=== PATIENT | female | born 1945 | race Caucasian/White ===

== ENCOUNTER → 2017-03-12 | Outpatient (CLI) | payer MEDICARE, BC ==
--- NOTE | 2017-03-13 08:32 | BD ---
EXAMINATION TYPE: MG DEXA axial skeleton. DATE OF EXAM: 03/12/2017 2:17 PM COMPARISON: 2014 CLINICAL HISTORY: screening for osteoporosis Height: 5'2 Weight: 269 FRAX RISK QUESTIONS: Alcohol (3 or more units per day): no Family History (Parent hip fracture): no Glucocorticoids (More than 3mos): no (Ex: prednisone, prednisolone, methylprednisolone, dexamethasone, and hydrocortisone). History of Fracture in Adulthood: no Secondary Osteoporosis: 1. Type 1 Diabetes: no 2. Hyperthyroidism: no 3. Menopause before 45: yes 4. Malnutrition: no 5. Chronic liver disease: no Rheumatoid Arthritis: no Current Tobacco Use: no RISK FACTORS HISTORY OF: Active: Diet low in dairy products/other sources of calcium: Postmenopausal woman: MEDICATIONS: Thyroid Medications: Which medication: Levothyroxine How Lon years Additional Medications: blood pressure, tremors Additional History: EXAM MEASUREMENTS: Bone mineral densitometry was performed using the [employer] System. Bone mineral density as measured about the Lumbar spine is: ----- L1-L4(G/cm2): 2.014 T Score Values are as follows: ----- L2: 5.5 ----- L3: 7.6 ----- L4: 8.1 ----- L1-L4: 7.0 Bone mineral density has: Decreased -1.3% since study of: 08/12/2015 Bone mineral density about the R hip (g/cm2): 1.321 Bone mineral density about the L hip (g/cm2): 1.395 T Score values are as follows: -----R Neck: 2.0 -----L Neck: 2.6 -----R Intertrochanter: 2.6 -----L Intertrochanter: 3.2 Bone mineral density has: Increased 4.8% since study of: 08/12/2015 IMPRESSION: No evidence for osteoporosis or osteopenia at this time. NOTE: T-SCORE=SD OF THE YOUNG ADULT MEAN.
--- NOTE | 2017-03-13 10:26 | MM ---
Reason for exam: screening (asymptomatic). Last mammogram was performed 1 year and 2 months ago. History: Patient is postmenopausal. Family history of premenopausal breast cancer in sister at age 30 and breast cancer in maternal grandmother. Benign left US cyst aspiration of the left breast, February 14, 2006. Benign stereotactic core biopsy of the right breast, June 22, 2002. Benign excisional biopsy, August 31, 1997. Physical Findings: A clinical breast exam by your physician is recommended on an annual basis and results should be correlated with mammographic findings. MG 3D Screening Mammo W/Cad Bilateral CC and MLO view(s) were taken. Prior study comparison: January 10, 2016, bilateral MG 3d screening mammo w/cad. December 07, 2014, bilateral MG screening mammo w CAD. November 19, 2013, bilateral digital screening mammo w/CAD. There are scattered fibroglandular densities. Finding: There are typically benign round calcifications in both breasts. Previous mammotome biopsy in the right and left breast. There is a chronic nodularity bilaterally. There is no discrete abnormality. ASSESSMENT: Benign, BI-RAD 2 RECOMMENDATION: Routine screening mammogram of both breasts in 1 year.
== END | disposition home or self-care (01) ==
LOC: RADMAMWWP 13:31
PROVIDERS: ATTEND Family Medicine
DX: Z12.31 Encounter for screening mammogram for malignant neoplasm of breast (principal); Z13.820 Encounter for screening for osteoporosis
CPT/HCPCS: 77080; 77063; G0202

== ENCOUNTER → 2018-03-28 | Outpatient (CLI) | payer MEDICARE ==
--- NOTE | 2018-03-31 08:47 | MM ---
Reason for exam: screening (asymptomatic). Last mammogram was performed 1 year and 1 month ago. History: Patient is postmenopausal. Family history of premenopausal breast cancer in sister at age 30 and breast cancer in maternal grandmother. Benign left US cyst aspiration of the left breast, February 14, 2006. Benign stereotactic core biopsy of the right breast, June 22, 2002. Benign excisional biopsy, August 31, 1997. Physical Findings: A clinical breast exam by your physician is recommended on an annual basis and results should be correlated with mammographic findings. MG 3D Screening Mammo W/Cad Bilateral CC and MLO view(s) were taken. Prior study comparison: March 12, 2017, bilateral MG 3d screening mammo w/cad. January 10, 2016, bilateral MG 3d screening mammo w/cad. The breast tissue is heterogeneously dense. This may lower the sensitivity of mammography. Finding: Architectural distortion in the left breast consistent with known lumpectomy. There are typically benign round dystrophic calcifications in both breasts. Previous mammotome biopsy in the left breast. There is a chronic nodularity in the right breast. There is no discrete abnormality. ASSESSMENT: Benign, BI-RAD 2 RECOMMENDATION: Routine screening mammogram of both breasts in 1 year.
== END | disposition home or self-care (01) ==
LOC: RADMAMWWP 13:13
PROVIDERS: ATTEND Family Medicine
DX: Z12.31 Encounter for screening mammogram for malignant neoplasm of breast (principal)
CPT/HCPCS: 77063; 77067

== ENCOUNTER → 2019-04-16 | Outpatient (CLI) | payer MEDICARE ==
--- NOTE | 2019-04-17 08:51 | MM ---
Reason for exam: screening (asymptomatic). Last mammogram was performed 1 year and 1 month ago. History: Patient is postmenopausal. Family history of premenopausal breast cancer in sister at age 30 and breast cancer in maternal grandmother. Benign left US cyst aspiration of the left breast, February 14, 2006. Benign stereotactic core biopsy of the right breast, June 22, 2002. Benign excisional biopsy, August 31, 1997. Physical Findings: A clinical breast exam by your physician is recommended on an annual basis and results should be correlated with mammographic findings. MG 3D Screening Mammo W/Cad Bilateral CC and MLO view(s) were taken. XCCL view(s) were taken of the right breast. Prior study comparison: March 28, 2018, bilateral MG 3d screening mammo w/cad. March 12, 2017, bilateral MG 3d screening mammo w/cad. The breast tissue is heterogeneously dense. This may lower the sensitivity of mammography. Stable benign calcifications. There is no discrete abnormality. No significant changes when compared with prior studies. ASSESSMENT: Benign, BI-RAD 2 RECOMMENDATION: Routine screening mammogram of both breasts in 1 year.
== END | disposition home or self-care (01) ==
LOC: RADMAMWWP 14:26
PROVIDERS: ATTEND Family Medicine
DX: Z12.31 Encounter for screening mammogram for malignant neoplasm of breast (principal)
CPT/HCPCS: 77063; 77067

== ENCOUNTER → 2019-08-28 | Outpatient (CLI) | payer MEDICARE ==
--- NOTE | 2019-08-28 13:54 | BD ---
EXAMINATION TYPE: Axial Bone Density DATE OF EXAM: 08/28/2019 COMPARISON: 03/12/2017 CLINICAL HISTORY: Z 78.0 Height: 61.50 Weight: 242 FRAX RISK QUESTIONS: Alcohol (3 or more units per day): no Family History (Parent hip fracture): no Glucocorticoids (More than 3mos): no (Ex: prednisone, prednisolone, methylprednisolone, dexamethasone, and hydrocortisone). History of Fracture in Adulthood: no Secondary Osteoporosis: 1. Type 1 Diabetes: no 2. Hyperthyroidism: no 3. Menopause before 45: no, 47 4. Malnutrition: no 5. Chronic liver disease: no Rheumatoid Arthritis: no Current Tobacco Use: no RISK FACTORS HISTORY OF: Family History of Osteoporosis: unsure Active: yes Diet low in dairy products/other sources of calcium: yes Postmenopausal woman: yes Take estrogen and/or progesterone medications: no Lost more than 2 inches in height since high school: no Frequent falls: no Poor Health: no Hyperparathyroidism: no Adrenal Insufficiency: no MEDICATIONS: Prednisone or other steroids: no Thyroid Medications: yes Which medication: unsure, changed med, was on Levothyroxine How Long: about 25 years Osteoporosis Medications: no Additional Medications: blood pressure , Symbicort Additional History: bilateral knee replacements EXAM MEASUREMENTS: Bone mineral densitometry was performed using the [employer] System. Bone mineral density as measured about the Lumbar spine is: ----- L1-L4(G/cm2): 2.046 T Score Values are as follows: ----- L2: 5.8 ----- L3: 8.6 ----- L4: 7.6 ----- L1-L4: 7.2 Bone mineral density has: Increased 1.8% since study of: 03/12/2017 Bone mineral density about the R hip (g/cm2): 1.444 Bone mineral density about the L hip (g/cm2): 1.326 T Score values are as follows: -----R Neck: 2.9 -----L Neck: 2.1 -----R Total: 3.5 -----L Total: 3.4 Bone mineral density has: Decreased -0.5% since study of: 03/12/2017 IMPRESSION: Normal (Values between +1 and -1 indicate normal bone mass). Consider repeating this study in 5 year s or sooner if there is some new clinical indication. NOTE: T-SCORE=SD OF THE YOUNG ADULT MEAN.
== END | disposition home or self-care (01) ==
LOC: RADBDWWP 10:06
PROVIDERS: ATTEND Family Medicine
DX: Z78.0 Asymptomatic menopausal state (principal); E55.9 Vitamin D deficiency, unspecified
CPT/HCPCS: 77080

== ENCOUNTER → 2020-08-15 | Outpatient (CLI) | payer MEDICARE ==
--- NOTE | 2020-08-17 09:45 | MM ---
Reason for exam: screening (asymptomatic). Last mammogram was performed 1 year and 4 months ago. History: Patient is postmenopausal. Family history of premenopausal breast cancer in sister at age 30 and breast cancer in maternal grandmother. Benign left US cyst aspiration of the left breast, February 14, 2006. Benign stereotactic core biopsy of the right breast, June 22, 2002. Benign excisional biopsy, August 31, 1997. Physical Findings: A clinical breast exam by your physician is recommended on an annual basis and results should be correlated with mammographic findings. MG 3D Screening Mammo W/Cad Bilateral CC and MLO view(s) were taken. Prior study comparison: April 16, 2019, bilateral MG 3d screening mammo w/cad. March 28, 2018, bilateral MG 3d screening mammo w/cad. There are scattered fibroglandular densities. Previous mammotome biopsy in the left breast. No significant changes when compared with prior studies. ASSESSMENT: Benign, BI-RAD 2 RECOMMENDATION: Routine screening mammogram of both breasts in 1 year.
== END | disposition home or self-care (01) ==
LOC: RADMAMWWP 13:44
PROVIDERS: ATTEND Family Medicine
DX: Z12.31 Encounter for screening mammogram for malignant neoplasm of breast (principal)
CPT/HCPCS: 77063; 77067

== ENCOUNTER → 2021-10-16 | Outpatient (CLI) | payer MEDICARE ==
--- NOTE | 2021-10-17 12:45 | MM ---
Reason for exam: screening (asymptomatic). Last mammogram was performed 1 year and 2 months ago. History: Patient is postmenopausal. Family history of premenopausal breast cancer in sister at age 30 and breast cancer in maternal grandmother. Benign left US cyst aspiration of the left breast, February 14, 2006. Benign stereotactic core biopsy of the right breast, June 22, 2002. Benign excisional biopsy, August 31, 1997. Took hormonal contraceptives for 5 years. Physical Findings: A clinical breast exam by your physician is recommended on an annual basis and results should be correlated with mammographic findings. MG 3D Screening Mammo W/Cad Bilateral CC and MLO view(s) were taken. Prior study comparison: August 15, 2020, bilateral MG 3d screening mammo w/cad. April 16, 2019, bilateral MG 3d screening mammo w/cad. The breast tissue is heterogeneously dense. This may lower the sensitivity of mammography. Stable benign calcifications. There is no discrete abnormality. No significant changes when compared with prior studies. ASSESSMENT: Benign, BI-RAD 2 RECOMMENDATION: Routine screening mammogram of both breasts in 1 year.
== END | disposition home or self-care (01) ==
LOC: RADMAMWWP 15:10
PROVIDERS: ATTEND Family Medicine
DX: Z12.31 Encounter for screening mammogram for malignant neoplasm of breast (principal); Z80.3 Family history of malignant neoplasm of breast; Z78.0 Asymptomatic menopausal state; R92.1 Mammographic calcification found on diagnostic imaging of breast
CPT/HCPCS: 77063; 77067

== ENCOUNTER → 2022-11-30 | Outpatient (CLI) | payer MEDICARE ==
--- NOTE | 2022-12-03 08:11 | MM ---
Reason for Exam: Screening (asymptomatic). Last mammogram was performed 1 year(s) and 2 month(s) ago. Patient History: Menarche at age 12. First Full-Term at age 20. Hysterectomy at age 36. Postmenopausal. Patient used Hormonal Contraceptives for 5 years. 02/14/2006, Benign Cyst Aspiration on the left side. 06/22/2002, Benign Stereotactic Core Biopsy on the right side. Benign Excisional Biopsy. Maternal grandmother had breast cancer. Sister had breast cancer, age 30. Risk Values: Corinna 5 year model risk: 5.4%. NCI Lifetime model risk: 10.6%. Prior Study Comparison: 04/16/2019 Bilateral Screening Mammogram, [facility]. 08/15/2020 Bilateral Screening Mammogram, [facility]. 10/16/2021 Bilateral Screening Mammogram, [facility]. Tissue Density: The breast tissue is heterogeneously dense. This may lower the sensitivity of mammography. Findings: Analyzed By CAD. There is no suspicious group of microcalcifications or new suspicious mass in either breast. Overall Assessment: Negative, BI-RAD 1 Management: Screening Mammogram of both breasts in 1 year. A clinical breast exam by your physician is recommended on an annual basis and results should be correlated with mammographic findings. [facility] will attempt to contact patient to return for supplemental views and ultrasound if indicated. Electronically signed and approved by: Dashawn Warner DO
== END | disposition home or self-care (01) ==
LOC: RADMAMWWP 14:09
PROVIDERS: ATTEND Family Medicine
DX: Z12.31 Encounter for screening mammogram for malignant neoplasm of breast (principal); Z78.0 Asymptomatic menopausal state; Z80.3 Family history of malignant neoplasm of breast; Z98.890 Other specified postprocedural states
CPT/HCPCS: 77063; 77067

== ENCOUNTER 2024-02-26 17:02 | Emergency (ER) | payer MEDICARE ==
[2024-02-26] MEDS: DIPH,PERTUS(ACELL)TETVAC-LF 0.5 ML VIAL IM ONE (17:31)
[2024-02-26] MEDS: BACITRACIN OINT 1 EACH PACKET TOPICAL ONE (17:32)
[2024-02-26 17:40] VITALS: TEMP 97.6
--- NOTE | 2024-02-26 17:47 | CT ---
EXAMINATION TYPE: CT brain cspine wo con CT DLP: 1360.7 mGycm, Automated exposure control for dose reduction was used. DATE OF EXAM: 02/26/2024 5:35 PM COMPARISON: None. CLINICAL INDICATION:Female, 78 years old with history of fall on eliquis; Fall on eliquis. TECHNIQUE: Brain: Multiple axial CT images of the brain were obtained without IV contrast. Cspine: Axial CT images from the skull base to the inferior aspect of T2 we obtained without intraven ous contrast. Coronal and sagittal reformatted images were also reviewed. FINDINGS: Brain: Extra-axial spaces: No abnormal extra-axial fluid collections. Ventricular system: Within normal limits Cerebral parenchyma: No acute intraparenchymal hemorrhage or mass effect. The disla-white junction is well differentiated. Cerebellum: Unremarkable. Mass effect: No evidence of midline shift. Intracranial vasculature: unremarkable Soft tissues: Normal. Calvarium/osseous structures: No depressed skull fracture. Paranasal sinuses and mastoid air cells: Complete opacification of the paranasal sinuses most pronoun felice in the frontal, maxillary, sphenoid and anterior ethmoid air cells. Visualized orbits: Orbital contents are intact. Cervical spine: Fracture: None. Osseous structures: Multilevel degenerative disc disease changes with endplate spurring and disc oste ophyte complex's. Vertebral alignment: Within normal limits. Spinal canal/Neural Foramina: No evidence of significant spinal canal narrowing. No evidence for sign ificant neural foraminal stenosis. Neck soft tissues: Prevertebral soft tissues are within normal limits. Other: The airway is patent. The lung apices are clear. IMPRESSION: 1. No acute intracranial process. 2. Severe paranasal sinus disease with near complete opacification of the maxillary sinuses, sphenoi d, ethmoid air cells and frontal sinuses. 3. No evidence of cervical spine fracture. 4. Mild multilevel degenerative disc disease.
--- NOTE | 2024-02-26 17:51 | ED ---
Fall HPI - General Chief Complaint: Fall Stated Complaint: Fall Time Seen by Provider: 02/26/24 17:03 Source: patient, RN notes reviewed Mode of arrival: ambulatory Limitations: no limitations - History of Present Illness Initial Comments: 78 female presents emergency department chief complaint of a fall. Patient states she lost her balance and fell forward. She states she tried to catch herself of the table but caught her neck. She has an abrasion on her neck she states she is on Eliquis for A-fib. Patient states that she has mild discomfort she is unsure when her last tetanus was. Patient denies any fevers or chills no chest pain or shortness of breath. Patient states she was able to ambulate with assistance. - Related Data Home Medications Medication Instructions Recorded Confirmed Aclidinium [place] [Tudorza 1 puff INHALATION BID 06/20/15 06/22/15 Pressair] Albuterol Sulfate [Proair Hfa] 1 - 2 puff INHALATION QID PRN 06/20/15 06/22/15 Aspirin 81 mg PO DAILY 06/20/15 06/22/15 Golden Cit/Mag/D3/Zn/Machinist Supervisor/Thanh/Bor 1 each PO BID 06/20/15 06/22/15 [Citracal-Vit D + Magnesium Tab] Candesartan/Hydrochlorothiazid 2 each PO QAM 06/20/15 06/22/15 [Candesartan-Hctz 16-12.5 mg Tb] Clotrimazole/Betameth Cream 1 applic TOPICAL DAILY 06/20/15 06/22/15 [Lotrisone] Desonide(Dose Unknown) 1 applicate TOPICAL BID PRN 06/20/15 06/22/15 Estrogens, Conjugated Cream 1 applicator VAGINAL MOWEFR 06/20/15 06/22/15 [Premarin Cream] Ferrous Sulfate [Feosol] 325 mg PO DAILY 06/20/15 06/22/15 L.acidoph,Paracasei, B.lactis 1 each PO DAILY 06/20/15 06/22/15 [Probiotic] Levothyroxine Sodium [Levoxyl] 175 mcg PO DAILY 06/20/15 06/22/15 Naproxen Sodium [Aleve] 220 mg PO Q12HR 06/20/15 06/22/15 Propranolol HCl 80 mg PO QAM 06/20/15 06/22/15 Allergies Allergy/AdvReac Type Severity Reaction Status Date / Time IGNACIO Inhibitors AdvReac Dyspnea Verified 02/26/24 17:11 aclidinium AdvReac Dyspnea Verified 02/26/24 17:11 [From Tudorza Pressair] amlodipine [From Norvasc] AdvReac Dyspnea Verified 02/26/24 17:11 rosuvastatin [From Crestor] AdvReac Dyspnea Verified 02/26/24 17:11 Review of Systems ROS Statement: Those systems with pertinent positive or pertinent negative responses have been documented in the HPI. ROS Other: All systems not noted in ROS Statement are negative. Past Medical History Past Medical History: Atrial Fibrillation History of Any Multi-Drug Resistant Organisms: None Reported Past Psychological History: No Psychological Hx Reported Smoking Status: Never smoker Past Alcohol Use History: None Reported Past Drug Use History: None Reported General Exam Limitations: no limitations General appearance: alert, in no apparent distress Head exam: Present: atraumatic, normocephalic, normal inspection Eye exam: Present: normal appearance, PERRL, EOMI. Absent: scleral icterus, conjunctival injection, periorbital swelling ENT exam: Present: normal exam, mucous membranes moist Neck exam: Present: full ROM. Absent: normal inspection (Anterior right side neck abrasion), tenderness, meningismus, lymphadenopathy Respiratory exam: Present: normal lung sounds bilaterally. Absent: respiratory distress, wheezes, rales, rhonchi, stridor Cardiovascular Exam: Present: regular rate, normal rhythm, normal heart sounds. Absent: systolic murmur, diastolic murmur, rubs, gallop, clicks Extremities exam: Present: normal inspection, full ROM, normal capillary refill. Absent: tenderness, pedal edema, joint swelling, calf tenderness Neurological exam: Present: alert, oriented X3, CN II-XII intact, reflexes norm al. Absent: motor sensory deficit Course Vital Signs 02/26/24 17:04 Temperature 97.6 F Pulse Rate 98 Respiratory 20 Rate Blood Pressure 131/58 O2 Sat by Pulse 98 Oximetry Medical Decision Making - Medical Decision Making Was pt. sent in by a medical professional or institution (, PA, LUNCHROOM WORKER, urgent care, hospital, or residential...) When possible be specific @ -No Did you speak to anyone other than the patient for history (EMS, parent, family, police, friend...)? What history was obtained from this source @ -No Did you review nursing and triage notes (agree or disagree)? Why? @ -I reviewed and agree with nursing and triage notes Were old charts reviewed (outside hosp., previous admission, EMS record, old EKG, old radiological studies, urgent care reports/EKG's, residential records)? Report findings @ -No old charts were reviewed Differential Diagnosis (chest pain, altered mental status, abdominal pain women, abdominal pain men, vaginal bleeding, weakness, fever, dyspnea, syncope, headache, dizziness, GI bleed, back pain, seizure, CVA, palpatations, mental health, musculoskeletal)? @ -Closed head injury, cervical fracture, intracranial hemorrhage, cervical strain EKG interpreted by me (3pts min.). @ -None X-rays interpreted by me (1pt min.). @ -None done CT interpreted by me (1pt min.). @ -CT brain, C-spine showing no acute intracranial hemorrhage, mass effect no cervical fracture. U/S interpreted by me (1pt. min.). @ -None done What testing was considered but not performed or refused? (CT, X-rays, U/S, labs)? Why? @ -None What meds were considered but not given or refused? Why? @ -None Did you discuss the management of the patient with other professionals (professionals i.e. , PA, LUNCHROOM WORKER, lab, RT, psych nurse, forensic social worker, lapping machine operator, teacher, loan officer assistant, case advocate)? Give summary @ -No Was smoking cessation discussed for >3mins.? @ -No Was critical care preformed (if so, how long)? @ -No Were there social determinants of health that impacted care today? How? (Homelessness, low income, unemployed, alcoholism, drug addiction, transportat ion, low edu. Level, literacy, decrease access to med. care, skilled nursing, rehab)? @ -No Was there de-escalation of care discussed even if they declined (Discuss DNR or withdrawal of care, Hospice)? DNR status @ -No What co-morbidities impacted this encounter? (DM, HTN, Smoking, COPD, CAD, Cancer, CVA, ARF, Chemo, Hep., AIDS, mental health diagnosis, sleep apnea, morbid obesity)? @ -None Was patient admitted / discharged? Hospital course, mention meds given and route, prescriptions, significant lab abnormalities, going to OR and other pertinent info. @ -[Discharge patient CT was performed secondary to blood thinners, trauma. Patient CT is unremarkable patient does have an abrasion on her neck in which tetanus updated, bacitracin was applied. Patient discharged in stable condition Undiagnosed new problem with uncertain prognosis? @ -No Drug Therapy requiring intensive monitoring for toxicity (Heparin, Nitro, Insulin, Cardizem)? @ -No Were any procedures done? @ -No Diagnosis/symptom? @ -Neck abrasion, head injury Acute, or Chronic, or Acute on Chronic? @ -Acute Uncomplicated (without systemic symptoms) or Complicated (systemic symptoms)? @ -uncomplicated Side effects of treatment? @ -No Exacerbation, Progression, or Severe Exacerbation? @ -No Poses a threat to life or bodily function? How? (Chest pain, [place], [place], pneumonia, PE, COPD, DKA, ARF, appy, cholecystitis, CVA, Diverticulitis, Homicidal, Suicidal, threat to staff... and all critical care pts) @ -No Disposition Clinical Impression: Fall, Neck abrasion, Closed head injury Disposition: HOME SELF-CARE Condition: Stable Instructions (If sedation given, give patient instructions): Abrasion (ED) Additional Instructions: Please return to the Emergency Department if symptoms worsen or any other concerns. Is patient prescribed a controlled substance at d/c from ED?: No Referrals: Carole Dueñas DO [Primary Care Provider] - 1-2 days Time of Disposition: 17:58
[2024-02-26 18:18] VITALS: BP 136/78; PULSE 76; RESP 18
== END 2024-02-26 18:17 | disposition home or self-care (01) ==
LOC: EC 17:02
DX: S10.91XA Abrasion of unspecified part of neck, initial encounter (principal); S09.90XA Unspecified injury of head, initial encounter; I48.91 Unspecified atrial fibrillation; Z79.01 Long term (current) use of anticoagulants; Z23 Encounter for immunization; Z88.8 Allergy status to other drugs, medicaments and biological substances; W01.190A Fall on same level from slipping, tripping and stumbling with subsequent striking against furniture, initial encounter; Y92.009 Unspecified place in unspecified non-institutional (private) residence as the place of occurrence of the external cause
CPT/HCPCS: 70450; 72125; 90471; 90715; 99284

== ENCOUNTER 2024-07-18 15:50 | Emergency (ER) | payer MEDICARE ==
--- NOTE | 2024-08-13 08:42 | US ---
Report Patient: Marlys Roger Ordering Physician: Unknown, Unknown ID: [id number] Phone, Pager: Phone: N/A Pager: N/A : [phone] Age/Gender: 78Y, F Primary Location: N/A Procedure: US venous doppler duplex LE RT Study Date: 07/18/2024 5:23:00 PM EXAMINATION TYPE: US venous doppler duplex LE RT DATE OF EXAM: 07/18/2024 6:14 PM COMPARISON: NONE CLINICAL INDICATION: 78-year-old female pain and swelling for 5 days, patient on Eliquis. SIDE PERFORMED: Right TECHNIQUE: The lower extremity deep venous system is examined utilizing real time linear array sonog mariela with graded compression, doppler sonography and color-flow sonography. VESSELS IMAGED: Common Femoral Vein Deep Femoral Vein Greater Saphenous Vein * Femoral Vein Popliteal Vein Small Saphenous Vein * Proximal Calf Veins Posterior tibial veins Peroneal veins (* superficial vessels) Grayscale, color doppler, spectral doppler imaging performed of the deep veins of the lower extremiti es. There is normal flow, compressibility, vascular waveforms. Right Leg: Negative for DVT Additional vice president process notes: Possible superficial vein thrombosis versus fluid collection seen poste rior right knee. Area measures 1.8 x 0.9 x 0.7 cm. This area measures approximately 2.2 cm from deep venous system. Area most likely appears to be superficial thrombus. Right calf edema noted. Additional prominent subcutaneous edema along the medial aspect of the ankle at the site of redness. IMPRESSION: 1. No evidence for DVT within the right lower extremity. 2. Possible small area of focal SVT posterior to the knee versus a small fluid collection such as a B bonita's cyst. Consider short interval follow-up to reassess. 3. Prominent subcutaneous edema at the calf and ankle. Particularly at the medial ankle at the site o f redness.
== END 2024-07-18 18:03 | disposition home or self-care (01) ==
LOC: EC 15:50
DX: M79.89 Other specified soft tissue disorders (principal)
CPT/HCPCS: 99283

== ENCOUNTER → 2024-09-03 | Outpatient (CLI) | payer MEDICARE ==
--- NOTE | 2024-09-03 14:39 | BD ---
EXAMINATION TYPE: Axial Bone Density DATE OF EXAM: 09/03/2024 CLINICAL HISTORY: 79 years old Female. ICD-10 CODE: z78.0 post menopausal Height: 57.5 Weight: 192 FRAX RISK QUESTIONS: Glucocorticoids (More than 3mos): yes, for copd, symbicort and inhalers (Ex: prednisone, prednisolone, methylprednisolone, dexamethasone, and hydrocortisone). RISK FACTORS HISTORY OF: height loss, bilat TKRs, osteoarthritis MEDICATIONS: bp meds, vit d, heart meds, Thyroid Medications: yes, synthroid for 30 yrs EXAM MEASUREMENTS: Bone mineral densitometry was performed using the [employer] 24 System. Bone mineral density as measured about the Lumbar spine is: ----- L1-L4(G/cm2): 2.177 T Score Values are as follows: ----- L1: 6.6 ----- L2: 7.4 ----- L3: 9.3 ----- L4: 9.3 ----- L1-L4: 8.3 Z Score Values are as follows: ----- L1: 7.7 ----- L2: 8.5 ----- L3: 10.3 ----- L4: 10.4 ----- L1-L4: 9.4 Bone mineral density has: Increased 6.4% since study of: 08.28.2019 Bone mineral density about the R hip (g/cm2): 1.302 Bone mineral density about the L hip (g/cm2): 1.325 T Score values are as follows: -----R Neck: 1.8 -----L Neck: 1.5 -----R Total: 2.3 -----L Total: 2.5 Z Score values are as follows: -----R Neck: 3.3 -----L Neck: 3.0 -----R Total: 3.7 -----L Total: 3.9 Bone mineral density has: Decreased -9.1% since study of: 08.28.2019 FRAX%s: The graph provided illustrates a 7.9% chance for a major osteoporotic fx and a 0.4% chance fo r the hips probability for fx in 10 years time. IMPRESSION: Normal (Values between +1 and -1 indicate normal bone mass). Consider repeating this study in 5 year s or sooner if there is some new clinical indication. NOTE: T-SCORE=SD OF THE YOUNG ADULT MEAN. [facility], , 09/03/2024 2:36 PM
--- NOTE | 2024-09-07 09:13 | MM ---
Reason for Exam: Screening (asymptomatic). Last mammogram was performed 1 year(s) and 9 month(s) ago. Patient History: Menarche at age 12. First Full-Term at age 20. Hysterectomy at age 36. Postmenopausal. Patient used Hormonal Contraceptives for 5 years. 02/14/2006, Benign Cyst Aspiration on the left side. 06/22/2002, Benign Stereotactic Core Biopsy on the right side. Benign Excisional Biopsy. Maternal grandmother had breast cancer. Sister had breast cancer, age 30. Risk Values: Corinna 5 year model risk: 5.2%. NCI Lifetime model risk: 9.2%. Prior Study Comparison: 08/15/2020 Bilateral Screening Mammogram, [facility]. 10/16/2021 Bilateral Screening Mammogram, [facility]. 11/30/2022 Bilateral MG 3D screening mammo w/cad, [facility]. Tissue Density: The breasts are almost entirely fatty. Findings: Analyzed By CAD. Bilateral breast biopsy clips. Right breast: There is no suspicious group of microcalcifications or new suspicious mass. Benign-appearing calcifications right breast. Left breast: There is no suspicious group of microcalcifications or new suspicious mass. Benign-appearing calcifications left breast. Overall Assessment: Benign, BI-RAD 2 Management: Screening Mammogram of both breasts in [address] [facility] will attempt to contact patient to return for supplemental views and ultrasound if indicated. Patient should continue monthly self-breast exams. A clinical breast exam by your physician is recommended on an annual basis. This exam should not preclude additional follow-up of suspicious palpable abnormalities. Note on Corinna scores and lifetime risk: 1. A Corinna score greater than 3% is considered moderate risk. If this is the case, consider specialist referral to assess eligibility for a risk reducing agent. 2. If overall lifetime risk for the development of breast cancer is 20% or higher, the patient may qualify for future screening with alternating mammogram and breast MRI. [facility], , 09/07/2024 9:10 AM. Electronically signed and approved by: Dashawn Warner DO
== END | disposition home or self-care (01) ==
LOC: RADMAMWWP 12:24
PROVIDERS: ATTEND Family Medicine
CPT/HCPCS: 77063; 77067; 77080

== ENCOUNTER 2025-02-24 16:41 | Emergency (ER) | payer MEDICARE ==
--- NOTE | 2025-02-24 18:11 | ED ---
General Adult HPI - General Chief complaint: Extremity Problem,Nontraumatic Stated complaint: left leg swelling Time Seen by Provider: 02/24/25 17:48 Source: patient, RN notes reviewed Mode of arrival: wheelchair Limitations: no limitations - History of Present Illness Initial comments: 79-year-old female presents to the emergency department for evaluation of left lower extremity pain. Patient states that she was on her wheelchair lift 2 days ago and the power went out. She states that she had to slide down off of the chair and the back of her legs rubbed on the chair. She states that since then she has had pain in bilateral calves. The pain is worse on the left. She does note some discoloration to the left leg. She is able to ambulate with her cane. Denies any chest pain, shortness of breath, fever, chills. She is on Eliquis and she has not missed any doses of this medication. - Related Data Home Medications Medication Instructions Recorded Confirmed Aclidinium [place] [Tudorza 1 puff INHALATION BID 06/20/15 06/22/15 Pressair] Albuterol Sulfate [Proair Hfa] 1 - 2 puff INHALATION QID PRN 06/20/15 06/22/15 Aspirin 81 mg PO DAILY 06/20/15 06/22/15 Golden Cit/Mag/D3/Zn/Rag Grader/Thanh/Bor 1 each PO BID 06/20/15 06/22/15 [Citracal-Vit D + Magnesium Tab] Candesartan/Hydrochlorothiazid 2 each PO QAM 06/20/15 06/22/15 [Candesartan-Hctz 16-12.5 mg Tb] Clotrimazole/Betameth Cream 1 applic TOPICAL DAILY 06/20/15 06/22/15 [Lotrisone] Desonide(Dose Unknown) 1 applicate TOPICAL BID PRN 06/20/15 06/22/15 Estrogens, Conjugated Cream 1 applicator VAGINAL MOWEFR 06/20/15 06/22/15 [Premarin Cream] Ferrous Sulfate [Feosol] 325 mg PO DAILY 06/20/15 06/22/15 L.acidoph,Paracasei, B.lactis 1 each PO DAILY 06/20/15 06/22/15 [Probiotic] Levothyroxine Sodium [Levoxyl] 175 mcg PO DAILY 06/20/15 06/22/15 Naproxen Sodium [Aleve] 220 mg PO Q12HR 06/20/15 06/22/15 Propranolol HCl 80 mg PO QAM 06/20/15 06/22/15 Allergies Allergy/AdvReac Type Severity Reaction Status Date / Time SADI Inhibitors AdvReac Dyspnea Verified 02/24/25 16:48 aclidinium AdvReac Dyspnea Verified 02/24/25 16:48 [From Tudorza Pressair] amlodipine [From Norvasc] AdvReac Dyspnea Verified 02/24/25 16:48 rosuvastatin [From Crestor] AdvReac Dyspnea Verified 02/24/25 16:48 Review of Systems ROS Statement: Those systems with pertinent positive or pertinent negative responses have been documented in the HPI. ROS Other: All systems not noted in ROS Statement are negative. Past Medical History Past Medical History: Atrial Fibrillation History of Any Multi-Drug Resistant Organisms: None Reported Past Surgical History: Bowel Resection, Cholecystectomy, Hernia Repair, Hysterectomy, Orthopedic Surgery Past Psychological History: No Psychological Hx Reported Smoking Status: Never smoker Past Alcohol Use History: None Reported Past Drug Use History: None Reported General Exam Limitations: no limitations General appearance: alert, in no apparent distress Head exam: Present: atraumatic, normocephalic, normal inspection Eye exam: Present: normal appearance, PERRL, EOMI. Absent: scleral icterus, conjunctival injection, periorbital swelling ENT exam: Present: normal exam, mucous membranes moist Neck exam: Present: normal inspection. Absent: tenderness, meningismus, lymphadenopathy Respiratory exam: Present: normal lung sounds bilaterally. Absent: respiratory distress, wheezes, rales, rhonchi, stridor Cardiovascular Exam: Present: regular rate, normal rhythm, normal heart sounds. Absent: systolic murmur, diastolic murmur, rubs, gallop, clicks Extremities exam: Present: full ROM, normal capillary refill, other (DP and PT pulses 2+, hematoma to the posterior left calf, bilateral lower extremity edema). Absent: tenderness, pedal edema, joint swelling, calf tenderness Neurological exam: Present: alert, oriented X3 Psychiatric exam: Present: normal affect, normal mood Skin exam: Present: warm, dry, intact, erythema. Absent: rash Course Vital Signs 02/24/25 02/24/25 16:43 19:43 Temperature 97.3 F L 97.6 F Pulse Rate 91 89 Respiratory 18 16 Rate Blood Pressure 107/63 116/68 O2 Sat by Pulse 97 98 Oximetry Medical Decision Making - Medical Decision Making Was pt. sent in by a medical professional or institution (TELMA Scott, PANEL ASSEMBLER, urgent care, hospital, or care home...) When possible be specific @ -No Did you speak to anyone other than the patient for history (EMS, parent, family, police, friend...)? What history was obtained from this source @ -No Did you review nursing and triage notes (agree or disagree)? Why? @ -I reviewed and agree with nursing and triage notes Were old charts reviewed (outside hosp., previous admission, EMS record, old EKG, old radiological studies, urgent care reports/EKG's, care home records)? Report findings @ -No old charts were reviewed Differential Diagnosis (chest pain, altered mental status, abdominal pain women, abdominal pain men, vaginal bleeding, weakness, fever, dyspnea, syncope, headache, dizziness, GI bleed, back pain, seizure, CVA, palpatations, mental health, musculoskeletal)? @ -Differential Musculoskeletal Muscular strain, contusion, ligament sprain, fracture, arthritis, septic arthritis, bursitis, cellulitis, muscle spasm, nerve compression, DVT, arterial occlusion, herpes zoster, electrolyte abnormality, tumor.... This is not meant to be in all inclusive list EKG interpreted by me (3pts min.). @ -None X-rays interpreted by me (1pt min.). @ -None done CT interpreted by me (1pt min.). @ -None done U/S interpreted by me (1pt. min.). @ -Ultrasound of bilateral lower extremities obtained reveals no evidence of DVT within limitations of the study What testing was considered but not performed or refused? (CT, X-rays, U/S, labs)? Why? @ -None What meds were considered but not given or refused? Why? @ -None Did you discuss the management of the patient with other professionals (professionals i.e. TELMA Scott, PANEL ASSEMBLER, lab, RT, psych nurse, social media editor, bryologist, teacher, loan servicing officer, mattress spring encaser)? Give summary @ -No Was smoking cessation discussed for >3mins.? @ -No Was critical care preformed (if so, how long)? @ -No Were there social determinants of health that impacted care today? How? (Homelessness, low income, unemployed, alcoholism, drug addiction, transportation, low edu. Level, literacy, decrease access to med. care, nursing home, rehab)? @ -No Was there de-escalation of care discussed even if they declined (Discuss DNR or withdrawal of care, Hospice)? DNR status @ -No What co-morbidities impacted this encounter? (DM, HTN, Smoking, COPD, CAD, Cancer, CVA, ARF, Chemo, Hep., AIDS, mental health diagnosis, sleep apnea, morbid obesity)? @ -None Was patient admitted / discharged? Hospital course, mention meds given and route, prescriptions, significant lab abnormalities, going to OR and other pertinent info. @ -Discharged. Patient presented to the emergency department for evaluation of bilateral lower extremity pain after sliding on her chairlift. She is able to ambulate. She is distally neurovascularly intact. She has a hematoma to the posterior left thigh. Ultrasounds of bilateral lower extremities obtained revealing no evidence of DVT within the limitations of the study. An Sadi wrap was applied to the left lower extremity. Advised follow-up to her PCP. She is understanding agreeable with this plan. Patient stable at time of discharge. Case discussed with Dr. Huang. Undiagnosed new problem with uncertain prognosis? @ -No Drug Therapy requiring intensive monitoring for toxicity (Heparin, Nitro, Insulin, Cardizem)? @ -No Were any procedures done? @ -No Diagnosis/symptom? @ -Leg hematoma Acute, or Chronic, or Acute on Chronic? @ -Acute Uncomplicated (without systemic symptoms) or Complicated (systemic symptoms)? @ -Uncomplicated Side effects of treatment? @ -No Exacerbation, Progression, or Severe Exacerbation? @ -No Poses a threat to life or bodily function? How? (Chest pain, [place], [place], pneumonia, PE, COPD, DKA, ARF, appy, cholecystitis, CVA, Diverticulitis, Homicidal, Suicidal, threat to staff... and all critical care pts) @ -No Disposition Clinical Impression: Hematoma of leg Disposition: HOME SELF-CARE Condition: Stable Instructions (If sedation given, give patient instructions): Hematoma (ED) Additional Instructions: Please follow up with your primary care provider. Return to the emergency department for new or worsening symptoms. Is patient prescribed a controlled substance at d/c from ED?: No Referrals: Carole Dueñas DO [Primary Care Provider] - 1-2 days
--- NOTE | 2025-02-24 19:30 | US ---
EXAMINATION TYPE: US venous doppler duplex LE BI DATE OF EXAM: 02/24/2025 7:17 PM COMPARISON: NONE CLINICAL INDICATION: Female, 79 years old with history of swelling, pain; edema. calf swelling. Patie nt on thinners. No hx dvt, Pain TECHNIQUE: The lower extremity deep venous system is examined utilizing real time linear array sonog mariela with graded compression, color doppler sonography, and spectral doppler. SIDE PERFORMED: Bilateral FINDINGS: VESSELS IMAGED: Common Femoral Vein Deep Femoral Vein Greater Saphenous Vein * Femoral Vein Popliteal Vein Small Saphenous Vein * Proximal Calf Veins (* superficial vessels) suboptimal exam due to patient body habitus and edema Right Leg: appears negative for dvt, Color Doppler imaging shows patency of the vessels. Spectral wa veforms are within normal limits. Left Leg: appears negative for dvt, Color Doppler imaging shows patency of the vessels. Spectral wav eforms are within normal limits. IMPRESSION: Suboptimal study but no evidence for acute DVT in either lower extremity . [facility], , 02/24/2025 7:27 PM
[2025-02-24 19:47] VITALS: BP 116/68; PULSE 89; RESP 16; TEMP 97.6
== END 2025-02-24 20:12 | disposition home or self-care (01) ==
LOC: EC 16:41
DX: S70.12XA Contusion of left thigh, initial encounter (principal); Z88.8 Allergy status to other drugs, medicaments and biological substances; X50.0XXA Overexertion from strenuous movement or load, initial encounter
CPT/HCPCS: 93970; 99283

== ENCOUNTER 2025-03-07 12:32 | Emergency (ER) | payer MEDICARE ==
[2025-03-07 12:51] VITALS: RESP 20
--- NOTE | 2025-03-07 13:11 | ED ---
Female Urogenital HPI - General Chief complaint: Urogenital Stated complaint: unable to urinate Time Seen by Provider: 03/07/25 13:10 Source: patient, family, RN notes reviewed Mode of arrival: ambulatory Limitations: no limitations - History of Present Illness Initial comments: 79-year-old female presented to the ER for evaluation of urinary retention. Patient sent by urgent care. Patient reports she has not been able to urinate for over 24 hours. She states she sat on the toilet for approximately hour attempting to urinate only producing 3 drops. Patient was first evaluated urgent care today and had urinalysis completed off of 3 drops of urine, per patient. She states they were concerned of a UTI and started her on Keflex. They instructed her to come to the ER for further evaluation. She denies a history of urinary retention. She does report abdominal discomfort. She denies any constipation, diarrhea, nausea, vomiting, fevers or chills. She denies any chest pain, shortness of breath, exertional dyspnea. No other complaints. - Related Data Home Medications Medication Instructions Recorded Confirmed Aclidinium [place] [Tudorza 1 puff INHALATION BID 06/20/15 06/22/15 Pressair] Albuterol Sulfate [Proair Hfa] 1 - 2 puff INHALATION QID PRN 06/20/15 06/22/15 Aspirin 81 mg PO DAILY 06/20/15 06/22/15 Golden Cit/Mag/D3/Zn/Government Affairs Specialist/Thanh/Bor 1 each PO BID 06/20/15 06/22/15 [Citracal-Vit D + Magnesium Tab] Candesartan/Hydrochlorothiazid 2 each PO QAM 06/20/15 06/22/15 [Candesartan-Hctz 16-12.5 mg Tb] Clotrimazole/Betameth Cream 1 applic TOPICAL DAILY 06/20/15 06/22/15 [Lotrisone] Desonide(Dose Unknown) 1 applicate TOPICAL BID PRN 06/20/15 06/22/15 Estrogens, Conjugated Cream 1 applicator VAGINAL MOWEFR 06/20/15 06/22/15 [Premarin Cream] Ferrous Sulfate [Feosol] 325 mg PO DAILY 06/20/15 06/22/15 L.acidoph,Paracasei, B.lactis 1 each PO DAILY 07/27/15 07/29/15 [Probiotic] Levothyroxine Sodium [Levoxyl] 175 mcg PO DAILY 06/20/15 06/22/15 Naproxen Sodium [Aleve] 220 mg PO Q12HR 06/20/15 06/22/15 Propranolol HCl 80 mg PO QAM 06/20/15 06/22/15 Previous Rx's Medication Instructions Recorded Nystatin 100,000 Unit/gm Powd 1 applic TOPICAL BID #15 gram 03/07/25 [Mycostatin Powder] Allergies Allergy/AdvReac Type Severity Reaction Status Date / Time IGNACIO Inhibitors AdvReac Dyspnea Verified 03/07/25 12:51 aclidinium AdvReac Dyspnea Verified 03/07/25 12:51 [From Tudorza Pressair] amlodipine [From Norvasc] AdvReac Dyspnea Verified 03/07/25 12:51 rosuvastatin [From Crestor] AdvReac Dyspnea Verified 03/07/25 12:51 Review of Systems ROS Statement: Those systems with pertinent positive or pertinent negative responses have been documented in the HPI. ROS Other: All systems not noted in ROS Statement are negative. Past Medical History Past Medical History: Atrial Fibrillation, Hypertension Additional Past Medical History / Comment(s): Tremors. History of Any Multi-Drug Resistant Organisms: None Reported Past Surgical History: Bowel Resection, Cholecystectomy, Hernia Repair, Hy sterectomy, Orthopedic Surgery Past Psychological History: No Psychological Hx Reported Smoking Status: Never smoker Past Alcohol Use History: None Reported Past Drug Use History: None Reported General Exam Limitations: no limitations General appearance: alert, in no apparent distress Respiratory exam: Present: normal lung sounds bilaterally. Absent: respiratory distress, wheezes, rales, rhonchi, stridor Cardiovascular Exam: Present: regular rate, normal rhythm, normal heart sounds. Absent: systolic murmur, diastolic murmur, rubs, gallop, clicks GI/Abdominal exam: Present: soft, tenderness (lower abdomen mild rigid), normal bowel sounds Extremities exam: Present: normal inspection, full ROM, normal capillary refill, pedal edema (1+ bilateral pretibial). Absent: tenderness, joint swelling, calf tenderness Neurological exam: Present: alert, oriented X3, CN II-XII intact Skin exam: Present: warm, dry, intact, normal color, rash (Erythematous macular area with overlying white thin plaque satellite lesions present. To right groin) Course Vital Signs 03/07/25 12:48 Temperature 98.5 F Pulse Rate 87 Respiratory 20 Rate Blood Pressure 105/76 O2 Sat by Pulse 99 Oximetry - Reevaluation(s) Reevaluation #1: 03/07/25 14:13 Patient reports pretibial edema is chronic. Patient is on a diuretic and is following up with PCP and cardiology for further evaluation. Medical Decision Making - Medical Decision Making Was pt. sent in by a medical professional or institution (, PA, GENERAL MANAGER, urgent care, hospital, or prison...) When possible be specific @ -Patient sent by urgent care for further evaluation of urinary retention Did you speak to anyone other than the patient for history (EMS, parent, family, police, friend...)? What history was obtained from this source @ -Family, bedside, aiding in HPI past medical history. Did you review nursing and triage notes (agree or disagree)? Why? @ -I reviewed and agree with nursing and triage notes Were old charts reviewed (outside hosp., previous admission, EMS record, old EKG, old radiological studies, urgent care reports/EKG's, prison records)? Report findings @ -No old charts were reviewed Differential Diagnosis (chest pain, altered mental status, abdominal pain women, abdominal pain men, vaginal bleeding, weakness, fever, dyspnea, syncope, h eadache, dizziness, GI bleed, back pain, seizure, CVA, palpatations, mental health, musculoskeletal)? @ -Differential Abdominal Pain Women: Appendicitis, Cholecystitis, diverticulosis, ischemic bowel, pancreatitis, hepatitis, UTI, gastroenteritis, AAA, incarcerated hernia, bowel obstruction, constipation, inflammatory bowel, hepatitis, peptic ulcer disease, splenic infarction, perforated viscus, vulvitis, ovarian torsion, PID, kidney stone, placenta abruption, this is not meant to be an all-inclusive list] EKG interpreted by me (3pts min.). @ -None done X-rays interpreted by me (1pt min.). @ -None done CT interpreted by me (1pt min.). @ -None done U/S interpreted by me (1pt. min.). @ -None done What testing was considered but not performed or refused? (CT, X-rays, U/S, labs)? Why? @ -None What meds were considered but not given or refused? Why? @ -None Did you discuss the management of the patient with other professionals (professionals i.e. STEPHIE Scott, GENERAL MANAGER, lab, RT, psych nurse, case management social worker, hand packer/packager, teacher, liaison officer, behavioral health case manager)? Give summary @ -No Was smoking cessation discussed for >3mins.? @ -No Was critical care preformed (if so, how long)? @ -No Were there social determinants of health that impacted care today? How? (Homelessness, low income, unemployed, alcoholism, drug addiction, transportation, low edu. Level, literacy, decrease access to med. care, half-way, rehab)? @ -No Was there de-escalation of care discussed even if they declined (Discuss DNR or withdrawal of care, Hospice)? DNR status @ -No What co-morbidities impacted this encounter? (DM, HTN, Smoking, COPD, CAD, Cancer, CVA, ARF, Chemo, Hep., AIDS, mental health diagnosis, sleep apnea, morbid obesity)? @ -None Was patient admitted / discharged? Hospital course, mention meds given and r oute, prescriptions, significant lab abnormalities, going to OR and other pertinent info. @ -Discharge. 79-year-old female presented to the ER for evaluation of urinary retention. Upon rooming, history and physical exam completed. Vitals within acceptable limits. Patient no signs of acute distress nontoxic-appearing. There is lower abdominal tenderness and abdomen is mildly rigid. Bladder scan showing 470 mL postvoid. Puente catheter was then inserted with approximately 800ml pale yellow urine output. Urinalysis obtained unremarkable. Patient was discharged with Puente catheter in place and instructed to follow-up with urology, referral given. [place] care discussed. Patient reports improvement of abdominal discomfort after catheter insertion. There is a rash noted to stephie wu's right groin consistent with cutaneous tessie for which patient will be started on nystatin powder, first application in ER.I advised good hygiene and to keep area clean and dry. Strict return parameters discussed. Patient discharged stable condition with follow-up to urology and PCP. Patient verbally expressed understanding and agreement care plan. Case discussed with ED attending, Dr. Diaz. Undiagnosed new problem with uncertain prognosis? @ -No Drug Therapy requiring intensive monitoring for toxicity (Heparin, Nitro, Insulin, Cardizem)? @ -No Were any procedures done? @ -No Diagnosis/symptom? @ -Urinary retention/cutaneous tessie Acute, or Chronic, or Acute on Chronic? @ -Acute Uncomplicated (without systemic symptoms) or Complicated (systemic symptoms)? @ -Uncomplicated Side effects of treatment? @ -No Exacerbation, Progression, or Severe Exacerbation? @ -No Poses a threat to life or bodily function? How? (Chest pain, [place], [place], pneumonia, PE, COPD, DKA, ARF, appy, cholecystitis, CVA, Diverticulitis, Homicidal, Suicidal, threat to staff... and all critical care pts) @ -No - Lab Data Lab Results 03/07/25 Range/Units 13:13 Urine Color Colorless Urine Appearance Clear (Clear) Urine pH 6.5 (5.0-8.0) Ur Specific [place] 1.008 (1.001-1.035) Urine Protein Negative (Negative) Urine Glucose (UA) Negative (Negative) Urine Ketones Negative (Negative) Urine Blood Negative (Negative) Urine Nitrite Negative (Negative) Urine Bilirubin Negative (Negative) Urine Urobilinogen <2.0 (<2.0) mg/dL Ur Leukocyte Esterase Negative (Negative) Disposition Clinical Impression: Candidal skin infection, Urinary retention Disposition: HOME SELF-CARE Condition: Stable Instructions (If sedation given, give patient instructions): Puente Catheter Placement and Care (ED), Acute Urinary Retention in Women (ED), How to Change a Catheter Drainage Bag (DC) Additional Instructions: Follow-up with urology. Return to the ER for any new or worsening symptoms. Prescriptions: Nystatin 100,000 Unit/gm Powd [Mycostatin Powder] 1 applic TOPICAL BID #15 gram Is patient prescribed a controlled substance at d/c from ED?: No Referrals: Carole Dueñas DO [Primary Care Provider] - 1-2 days Moreno Mahmood MD [STAFF PHYSICIAN] - 1-2 days Time of Disposition: 13:50
[2025-03-07 13:37] LABS: Appearance,Urine Clear (Clear); Bilirubin,Urine Negative (Negative); Blood,Urine Negative (Negative); Color,Urine Colorless; Glucose,Urine (UA) Negative (Negative); Ketones,Urine Negative (Negative); Leukocyte Esterase,Urine Negative (Negative); Nitrite,Urine Negative (Negative); PH, Urine 6.5 (5.0-8.0); Protein,Urine Negative (Negative); Specific Gravity,Urine 1.008 (1.001-1.035); Urobilinogen,Urine <2.0 mg/dL (<2.0)
[2025-03-07 14:15] VITALS: BP 111/72; PULSE 84; TEMP 98.6
[2025-03-07] MEDS: NYSTATIN 100,000 UNIT/GM POWD 15 GM TOPICAL STA (14:20)
== END 2025-03-07 14:41 | disposition home or self-care (01) ==
LOC: EC 12:32
DX: R33.9 Retention of urine, unspecified (principal); B37.2 Candidiasis of skin and nail; Z88.8 Allergy status to other drugs, medicaments and biological substances
CPT/HCPCS: 51702; 51798; 81003; 99284

== ENCOUNTER 2025-03-13 08:25 | Emergency (ER) | payer MEDICARE ==
--- NOTE | 2025-03-13 09:49 | ED ---
General Adult HPI - General Chief complaint: Urogenital Stated complaint: cath issue Time Seen by Provider: 03/13/25 08:25 Source: patient, EMS, RN notes reviewed Mode of arrival: EMS Limitations: no limitations - History of Present Illness Initial comments: 79-year-old female presents to the emergency department for evaluation of bleeding around Puente catheter. Patient states that she was here about a week ago for urinary retention. A Puente catheter was placed at that time. She states that today she had a bowel movement and noticed that she had some blood that she thought was around the Puente catheter. States some discomfort in her low back which she attributes to the stretchers in the ED and ambulance. Denies fever, chills, nausea, vomiting. She is on Eliquis. - Related Data Home Medications Medication Instructions Recorded Confirmed Aclidinium [place] [Tudorza 1 puff INHALATION BID 06/20/15 06/22/15 Pressair] Albuterol Sulfate [Proair Hfa] 1 - 2 puff INHALATION QID PRN 06/20/15 06/22/15 Aspirin 81 mg PO DAILY 06/20/15 06/22/15 Golden Cit/Mag/D3/Zn/Advertising Vice President/Thanh/Bor 1 each PO BID 06/20/15 06/22/15 [Citracal-Vit D + Magnesium Tab] Candesartan/Hydrochlorothiazid 2 each PO QAM 06/20/15 06/22/15 [Candesartan-Hctz 16-12.5 mg Tb] Clotrimazole/Betameth Cream 1 applic TOPICAL DAILY 06/20/15 06/22/15 [Lotrisone] Desonide(Dose Unknown) 1 applicate TOPICAL BID PRN 06/20/15 06/22/15 Estrogens, Conjugated Cream 1 applicator VAGINAL MOWEFR 06/20/15 06/22/15 [Premarin Cream] Ferrous Sulfate [Feosol] 325 mg PO DAILY 06/20/15 06/22/15 L.acidoph,Paracasei, B.lactis 1 each PO DAILY 06/20/15 06/22/15 [Probiotic] Levothyroxine Sodium [Levoxyl] 175 mcg PO DAILY 06/20/15 06/22/15 Naproxen Sodium [Aleve] 220 mg PO Q12HR 06/20/15 06/22/15 Propranolol HCl 80 mg PO QAM 06/20/15 06/22/15 Previous Rx's Medication Instructions Recorded Nystatin 100,000 Unit/gm Powd 1 applic TOPICAL BID #15 gram 03/07/25 [Mycostatin Powder] Allergies Allergy/AdvReac Type Severity Reaction Status Date / Time IGNACIO Inhibitors AdvReac Dyspnea Verified 03/13/25 08:35 aclidinium AdvReac Dyspnea Verified 03/13/25 08:35 [From Tudorza Pressair] amlodipine [From Norvasc] AdvReac Dyspnea Verified 03/13/25 08:35 rosuvastatin [From Crestor] AdvReac Dyspnea Verified 03/13/25 08:35 Review of Systems ROS Statement: Those systems with pertinent positive or pertinent negative responses have been documented in the HPI. ROS Other: All systems not noted in ROS Statement are negative. Past Medical History Past Medical History: Atrial Fibrillation, Hypertension Additional Past Medical History / Comment(s): Tremors. History of Any Multi-Drug Resistant Organisms: None Reported Past Surgical History: Bowel Resection, Cholecystectomy, Hernia Repair, Hysterectomy, Orthopedic Surgery Past Psychological History: No Psychological Hx Reported Smoking Status: Never smoker Past Alcohol Use History: None Reported Past Drug Use History: None Reported General Exam Limitations: no limitations General appearance: alert, in no apparent distress Head exam: Present: atraumatic, normocephalic, normal inspection Eye exam: Present: normal appearance, PERRL, EOMI. Absent: scleral icterus, conjunctival injection, periorbital swelling ENT exam: Present: normal exam, mucous membranes moist Neck exam: Present: normal inspection. Absent: tenderness, meningismus, lymph adenopathy Respiratory exam: Present: normal lung sounds bilaterally. Absent: respiratory distress, wheezes, rales, rhonchi, stridor Cardiovascular Exam: Present: regular rate, normal rhythm, normal heart sounds. Absent: systolic murmur, diastolic murmur, rubs, gallop, clicks GI/Abdominal exam: Present: soft, tenderness (Right lower), normal bowel sounds. Absent: distended, guarding, rebound, rigid External exam: Present: erythema, other (Dried red blood around to the Puente catheter) Speculum exam: Present: vaginal discharge Extremities exam: Present: normal inspection, full ROM, normal capillary refill. Absent: tenderness, pedal edema, joint swelling, calf tenderness Back exam: Present: normal inspection Neurological exam: Present: alert, oriented X3 Psychiatric exam: Present: normal affect, normal mood Skin exam: Present: warm, dry, intact, normal color. Absent: rash Course Vital Signs 03/13/25 03/13/25 03/13/25 08:26 10:36 13:51 Temperature 97.8 F 97.6 F Pulse Rate 94 85 Respiratory 17 18 Rate Blood Pressure 109/72 110/67 95/70 O2 Sat by Pulse 98 100 97 Oximetry Medical Decision Making - Medical Decision Making Was pt. sent in by a medical professional or institution (, PA, CAUSTIC STRENGTH INSPECTOR, urgent care, hospital, or halfway...) When possible be specific @ -[No] Did you speak to anyone other than the patient for history (EMS, parent, family, police, friend...)? What history was obtained from this source @ -[No] Did you review nursing and triage notes (agree or disagree)? Why? @ -[I reviewed and agree with nursing and triage notes] Were old charts reviewed (outside hosp., previous admission, EMS record, old EKG, old radiological studies, urgent care reports/EKG's, halfway records)? Report findings @ -[No old charts were reviewed] Differential Diagnosis (chest pain, altered mental status, abdominal pain women, abdominal pain men, vaginal bleeding, weakness, fever, dyspnea, syncope, headache, dizziness, GI bleed, back pain, seizure, CVA, palpatations, mental health, musculoskeletal)? @ -[Differential Abdominal Pain Women: Appendicitis, Cholecystitis, diverticulosis, ischemic bowel, pancreatitis, hepatitis, UTI, gastroenteritis, AAA, incarcerated hernia, bowel obstruction, constipation, inflammatory bowel, hepatitis, peptic ulcer disease, splenic infarction, perforated viscus, vulvitis, ovarian torsion, PID, kidney stone, placenta abruption, this is not meant to be an all-inclusive list ] EKG interpreted by me (3pts min.). @ -[As above] X-rays interpreted by me (1pt min.). @ -[None done] CT interpreted by me (1pt min.). @ -[None done] U/S interpreted by me (1pt. min.). @ -[None done] What testing was considered but not performed or refused? (CT, X-rays, U/S, labs)? Why? @ -[None] What meds were considered but not given or refused? Why? @ -[None] Did you discuss the management of the patient with other professionals (professionals i.e. , PA, CAUSTIC STRENGTH INSPECTOR, lab, RT, psych nurse, social research assistant, kinesiology internship, teacher, senior vice president and chief information officer, case technician)? Give summary @ -[No] Was smoking cessation discussed for >3mins.? @ -[No] Was critical care preformed (if so, how long)? @ -[No] Were there social determinants of health that impacted care today? How? (Homelessness, low income, unemployed, alcoholism, drug addiction, transportation, low edu. Level, literacy, decrease access to med. care, [facility], rehab)? @ -[No] Was there de-escalation of care discussed even if they declined (Discuss DNR or withdrawal of care, Hospice)? DNR status @ -[No] What co-morbidities impacted this encounter? (DM, HTN, Smoking, COPD, CAD, Cancer, CVA, ARF, Chemo, Hep., AIDS, mental health diagnosis, sleep apnea, morbid obesity)? @ -[None] Was patient admitted / discharged? Hospital course, mention meds given and route, prescriptions, significant lab abnormalities, going to OR and other pertinent info. @ -[hospital course] Undiagnosed new problem with uncertain prognosis? @ -[No] Drug Therapy requiring intensive monitoring for toxicity (Heparin, Nitro, Insulin, Cardizem)? @ -[No] Were any procedures done? @ -[No] Diagnosis/symptom? @ -[default] Acute, or Chronic, or Acute on Chronic? @ -[default] Uncomplicated (without systemic symptoms) or Complicated (systemic symptoms)? @ -[default] Side effects of treatment? @ -[No] Exacerbation, Progression, or Severe Exacerbation? @ -[No] Poses a threat to life or bodily function? How? (Chest pain, [place], [place], pneumonia, PE, COPD, DKA, ARF, appy, cholecystitis, CVA, Diverticulitis, Homicidal, Suicidal, threat to staff... and all critical care pts) @ -[No] - Lab Data Result diagrams: 03/13/25 10:04 03/13/25 10:04 Lab Results 03/13/25 03/13/25 03/13/25 Range/Units 10:04 10:04 10:04 WBC 10.29 H (4.50-10.00) 10*3/uL RBC 3.75 L (4.10-5.20) 10*6/uL Hgb 10.7 L (12.0-15.0) g/dL Hct 33.3 L (37.2-46.3) % MCV 88.8 (80.0-97.0) fL MCH 28.5 (27.0-32.0) pg MCHC 32.1 (32.0-37.0) g/dL Plt Count 414 (140-440) 10*3/uL MPV 9.1 L (9.5-12.2) fL Immature Gran % (Auto) 1.3 % Neutrophils % 75.0 % Lymphocytes % 14.9 % Monocytes % 7.6 % Eosinophils % 0.9 % Basophils % 0.3 % Immature Gran # 0.13 H (0.00-0.04) 10*3/uL Neutrophils # 7.73 H (1.80-7.70) 10*3/uL Lymphocytes # 1.53 (0.90-5.00) 10*3/uL Monocytes # 0.78 (0.20-1.00) 10*3/uL Eosinophils # 0.09 (0.04-0.35) 10*3/uL Basophils # 0.03 (0.00-0.10) 10*3/uL PT 10.8 (10.0-12.5) sec INR 1.0 (<1.2) APTT 26.8 (22.0-30.0) sec Sodium (137-145) mmol/L Potassium (3.5-5.1) mmol/L Chloride (98-107) mmol/L Carbon Dioxide (22-30) mmol/L Anion Gap mmol/L BUN (7-17) mg/dL Creatinine (0.52-1.04) mg/dL Est GFR (CKD-EPI)AfAm (>60 ml/min/1.73 sqM) Est GFR (CKD-EPI)NonAf (>60 ml/min/1.73 sqM) Glucose (74-99) mg/dL Calcium (8.4-10.2) mg/dL Total Bilirubin (0.2-1.3) mg/dL AST (14-36) U/L ALT (4-34) U/L Alkaline Phosphatase (38-126) U/L Total Protein (6.3-8.2) g/dL Albumin (3.5-5.0) g/dL Urine Color Colorless Urine Appearance Clear (Clear) Urine pH 8.0 (5.0-8.0) Ur Specific [place] 1.008 (1.001-1.035) Urine Protein Negative (Negative) Urine Glucose (UA) Negative (Negative) Urine Ketones Negative (Negative) Urine Blood Negative (Negative) Urine Nitrite Negative (Negative) Urine Bilirubin Negative (Negative) Urine Urobilinogen <2.0 (<2.0) mg/dL Ur Leukocyte Esterase Negative (Negative) Stool Occult Blood (Negative) 03/13/25 03/13/25 Range/Units 10:04 13:18 WBC (4.50-10.00) 10*3/uL RBC (4.10-5.20) 10*6/uL Hgb (12.0-15.0) g/dL Hct (37.2-46.3) % MCV (80.0-97.0) fL MCH (27.0-32.0) pg MCHC (32.0-37.0) g/dL Plt Count (140-440) 10*3/uL MPV (9.5-12.2) fL Immature Gran % (Auto) % Neutrophils % % Lymphocytes % % Monocytes % % Eosinophils % % Basophils % % Immature Gran # (0.00-0.04) 10*3/uL Neutrophils # (1.80-7.70) 10*3/uL Lymphocytes # (0.90-5.00) 10*3/uL Monocytes # (0.20-1.00) 10*3/uL Eosinophils # (0.04-0.35) 10*3/uL Basophils # (0.00-0.10) 10*3/uL PT (10.0-12.5) sec INR (<1.2) APTT (22.0-30.0) sec Sodium 136 L (137-145) mmol/L Potassium 4.5 (3.5-5.1) mmol/L Chloride 98 (98-107) mmol/L Carbon Dioxide 34 H (22-30) mmol/L Anion Gap 4 mmol/L BUN 36 H (7-17) mg/dL Creatinine 1.14 H (0.52-1.04) mg/dL Est GFR (CKD-EPI)AfAm 54 (>60 ml/min/1.73 sqM) Est GFR (CKD-EPI)NonAf 46 (>60 ml/min/1.73 sqM) Glucose 113 H (74-99) mg/dL Calcium 9.9 (8.4-10.2) mg/dL Total Bilirubin 0.5 (0.2-1.3) mg/dL AST 18 (14-36) U/L ALT 9 (4-34) U/L Alkaline Phosphatase 99 (38-126) U/L Total Protein 6.5 (6.3-8.2) g/dL Albumin 3.3 L (3.5-5.0) g/dL Urine Color Urine Appearance (Clear) Urine pH (5.0-8.0) Ur Specific [place] (1.001-1.035) Urine Protein (Negative) Urine Glucose (UA) (Negative) Urine Ketones (Negative) Urine Blood (Negative) Urine Nitrite (Negative) Urine Bilirubin (Negative) Urine Urobilinogen (<2.0) mg/dL Ur Leukocyte Esterase (Negative) Stool Occult Blood Negative (Negative) Disposition Clinical Impression: Abdominal pain, Pelvic mass Disposition: HOME SELF-CARE Condition: Stable Instructions (If sedation given, give patient instructions): Abdominal Pain ( ED) Additional Instructions: Please follow up with your primary care provider and gynecology. Return to the emergency department for new or worsening symptoms. Is patient prescribed a controlled substance at d/c from ED?: No Referrals: Carole Dueñas DO [Primary Care Provider] - 1-2 days Lizbeth Millan MD [STAFF PHYSICIAN] - 1-2 days
[2025-03-13 10:16] LABS: Basophils # (A) 0.03 10*3/uL (0.00-0.10); Basophils % (A) 0.3 %; Eosinophils # (A) 0.09 10*3/uL (0.04-0.35); Eosinophils % (A) 0.9 %; HCT 33.3 % (37.2-46.3); HGB 10.7 g/dL (12.0-15.0); Lymphocytes # (A) 1.53 10*3/uL (0.90-5.00); Lymphocytes % (A) 14.9 %; MCH 28.5 pg (27.0-32.0); MCHC 32.1 g/dL (32.0-37.0); MCV 88.8 fL (80.0-97.0); Mean Platelet Volume 9.1 fL (9.5-12.2); Monocytes # (A) 0.78 10*3/uL (0.20-1.00); Monocytes % (A) 7.6 %; Neutrophils # (A) 7.73 10*3/uL (1.80-7.70); Platelet Count 414 10*3/uL (140-440); RBC 3.75 10*6/uL (4.10-5.20); RDW 14.1 % (11.5-14.5); WBC 10.29 10*3/uL (4.50-10.00)
[2025-03-13 10:33] LABS: Partial Thromboplastin Time 26.8 sec (22.0-30.0); Prothrombin Time 10.8 sec (10.0-12.5)
[2025-03-13 10:40] LABS: ALT 9 U/L (4-34); AST 18 U/L (14-36); African American GFR (CKD) 54 (>60 ml/min/1.73 sqM); Albumin 3.3 g/dL (3.5-5.0); Alkaline Phosphatase 99 U/L (38-126); Anion Gap 4 mmol/L; Blood Urea Nitrogen 36 mg/dL (7-17); Calcium 9.9 mg/dL (8.4-10.2); Carbon Dioxide 34 mmol/L (22-30); Chloride 98 mmol/L (98-107); Glucose 113 mg/dL (74-99); Non-African American GFR(CKD) 46 (>60 ml/min/1.73 sqM); Potassium 4.5 mmol/L (3.5-5.1); Sodium 136 mmol/L (137-145); Total Bilirubin 0.5 mg/dL (0.2-1.3); Total Protein 6.5 g/dL (6.3-8.2)
[2025-03-13 10:59] LABS: Appearance,Urine Clear (Clear); Bilirubin,Urine Negative (Negative); Blood,Urine Negative (Negative); Color,Urine Colorless; Glucose,Urine (UA) Negative (Negative); Ketones,Urine Negative (Negative); Leukocyte Esterase,Urine Negative (Negative); Nitrite,Urine Negative (Negative); Protein,Urine Negative (Negative); Specific Gravity,Urine 1.008 (1.001-1.035); Urobilinogen,Urine <2.0 mg/dL (<2.0)
--- NOTE | 2025-03-13 14:38 | CT ---
EXAMINATION TYPE: CT angio abdomen pelvis DATE OF EXAM: 03/13/2025 2:15 PM COMPARISON: Previous CT abdomen/pelvis study 08/02/2023. CLINICAL INDICATION: Female, 79 years old with history of abd pain; PHH, Recently placed catheter ble eding, did an additional 4 min delay for bladder. TECHNIQUE: Multiple thin slice sub-millimeter images were obtained after administration of contrast. 3-D reconstructed images and maximum intensity projection images were obtained. CT angio abdomen pel vis CT Contrast: Contrast used:80 mL of Isovue 370 with IV Contrast, Oral contrast used: without Oral Contrast None CT DLP: 3011.7 mGycm, Automated exposure control for dose reduction was used. FINDINGS: CTA Abdomen and pelvis: The abdominal aorta does not demonstrate aneurysmal dilatation. Atherosclero tic plaquing is identified within the abdominal aorta. The origins of the superior mesenteric artery , renal arteries, inferior mesenteric artery, and celiac axis are patent. The iliac vessels are norm al in morphology CTA Lower extremities: Right: The common femoral and superficial femoral arteries are patent. The popliteal artery is patent . Anterior and posterior tibial arteries as well as the peroneal artery are patent. Anterior and post erior tibial arteries cross the ankle. Left: The common femoral and superficial femoral arteries are patent. The popliteal artery is patent. Anterior and posterior tibial arteries as well as the peroneal artery are patent. Anterior and poste rior tibial arteries cross the ankle. LOWER CHEST: No evidence of focal consolidation, pneumothorax or pleural effusion. LIVER: Unremarkable GALLBLADDER AND BILE DUCTS: The gallbladder is surgically absent. PANCREAS: calcifications suggesting sequela of chronic pancreatitis. SPLEEN: Unremarkable. ADRENAL GLANDS: Unremarkable. KIDNEYS AND URETERS: Simple cyst in the left kidney. Moderate right-sided hydronephrosis, likely due to mass effect. PELVIS BLADDER: Puente catheter within the urinary bladder lumen with associated nondependent gas. REPRODUCTIVE: Uterus surgically absent. Multi septated cystic mass in the pelvis measuring 11.3 x 15. 4 x 11.0 cm. Likely either hemorrhage or enhancing solid components along the dependent portion of th e mass. ABDOMEN & PELVIS STOMACH AND BOWEL: Stomach and duodenum are unremarkable. No evidence of bowel obstruction. PERITONEUM: No evidence of pneumoperitoneum or free fluid. VASCULATURE: Calcified metastatic disease of the abdominal aorta without aneurysmal dilatation. Moder ate to severe stenosis of the proximal thoracic artery and SMA due to dense calcified plaque. MUSCULOSKELETAL: No acute osseous abnormalities. Multilevel lumbosacral spinal degenerative changes w ith grade 1 anterolisthesis of L4 on L5. LYMPH NODES: No gross evidence for lymphadenopathy. SOFT TISSUE/ABDOMINAL WALL: Unremarkable IMPRESSION: 1. Large multi-septated cystic mass in the pelvis measuring 11.3 x 13.4 x 11.0 cm with likely either dependent hemorrhagic or enhancing solid components. Findings are highly suspicious for malignancy, likely reproductive related, possibly ovarian in origin. Recommend gynecology/oncology consultation f or further evaluation. No evidence of active bleeding in the abdomen/pelvis. No definitive distant me tastatic disease. 2. Moderate right-sided hydronephrosis, likely secondary to mass effect. [facility], , 03/13/2025 2:36 PM
[2025-03-13 16:05] VITALS: BP 126/87; PULSE 75; RESP 17; TEMP 97.9
== END 2025-03-13 16:06 | disposition home or self-care (01) ==
LOC: EC 08:25
DX: R19.03 Right lower quadrant abdominal swelling, mass and lump (principal); Z88.8 Allergy status to other drugs, medicaments and biological substances
CPT/HCPCS: 36415 ×2; 80053; 85025; 85610; 85730; 82272; 81003; 74174; 99285; Q9967

== ENCOUNTER 2025-04-08 09:00 | Emergency (ER) | payer MEDICARE ==
[2025-04-08 09:26] VITALS: RESP 17; TEMP 98
--- NOTE | 2025-04-08 09:40 | CT ---
EXAMINATION TYPE: CT brain cspine wo con DATE OF EXAM: 04/08/2025 9:22 AM COMPARISON: 02/26/2024 CLINICAL INDICATION: Female, 79 years old with history of trauma; CODE COAG, pain TECHNIQUE: Brain: Multiple axial CT images of the brain were obtained without IV contrast. Cspine: Axial CT images from the skull base to the inferior aspect of T2 we obtained without intraven ous contrast. Coronal and sagittal reformatted images were also reviewed. . CT DLP: 1361.6 mGycm, Automated exposure control for dose reduction was used. FINDINGS: Brain: Extra-axial spaces: No abnormal extra-axial fluid collections. Ventricular system: Dilatation in proportion to cerebral atrophy. Cerebral parenchyma: Cerebral atrophy. No acute intraparenchymal hemorrhage or mass effect. The disla -white junction is well differentiated. Scattered hypoattenuating areas are seen within the white mat ter. Cerebellum: Unremarkable. Mass effect: No evidence of midline shift. Intracranial vasculature: unremarkable Soft tissues: Normal. Calvarium/osseous structures: No depressed skull fracture. Paranasal sinuses and mastoid air cells: Moderate paranasal sinus mucosal thickening with near comple te opacification of the maxillary sinuses and anterior ethmoid air cells. Visualized orbits: Orbital contents are intact. Cervical spine: Fracture: None. Osseous structures: Multilevel degenerative disc disease changes with endplate spurring and disc oste ophyte complex's. Vertebral alignment: Grade 1 anterolisthesis of C3 on C4 Spinal canal/Neural Foramina: Disc osteophyte complexes at C5-C6 and C6-C7. With at least mild spinal canal stenosis. No evidence for significant neural foraminal stenosis. Neck soft tissues: Prevertebral soft tissues are within normal limits. Other: The airway is patent. Severe degeneration changes of the shoulder with complete joint space lo ss and subchondral cystic change present. The third calcified nodule measuring 6 mm. IMPRESSION: 1. No acute intracranial process. 2. Nonspecific white matter changes, likely secondary to chronic small vessel ischemic disease. 3. No evidence of cervical spine fracture. 4. Moderate multilevel degenerative disc disease. 5. Grade 1 anterolisthesis of C3 on C4 [facility], , 04/08/2025 9:38 AM
[2025-04-08 09:45] LABS: Basophils # (A) 0.01 10*3/uL (0.00-0.10); Basophils % (A) 0.1 %; Eosinophils # (A) 0.01 10*3/uL (0.04-0.35); Eosinophils % (A) 0.1 %; HCT 35.3 % (37.2-46.3); HGB 11.6 g/dL (12.0-15.0); Lymphocytes # (A) 0.89 10*3/uL (0.90-5.00); Lymphocytes % (A) 8.2 %; MCH 28.6 pg (27.0-32.0); MCHC 32.9 g/dL (32.0-37.0); MCV 86.9 fL (80.0-97.0); Mean Platelet Volume 9.1 fL (9.5-12.2); Monocytes # (A) 0.67 10*3/uL (0.20-1.00); Monocytes % (A) 6.2 %; Neutrophils # (A) 9.24 10*3/uL (1.80-7.70); Neutrophils % (A) 84.8 %; Platelet Count 362 10*3/uL (140-440); RBC 4.06 10*6/uL (4.10-5.20); RDW 14.7 % (11.5-14.5); WBC 10.89 10*3/uL (4.50-10.00)
[2025-04-08] MEDS: ACETAMINOPHEN TAB 325 MG TAB PO STA (09:55)
[2025-04-08 10:01] LABS: INR 0.9 (<1.2); Partial Thromboplastin Time 24.8 sec (22.0-30.0); Prothrombin Time 10.4 sec (10.0-12.5)
[2025-04-08 10:19] LABS: ALT 14 U/L (4-34); AST 19 U/L (14-36); African American GFR (CKD) 56 (>60 ml/min/1.73 sqM); Albumin 3.3 g/dL (3.5-5.0); Alcohol <10 mg/dL; Glucose 140 mg/dL (74-99); Non-African American GFR(CKD) 48 (>60 ml/min/1.73 sqM); Potassium 3.9 mmol/L (3.5-5.1); Total Bilirubin 0.6 mg/dL (0.2-1.3); Total Protein 6.3 g/dL (6.3-8.2)
[2025-04-08 10:25] LABS: NT-Pro-B-Type Natriuretic Pept 2750 pg/mL
--- NOTE | 2025-04-08 10:39 | XR ---
EXAMINATION TYPE: XR chest 1V portable, XR knee limited 2 views RT, XR pelvis AP view DATE OF EXAM: 04/08/2025 10:20 AM COMPARISON: None CLINICAL INDICATION: Female, 79 years old with history of trauma, fall, pain FINDINGS: CHEST: Heart upper limits of normal in size. Minimal atherosclerotic arch calcifications. Pulmonary vasculat ure within normal limits. Hazy lung densities relating to portable technique and body habitus. No con solidation or pleural effusion seen. There appear to be prominent degenerative changes at both deangelo l joints. Pelvis: SI joints appear symmetric and intact. Mild degenerative change pubic symphysis. Mild marginal spurri ng at the hips but with relative preservation of hip joint space on either side. There is osteopenia. No acute fracture, subluxation or dislocation seen. Degenerative change lower lumbar spine. Right knee: Mild subcutaneous soft tissue swelling noted. There is underlying total knee arthroplasty. Both dista l femoral and proximal tibial components of the prosthesis appear well seated without periprosthetic fracture. Alignment grossly anatomic. Mild anterior infrapatellar soft tissue swelling. Extensor mech anism otherwise appears intact. No sizable joint effusion. IMPRESSION: 1. Chest: No acute cardiopulmonary process. 2. Pelvis: Osteopenia. No displaced fracture seen. 3. Right knee: Generalized mild subcutaneous soft tissue swelling. Only 2 views provided. Otherwise, uncomplicated right total knee arthroplasty. [facility], Workstation: [email or web address], 04/08/2025 10:37 AM
[2025-04-08 10:53] LABS: Anion Gap 6 mmol/L; Chloride 97 mmol/L (98-107)
[2025-04-08 10:56] LABS: Alkaline Phosphatase 89 U/L (38-126); Blood Urea Nitrogen 50 mg/dL (7-17); Calcium 9.4 mg/dL (8.4-10.2); Carbon Dioxide 30 mmol/L (22-30); Sodium 133 mmol/L (137-145)
[2025-04-08 11:51] LABS: Amphetamine Screen,Urine Not Detected (NotDetected); Barbiturate Screen,Urine Not Detected (NotDetected); Benzodiazepines Screen,Urine Not Detected (NotDetected); Cocaine Screen,Urine Not Detected (NotDetected); Methadone Screen, Urine Not Detected (NotDetected); Opiate Screen,Urine Not Detected (NotDetected); Oxycodone Screen, Urine Not Detected (NotDetected); Phencyclidine Screen,Urine Not Detected (NotDetected); Tricyclic Antidepressant,Urine Not Detected (NotDetected); Urn Cannabinoid Scrn Not Detected (NotDetected)
[2025-04-08 11:53] VITALS: BP 100/81; PULSE 84
[2025-04-08 11:55] LABS: Appearance,Urine Cloudy (Clear); Bacteria,Urine Rare /hpf; Bilirubin,Urine Negative (Negative); Blood,Urine Negative (Negative); Color,Urine Colorless; Glucose,Urine (UA) Negative (Negative); Ketones,Urine Negative (Negative); Leukocyte Esterase,Urine Negative (Negative); Nitrite,Urine Negative (Negative); PH, Urine 7.5 (5.0-8.0); Protein,Urine Negative (Negative); RBC,Urine <1 /hpf (0-5); Specific Gravity,Urine 1.007 (1.001-1.035); Squamous Epithelial Cell,Urine 2 /hpf (0-4); Urobilinogen,Urine <2.0 mg/dL (<2.0); WBC,Urine 1 /hpf (0-5)
--- NOTE | 2025-04-08 12:41 | ED ---
General Adult HPI - General Chief complaint: Fall Stated complaint: Fall Time Seen by Provider: 04/08/25 09:00 Source: patient, RN notes reviewed, old records reviewed Mode of arrival: EMS Limitations: no limitations - History of Present Illness Initial comments: Patient is a 79-year-old female presents emergency department for fall. Patient is on blood thinners. Patient was attempting to get off the toilet when she tripped over a blanket that was wrapped around her left lower extremity and she fell. Struck the back of her head on the ground. Did not lose consciousness. Is on Eliquis. Denies any chest pain or shortness of breath. Endorses right knee pain. Denies any back pain. Endorses chronic neck pain. Presents for further evaluation at this time. Currently has an open wound on the left lower extremity which appears to be secondary to venous stasis. It has been draining. No purulence. No fevers. - Related Data Home Medications Medication Instructions Recorded Confirmed Aclidinium [place] [Tudorza 1 puff INHALATION BID 06/20/15 06/22/15 Pressair] Albuterol Sulfate [Proair Hfa] 1 - 2 puff INHALATION QID PRN 06/20/15 06/22/15 Aspirin 81 mg PO DAILY 06/20/15 06/22/15 Golden Cit/Mag/D3/Zn/Barometers Calibrator/Thanh/Bor 1 each PO BID 06/20/15 06/22/15 [Citracal-Vit D + Magnesium Tab] Candesartan/Hydrochlorothiazid 2 each PO QAM 06/20/15 06/22/15 [Candesartan-Hctz 16-12.5 mg Tb] Clotrimazole/Betameth Cream 1 applic TOPICAL DAILY 06/20/15 06/22/15 [Lotrisone] Desonide(Dose Unknown) 1 applicate TOPICAL BID PRN 06/20/15 06/22/15 Estrogens, Conjugated Cream 1 applicator VAGINAL MOWEFR 06/20/15 06/22/15 [Premarin Cream] Ferrous Sulfate [Feosol] 325 mg PO DAILY 06/20/15 06/22/15 L.acidoph,Paracasei, B.lactis 1 each PO DAILY 06/20/15 06/22/15 [Probiotic] Levothyroxine Sodium [Levoxyl] 175 mcg PO DAILY 06/20/15 06/22/15 Naproxen Sodium [Aleve] 220 mg PO Q12HR 06/20/15 06/22/15 Propranolol HCl 80 mg PO QAM 06/20/15 06/22/15 Previous Rx's Medication Instructions Recorded Nystatin 100,000 Unit/gm Powd 1 applic TOPICAL BID #15 gram 03/07/25 [Mycostatin Powder] Cephalexin [Keflex] 500 mg PO Q12HR 7 Days #14 cap 04/08/25 Allergies Allergy/AdvReac Type Severity Reaction Status Date / Time IGNACIO Inhibitors AdvReac Dyspnea Verified 04/08/25 09:26 aclidinium AdvReac Dyspnea Verified 04/08/25 09:26 [From Tudorza Pressair] amlodipine [From Norvasc] AdvReac Dyspnea Verified 04/08/25 09:26 rosuvastatin [From Crestor] AdvReac Dyspnea Verified 04/08/25 09:26 Review of Systems ROS Statement: Those systems with pertinent positive or pertinent negative responses have been documented in the HPI. Review of Systems: CONST: Denies fever EYES: Denies blurry vision ENT: Denies nasal congestion C/V: Denies Chest pain RESP: Denies shortness of breath GI: Denies abdominal pain : Denies dysuria SKIN: Endorses small wound over the left distal lower extremity MSK: Endorses mild neck pain NEURO: Denies headache ROS Other: All systems not noted in ROS Statement are negative. Past Medical History Past Medical History: Atrial Fibrillation, Hypertension Additional Past Medical History / Comment(s): Tremors. History of Any Multi-Drug Resistant Organisms: None Reported Past Surgical History: Bowel Resection, Cholecystectomy, Hernia Repair, Hysterectomy, Orthopedic Surgery Past Psychological History: No Psychological Hx Reported Smoking Status: Never smoker Past Alcohol Use History: None Reported Past Drug Use History: None Reported General Exam - General Exam Comments Initial Comments: General: Appears in no acute distress. HEAD: Normal with no signs of head trauma. Negative Gann sign. Negative raccoon eyes. EYES: PERRLA, EOMI, conjunctiva normal, no discharge. Pupils are 3 mm and equal bilaterally. ENT: Hearing grossly intact, normal oropharynx. RESPIRATORY: Clear breath sounds bilaterally. No wheezes, rales, or rhonchi. C/V: Regular rate and rhythm. S1 and S2 auscultated, significant symmetrical lower extremity pitting edema, peripheral pulses 2+ and intact throughout ABD: Abd is soft, nontender, nondistended EXT: Normal range of motion, no obvious deformity. Mild midline cervical spine tenderness to palpation but no obvious step-offs or deformities. No other spine tenderness to palpation. Pelvis stable. Mild bruising over the right knee but no obvious injury. SKIN: Wound over the distal left huber that is approximately the size of a quar ter with clear discharge and no purulence. NEURO: Alert and oriented x 4. GCS 15. No obvious focal deficits. Limitations: no limitations Course Vital Signs 04/08/25 04/08/25 09:16 11:53 Temperature 98 F Pulse Rate 85 84 Respiratory 17 17 Rate Blood Pressure 113/42 100/81 O2 Sat by Pulse 99 98 Oximetry Medical Decision Making - Medical Decision Making Was pt. sent in by a medical professional or institution (, PA, CHAIN BUILDER, urgent care, hospital, or group home...) When possible be specific @ -No Did you speak to anyone other than the patient for history (EMS, parent, family, police, friend...)? What history was obtained from this source @ -No Did you review nursing and triage notes (agree or disagree)? Why? @ -I reviewed and agree with nursing and triage notes Were old charts reviewed (outside hosp., previous admission, EMS record, old EKG, old radiological studies, urgent care reports/EKG's, group home records)? Report findings @ -No old charts were reviewed Differential Diagnosis (chest pain, altered mental status, abdominal pain women, abdominal pain men, vaginal bleeding, weakness, fever, dyspnea, syncope, headache, dizziness, GI bleed, back pain, seizure, CVA, palpatations, mental health, musculoskeletal)? @ -Differential Musculoskeletal Muscular strain, contusion, ligament sprain, fracture, arthritis, septic arthritis, bursitis, cellulitis, muscle spasm, nerve compression, DVT, arterial occlusion, herpes zoster, electrolyte abnormality, tumor.... This is not meant to be in all inclusive list EKG interpreted by me (3pts min.). @ -As above X-rays interpreted by me (1pt min.). @ -Chest x-ray, pelvis x-ray, knee x-ray negative for any obvious acute traumatic injury. CT interpreted by me (1pt min.). @ -CT brain and C-spine negative for any obvious acute traumatic injury. U/S interpreted by me (1pt. min.). @ -None done What testing was considered but not performed or refused? (CT, X-rays, U/S, labs)? Why? @ -None What meds were considered but not given or refused? Why? @ -None Did you discuss the management of the patient with other professionals (professionals i.e. DrElizabeth, PA, CHAIN BUILDER, lab, RT, psych nurse, social work assistant, insole rounder, teacher, medical scientific officer, pillowcase maker)? Give summary @ -No Was smoking cessation discussed for >3mins.? @ -No Was critical care preformed (if so, how long)? @ -No Were there social determinants of health that impacted care today? How? (Homelessness, low income, unemployed, alcoholism, drug addiction, transportation, low edu. Level, literacy, decrease access to med. care, [facility], rehab)? @ -No Was there de-escalation of care discussed even if they declined (Discuss DNR or withdrawal of care, Hospice)? DNR status @ -No What co-morbidities impacted this encounter? (DM, HTN, Smoking, COPD, CAD, Cancer, CVA, ARF, Chemo, Hep., AIDS, mental health diagnosis, sleep apnea, morbid obesity)? @ -None Was patient admitted / discharged? Hospital course, mention meds given and route, prescriptions, significant lab abnormalities, going to OR and other pertinent info. @ -Patient is a fall on blood thinners with no LOC and no obvious head injury. However patient did hit her head. She will be made a code coag. Does not meet trauma activation criteria. We will obtain x-rays of the knee, chest pelvis as well as CTA of the brain and head as well as basic labs. She also appears to have may be a chronic wound over the left distal lower extremity however cannot rule out mild cellulitis at this time. Will obtain basic labs. She was in agreement this plan. She declines analgesia medications at this time. EKG shows no signs of acute ischemia. Imaging negative for any obvious traumatic injury. Laboratory studies are all within acceptable limits. BNP slightly elevated but patient has a history of chronic lower extremity pitting edema which is unchanged from baseline. This is likely the cause of this. She is on Lasix already. I discussed results with patient. Cervical collar removed. She will be empirically started on Keflex for the wound on her left anterior huber but otherwise can use analgesia medications [id number] for pain. She was in agreement this plan. I will provide the patient with a prescription for Keflex. I instructed the patient to follow up with their PCP in the next 1-3 days. . I explained that the patient should return to the emergency department if they experience any worsening symptoms. Strict return precautions were discussed with the patient. The patient expressed understanding of these instructions. I answered all questions that the patient had. The patient was discharged home in good condition with their prescriptions and follow up information. Undiagnosed new problem with uncertain prognosis? @ -No Drug Therapy requiring intensive monitoring for toxicity (Heparin, Nitro, Insulin, Cardizem)? @ -No Were any procedures done? @ -No Diagnosis/symptom? @ -Fall, cellulitis Acute, or Chronic, or Acute on Chronic? @ -Acute Uncomplicated (without systemic symptoms) or Complicated (systemic symptoms)? @ -Uncomplicated Side effects of treatment? @ -No Exacerbation, Progression, or Severe Exacerbation? @ -No Poses a threat to life or bodily function? How? (Chest pain, [place], [place], pneumonia, PE, COPD, DKA, ARF, appy, cholecystitis, CVA, Diverticulitis, Homicidal, Suicidal, threat to staff... and all critical care pts) @ -Unlikely at this time - Lab Data Result diagrams: 04/08/25 09:02 04/08/25 09:02 Lab Results 04/08/25 04/08/25 04/08/25 Range/Units 09:02 09:02 09:02 WBC 10.89 H (4.50-10.00) 10*3/uL RBC 4.06 L (4.10-5.20) 10*6/uL Hgb 11.6 L (12.0-15.0) g/dL Hct 35.3 L (37.2-46.3) % MCV 86.9 (80.0-97.0) fL MCH 28.6 (27.0-32.0) pg MCHC 32.9 (32.0-37.0) g/dL Plt Count 362 (140-440) 10*3/uL MPV 9.1 L (9.5-12.2) fL Immature Gran % (Auto) 0.6 % Neutrophils % 84.8 % Lymphocytes % 8.2 % Monocytes % 6.2 % Eosinophils % 0.1 % Basophils % 0.1 % Immature Gran # 0.07 H (0.00-0.04) 10*3/uL Neutrophils # 9.24 H (1.80-7.70) 10*3/uL Lymphocytes # 0.89 L (0.90-5.00) 10*3/uL Monocytes # 0.67 (0.20-1.00) 10*3/uL Eosinophils # 0.01 L (0.04-0.35) 10*3/uL Basophils # 0.01 (0.00-0.10) 10*3/uL PT 10.4 (10.0-12.5) sec INR 0.9 (<1.2) APTT 24.8 (22.0-30.0) sec Sodium (137-145) mmol/L Potassium (3.5-5.1) mmol/L Chloride (98-107) mmol/L Carbon Dioxide (22-30) mmol/L Anion Gap mmol/L BUN (7-17) mg/dL Creatinine (0.52-1.04) mg/dL Est GFR (CKD-EPI)AfAm (>60 ml/min/1.73 sqM) Est GFR (CKD-EPI)NonAf (>60 ml/min/1.73 sqM) Glucose (74-99) mg/dL Plasma Lactic Acid El (0.7-2.0) mmol/L Calcium (8.4-10.2) mg/dL Total Bilirubin (0.2-1.3) mg/dL AST (14-36) U/L ALT (4-34) U/L Alkaline Phosphatase (38-126) U/L NT-Pro-B Natriuret Pep pg/mL Total Protein (6.3-8.2) g/dL Albumin (3.5-5.0) g/dL Urine Color Urine Appearance (Clear) Urine pH (5.0-8.0) Ur Specific [place] (1.001-1.035) Urine Protein (Negative) Urine Glucose (UA) (Negative) Urine Ketones (Negative) Urine Blood (Negative) Urine Nitrite (Negative) Urine Bilirubin (Negative) Urine Urobilinogen (<2.0) mg/dL Ur Leukocyte Esterase (Negative) Urine RBC (0-5) /hpf Urine WBC (0-5) /hpf Ur Squamous Epith Cells (0-4) /hpf Urine Bacteria (None) /hpf Urine Opiates Screen Not Detected (NotDetected) Ur Oxycodone Screen Not Detected (NotDetected) Urine Methadone Screen Not Detected (NotDetected) Ur Barbiturates Screen Not Detected (NotDetected) U Tricyclic Antidepress Not Detected (NotDetected) Ur Phencyclidine Scrn Not Detected (NotDetected) Ur Amphetamines Screen Not Detected (NotDetected) U Methamphetamines Scrn Not Detected (NotDetected) U Benzodiazepines Scrn Not Detected (NotDetected) Urine Cocaine Screen Not Detected (NotDetected) U Marijuana (THC) Screen Not Detected (NotDetected) Serum Alcohol mg/dL Blood Type Blood Type Confirm Blood Type Recheck Bld Type Recheck Status Antibody Screen Spec Expiration Date 04/08/25 04/08/25 04/08/25 Range/Units 09:02 09:02 09:03 WBC (4.50-10.00) 10*3/uL RBC (4.10-5.20) 10*6/uL Hgb (12.0-15.0) g/dL Hct (37.2-46.3) % MCV (80.0-97.0) fL MCH (27.0-32.0) pg MCHC (32.0-37.0) g/dL Plt Count (140-440) 10*3/uL MPV (9.5-12.2) fL Immature Gran % (Auto) % Neutrophils % % Lymphocytes % % Monocytes % % Eosinophils % % Basophils % % Immature Gran # (0.00-0.04) 10*3/uL Neutrophils # (1.80-7.70) 10*3/uL Lymphocytes # (0.90-5.00) 10*3/uL Monocytes # (0.20-1.00) 10*3/uL Eosinophils # (0.04-0.35) 10*3/uL Basophils # (0.00-0.10) 10*3/uL PT (10.0-12.5) sec INR (<1.2) APTT (22.0-30.0) sec Sodium 133 L (137-145) mmol/L Potassium 3.9 (3.5-5.1) mmol/L Chloride 97 L (98-107) mmol/L Carbon Dioxide 30 (22-30) mmol/L Anion Gap 6 mmol/L BUN 50 H (7-17) mg/dL Creatinine 1.10 H (0.52-1.04) mg/dL Est GFR (CKD-EPI)AfAm 56 (>60 ml/min/1.73 sqM) Est GFR (CKD-EPI)NonAf 48 (>60 ml/min/1.73 sqM) Glucose 140 H (74-99) mg/dL Plasma Lactic Acid El 1.7 (0.7-2.0) mmol/L Calcium 9.4 (8.4-10.2) mg/dL Total Bilirubin 0.6 (0.2-1.3) mg/dL AST 19 (14-36) U/L ALT 14 (4-34) U/L Alkaline Phosphatase 89 (38-126) U/L NT-Pro-B Natriuret Pep 2750 pg/mL Total Protein 6.3 (6.3-8.2) g/dL Albumin 3.3 L (3.5-5.0) g/dL Urine Color Colorless Urine Appearance Cloudy H (Clear) Urine pH 7.5 (5.0-8.0) Ur Specific [place] 1.007 (1.001-1.035) Urine Protein Negative (Negative) Urine Glucose (UA) Negative (Negative) Urine Ketones Negative (Negative) Urine Blood Negative (Negative) Urine Nitrite Negative (Negative) Urine Bilirubin Negative (Negative) Urine Urobilinogen <2.0 (<2.0) mg/dL Ur Leukocyte Esterase Negative (Negative) Urine RBC <1 (0-5) /hpf Urine WBC 1 (0-5) /hpf Ur Squamous Epith Cells 2 (0-4) /hpf Urine Bacteria Rare H (None) /hpf Urine Opiates Screen (NotDetected) Ur Oxycodone Screen (NotDetected) Urine Methadone Screen (NotDetected) Ur Barbiturates Screen (NotDetected) U Tricyclic Antidepress (NotDetected) Ur Phencyclidine Scrn (NotDetected) Ur Amphetamines Screen (NotDetected) U Methamphetamines Scrn (NotDetected) U Benzodiazepines Scrn (NotDetected) Urine Cocaine Screen (NotDetected) U Marijuana (THC) Screen (NotDetected) Serum Alcohol <10 mg/dL Blood Type Blood Type Confirm Blood Type Recheck Bld Type Recheck Status Antibody Screen Spec Expiration Date 04/08/25 04/08/25 Range/Units 09:15 09:30 WBC (4.50-10.00) 10*3/uL RBC (4.10-5.20) 10*6/uL Hgb (12.0-15.0) g/dL Hct (37.2-46.3) % MCV (80.0-97.0) fL MCH (27.0-32.0) pg MCHC (32.0-37.0) g/dL Plt Count (140-440) 10*3/uL MPV (9.5-12.2) fL Immature Gran % (Auto) % Neutrophils % % Lymphocytes % % Monocytes % % Eosinophils % % Basophils % % Immature Gran # (0.00-0.04) 10*3/uL Neutrophils # (1.80-7.70) 10*3/uL Lymphocytes # (0.90-5.00) 10*3/uL Monocytes # (0.20-1.00) 10*3/uL Eosinophils # (0.04-0.35) 10*3/uL Basophils # (0.00-0.10) 10*3/uL PT (10.0-12.5) sec INR (<1.2) APTT (22.0-30.0) sec Sodium (137-145) mmol/L Potassium (3.5-5.1) mmol/L Chloride (98-107) mmol/L Carbon Dioxide (22-30) mmol/L Anion Gap mmol/L BUN (7-17) mg/dL Creatinine (0.52-1.04) mg/dL Est GFR (CKD-EPI)AfAm (>60 ml/min/1.73 sqM) Est GFR (CKD-EPI)NonAf (>60 ml/min/1.73 sqM) Glucose (74-99) mg/dL Plasma Lactic Acid El (0.7-2.0) mmol/L Calcium (8.4-10.2) mg/dL Total Bilirubin (0.2-1.3) mg/dL AST (14-36) U/L ALT (4-34) U/L Alkaline Phosphatase (38-126) U/L NT-Pro-B Natriuret Pep pg/mL Total Protein (6.3-8.2) g/dL Albumin (3.5-5.0) g/dL Urine Color Urine Appearance (Clear) Urine pH (5.0-8.0) Ur Specific [place] (1.001-1.035) Urine Protein (Negative) Urine Glucose (UA) (Negative) Urine Ketones (Negative) Urine Blood (Negative) Urine Nitrite (Negative) Urine Bilirubin (Negative) Urine Urobilinogen (<2.0) mg/dL Ur Leukocyte Esterase (Negative) Urine RBC (0-5) /hpf Urine WBC (0-5) /hpf Ur Squamous Epith Cells (0-4) /hpf Urine Bacteria (None) /hpf Urine Opiates Screen (NotDetected) Ur Oxycodone Screen (NotDetected) Urine Methadone Screen (NotDetected) Ur Barbiturates Screen (NotDetected) U Tricyclic Antidepress (NotDetected) Ur Phencyclidine Scrn (NotDetected) Ur Amphetamines Screen (NotDetected) U Methamphetamines Scrn (NotDetected) U Benzodiazepines Scrn (NotDetected) Urine Cocaine Screen (NotDetected) U Marijuana (THC) Screen (NotDetected) Serum Alcohol mg/dL Blood Type O Positive Blood Type Confirm O Positive Blood Type Recheck No Previous Record Bld Type Recheck Status CABO Indicated Antibody Screen NEGATIVE Spec Expiration Date 04/11/20252329 Disposition Clinical Impression: Fall, Cellulitis Disposition: HOME SELF-CARE Condition: Good Instructions (If sedation given, give patient instructions): Cellulitis (ED), Fall Prevention for Older Adults (ED) Prescriptions: Cephalexin [Keflex] 500 mg PO Q12HR 7 Days #14 cap Is patient prescribed a controlled substance at d/c from ED?: No Referrals: Carole Dueñas DO [Primary Care Provider] - 1-2 days Time of Disposition: 12:40
[2025-04-08] MEDS: CEPHALEXIN 500 MG CAP PO STA (13:16)
== END 2025-04-08 13:33 | disposition home or self-care (01) ==
LOC: EC 09:00
DX: L03.116 Cellulitis of left lower limb (principal); Z88.8 Allergy status to other drugs, medicaments and biological substances; W01.0XXA Fall on same level from slipping, tripping and stumbling without subsequent striking against object, initial encounter
CPT/HCPCS: 36415; 70450; 71045; 72125; 72170; 80053; 80306; 80320; 81001; 83605; 83880; 85025; 85610; 85730; 86850; 86900; 86901; 93005; 99284

== ENCOUNTER 2025-05-10 12:12 | Inpatient (IN) | payer MEDICARE ==
--- NOTE | 2025-05-10 13:10 | ED ---
General Adult HPI - General Source: patient, family, RN notes reviewed Mode of arrival: ambulatory Limitations: no limitations - History of Present Illness Onset/Timin -: days(s) <Augie Santillan - Last Filed: 05/10/25 16:06> <Chetan Worley - Last Filed: 05/10/25 19:05> - General Chief complaint: Recheck/Abnormal Lab/Rx Stated complaint: Low blood pressure Time Seen by Provider: 05/10/25 12:27 - History of Present Illness Initial comments: This is a 79-year-old female with history including A-fib and hypertension presenting from Dr. Bunch's office with [id number] for hypotension. Patient was discovered to have systolic blood pressure in the 80s with associated weakness/lightheadedness and abnormal kidney function (stage III CKD). Patient denies history of kidney dysfunction or heart failure. Was advised on Dr. Bunch's discharge paperwork that she may need to decrease her diltiazem dosage. States she is currently taking Eliquis and recently switched from Lasix to Bumex. Denies fever, chills, chest pain, SOB/dyspnea, orthopnea, frothy sputum. Patient notes she has had swelling in her bilateral lower extremities for the past 2 months with development of new sores/ulcerations. (Augie Santillan) - Related Data Home Medications Medication Instructions Recorded Confirmed Albuterol Sulfate [Ventolin HFA] 2 puff INHALATION RT-QID PRN 05/10/25 05/10/25 Apixaban [Eliquis] 2.5 mg PO BID 05/10/25 05/10/25 Budesonide/Formoterol Fumarate 2 puff INHALATION RT-BID 05/10/25 05/10/25 [Budesonide-Formoterol 80-4.5] Bumetanide [BUMEX] 2 mg PO BID@0900,1400 05/10/25 05/10/25 Candesartan [Atacand] 16 mg PO DAILY 05/10/25 05/10/25 Cholecalciferol [Vitamin D3 (125 125 mcg PO DAILY 05/10/25 05/10/25 Mcg = 5000 Iu)] Cranberry 4200mg 4,200 mg PO DAILY 05/10/25 05/10/25 Iron 28mg 28 mg PO DAILY 05/10/25 05/10/25 Levothyroxine Sodium [Synthroid] 175 mcg PO DAILY@0400 05/10/25 05/10/25 Methenamine Hippurate 1 gm PO BID 05/10/25 05/10/25 Propranolol HCl [Propranolol HCl 80 mg PO DAILY 05/10/25 05/10/25 ER] Tamsulosin [Flomax] 0.4 mg PO DAILY 05/10/25 05/10/25 Vitamin C(Unknown Dose) 1 tab PO DAILY 05/10/25 05/10/25 dilTIAZem HCL [dilTIAZem HCL 24Hr 120 mg PO DAILY 05/10/25 05/10/25 ER ([place])] Previous Rx's Medication Instructions Recorded Nystatin 100,000 Unit/gm Powd 1 applic TOPICAL BID #15 gram 03/07/25 [Mycostatin Powder] Allergies Allergy/AdvReac Type Severity Reaction Status Date / Time IGNACIO Inhibitors AdvReac Dyspnea Verified 05/10/25 14:10 aclidinium AdvReac Dyspnea Verified 05/10/25 14:10 [From Tudorza Pressair] amlodipine [From Norvasc] AdvReac Dyspnea Verified 05/10/25 14:10 rosuvastatin [From Crestor] AdvReac Dyspnea Verified 05/10/25 14:10 Review of Systems ROS Other: All systems not noted in ROS Statement are negative. <Augie Santillan - Last Filed: 05/10/25 16:06> ROS Other: All systems not noted in ROS Statement are negative. <Chetan Worley - Last Filed: 05/10/25 19:05> ROS Statement: Those systems with pertinent positive or pertinent negative responses have been documented in the HPI. Past Medical History Past Medical History: Atrial Fibrillation, Hypertension Additional Past Medical History / Comment(s): Tremors. Low kidney function History of Any Multi-Drug Resistant Organisms: None Reported Past Surgical History: Bowel Resection, Cholecystectomy, Hernia Repair, Hysterectomy, Orthopedic Surgery Past Psychological History: No Psychological Hx Reported Smoking Status: Never smoker Past Alcohol Use History: None Reported Past Drug Use History: None Reported <Augie Santillan - Last Filed: 05/10/25 16:06> General Exam Limitations: no limitations, physical limitation General appearance: alert, in no apparent distress, obese Head exam: Present: atraumatic, normocephalic, normal inspection Eye exam: Present: normal appearance, PERRL, EOMI. Absent: scleral icterus, conjunctival injection, periorbital swelling ENT exam: Present: normal exam, mucous membranes moist Neck exam: Present: normal inspection. Absent: tenderness, meningismus, lymphadenopathy Respiratory exam: Present: normal lung sounds bilaterally. Absent: respiratory distress, wheezes, rales, rhonchi, stridor, accessory muscle use, decreased breath sounds, prolonged expiratory Cardiovascular Exam: Present: regular rate, normal rhythm, normal heart sounds. Absent: systolic murmur, diastolic murmur, rubs, gallop, clicks GI/Abdominal exam: Present: soft, normal bowel sounds. Absent: distended, tenderness, guarding, rebound, rigid Extremities exam: Present: full ROM, normal capillary refill, pedal edema (Positive BLE pitting edema extending past knees.), other (1 cm full-thickness ulceration noted on left medial ankle with foul odor noted. Right popliteal intertrigo noted (patient using nystatin powder). Bilateral radial pulse +1, thready. Ecchymosis noted on bilateral dorsal hands). Absent: tenderness, joint swelling, calf tenderness Back exam: Present: normal inspection. Absent: CVA tenderness (R), CVA tenderness (L) Neurological exam: Present: alert, oriented X3, CN II-XII intact Psychiatric exam: Present: normal affect, normal mood Skin exam: Present: warm, dry, intact, normal color. Absent: rash <Augie Santillan - Last Filed: 05/10/25 16:06> Course Vital Signs 05/10/25 05/10/25 05/10/25 12:31 13:49 14:24 Temperature 97.6 F Pulse Rate 56 L 56 L 58 L Respiratory 20 16 16 Rate Blood Pressure 80/53 118/86 108/71 O2 Sat by Pulse 96 99 99 Oximetry 05/10/25 05/10/25 05/10/25 15:19 15:57 16:47 Temperature Pulse Rate 63 53 L 60 Respiratory 16 16 16 Rate Blood Pressure 68/48 85/73 66/37 O2 Sat by Pulse 98 96 98 Oximetry 05/10/25 05/10/25 05/10/25 17:00 17:31 18:00 Temperature Pulse Rate 60 59 L 60 Respiratory 18 16 Rate Blood Pressure 55/39 58/20 58/41 O2 Sat by Pulse 98 98 Oximetry 05/10/25 05/10/25 18:25 18:32 Temperature 91.6 F L Pulse Rate 57 L 54 L Respiratory 16 Rate Blood Pressure 58/41 62/44 O2 Sat by Pulse 98 99 Oximetry Procedures - Central Line Placement Right Femoral Consent Obtained: verbal consent, emergent situation Patient Placed on Monitor/Pulse Ox: Yes MD Prep: mask, gown, gloves Central Line Prep: Chlorhexidine scrub Local Anesthesia Used: Lidocaine 1% Amount of Anesthesia Used (mls): 2 Ultrasound Used for Placement: Yes Central Line Lumen Inserted: triple Central Line Position: good blood return, all ports aspirated, flushed, capped, sutured in place with 3-0 nylon Dressing Applied: Tegaderm Patient Tolerated Procedure: well Complications: none <Chetan Worley - Last Filed: 05/10/25 19:05> Medical Decision Making - Lab Data Result diagrams: 05/10/25 13:27 05/10/25 13:27 <Augie Santillan - Last Filed: 05/10/25 16:06> - Lab Data Result diagrams: 05/10/25 13:27 05/10/25 17:40 <Chetan Worley - Last Filed: 05/10/25 19:05> - Medical Decision Making Was pt. sent in by a medical professional or institution ([facility], [employer], urgent care, hospital, or fdc...) When possible be specific @ -[No] Did you speak to anyone other than the patient for history (EMS, parent, family, police, friend...)? What history was obtained from this source @ -[No] Did you review nursing and triage notes (agree or disagree)? Why? @ -[I reviewed and agree with nursing and triage notes] Were old charts reviewed (outside hosp., previous admission, EMS record, old EKG, old radiological studies, urgent care reports/EKG's, fdc records)? Report findings @ -[No old charts were reviewed] Differential Diagnosis (chest pain, altered mental status, abdominal pain women, abdominal pain men, vaginal bleeding, weakness, fever, dyspnea, syncope, headache, dizziness, GI bleed, back pain, seizure, CVA, palpatations, mental health, musculoskeletal)? @ -Differential Weakness: Hypoglycemia, shock, sepsis, hyponatremia, anemia, infection, TX, ETOH, adverse medicine reaction, overdose, stroke, this is not meant to be an all-inclusive list. EKG interpreted by me (3pts min.). @ -A-fib without ST deviation or T wave inversion. Ventricular rate 65 bpm, QRS 86 ms, QTc 394 ms. X-rays interpreted by me (1pt min.). @ -[None done] CT interpreted by me (1pt min.). @ -[None done] U/S interpreted by me (1pt. min.). @ -[None done] What testing was considered but not performed or refused? (CT, X-rays, U/S, labs)? Why? @ -[None] What meds were considered but not given or refused? Why? @ -[None] Did you discuss the management of the patient with other professionals (professionals i.e. , PA, [employer], lab, RT, psych nurse, director social service, generation technologist, teacher, morale officer, child welfare caseworker)? Give summary @ -[No] Was smoking cessation discussed for >3mins.? @ -[No] Was critical care preformed (if so, how long)? @ -[No] Were there social determinants of health that impacted care today? How? (Homelessness, low income, unemployed, alcoholism, drug addiction, transportation, low edu. Level, literacy, decrease access to med. care, skilled nursing, rehab)? @ -[No] Was there de-escalation of care discussed even if they declined (Discuss DNR or withdrawal of care, Hospice)? DNR status @ -[No] What co-morbidities impacted this encounter? (DM, HTN, Smoking, COPD, CAD, Cancer, CVA, ARF, Chemo, Hep., AIDS, mental health diagnosis, sleep apnea, morbid obesity)? @ -[None] Was patient admitted / discharged? Hospital course, mention meds given and route, prescriptions, significant lab abnormalities, going to OR and other pertinent info. @ -[hospital course] Undiagnosed new problem with uncertain prognosis? @ -[No] Drug Therapy requiring intensive monitoring for toxicity (Heparin, Nitro, Insulin, Cardizem)? @ -[No] Were any procedures done? @ -[No] Diagnosis/symptom? @ -CHIQUITA, hyperkalemia, hyponatremia Acute, or Chronic, or Acute on Chronic? @ -Acute Uncomplicated (without systemic symptoms) or Complicated (systemic symptoms)? @ -Complicated Side effects of treatment? @ -[No] Exacerbation, Progression, or Severe Exacerbation? @ -[No] Poses a threat to life or bodily function? How? (Chest pain, [place], [place], pneumonia, PE, COPD, DKA, ARF, appy, cholecystitis, CVA, Diverticulitis, Homicidal, S uicidal, threat to staff... and all critical care pts) @ -CHIQUITA, severe electrolyte imbalance (Augie Santillan) SUPERVISORY NOTE: I have reviewed all documentation, results, and performed the MDM in its entirety, which constitutes a substantive portion of the visit. Patient was evaluated by myself. Central line was placed secondary to persistent hypotension despite fluid resuscitation. Case was also discussed with Dr. Renteria who will consult for critical care Patient and family updated by myself. Total critical care time 31 minutes (Chetan Worley) - Lab Data Lab Results 05/10/25 05/10/25 05/10/25 Range/Units 13:05 13:27 13:27 WBC 13.53 H (4.50-10.00) 10*3/uL RBC 3.65 L (4.10-5.20) 10*6/uL Hgb 10.4 L (12.0-15.0) g/dL Hct 30.4 L (37.2-46.3) % MCV 83.3 (80.0-97.0) fL MCH 28.5 (27.0-32.0) pg MCHC 34.2 (32.0-37.0) g/dL Plt Count 251 (140-440) 10*3/uL MPV 9.2 L (9.5-12.2) fL Immature Gran % (Auto) 0.7 % Neutrophils % 89.1 % Lymphocytes % 4.5 % Monocytes % 5.5 % Eosinophils % 0.1 % Basophils % 0.1 % Immature Gran # 0.10 H (0.00-0.04) 10*3/uL Neutrophils # 12.05 H (1.80-7.70) 10*3/uL Lymphocytes # 0.61 L (0.90-5.00) 10*3/uL Monocytes # 0.74 (0.20-1.00) 10*3/uL Eosinophils # 0.01 L (0.04-0.35) 10*3/uL Basophils # 0.02 (0.00-0.10) 10*3/uL PT 9.9 L (10.0-12.5) sec INR 0.9 (<1.2) APTT 31.1 H (22.0-30.0) sec Sodium (137-145) mmol/L Potassium (3.5-5.1) mmol/L Chloride (98-107) mmol/L Carbon Dioxide (22-30) mmol/L Anion Gap mmol/L BUN (7-17) mg/dL Creatinine (0.52-1.04) mg/dL Est GFR (CKD-EPI)AfAm (>60 ml/min/1.73 sqM) Est GFR (CKD-EPI)NonAf (>60 ml/min/1.73 sqM) Glucose (74-99) mg/dL Plasma Lactic Acid El (0.7-2.0) mmol/L Calcium (8.4-10.2) mg/dL Magnesium (1.6-2.3) mg/dL Total Bilirubin (0.2-1.3) mg/dL AST (14-36) U/L ALT (4-34) U/L Alkaline Phosphatase (38-126) U/L Troponin I (0.000-0.034) ng/mL NT-Pro-B Natriuret Pep pg/mL Total Protein (6.3-8.2) g/dL Albumin (3.5-5.0) g/dL Urine Color Colorless Urine Appearance Clear (Clear) Urine pH 5.5 (5.0-8.0) Ur Specific [place] 1.012 (1.001-1.035) Urine Protein Trace H (Negative) Urine Glucose (UA) Negative (Negative) Urine Ketones Negative (Negative) Urine Blood Negative (Negative) Urine Nitrite Negative (Negative) Urine Bilirubin Negative (Negative) Urine Urobilinogen <2.0 (<2.0) mg/dL Ur Leukocyte Esterase Trace H (Negative) Urine RBC 1 (0-5) /hpf Urine WBC 3 (0-5) /hpf Ur Squamous Epith Cells 1 (0-4) /hpf Urine Bacteria Rare H (None) /hpf Urine Mucus Rare H (None) /hpf 05/10/25 05/10/25 05/10/25 Range/Units 13:27 13:27 13:27 WBC (4.50-10.00) 10*3/uL RBC (4.10-5.20) 10*6/uL Hgb (12.0-15.0) g/dL Hct (37.2-46.3) % MCV (80.0-97.0) fL MCH (27.0-32.0) pg MCHC (32.0-37.0) g/dL Plt Count (140-440) 10*3/uL MPV (9.5-12.2) fL Immature Gran % (Auto) % Neutrophils % % Lymphocytes % % Monocytes % % Eosinophils % % Basophils % % Immature Gran # (0.00-0.04) 10*3/uL Neutrophils # (1.80-7.70) 10*3/uL Lymphocytes # (0.90-5.00) 10*3/uL Monocytes # (0.20-1.00) 10*3/uL Eosinophils # (0.04-0.35) 10*3/uL Basophils # (0.00-0.10) 10*3/uL PT (10.0-12.5) sec INR (<1.2) APTT (22.0-30.0) sec Sodium 125 L (137-145) mmol/L Potassium 6.3 H* (3.5-5.1) mmol/L Chloride 89 L (98-107) mmol/L Carbon Dioxide 23 (22-30) mmol/L Anion Gap 13 mmol/L BUN 142 H* (7-17) mg/dL Creatinine 3.04 H (0.52-1.04) mg/dL Est GFR (CKD-EPI)AfAm 16 (>60 ml/min/1.73 sqM) Est GFR (CKD-EPI)NonAf 14 (>60 ml/min/1.73 sqM) Glucose 124 H (74-99) mg/dL Plasma Lactic Acid El 1.3 (0.7-2.0) mmol/L Calcium 9.4 (8.4-10.2) mg/dL Magnesium 3.0 H (1.6-2.3) mg/dL Total Bilirubin 0.6 (0.2-1.3) mg/dL AST 20 (14-36) U/L ALT 14 (4-34) U/L Alkaline Phosphatase 109 (38-126) U/L Troponin I <0.012 (0.000-0.034) ng/mL NT-Pro-B Natriuret Pep 5580 pg/mL Total Protein 6.0 L (6.3-8.2) g/dL Albumin 3.2 L (3.5-5.0) g/dL Urine Color Urine Appearance (Clear) Urine pH (5.0-8.0) Ur Specific [place] (1.001-1.035) Urine Protein (Negative) Urine Glucose (UA) (Negative) Urine Ketones (Negative) Urine Blood (Negative) Urine Nitrite (Negative) Urine Bilirubin (Negative) Urine Urobilinogen (<2.0) mg/dL Ur Leukocyte Esterase (Negative) Urine RBC (0-5) /hpf Urine WBC (0-5) /hpf Ur Squamous Epith Cells (0-4) /hpf Urine Bacteria (None) /hpf Urine Mucus (None) /hpf Disposition Time of Disposition: 16:07 Decision Date: 05/10/25 Decision Time: 16:07 <Augie Santillan - Last Filed: 05/10/25 16:06> <Chetan Worley - Last Filed: 05/10/25 19:05> Clinical Impression: Hyperkalemia, CHIQUITA (acute kidney injury), Congestive heart failure (CHF), Pleural effusion, Hyponatremia Disposition: ADMITTED IP TO THIS [facility] Condition: Serious
[2025-05-10 13:34] LABS: Basophils # (A) 0.02 10*3/uL (0.00-0.10); Basophils % (A) 0.1 %; Eosinophils # (A) 0.01 10*3/uL (0.04-0.35); Eosinophils % (A) 0.1 %; HCT 30.4 % (37.2-46.3); HGB 10.4 g/dL (12.0-15.0); Lymphocytes # (A) 0.61 10*3/uL (0.90-5.00); Lymphocytes % (A) 4.5 %; MCH 28.5 pg (27.0-32.0); MCHC 34.2 g/dL (32.0-37.0); MCV 83.3 fL (80.0-97.0); Mean Platelet Volume 9.2 fL (9.5-12.2); Monocytes # (A) 0.74 10*3/uL (0.20-1.00); Monocytes % (A) 5.5 %; Neutrophils # (A) 12.05 10*3/uL (1.80-7.70); Neutrophils % (A) 89.1 %; Platelet Count 251 10*3/uL (140-440); RBC 3.65 10*6/uL (4.10-5.20); RDW 15.3 % (11.5-14.5); WBC 13.53 10*3/uL (4.50-10.00)
[2025-05-10] MEDS: SODIUM CHLORIDE 0.9% 1,000 ML IV STA ×2 (13:47→14:20)
[2025-05-10 13:48] LABS: INR 0.9 (<1.2); Partial Thromboplastin Time 31.1 sec (22.0-30.0); Prothrombin Time 9.9 sec (10.0-12.5)
[2025-05-10 14:04] LABS: ALT 14 U/L (4-34); AST 20 U/L (14-36); African American GFR (CKD) 16 (>60 ml/min/1.73 sqM); Albumin 3.2 g/dL (3.5-5.0); Alkaline Phosphatase 109 U/L (38-126); Anion Gap 13 mmol/L; Calcium 9.4 mg/dL (8.4-10.2); Carbon Dioxide 23 mmol/L (22-30); Chloride 89 mmol/L (98-107); Glucose 124 mg/dL (74-99); Non-African American GFR(CKD) 14 (>60 ml/min/1.73 sqM); Sodium 125 mmol/L (137-145); Total Bilirubin 0.6 mg/dL (0.2-1.3)
[2025-05-10 14:11] LABS: NT-Pro-B-Type Natriuretic Pept 5580 pg/mL
[2025-05-10 14:22] LABS: Blood Urea Nitrogen 142 mg/dL (7-17); Potassium 6.3 mmol/L (3.5-5.1)
[2025-05-10] MEDS: SODIUM ZIRCONIUM CYCLOSILICATE 10 GM PACKET PO ONE (15:23)
--- NOTE | 2025-05-10 15:24 | XR ---
EXAMINATION TYPE: XR chest 2V DATE OF EXAM: 05/10/2025 3:13 PM COMPARISON: Chest radiographs from 04/08/2025 CLINICAL INDICATION: Female, 79 years old with history of Hypotension, BLE edema; [facility] TECHNIQUE: XR chest 2V Frontal and lateral views of the chest. FINDINGS: Lungs/Pleura: No evidence of focal consolidation or pneumothorax. Blunting of the costophrenic angles is present. Pulmonary vascularity: Pulmonary vascular congestion. Heart/mediastinum: Cardiomediastinal silhouette is prominent in size. Musculoskeletal: No acute osseous pathology. IMPRESSION: Cardiomegaly, pulmonary vascular congestion and bilateral pleural effusions. Correlate with BNP for c ongestive heart failure. [facility], Workstation: [facility], 05/10/2025 3:22 PM
[2025-05-10] MEDS ORDERED: ACETAMINOPHEN TAB 325 MG TAB PO PRN (16:01)
[2025-05-10] MEDS ORDERED: NALOXONE 0.4 MG/ML 1 ML VIAL IV PRN (16:01)
[2025-05-10] MEDS: INSULIN REGULAR 100 UNIT/ML VIAL (IV) IV ONE (16:32)
[2025-05-10] MEDS: CALCIUM GLUCONATE IN NACL 1 GM in SALINE 1 100ML.BAG IVPB ONE (16:33)
[2025-05-10] MEDS: FUROSEMIDE 10 MG/ML 4 ML VIAL IV STA (16:34)
[2025-05-10] MEDS: DEXTROSE 50% SYRINGE 50 ML IVP ONE (16:35)
[2025-05-10] MEDS: SODIUM CHLORIDE 0.9% 1,000 ML IV SCH (16:36)
[2025-05-10 17:11] LABS: Appearance,Urine Clear (Clear); Bacteria,Urine Rare /hpf; Bilirubin,Urine Negative (Negative); Blood,Urine Negative (Negative); Color,Urine Colorless; Glucose,Urine (UA) Negative (Negative); Ketones,Urine Negative (Negative); Leukocyte Esterase,Urine Trace (Negative); Mucus,Urine Rare /hpf; Nitrite,Urine Negative (Negative); PH, Urine 5.5 (5.0-8.0); Protein,Urine Trace (Negative); RBC,Urine 1 /hpf (0-5); Specific Gravity,Urine 1.012 (1.001-1.035); Squamous Epithelial Cell,Urine 1 /hpf (0-4); Urobilinogen,Urine <2.0 mg/dL (<2.0); WBC,Urine 3 /hpf (0-5)
[2025-05-10] MEDS ORDERED: ALBUTEROL NEBULIZED 2.5 MG/3 ML INHALATION PRN (17:12)
--- NOTE | 2025-05-10 17:27 | US ---
EXAMINATION TYPE: US kidneys/renal and bladder DATE OF EXAM: 05/10/2025 COMPARISON: NONE CLINICAL INDICATION: Female, 79 years old with history of CHIQUITA; CHIQUITA TECHNIQUE: Grayscale imaging of the bilateral kidneys and urinary bladder: FINDINGS: EXAM MEASUREMENTS: Right Kidney: 9.1 x 4.4 x 4.5 cm Left Kidney: 9.5 x 5.6 x 4.5 cm Right Kidney: Increased parenchymal echogenicity. No definite evidence of hydronephrosis. Left Kidney: Increased parenchymal echogenicity. anechoic lesion = 2.4 x 2.0 x 2.2cm compatible wit h a simple cyst. No evidence of hydronephrosis. Bladder: Decompressed with intraluminal Puente catheter. *incidental finding: Complex anechoic lesion right adnexa = 16.7 x 11.8 x 11.1cm as noted on prior CT IMPRESSION: 1. No evidence of hydronephrosis/acute obstructive uropathy. 2. Simple left renal cyst. 3. Increased bilateral renal parenchymal echogenicity suggestive of underlying chronic medical renal disease. 4. Partially visualized complex cystic mass in the right adnexal region measuring up to 16.7 cm. In reviewing and consultation is recommended if not performed. [facility], , 05/10/2025 5:25 PM
[2025-05-10 18:25] LABS: African American GFR (CKD) 17 (>60 ml/min/1.73 sqM); Anion Gap 11 mmol/L; Calcium 8.8 mg/dL (8.4-10.2); Carbon Dioxide 21 mmol/L (22-30); Chloride 94 mmol/L (98-107); Glucose 98 mg/dL (74-99); Non-African American GFR(CKD) 15 (>60 ml/min/1.73 sqM); Potassium 4.9 mmol/L (3.5-5.1); Sodium 126 mmol/L (137-145)
[2025-05-10 18:49] LABS: Blood Urea Nitrogen 129 mg/dL (7-17)
[2025-05-10] MEDS: NOREPINEPHRINE 32 MG in SODIUM CHLORIDE 0.9% 218 ML IV SCH (19:24)
[2025-05-10] MEDS: SYMBICORT 80-4.5 MCG INHALER INHALATION SCH (19:54)
[2025-05-10] MEDS: APIXABAN 2.5 MG TABLET PO SCH (22:05)
--- NOTE | 2025-05-10 22:15 | HP ---
HISTORY AND PHYSICAL CHIEF COMPLAINT: Low blood pressure. HISTORY OF PRESENT ILLNESS: This is a 79-year-old woman with a past medical history of multiple medical problems, was brought from Dr. ANUJA snyder with hypotension. Apparently, the patient lives by herself and apparently, not eating well. The patient had some minimal kidney disease, but the blood pressure was found to be in 80s in . The patient had renal failure with hyperkalemia. The patient admitted that the patient received multiple boluses at this time. The patient also has severe hyperkalemia, insulin glucose regimen also will be given at this time. There is no history of any fever, rigors, or chills at this time. PAST MEDICAL HISTORY: Reviewed. Include atrial fibrillation and hypertension. Rest of history and chart is also reviewed. HOME MEDICATIONS: Reviewed include diltiazem. Doses and rest of medications reviewed. ALLERGIES: IGNACIO inhibitors. Rest of allergies noted. FAMILY HISTORY: No history of heart diseases or strokes in the family. SOCIAL HISTORY: No history of smoking or alcohol. REVIEW OF SYSTEMS: A 14-point review of systems is negative, except as mentioned earlier. PHYSICAL EXAMINATION: VITAL SIGNS: Pulse is 60, blood pressure 67/37, and respirations 16. HEENT: Conjunctivae normal. NECK: No JVD. CARDIOVASCULAR: S1, S2. RESPIRATIONS: muffled respirations. Breath sounds are diminished in the bases. A few scattered rhonchi and crackles. ABDOMEN: Soft, nontender. LEGS: No edema. NERVOUS SYSTEM: Nonfocal. LABORATORY DATA: Reviewed. ASSESSMENT: 1. Acute renal failure from acute tubular necrosis and severe hypotension, rule out sepsis. 2. Severe hyperkalemia. 3. Hyponatremia. 4. Increased WBC. 5. Atrial fibrillation. 6. Mild hypertension. 7. History of cholecystectomy. RECOMMENDATIONS AND DISCUSSION: I recommend to continue current medications and symptomatic IV fluids. I would also recommend Pulmonary Critical consultation, possible Levophed and transfer the patient to ICU. Otherwise, we will closely monitor. Guarded prognosis because of multiple complex medical issues and for further condition, see orders for details. MMODL / IJN: [id number] / MTDD
--- NOTE | 2025-05-11 00:10 | P.PCN ---
Date of Procedure: 05/11/25 Preoperative Diagnosis: Hypotension, shock Postoperative Diagnosis: Hypotension, shock Procedure(s) Performed: Insertion of right wrist radial arterial line Indications for Procedure: Hemodynamic monitoring and frequent lab draws Description of Procedure: Informed consent was obtained, and a procedural timeout was performed . The patient was placed in supine position. The informed consent was obtained, and a procedural timeout was performed . The patient was placed in supine position. The right radial region was prepared in a sterile fashion, and a sterile drape was applied. Area was locally anesthetized with 1% lidocaine. The right radial artery was palpated, easily cannulated, and a guidewire was placed. A Cook catheter was inserted over the guidewire, and the guidewire was removed. There was good arterial blood flow, good arterial waveform, and no complications. The line was secured with using a 3-0 silk suture.
--- NOTE | 2025-05-11 05:11 | P.CONS ---
History of Present Illness - Reason for Consult Consult date: 05/10/25 Sepsis? Requesting physician: Autumn Ortega - Chief Complaint Weakness and low blood pressure x 1 day - History of Present Illness Patient is a 79-year-old female with a past medical history significant for hypertension atrial fibrillation patient has been sent to [facility] ER from her [facility] office with the patient was noted to be hypotensive with a systolic in 80s patient complaining of weakness and lightheadedness patient denies having any headache or URI symptoms patient denies having any chest pain or shortness of breath or cough patient did have some nausea but no vomiting no abdominal pain no diarrhea patient did have significant swelling to bilateral lower extremity and did have wound to the left lower extremity for which the patient follow at the wound care center however currently denies having significant pain to the left lower extremity wound or any purulent drainage on presentation to the hospital patient was afebrile valente ent was not tachycardic she was hypertensive but not hypoxic and no need for supplemental oxygen patient did have elevated white count of 13.53 BUN and creatinine has been elevated liver enzymes are normal urine has been negative with a trace leukocyte Estrace patient did have a chest x-ray cardiomegaly pulmonary vascular congestion bilateral effusion correlate for congestive heart failure patient did have abdominal bladder ultrasound no evidence for hydronephrosis or acute obstructive uropathy simple renal cyst patient has been started on Rocephin empirically infectious disease was consulted for sepsis Review of Systems Positive point and negatives has been mentioned in the HPI, complete review of systems was performed and all other systems are negative Past Medical History Past Medical History: Atrial Fibrillation, Hypertension Additional Past Medical History / Comment(s): Tremors. Low kidney function History of Any Multi-Drug Resistant Organisms: None Reported Past Surgical History: Bowel Resection, Cholecystectomy, Hernia Repair, Hyste rectomy, Orthopedic Surgery Past Psychological History: No Psychological Hx Reported Smoking Status: Never smoker Past Alcohol Use History: None Reported Past Drug Use History: None Reported Medications and Allergies Home Medications Medication Instructions Recorded Confirmed Type Nystatin 100,000 Unit/gm Powd 1 applic TOPICAL BID #15 gram 03/07/25 05/10/25 Rx [Mycostatin Powder] Albuterol Sulfate [Ventolin HFA] 2 puff INHALATION RT-QID PRN 05/10/25 05/10/25 History Apixaban [Eliquis] 2.5 mg PO BID 05/10/25 05/10/25 History Budesonide/Formoterol Fumarate 2 puff INHALATION RT-BID 05/10/25 05/10/25 History [Budesonide-Formoterol 80-4.5] Bumetanide [BUMEX] 2 mg PO BID@0900,1400 05/10/25 05/10/25 History Candesartan [Atacand] 16 mg PO DAILY 05/10/25 05/10/25 History Cholecalciferol [Vitamin D3 (125 125 mcg PO DAILY 05/10/25 05/10/25 History Mcg = 5000 Iu)] Cranberry 4200mg 4,200 mg PO DAILY 05/10/25 05/10/25 History Iron 28mg 28 mg PO DAILY 05/10/25 05/10/25 History Levothyroxine Sodium [Synthroid] 175 mcg PO DAILY@0400 05/10/25 05/10/25 History Methenamine Hippurate 1 gm PO BID 05/10/25 05/10/25 History Propranolol HCl [Propranolol HCl 80 mg PO DAILY 05/10/25 05/10/25 History ER] Tamsulosin [Flomax] 0.4 mg PO DAILY 05/10/25 05/10/25 History Vitamin C(Unknown Dose) 1 tab PO DAILY 05/10/25 05/10/25 History dilTIAZem HCL [dilTIAZem HCL 24Hr 120 mg PO DAILY 05/10/25 05/10/25 History ER ([place])] Allergies Allergy/AdvReac Type Severity Reaction Status Date / Time SADI Inhibitors AdvReac Dyspnea Verified 05/10/25 14:10 aclidinium AdvReac Dyspnea Verified 05/10/25 14:10 [From Tudorza Pressair] amlodipine [From Norvasc] AdvReac Dyspnea Verified 05/10/25 14:10 rosuvastatin [From Crestor] AdvReac Dyspnea Verified 05/10/25 14:10 Physical Exam Vitals: Vital Signs Temp Pulse Resp BP Pulse Ox 05/11/25 04:03 97.5 F L 75 17 102/56 95 05/11/25 01:57 77 14 107/58 98 05/11/25 00:17 84 17 104/58 100 05/10/25 22:51 93.2 F L 82 17 92/70 98 05/10/25 22:06 93.0 F L 74 17 98/41 97 05/10/25 22:01 71 17 93/62 97 05/10/25 21:43 68 17 98/54 99 05/10/25 20:35 57 L 17 71/34 99 05/10/25 20:20 64 17 67/52 99 05/10/25 19:53 54 L 17 81/63 98 05/10/25 19:00 92.1 F L 62 16 57/41 98 05/10/25 18:32 54 L 62/44 99 05/10/25 18:25 91.6 F L 57 L 16 58/41 98 05/10/25 18:00 60 58/41 05/10/25 17:31 59 L 16 58/20 98 05/10/25 17:00 60 18 55/39 98 05/10/25 16:47 60 16 66/37 98 05/10/25 15:57 53 L 16 85/73 96 05/10/25 15:19 63 16 68/48 98 05/10/25 14:24 58 L 16 108/71 99 05/10/25 13:49 56 L 16 118/86 99 05/10/25 12:31 97.6 F 56 L 20 80/53 96 Intake and Output 05/10/25 05/10/25 05/11/25 14:59 22:59 06:59 Intake Total 30.540 4.401 Output Total 150 3200 Balance -119.460 -3195.599 Intake: Intake, IV Titration 30.540 4.401 Amount Norepinephrine 32 mg In 30.540 4.401 Sodium Chloride 0.9% 218 ml @ 0.03 MCG/KG/MIN 1. 276 mls/hr IV .Q24H [facility] Rx#:[id number] Output: Urine 150 3200 Uretheral (Puente) 150 350 Other: Weight 90.718 kg GENERAL DESCRIPTION: Elderly female lying in bed, no distress. No tachypnea or accessory muscle of respiration use. HEENT: Shows Pallor , no scleral icterus. Oral mucous membrane is dry. NECK: Trachea central, no thyromegaly. LUNGS: Unlabored breathing. Clear to auscultation anteriorly. No wheeze or crackle. HEART: S1, S2, regular rate and rhythm. No loud murmur ABDOMEN: Soft, no tenderness , guarding or rigidity, no organomegaly EXTREMITIES: Diffuse swelling to bilateral lower extremity patient did have wound to the left lower leg with no slough tissue no surrounding redness or any drainage SKIN: No rash, no masses palpable. NEUROLOGICAL: The patient is awake, alert, oriented x3, mood and affect normal. Results CBC & Chem 7: 05/10/25 13:27 05/10/25 17:40 Labs: Abnormal Lab Results - Last 24 Hours (Table) 05/10/25 05/10/25 05/10/25 Range/Units 13:05 13: 13:27 WBC 13.53 H (4.50-10.00) 10*3/uL RBC 3.65 L (4.10-5.20) 10*6/uL Hgb 10.4 L (12.0-15.0) g/dL Hct 30.4 L (37.2-46.3) % MPV 9.2 L (9.5-12.2) fL Immature Gran # 0.10 H (0.00-0.04) 10*3/uL Neutrophils # 12.05 H (1.80-7.70) 10*3/uL Lymphocytes # 0.61 L (0.90-5.00) 10*3/uL Eosinophils # 0.01 L (0.04-0.35) 10*3/uL PT 9.9 L (10.0-12.5) sec APTT 31.1 H (22.0-30.0) sec Sodium (137-145) mmol/L Potassium (3.5-5.1) mmol/L Chloride (98-107) mmol/L Carbon Dioxide (22-30) mmol/L BUN (7-17) mg/dL Creatinine (0.52-1.04) mg/dL Glucose (74-99) mg/dL Magnesium (1.6-2.3) mg/dL Total Protein (6.3-8.2) g/dL Albumin (3.5-5.0) g/dL Urine Protein Trace H (Negative) Ur Leukocyte Esterase Trace H (Negative) Urine Bacteria Rare H (None) /hpf Urine Mucus Rare H (None) /hpf 05/10/25 05/10/25 Range/Units : 17:40 WBC (4.50-10.00) 10*3/uL RBC (4.10-5.20) 10*6/uL Hgb (12.0-15.0) g/dL Hct (37.2-46.3) % MPV (9.5-12.2) fL Immature Gran # (0.00-0.04) 10*3/uL Neutrophils # (1.80-7.70) 10*3/uL Lymphocytes # (0.90-5.00) 10*3/uL Eosinophils # (0.04-0.35) 10*3/uL PT (10.0-12.5) sec APTT (22.0-30.0) sec Sodium 125 L 126 L (137-145) mmol/L Potassium 6.3 H* (3.5-5.1) mmol/L Chloride 89 L 94 L (98-107) mmol/L Carbon Dioxide 21 L (22-30) mmol/L BUN 142 H* 129 H* (7-17) mg/dL Creatinine 3.04 H 2.90 H (0.52-1.04) mg/dL Glucose 124 H (74-99) mg/dL Magnesium 3.0 H (1.6-2.3) mg/dL Total Protein 6.0 L (6.3-8.2) g/dL Albumin 3.2 L (3.5-5.0) g/dL Urine Protein (Negative) Ur Leukocyte Esterase (Negative) Urine Bacteria (None) /hpf Urine Mucus (None) /hpf Assessment and Plan (1) SIRS (systemic inflammatory response syndrome) Current Visit: Yes Status: Acute Code(s): R65.10 - SIRS OF NON-INFECTIOUS ORIGIN W/O ACUTE ORGAN DYSFUNCTION SNOMED Code(s): 334177812 Plan: 1patient presented to the hospital with weakness and low blood pressure in this patient who did have features of SIRS however no clear focus of infection patient is not running any fever does not look toxic urine is negative chest x- ray was mostly CHF abdomen is soft patient did have a wound to the left lower extremity however wound base looks clean with no slough tissue surrounding redness 2-we will check inflammatory markers and follow-up on the blood culture 3-May continue Rocephin while waiting for the culture to finalize 4-local wound care to the left lower extremity wound with a dry Aquacel dressing and Sadi wrap from just above the toe to below the knee to keep the swelling down Daughter at the bedside questions answered We will follow on clinical condition and cultures to further adjust medication if needed Thank you for this consultation we will follow the patient along with you Dictation was produced using [employer] dictation software. please excuse any gramm atical, word or spelling errors.
--- NOTE | 2025-05-11 05:39 | P.CNPUL ---
History of Present Illness Consult date: 05/11/25 Requesting physician: Autumn Ortega Chief complaint: Sent in from Dr. Bunch's office with hypotension History of present illness: Patient is a 79-year-old female with past medical history significant for hypertension, atrial fibrillation, hypothyroidism, resting tremors, diverticulitis with previous bowel resection. Also, had an abdominal/pelvis CT February, remarkable for large multiseptated cystic mass in the pelvis measuring 11.3 x 13.4 x 11 cm likely either dependent hemorrhagic or enhancing solid component. Findings were suspicious for malignancy. Possibly ovarian in origin. There was no evidence of active bleeding. No definitive distant metastatic disease noted. Moderate right-sided hydronephrosis, suspected secondary to mass effect. She has had ongoing issues with urinary retention and worsening renal function. She was at Dr. Bunch's office yesterday, and was found to be hypotensive. Reportedly, her blood pressure was recorded with a systolic of 80s mmHg. She had associated weakness and lightheadedness. Also, noted to have severe lower extremity weeping edema and her Lasix was recently tr ansitioned to [facility]. While being worked up in the emergency department she was found to be profoundly hypotensive. She was fluid resuscitated with a total of 2 L of normal saline bolus. A right femoral central line was placed in the ED. She was started on norepinephrine for blood pressure support. Also, hypothermic with a rectal temperature of 91.6 F.. For this reason a pulmonary critical c are consultation was placed. Renal function worse than baseline and was hyperkalemic with a potassium of 6.3. Did receive 10 units regular insulin, 1 amp D50 W, 10 g of Lokelma, 1 g calcium gluconate. Repeat potassium down to 4.9 mmol/L. Did have a distended bladder and an indwelling urinary catheter was placed. Ultrasound of bilateral kidneys and urinary bladder showing a decompressed bladder with intraluminal Puente catheter. No evidence of hydronephrosis or acute obstructive uropathy. Simple appearing left renal cyst. Increased bilateral renal parenchymal echogenicity suggestive of underlying chronic medical renal disease. Urinalysis had trace leukocytes and rare bacteria. Empirically placed on Rocephin in the ED.Remaining lab work including a CBC with a WBC count of 13.5, hemoglobin 10.4, platelets 251. Patient does take Eliquis on outpatient basis for her A-fib. Has not noticed any overt signs of blood loss. Denies any abdominal pain, diarrhea, hematochezia, melena, na usea or vomiting or hematemesis. Most recent BMP with a sodium of 126, potassium to 4.9, chloride 94, serum bicarb 21, BUN 129, creatinine is slightly improved down to 2.9, glucose 98. NT proBNP was elevated at 5580. Troponin less than 0.012. Patient currently being observed in the emergency department. She is awaiting a bed in the intensive care unit. Blood pressure is profoundly hypotensive requiring norepinephrine, which is infusing at 0.28 mcg/kg/min. Normal saline also infusing at 75 mL/h. Current rhythm is atrial fibrillation with controlled ventricular response at bedside monitor. She is awake and alert. Does not appear to be in any distress. Remains hypothermic and her most recent temperature is 93.2 F. Denies any dysuria, burning, urinary frequency, hematuria, flank pain. She is on room air. Denies any difficulty breathing, coughing, sputum production, chest pain. She does have severe lower extremity pitting edema with weeping venous stasis ulcers. Patient did receive a one-time dose of IV Lasix 40 mg. She does have an indwelling urinary catheter with copious amounts of clear yellow urine. Urometer is full. Abdomen is soft and nondistended. Review of Systems Constitutional: Reports chills, Reports fatigue, Reports weakness, Reports weight gain, Denies fever, Denies poor appetite, Denies weight loss Ears, nose, mouth and throat: Denies headache, Denies nasal congestion, Denies nasal discharge, Denies post-nasal drip, Denies sinus pain, Denies sinus pressure, Denies sore throat Cardiovascular: Reports leg edema, Reports lightheadedness, Denies chest pain, Denies orthopnea, Denies palpitations, Denies paroxysmal nocturnal dyspnea, Denies syncope Respiratory: Denies congestion, Denies cough, Denies cough with sputum, Denies dyspnea, Denies hemoptysis Gastrointestinal: Denies abdominal pain, Denies coffee ground emesis, Denies diarrhea, Denies hematochezia, Denies nausea, Denies vomiting Genitourinary: Reports difficulty voiding, Denies dysuria, Denies flank pain, Denies hematuria, Denies kidney stones, Denies urinary frequency Menstruation: Reports post hysterectomy Musculoskeletal: Reports limitation of motion Integumentary: Reports foot/leg ulcers, Denies rash Neurological: Reports tremors (Resting), Denies seizures, Denies syncope Psychiatric: Denies anxiety, Denies depression Past Medical History Past Medical History: Atrial Fibrillation, Hypertension Additional Past Medical History / Comment(s): Tremors. Low kidney function History of Any Multi-Drug Resistant Organisms: None Reported Past Surgical History: Bowel Resection, Cholecystectomy, Hernia Repair, Hysterectomy, Orthopedic Surgery Past Psychological History: No Psychological Hx Reported Smoking Status: Never smoker Past Alcohol Use History: None Reported Past Drug Use History: None Reported Medications and Allergies Home Medications Medication Instructions Recorded Confirmed Type Nystatin 100,000 Unit/gm Powd 1 applic TOPICAL BID #15 gram 03/07/25 05/10/25 Rx [Mycostatin Powder] Albuterol Sulfate [Ventolin HFA] 2 puff INHALATION RT-QID PRN 05/10/25 05/10/25 History Apixaban [Eliquis] 2.5 mg PO BID 05/10/25 05/10/25 History Budesonide/Formoterol Fumarate 2 puff INHALATION RT-BID 05/10/25 05/10/25 History [Budesonide-Formoterol 80-4.5] Bumetanide [BUMEX] 2 mg PO BID@0900,1400 05/10/25 05/10/25 History Candesartan [Atacand] 16 mg PO DAILY 05/10/25 05/10/25 History Cholecalciferol [Vitamin D3 (125 125 mcg PO DAILY 05/10/25 05/10/25 History Mcg = 5000 Iu)] Cranberry 4200mg 4,200 mg PO DAILY 05/10/25 05/10/25 History Iron 28mg 28 mg PO DAILY 05/10/25 05/10/25 History Levothyroxine Sodium [Synthroid] 175 mcg PO DAILY@0400 05/10/25 05/10/25 History Methenamine Hippurate 1 gm PO BID 05/10/25 05/10/25 History Propranolol HCl [Propranolol HCl 80 mg PO DAILY 05/10/25 05/10/25 History ER] Tamsulosin [Flomax] 0.4 mg PO DAILY 05/10/25 05/10/25 History Vitamin C(Unknown Dose) 1 tab PO DAILY 05/10/25 05/10/25 History dilTIAZem HCL [dilTIAZem HCL 24Hr 120 mg PO DAILY 05/10/25 05/10/25 History ER ([place])] Allergies Allergy/AdvReac Type Severity Reaction Status Date / Time IGNACIO Inhibitors AdvReac Dyspnea Verified 05/10/25 14:10 aclidinium AdvReac Dyspnea Verified 05/10/25 14:10 [From Tudorza Pressair] amlodipine [From Norvasc] AdvReac Dyspnea Verified 05/10/25 14:10 rosuvastatin [From Crestor] AdvReac Dyspnea Verified 05/10/25 14:10 Physical Exam Vitals: Vital Signs Temp Pulse Resp BP Pulse Ox 05/10/25 22:51 93.2 F L 82 17 92/70 98 05/10/25 22:06 93.0 F L 74 17 98/41 97 05/10/25 22:01 71 17 93/62 97 05/10/25 21:43 68 17 98/54 99 05/10/25 20:35 57 L 17 71/34 99 05/10/25 20:20 64 17 67/52 99 05/10/25 19:53 54 L 17 81/63 98 05/10/25 19:00 92.1 F L 62 16 57/41 98 05/10/25 18:32 54 L 62/44 99 05/10/25 18:25 91.6 F L 57 L 16 58/41 98 05/10/25 18:00 60 58/41 05/10/25 17:31 59 L 16 58/20 98 05/10/25 17:00 60 18 55/39 98 05/10/25 16:47 60 16 66/37 98 05/10/25 15:57 53 L 16 85/73 96 05/10/25 15:19 63 16 68/48 98 05/10/25 14:24 58 L 16 108/71 99 05/10/25 13:49 56 L 16 118/86 99 05/10/25 12:31 97.6 F 56 L 20 80/53 96 Intake and Output 05/10/25 05/10/25 05/11/25 14:59 22:59 06:59 Intake Total 30.540 4.401 Output Total 150 Balance -119.460 4.401 Intake: Intake, IV Titration 30.540 4.401 Amount Norepinephrine 32 mg In 30.540 4.401 Sodium Chloride 0.9% 218 ml @ 0.03 MCG/KG/MIN 1. 276 mls/hr IV .Q24H [facility] Rx#:[id number] Output: Urine 150 Uretheral (Puente) 150 Other: Weight 90.718 kg GENERAL EXAM: Alert, 79-year-old obese female, comfortable in no apparent distre ss. Hypotensive, norepinephrine infusing through right femoral central line. Hypothermic. HEAD: Normocephalic and atraumatic EYES: Normal reaction of pupils, equal size. NOSE: Clear with pink turbinates. THROAT: No erythema or exudates. NECK: No masses, no JVD. CHEST: No chest wall deformity. LUNGS: Equal air entry with no crackles, wheeze, rhonchi or dullness. On room air. No conversational dyspnea or accessory muscle use.. CVS: S1 and S2 normal with no audible murmur, irregular rhythm. No extra heart sounds ABDOMEN: No hepatosplenomegaly, active bowel sounds, no guarding or rigidity. SPINE: No scoliosis or deformity SKIN: No rashes CENTRAL NERVOUS SYSTEM: No focal deficits, tone is normal in all 4 extremities. EXTREMITIES: Severe bilateral lower extremity pitting edema, weeping. Venous stasis ulcer. No clubbing or cyanosis. Peripheral pulses are intact. Results - Laboratory Findings CBC and BMP: 05/10/25 13:27 05/10/25 17:40 PT/INR, D-dimer PT 9.9 sec (10.0-12.5) L 05/10/25 13:27 INR 0.9 (<1.2) 05/10/25 13:27 Abnormal lab findings: Abnormal Labs 05/10/25 05/10/25 05/10/25 13:05 13:27 13:27 WBC 13.53 H RBC 3.65 L Hgb 10.4 L Hct 30.4 L MPV 9.2 L Immature Gran # 0.10 H Neutrophils # 12.05 H Lymphocytes # 0.61 L Eosinophils # 0.01 L PT 9.9 L APTT 31.1 H Sodium Potassium Chloride Carbon Dioxide BUN Creatinine Glucose Magnesium Total Protein Albumin Urine Protein Trace H Ur Leukocyte Esterase Trace H Urine Bacteria Rare H Urine Mucus Rare H 05/10/25 05/10/25 13:27 17:40 WBC RBC Hgb Hct MPV Immature Gran # Neutrophils # Lymphocytes # Eosinophils # PT APTT Sodium 125 L 126 L Potassium 6.3 H* Chloride 89 L 94 L Carbon Dioxide 21 L BUN 142 H* 129 H* Creatinine 3.04 H 2.90 H Glucose 124 H Magnesium 3.0 H Total Protein 6.0 L Albumin 3.2 L Urine Protein Ur Leukocyte Esterase Urine Bacteria Urine Mucus - Diagnostic Findings Chest x-ray: image reviewed Assessment and Plan Assessment: Hypotension and shock, refractory to fluid resuscitation, considered sepsis Acute on chronic kidney disease Hyperkalemia, potassium 6.3, secondary to above, treated with a combination of 10 units regular insulin, 1 amp D50 W, 10 g of Lokelma, 1 g calcium gluconate. Repeat potassium down to 4.9 Hypothermia, use external warming blanket Acute leukocytosis Pelvic mass; abdominal/pelvis CT February, remarkable for large multiseptated cystic mass in the pelvis measuring 11.3 x 13.4 x 11 cm likely either dependent hemorrhagic or enhancing solid component. Findings were suspicious for malignancy. Possibly ovarian in origin. There is no evidence of active bleeding. No definitive distant metastatic disease noted. Moderate right-sided hydronephrosis, suspected secondary to mass effect. Patient has not had any follow-up evaluation. History of urinary retention and hydronephrosis UA positive for trace leukocytes, rare bacteria, trace protein Chronic atrial fibrillation, currently with controlled ventricular response, anticoagulated on Eliquis Bilateral lower extremity edema Hyponatremia, with significant lower extremity edema and third spacing History of hypothyroidism Resting tremor History of diverticulitis with previous bowel resection History of subtotal hysterectomy Plan: Patient's medications, labs, imaging reviewed Patient remains hypotensive despite fluid resuscitation, and was previously started on norepinephrine which is infusing at 0.28 mcg/kg/min Central line access previously established by ED physician I did insert a right radial arterial line for continuous hemodynamic monitoring and frequent lab draws Indwelling urinary catheter was placed Ultrasound of bilateral kidneys and urinary bladder showing a decompressed bladder with intraluminal Puente catheter. No evidence of hydronephrosis or acute obstructive uropathy. Simple appearing left renal cyst. Increased bilateral renal parenchymal echogenicity suggestive of underlying chronic medical renal disease. Did receive Lasix 40 mg x 1 Urine and blood cultures are pending Empirically started on Rocephin Eliquis previously restarted Obtain transthoracic echocardiogram Patient is going to be transferred to the intensive care unit once bed available. Condition is critical and prognosis is guarded. Case reviewed with my supervising physician, and further recommendations to follow. I have personally seen and examined the patient, performed the documentation and the assessment and plan as written. Number of minutes spent on the visit:20 This dictation was produced using [employer] dictation software please excuse grammatical errors Time with Patient: Greater than 30
[2025-05-11] MEDS: LEVOTHYROXINE 88 MCG TAB PO SCH (05:42)
[2025-05-11 06:54] LABS: Basophils # (A) 0.01 10*3/uL (0.00-0.10); Basophils % (A) 0.1 %; Eosinophils # (A) 0.01 10*3/uL (0.04-0.35); Eosinophils % (A) 0.1 %; HCT 32.9 % (37.2-46.3); HGB 11.2 g/dL (12.0-15.0); Lymphocytes # (A) 0.63 10*3/uL (0.90-5.00); Lymphocytes % (A) 4.5 %; MCH 28.2 pg (27.0-32.0); MCV 82.9 fL (80.0-97.0); Monocytes # (A) 0.65 10*3/uL (0.20-1.00); Monocytes % (A) 4.7 %; Neutrophils # (A) 12.44 10*3/uL (1.80-7.70); Neutrophils % (A) 89.6 %; Platelet Count 268 10*3/uL (140-440); RBC 3.97 10*6/uL (4.10-5.20); RDW 15.3 % (11.5-14.5); WBC 13.88 10*3/uL (4.50-10.00)
[2025-05-11 07:11] LABS: ALT 29 U/L (4-34); AST 30 U/L (14-36); African American GFR (CKD) 20 (>60 ml/min/1.73 sqM); Albumin 2.9 g/dL (3.5-5.0); Alkaline Phosphatase 136 U/L (38-126); Anion Gap 13 mmol/L; Calcium 8.8 mg/dL (8.4-10.2); Carbon Dioxide 18 mmol/L (22-30); Chloride 98 mmol/L (98-107); Glucose 129 mg/dL (74-99); Non-African American GFR(CKD) 17 (>60 ml/min/1.73 sqM); Potassium 4.5 mmol/L (3.5-5.1); Sodium 129 mmol/L (137-145); Total Bilirubin 0.7 mg/dL (0.2-1.3); Total Protein 5.7 g/dL (6.3-8.2)
[2025-05-11 07:15] LABS: Blood Urea Nitrogen 112 mg/dL (7-17)
[2025-05-11] MEDS: ASCORBIC ACID 500 MG TAB PO SCH (08:52)
[2025-05-11] MEDS: CHOLECALCIFEROL 125 MCG (5000 IU) TABLET PO SCH (08:52)
[2025-05-11] MEDS ORDERED: BUMETANIDE 1 MG TAB PO SCH (09:00)
--- NOTE | 2025-05-11 09:16 | CT ---
EXAMINATION TYPE: CT abdomen pelvis wo con DATE OF EXAM: 05/11/2025 8:22 AM COMPARISON: None. CLINICAL INDICATION: Female, 79 years old with history of Known abdominal mass; sepsis; hypotension, Abd pain. TECHNIQUE: Axial images were obtained from above the diaphragm to the pubic rami in the axial plane a t 5 mm thick sections. Reconstructed images are reviewed on the computer in the coronal plane. CONTRAST: mL of . Study performed without Oral Contrast DLP: 1067.4 mGycm, Automated exposure control for dose reduction was used. FINDINGS: Limited CT sections are obtained the lung bases. The lung bases are clear. Mild coronary artery zuleika cification is present. CT ABDOMEN: Liver: Normal Spleen: Normal Pancreas: Atrophic Adrenal glands: The adrenal glands are normal. Gallbladder: Normal Kidneys: No masses are evident. Moderate right hydronephrosis and hydroureter is present. This extend s towards the urinary bladder. No obstructing calcification left cortical renal cyst is present. Aorta: Vascular calcification is within the aorta. Inferior vena cava: Normal. CT PELVIS: There is a large homogenous hypodense area and 17 Hounsfield units and measuring 16.3 cm A P by 10.8 cm transverse by 11.1 cm in craniocaudal dimension. This is above the urinary bladder. Loops of bowel within the abdomen and pelvis are normal. This study is without oral contrast Appendix: Normal as visualized. Urinary bladder: Urinary bladder is decompressed with Puente catheter. Genitourinary structures: Uterus and ovaries are not identified Osseous structures: No suspicious lytic or sclerotic lesions. IMPRESSION: 1. Very large cystlike area of both the urinary bladder. This was present previously. Findings remai n suspicious for neoplasm. 2. Moderate right hydronephrosis and hydroureter. Intraureteral obstruction is not identified on nonc ontrast exam. [facility], , 05/11/2025 9:14 AM
--- NOTE | 2025-05-11 09:32 | P.CRDCN ---
History of Present Illness Consult date: 05/11/25 Reason for Consult (text): Atrial fibrillation History of present illness: This is a 79-year-old female patient of Dr. Quoc Rosas with past medical history of moderate to severe aortic regurgitation, COPD, hypertension, persistent atrial fibrillation, known abdominal mass. Patient was last seen in the office on 05/05/2025 at which time she presented for surgical clearance for removal of a large cystic mass in the pelvis measuring 11.3 x 13.4 x 11.0 cm likely either dependent hemorrhagic or enhancing solid component and suspicious for jayda dorado. Cardiac surgical clearance was given at that time. Patient states that she has been told that she does not have a plan in place until her kidneys are improved. Patient was seen at Dr. Bunch's office yesterday found to be hypotensive with systolic of 80 along with weakness and lightheadedness. Patient presented to the emergency center was also hypotensive underwent IV fluid boluses and has been subsequently started on norepinephrine. Patient was also hypothermic and nursing to apply Magi blanket. Puente catheter has been placed as well as arterial line. Patient has been started on IV antibiotics and her home cardiac medications are on hold. She has been continued on Eliquis. Blood pressures 95/45, heart rate in the 60s and 70s, pulse ox 97% on room air. Most recent temperature was 94.8 rectal. Patient is seen today in the emergency center waiting for a bed in the ICU. Pulmonary medicine is ordered a CT of the abdomen pelvis without contrast. -EKG: Atrial fibrillation at 65 bpm. -Chest x-ray: Cardiomegaly, pulmonary vascular congestion and bilateral pleural effusions. -Renal ultrasound: No hydronephrosis. Simple left renal cyst. Increased bilateral renal parenchymal echogenicity suggestive of underlying chronic medical renal disease. -Laboratory studies: WBC 13.8, hemoglobin 9.2. Sodium 129. Potassium initially 6.3 now 4.5. BUN initially 142 and now 112. Initial creatinine 3.04 and now 2.57. Troponin negative x 1. proBNP 5580. TSH 1.3. Urinalysis negative for infection. -Home cardiac medications: Eliquis 2.5 mg twice daily, Bumex 2 mg twice daily, Atacand 16 mg daily, detail exam LA 120 mg daily, propranolol 80 mg daily, also on levothyroxine. -Echocardiogram performed on 05/05/2025 reveals EF of 50 to 55%, borderline concentric left ventricular hypertrophy. Moderate to severe mitral regurgitation. Mild to moderate tricuspid regurgitation. Normal PASP. -Lexiscan Cardiolite stress test performed in the office on 02/18/2024 revealed inconclusive EKG part of the stress test due to baseline EKG abnormalities. Normal myocardial perfusion function. Evidence of atrial fibrillation. Review Of Systems: At the time of my exam: CONSTITUTIONAL: Denies fever or chills. Reports generalized weakness and fatigue. HEENT: Denies blurred vision, vision changes, or eye pain. Denies hemoptysis CARDIOVASCULAR: Denies chest pain. Denies orthopnea. Denies PND. Denies palpitations RESPIRATORY: Denies shortness of breath. GASTROINTESTINAL: Denies abdominal pain. Denies nausea or vomiting. HEMATOLOGIC: Denies bleeding disorders. GENITOURINARY: Denies any blood in urine. SKIN: Denies puritis. Denies rash. Physical examination: Gen: This is a 79-year-old female in no acute distress. VS: reviewed HEENT: Head is atraumatic, normocephalic. Pupils equal, round. Sclerae is anicteric. NECK: Supple. No JVD. LUNGS: Clear to auscultation. No wheezes or rhonchi. No intercostal retractions. HEART: Regular rate and rhythm. No murmur. ABDOMEN: Soft No tenderness. EXTREMITIES: No pedal edema. No calf tenderness. NEUROLOGICAL: Patient is awake, alert and oriented x3. Assessment: Persistent atrial fibrillation with controlled ventricular rate Acute kidney injury with chronic kidney disease Hypotension and shock Hypothermia Hyperkalemia Acute leukocytosis Pelvis mass suspicious for malignancy History of urinary retention and hydronephrosis Moderate to severe mitral regurgitation COPD Hypertension Plan: Hold patient's home cardiac medications Continue vaso pressor support No need to repeat echocardiogram as this was done in the office on 05/05 Further recommendations to follow based upon clinical course Thank you kindly for this consultation. Nurse practitioner note has been reviewed, I agree with documented findings and plan of care. Patient was seen and examined. Past Medical History Past Medical History: Atrial Fibrillation, Hypertension Additional Past Medical History / Comment(s): Tremors. Low kidney function History of Any Multi-Drug Resistant Organisms: None Reported Past Surgical History: Bowel Resection, Cholecystectomy, Hernia Repair, Hysterectomy, Orthopedic Surgery Past Psychological History: No Psychological Hx Reported Smoking Status: Never smoker Past Alcohol Use History: None Reported Past Drug Use History: None Reported Medications and Allergies Home Medications Medication Instructions Recorded Confirmed Type Nystatin 100,000 Unit/gm Powd 1 applic TOPICAL BID #15 gram 03/07/25 05/10/25 Rx [Mycostatin Powder] Albuterol Sulfate [Ventolin HFA] 2 puff INHALATION RT-QID PRN 05/10/25 05/10/25 History Apixaban [Eliquis] 2.5 mg PO BID 05/10/25 05/10/25 History Budesonide/Formoterol Fumarate 2 puff INHALATION RT-BID 05/10/25 05/10/25 History [Budesonide-Formoterol 80-4.5] Bumetanide [BUMEX] 2 mg PO BID@0900,1400 05/10/25 05/10/25 History Candesartan [Atacand] 16 mg PO DAILY 05/10/25 05/10/25 History Cholecalciferol [Vitamin D3 (125 125 mcg PO DAILY 05/10/25 05/10/25 History Mcg = 5000 Iu)] Cranberry 4200mg 4,200 mg PO DAILY 05/10/25 05/10/25 History Iron 28mg 28 mg PO DAILY 05/10/25 05/10/25 History Levothyroxine Sodium [Synthroid] 175 mcg PO DAILY@0400 05/10/25 05/10/25 History Methenamine Hippurate 1 gm PO BID 05/10/25 05/10/25 History Propranolol HCl [Propranolol HCl 80 mg PO DAILY 05/10/25 05/10/25 History ER] Tamsulosin [Flomax] 0.4 mg PO DAILY 05/10/25 05/10/25 History Vitamin C(Unknown Dose) 1 tab PO DAILY 05/10/25 05/10/25 History dilTIAZem HCL [dilTIAZem HCL 24Hr 120 mg PO DAILY 05/10/25 05/10/25 History ER ([place])] Allergies Allergy/AdvReac Type Severity Reaction Status Date / Time IGNACIO Inhibitors AdvReac Dyspnea Verified 05/10/25 14:10 aclidinium AdvReac Dyspnea Verified 05/10/25 14:10 [From Tudorza Pressair] amlodipine [From Norvasc] AdvReac Dyspnea Verified 05/10/25 14:10 rosuvastatin [From Crestor] AdvReac Dyspnea Verified 05/10/25 14:10 Physical Exam Vitals: Vital Signs Temp Pulse Resp BP Pulse Ox 05/11/25 07:25 94.8 F L 05/11/25 04:03 97.5 F L 75 17 102/56 95 05/11/25 01:57 77 14 107/58 98 05/11/25 00:17 84 17 104/58 100 05/10/25 22:51 93.2 F L 82 17 92/70 98 05/10/25 22:06 93.0 F L 74 17 98/41 97 05/10/25 22:01 71 17 93/62 97 05/10/25 21:43 68 17 98/54 99 05/10/25 20:35 57 L 17 71/34 99 05/10/25 20:20 64 17 67/52 99 05/10/25 19:53 54 L 17 81/63 98 05/10/25 19:00 92.1 F L 62 16 57/41 98 05/10/25 18:32 54 L 62/44 99 05/10/25 18:25 91.6 F L 57 L 16 58/41 98 05/10/25 18:00 60 58/41 05/10/25 17:31 59 L 16 58/20 98 05/10/25 17:00 60 18 55/39 98 05/10/25 16:47 60 16 66/37 98 05/10/25 15:57 53 L 16 85/73 96 05/10/25 15:19 63 16 68/48 98 05/10/25 14:24 58 L 16 108/71 99 05/10/25 13:49 56 L 16 118/86 99 05/10/25 12:31 97.6 F 56 L 20 80/53 96 Intake and Output 05/10/25 05/11/25 05/11/25 22:59 06:59 14:59 Intake Total 30.540 4.401 Output Total 150 3700 Balance -119.460 -3695.599 Intake: Intake, IV Titration 30.540 4.401 Amount Norepinephrine 32 mg In 30.540 4.401 Sodium Chloride 0.9% 218 ml @ 0.03 MCG/KG/MIN 1. 276 mls/hr IV .Q24H [facility] Rx#:[id number] Output: Urine 150 3700 Uretheral (Puente) 150 350 Results 05/11/25 05:50 05/11/25 05:50 Cardiac Enzymes 05/10/25 05/10/25 05/11/25 Range/Units 13:27 13:27 05:50 AST 20 30 (14-36) U/L Troponin I <0.012 (0.000-0.034) ng/mL Coagulation 05/10/25 Range/Units 13:27 PT 9.9 L (10.0-12.5) sec APTT 31.1 H (22.0-30.0) sec CBC 05/10/25 05/11/25 Range/Units 13:27 05:50 WBC 13.53 H 13.88 H (4.50-10.00) 10*3/uL RBC 3.65 L 3.97 L (4.10-5.20) 10*6/uL Hgb 10.4 L 11.2 L (12.0-15.0) g/dL Hct 30.4 L 32.9 L (37.2-46.3) % Plt Count 251 268 (140-440) 10*3/uL Comprehensive Metabolic Panel 05/10/25 05/10/25 05/11/25 Range/Units 13:27 17:40 05:50 Sodium 125 L 126 L 129 L (137-145) mmol/L Potassium 6.3 H* 4.9 4.5 (3.5-5.1) mmol/L Chloride 89 L 94 L 98 (98-107) mmol/L Carbon Dioxide 23 21 L 18 L (22-30) mmol/L BUN 142 H* 129 H* 112 H* (7-17) mg/dL Creatinine 3.04 H 2.90 H 2.57 H (0.52-1.04) mg/dL Glucose 124 H 98 129 H (74-99) mg/dL Calcium 9.4 8.8 8.8 (8.4-10.2) mg/dL AST 20 30 (14-36) U/L ALT 14 29 (4-34) U/L Alkaline Phosphatase 109 136 H (38-126) U/L Total Protein 6.0 L 5.7 L (6.3-8.2) g/dL Albumin 3.2 L 2.9 L (3.5-5.0) g/dL Current Medications Generic Name Dose Route Start Last Admin Trade Name Freq PRN Reason Stop Dose Admin Acetaminophen 650 mg 05/10/25 16:01 Acetaminophen Tab 325 Mg Tab PO Q6HR PRN Mild Pain or Fever > 100.5 Albuterol Sulfate 2.5 mg 05/10/25 17:12 Albuterol Nebulized 2.5 Mg/3 Ml INHALATION RT-QID PRN Shortness Of Breath Apixaban 2.5 mg 05/10/25 21:00 05/10/25 22:05 Apixaban 2.5 Mg Tablet PO 2.5 mg BID LENI Administration Protocol Ascorbic Acid 500 mg 05/11/25 09:00 Ascorbic Acid 500 Mg Tab PO DAILY LENI Budesonide/Formoterol Fumarate 2 puff 05/10/25 20:00 05/10/25 19:54 Symbicort 80-4.5 Mcg Inhaler INHALATION 2 puff RT-BID LENI Administration Cholecalciferol 125 mcg 05/11/25 09:00 Cholecalciferol 125 Mcg (5000 Iu) Tablet PO DAILY LENI Sodium Chloride 1,000 mls @ 75 mls/hr 05/10/25 16:15 05/10/25 16:36 Saline 0.9% IV 75 mls/hr .[id number] LENI Administration Ceftriaxone Sodium 1 gm/ 50 mls @ 100 mls/hr 05/10/25 17:15 05/10/25 18:22 Sodium Chloride IVPB 100 mls/hr Q24HR LENI Administration Protocol Norepinephrine Bitartrate 32 250 mls @ 1.276 mls/hr 05/10/25 19:15 05/10/25 23:14 mg/ Sodium Chloride IV 0.28 mcg/kg/min .Q24H LENI 11.907 mls/hr Titration Protocol 0.03 MCG/KG/MIN Levothyroxine Sodium 174 mcg 05/11/25 06:30 05/11/25 05:42 Levothyroxine 88 Mcg Tab PO 174 mcg DAILY@0630 LENI Administration Naloxone HCl 0.2 mg 05/10/25 16:01 Naloxone 0.4 Mg/Ml 1 Ml Vial IV Q2M PRN Opioid Reversal Intake and Output 05/10/25 05/11/25 05/11/25 22:59 06:59 14:59 Intake Total 30.540 4.401 Output Total 150 3700 Balance -119.460 -9905.599 Intake: Intake, IV Titration 30.540 4.401 Amount Norepinephrine 32 mg In 4.401 Sodium Chloride 0.9% 218 ml @ 0.03 MCG/KG/MIN 1. 276 mls/hr IV .Q24H [facility] Rx#:[id number] Output: Urine 150 3700 Uretheral (Puente) 150 350 05/11/25 05:50 05/11/25 05:50
[2025-05-11 09:52] LABS: C Reactive Protein 14.8 mg/dL (<1.0)
--- NOTE | 2025-05-11 11:00 | P.NPCON ---
History of Present Illness - Reason for Consult acute renal failure, chronic renal failure - History of Present Illness Reason for consultation: Acute kidney injury on chronic kidney disease History of present illness: Patient is a 79-year-old female seen in renal consultation for acute kidney injury on chronic kidney disease. Patient has chronic kidney disease stage IIIa with baseline creatinine near 1.1. Creatinine this admission was 3.04 and is improved to 2.57 today. Patient was seen at her office and was noted to be hypotensive and dizzy. She was subsequently sent to the ER for further care. Patient was found to be hyperkalemic with a potassium level of 6.3 which was medically treated and now potassium is in the normal range. Renal function is improving. Sodium level is also trending up and is 129 today. Patient received fluid boluses for hypotension and was receiving normal saline overnight. It was discontinued this morning. She denies use of nonsteroidals. Denies history of diabetes or coronary artery disease. Denies fever or chills. Oral intake fair. No vomiting or diarrhea. Patient's CAT scan from February 2025 showed a pelvic mass with moderate hydronephrosis for which she has been seeing a surgeon. Patient states is not clear as if it is a malignancy or not. Vital signs are stable. General: No acute distress. HEENT: Head exam is unremarkable. On room air. LUNGS: No audible rhonchi or wheezes. HEART: Rate and Rhythm are regular. ABDOMEN: Nontender. EXTREMITITES: 1+ edema. Chronic changes noted. Past Medical History Past Medical History: Atrial Fibrillation, Hypertension Additional Past Medical History / Comment(s): Tremors. Low kidney function History of Any Multi-Drug Resistant Organisms: None Reported Past Surgical History: Bowel Resection, Cholecystectomy, Hernia Repair, Hysterectomy, Orthopedic Surgery Past Psychological History: No Psychological Hx Reported Smoking Status: Never smoker Past Alcohol Use History: None Reported Past Drug Use History: None Reported Medications and Allergies Home Medications Medication Instructions Recorded Confirmed Type Nystatin 100,000 Unit/gm Powd 1 applic TOPICAL BID #15 gram 03/07/25 05/10/25 Rx [Mycostatin Powder] Albuterol Sulfate [Ventolin HFA] 2 puff INHALATION RT-QID PRN 05/10/25 05/10/25 History Apixaban [Eliquis] 2.5 mg PO BID 05/10/25 05/10/25 History Budesonide/Formoterol Fumarate 2 puff INHALATION RT-BID 05/10/25 05/10/25 History [Budesonide-Formoterol 80-4.5] Bumetanide [BUMEX] 2 mg PO BID@0900,1400 05/10/25 05/10/25 History Candesartan [Atacand] 16 mg PO DAILY 05/10/25 05/10/25 History Cholecalciferol [Vitamin D3 (125 125 mcg PO DAILY 05/10/25 05/10/25 History Mcg = 5000 Iu)] Cranberry 4200mg 4,200 mg PO DAILY 05/10/25 05/10/25 History Iron 28mg 28 mg PO DAILY 05/10/25 05/10/25 History Levothyroxine Sodium [Synthroid] 175 mcg PO DAILY@0400 05/10/25 05/10/25 History Methenamine Hippurate 1 gm PO BID 05/10/25 05/10/25 History Propranolol HCl [Propranolol HCl 80 mg PO DAILY 05/10/25 05/10/25 History ER] Tamsulosin [Flomax] 0.4 mg PO DAILY 05/10/25 05/10/25 History Vitamin C(Unknown Dose) 1 tab PO DAILY 05/10/25 05/10/25 History dilTIAZem HCL [dilTIAZem HCL 24Hr 120 mg PO DAILY 05/10/25 05/10/25 History ER ([place])] Allergies Allergy/AdvReac Type Severity Reaction Status Date / Time IGNACIO Inhibitors AdvReac Dyspnea Verified 05/10/25 14:10 aclidinium AdvReac Dyspnea Verified 05/10/25 14:10 [From Tudorza Pressair] amlodipine [From Norvasc] AdvReac Dyspnea Verified 05/10/25 14:10 rosuvastatin [From Crestor] AdvReac Dyspnea Verified 05/10/25 14:10 Physical Exam Vitals: Vital Signs Temp Pulse Resp BP Pulse Ox 05/11/25 10:00 97.3 F L 85 18 97/51 93 L 05/11/25 09:36 97.3 F L 80 16 94/53 97 05/11/25 08:27 75 16 95/45 97 05/11/25 07:43 66 16 97/54 97 05/11/25 07:25 94.8 F L 05/11/25 04:03 97.5 F L 75 17 102/56 95 05/11/25 01:57 77 14 107/58 98 05/11/25 00:17 84 17 104/58 100 05/10/25 22:51 93.2 F L 82 17 92/70 98 05/10/25 22:06 93.0 F L 74 17 98/41 97 05/10/25 22:01 71 17 93/62 97 05/10/25 21:43 68 17 98/54 99 05/10/25 20:35 57 L 17 71/34 99 05/10/25 20:20 64 17 67/52 99 05/10/25 19:53 54 L 17 81/63 98 05/10/25 19:00 92.1 F L 62 16 57/41 98 05/10/25 18:32 54 L 62/44 99 05/10/25 18:25 91.6 F L 57 L 16 58/41 98 05/10/25 18:00 60 58/41 05/10/25 17:31 59 L 16 58/20 98 05/10/25 17:00 60 18 55/39 98 05/10/25 16:47 60 16 66/37 98 05/10/25 15:57 53 L 16 85/73 96 05/10/25 15:19 63 16 68/48 98 05/10/25 14:24 58 L 16 108/71 99 05/10/25 13:49 56 L 16 118/86 99 05/10/25 12:31 97.6 F 56 L 20 80/53 96 Intake and Output 05/10/25 05/11/25 05/11/25 22:59 06:59 14:59 Intake Total 30.540 4.401 Output Total 150 3700 800 Balance -119.460 -3695.599 -800 Intake: Intake, IV Titration 30.540 4.401 Amount Norepinephrine 32 mg In 30.540 4.401 Sodium Chloride 0.9% 218 ml @ 0.03 MCG/KG/MIN 1. 276 mls/hr IV .Q24H [facility] Rx#:[id number] Output: Urine 150 3700 800 Uretheral (Puente) 150 350 Results - Lab Results Most recent lab results Calcium 8.8 mg/dL (8.4-10.2) 05/11/25 05:50 Magnesium 3.0 mg/dL (1.6-2.3) H 05/10/25 13:27 05/11/25 05:50 05/11/25 05:50 Assessment and Plan Plan: Assessment: 1. Acute kidney injury secondary to ATN secondary to hypotension/shock. Also concern for obstructive uropathy. Creatinine 3.04 on admission and is 2.57 today. UA fairly benign. 2. Chronic kidney disease stage IIIa with baseline creatinine near 1.1. 3. Right-sided hydronephrosis with bladder mass. 4. Hypovolemic hyponatremia improving with IV fluids. 5. Metabolic acidosis secondary to acute kidney injury and IV fluids. 6. Shock maintained on Levophed. Plan: Currently off IV fluids. Wean Levophed. Maintain Puente catheter. Follow-up echocardiogram. Add oral bicarb. Consult urology due to hydronephrosis and bladder mass. Continue to monitor renal function and urine output. Thank you for the consultation. I will continue to follow the patient with you during her hospital stay.
[2025-05-11] MEDS: SODIUM BICARBONATE TAB 650 MG TAB PO SCH (11:29)
[2025-05-11] MEDS ORDERED: Magnesium Replacement Protocol 1 EACH MISC MISCELLANE PRN (12:31)
[2025-05-11] MEDS ORDERED: Potassium Replacement Protocol 1 EACH MISC MISCELLANE PRN (12:31)
[2025-05-11] MEDS ORDERED: PIPERACILLIN-TAZOBACTAM 3.375 GM in SODIUM CHLORIDE 0.9% 100 ML IVPB SCH (12:45)
[2025-05-11 13:02] LABS: Glucose,Whole Blood 132 mg/dL (70-110)
--- NOTE | 2025-05-11 13:24 | CA ---
Transthoracic Echo Report Name: Marlys Roger Age: 79 Gender: F : 1945 Exam Date: 05/11/2025 07:16 Exam Location: [facility] Ht (in): 61 Wt (lb): 200 Ordering Physician: Clark Haddad Attending/Referring Phys: Director [employer] Annetta Carlos RDCS Procedure CPT: Indications: evaluate LV function Cardiac Hx: Technical Quality: Fair Contrast 1: Total Dose (mL): Contrast 2: Total Dose (mL): MEASUREMENTS (Male / Female) Normal Values 2D ECHO LV Diastolic Diameter PLAX 4.0 cm 4.2 - 5.9 / 3.9 - 5.3 cm LV Systolic Diameter PLAX 2.8 cm IVS Diastolic Thickness 1.1 cm 0.6 - 1.0 / 0.6 - 0.9 cm LVPW Diastolic Thickness 1.2 cm 0.6 - 1.0 / 0.6 - 0.9 cm LV Relative Wall Thickness 0.6 RV Internal Dim ED PLAX 3.1 cm LVOT Diameter 2.0 cm LV Diastolic Volume MOD BP 63.5 cm??? 67 - 155 / 56 - 104 cm??? LV Systolic Volume MOD BP 27.5 cm??? 22 - 58 / 19 - 49 cm??? LV Ejection Fraction MOD BP 56.6 % >= 55 % LV Cardiac Index MOD BP 1546.3 cm???/min???m??? LV Diastolic Volume MOD 4C 56.7 cm??? LV Systolic Volume MOD 4C 21.9 cm??? LV Ejection Fraction MOD 4C 61.4 % LV Cardiac Index MOD 4C 1495.6 cm???/min???m??? LV Diastolic Length 4C 6.7 cm LV Systolic Length 4C 5.6 cm LV Diastolic Volume MOD 2C 68.5 cm??? LV Systolic Volume MOD 2C 31.3 cm??? LV Ejection Fraction MOD 2C 54.4 % LV Cardiac Index MOD 2C 1602.9 cm???/min???m??? LV Diastolic Length 2C 7.0 cm LV Systolic Length 2C 6.4 cm LA Volume 86.7 cm??? 18 - 58 / 22 - 52 cm??? LA Volume Index 42.9 cm???/m??? 16 - 28 cm???/m??? M-MODE Aortic Root Diameter MM 2.6 cm LA Systolic Diameter MM 4.7 cm LA Ao Ratio MM 1.8 DOPPLER AV Peak Velocity 113.0 cm/s AV Peak Gradient 5.1 mmHg AV Mean Velocity 68.8 cm/s AV Mean Gradient 2.2 mmHg AV Velocity Time Integral 20.8 cm LVOT Peak Velocity 78.6 cm/s LVOT Peak Gradient 2.5 mmHg LVOT Velocity Time Integral 17.0 cm LVOT Stroke Volume 52.0 cm??? LVOT Stroke Volume Index 27.5 ml/m??? LVOT Cardiac Index 2237.6 cm???/min???m??? AV Area Cont Eq vti 2.5 cm??? AV Area Cont Eq pk 2.1 cm??? MR Flow Rate PISA 37.2 cm???/s TR Peak Velocity 246.5 cm/s TR Peak Gradient 24.3 mmHg Right Atrial Pressure 20.0 mmHg Pulmonary Artery Systolic Pressu 44.3 mmHg Right Ventricular Systolic Press 44.3 mmHg PV Peak Velocity 66.4 cm/s PV Peak Gradient 1.8 mmHg FINDINGS Left Ventricle Left ventricular ejection fraction is estimated at 55-60 %. Mildly increased septal wall thickness. Mildly increased posterior wall thickness. Normal left ventricular systolic function with no obvious regional wall motion abnormalities. Left ventricular cavity size normal. Right Ventricle Normal right ventricular size and function. Mild pulmonary hypertension. Right Atrium Severe right atrial dilatation. Left Atrium Severely increased left atrial volume. Mitral Valve Structurally normal mitral valve. Mitral valve thickened. Moderate mitral regurgitation. No mitral stenosis. Aortic Valve Trileaflet aortic valve. No aortic valve stenosis or regurgitation. Diffuse thickening (sclerosis) of the aortic valve cusps without reduced excursion. Tricuspid Valve Structurally normal tricuspid valve. [id number] tricuspid regurgitation. Pulmonic Valve Structurally normal pulmonic valve. Mild pulmonic regurgitation. No pulmonic stenosis. Pericardium No pericardial or pleural effusion. Aorta Normal size aortic root and proximal ascending aorta. CONCLUSIONS Left ventricular ejection fraction 55 to 60% Mildly increased left ventricular wall thickness Severe biatrial enlargement Moderate mitral regurgitation Moderate to severe tricuspid regurgitation No pericardial effusion Previewed by: Dr. Krystian Canada DO (Electronically Signed) Final Date: 11 May 2025 13:23
--- NOTE | 2025-05-11 13:27 | PN ---
PROGRESS NOTE DATE OF SERVICE: 05/11/2025 SUBJECTIVE: This is a 79-year-old woman, who was admitted with acute renal failure, also had features of sepsis also. The patient is hypotensive. The patient is hypothermic. Multiple consultants are following the patient closely. We will initiate broad- spectrum IV antibiotics. CT scan of the abdomen, large cystic area of urinary bladder, moderate hydronephrosis and hydroureter. No chest pain. No palpitation. PAST MEDICAL HISTORY: Reviewed. REVIEW OF SYSTEMS: A 14-point review of systems negative, except as mentioned earlier. CURRENT MEDICATIONS: Reviewed. PHYSICAL EXAMINATION: VITAL SIGNS: Pulse is 97, blood pressure 90/40, respirations 85, temperature 96. HEENT: Conjunctivae normal. NECK: No JVD. CARDIOVASCULAR: S1, S2 muffled. RESPIRATION: Breath sounds diminished at the bases. A few scattered rhonchi. ABDOMEN: Soft. NERVOUS SYSTEM: Nonfocal. LABORATORY DATA: WBC 13.4, creatinine is 2.57. CT scan reviewed. ASSESSMENT: 1. Acute renal failure from acute tubular necrosis and severe hypotension. 2. Possible sepsis with hypotension, hypothermia. 3. Possible adjacent bladder mass versus cyst. 4. Severe hyperkalemia. 5. Hyponatremia. 6. Increased WBC. 7. Hydronephrosis. 8. Atrial fibrillation. 9. History of hypertension. 10.History of cholecystectomy. 11.History of multiple complex medical issues. RECOMMENDATIONS AND DISCUSSION: I recommend to continue current management and treatment, otherwise we will continue to monitor. We will follow with Nephrology. Urology consultation has been obtained. Broad-spectrum IV antibiotics, cultures and the exact etiology of the bladder mass is unknown at this time. Guarded prognosis because of multiple complex medical issues and for further conditions, see orders for details. The patient is started on Levophed. Closely follow with multiple consultants. MMODL / IJN: [id number] /
[2025-05-11] MEDS ORDERED: FLUCONAZOLE IN NACL,ISO-OSM 200 MG in SALINE 1 200ML.BAG IVPB STA (14:30)
[2025-05-11] MEDS: PIPERACILLIN-TAZOBACTAM 3.375 GM in SODIUM CHLORIDE 0.9% 100 ML IVPB SCH (14:43)
[2025-05-11] MEDS: LIDOCAINE 4% PATCH TOPICAL SCH (15:30)
[2025-05-11] MEDS: NYSTATIN 100,000 UNIT/GM POWD 15 GM TOPICAL SCH (15:30)
[2025-05-11] MEDS: FLUCONAZOLE IN NACL,ISO-OSM 200 MG in SALINE 1 100ML.BAG IVPB STA (15:31)
--- NOTE | 2025-05-12 05:54 | P.GSCN ---
History of Present Illness Consult date: 05/11/25 Reason for Consult: Right hydronephrosis Requesting physician: Colt Duckworth History of present illness: The patient is a 79-year-old white female with a history of recurrent UTIs. She denies any prior history of urolithiasis. She is now admitted with dizziness and hypotension. Laboratory studies showed evidence of renal failure along with hyperkalemia, for which she is being treated. CT scan shows moderate right hydroureteronephrosis due to an 11 x 16 cm cystic pelvic mass. She was aware of the mass, presumed to be of gynecologic origin, and she has been referred to Dr. Askew with the intent of undergoing surgery at [facility]. Review of Systems - Genitourinary Genitourinary: Reports urinary frequency, Denies hematuria Past Medical History Past Medical History: Atrial Fibrillation, Hypertension Additional Past Medical History / Comment(s): Hypothyroidism, Resting Tremors (related to stress), Diverticulitis with prior bowel resection, Urinary Retention (Had chronic paige for 10 days and worsening Kidney Function. History of Any Multi-Drug Resistant Organisms: None Reported Past Surgical History: Bowel Resection, Cholecystectomy, Hernia Repair, Hysterectomy, Orthopedic Surgery Past Anesthesia/Blood Transfusion Reactions: Postoperative Nausea & Vomiting (PONV) Smoking Status: Never smoker, Second hand smoke exposure - Past Family History Father Family Medical History: Cancer Mother Family Medical History: Cancer Additional Family Medical History / Comment(s): Bone Marrow Cancer Sister(s) Family Medical History: Cancer Additional Family Medical History / Comment(s): Breast Cancer Medications and Allergies Home Medications Medication Instructions Recorded Confirmed Type Nystatin 100,000 Unit/gm Powd 1 applic TOPICAL BID #15 gram 03/07/25 05/10/25 Rx [Mycostatin Powder] Albuterol Sulfate [Ventolin HFA] 2 puff INHALATION RT-QID PRN 05/10/25 05/10/25 History Apixaban [Eliquis] 2.5 mg PO BID 05/10/25 05/10/25 History Budesonide/Formoterol Fumarate 2 puff INHALATION RT-BID 05/10/25 05/10/25 History [Budesonide-Formoterol 80-4.5] Bumetanide [BUMEX] 2 mg PO BID@0900,1400 05/10/25 05/10/25 History Candesartan [Atacand] 16 mg PO DAILY 05/10/25 05/10/25 History Cholecalciferol [Vitamin D3 (125 125 mcg PO DAILY 05/10/25 05/10/25 History Mcg = 5000 Iu)] Cranberry 4200mg 4,200 mg PO DAILY 05/10/25 05/10/25 History Iron 28mg 28 mg PO DAILY 05/10/25 05/10/25 History Levothyroxine Sodium [Synthroid] 175 mcg PO DAILY@0400 05/10/25 05/10/25 History Methenamine Hippurate 1 gm PO BID 05/10/25 05/10/25 History Propranolol HCl [Propranolol HCl 80 mg PO DAILY 05/10/25 05/10/25 History ER] Tamsulosin [Flomax] 0.4 mg PO DAILY 05/10/25 05/10/25 History Vitamin C(Unknown Dose) 1 tab PO DAILY 05/10/25 05/10/25 History dilTIAZem HCL [dilTIAZem HCL 24Hr 120 mg PO DAILY 05/10/25 05/10/25 History ER (LA)] Allergies Allergy/AdvReac Type Severity Reaction Status Date / Time IGNACIO Inhibitors AdvReac Dyspnea Verified 05/10/25 14:10 aclidinium AdvReac Dyspnea Verified 05/10/25 14:10 [From Tudorza Pressair] amlodipine [From Norvasc] AdvReac Dyspnea Verified 05/10/25 14:10 rosuvastatin [From Crestor] AdvReac Dyspnea Verified 05/10/25 14:10 Surgical - Exam Vital Signs Temp Pulse Resp BP Pulse Ox 97.6 F 56 L 20 80/53 96 05/10/25 12:31 05/10/25 12:31 05/10/25 12:31 05/10/25 12:31 05/10/25 12:31 - General well developed, well nourished, no distress - Respiratory normal respiratory effort - Abdomen Abdomen: soft (v xc), non tender, no guarding, no rigid, no rebound - Psychiatric oriented to time, oriented to person, oriented to place, speech is normal, memory intact Results - Labs 05/11/25 05:50 05/11/25 05:50 Abnormal Lab Results - Last 24 Hours (Table) 05/10/25 05/11/25 05/11/25 Range/Units 17:40 05:50 05:50 WBC 13.88 H (4.50-10.00) 10*3/uL RBC 3.97 L (4.10-5.20) 10*6/uL Hgb 11.2 L (12.0-15.0) g/dL Hct 32.9 L (37.2-46.3) % MPV 9.0 L (9.5-12.2) fL Immature Gran # 0.14 H (0.00-0.04) 10*3/uL Neutrophils # 12.44 H (1.80-7.70) 10*3/uL Lymphocytes # 0.63 L (0.90-5.00) 10*3/uL Eosinophils # 0.01 L (0.04-0.35) 10*3/uL Sodium 126 L 129 L (137-145) mmol/L Chloride 94 L (98-107) mmol/L Carbon Dioxide 21 L 18 L (22-30) mmol/L BUN 129 H* 112 H* (7-17) mg/dL Creatinine 2.90 H 2.57 H (0.52-1.04) mg/dL Glucose 129 H (74-99) mg/dL POC Glucose (mg/dL) (70-110) mg/dL Alkaline Phosphatase 136 H (38-126) U/L C-Reactive Protein 14.8 H (<1.0) mg/dL Total Protein 5.7 L (6.3-8.2) g/dL Albumin 2.9 L (3.5-5.0) g/dL 05/11/25 Range/Units 13:00 WBC (4.50-10.00) 10*3/uL RBC (4.10-5.20) 10*6/uL Hgb (12.0-15.0) g/dL Hct (37.2-46.3) % MPV (9.5-12.2) fL Immature Gran # (0.00-0.04) 10*3/uL Neutrophils # (1.80-7.70) 10*3/uL Lymphocytes # (0.90-5.00) 10*3/uL Eosinophils # (0.04-0.35) 10*3/uL Sodium (137-145) mmol/L Chloride (98-107) mmol/L Carbon Dioxide (22-30) mmol/L BUN (7-17) mg/dL Creatinine (0.52-1.04) mg/dL Glucose (74-99) mg/dL POC Glucose (mg/dL) 132 H (70-110) mg/dL Alkaline Phosphatase (38-126) U/L C-Reactive Protein (<1.0) mg/dL Total Protein (6.3-8.2) g/dL Albumin (3.5-5.0) g/dL Diabetes panel 05/10/25 05/11/25 Range/Units 17:40 05:50 Sodium 126 L 129 L (137-145) mmol/L Potassium 4.9 4.5 (3.5-5.1) mmol/L Chloride 94 L 98 (98-107) mmol/L Carbon Dioxide 21 L 18 L (22-30) mmol/L BUN 129 H* 112 H* (7-17) mg/dL Creatinine 2.90 H 2.57 H (0.52-1.04) mg/dL Glucose 98 129 H (74-99) mg/dL Calcium 8.8 8.8 (8.4-10.2) mg/dL AST 30 (14-36) U/L ALT 29 (4-34) U/L Alkaline Phosphatase 136 H (38-126) U/L Total Protein 5.7 L (6.3-8.2) g/dL Albumin 2.9 L (3.5-5.0) g/dL Thyroid panel 05/11/25 Range/Units 05:50 TSH 1.300 (0.465-4.680) mIU/L Calcium panel 05/10/25 05/11/25 Range/Units 17:40 05:50 Calcium 8.8 8.8 (8.4-10.2) mg/dL Albumin 2.9 L (3.5-5.0) g/dL Pituitary panel 05/10/25 05/11/25 05/11/25 Range/Units 17:40 05:50 05:50 Sodium 126 L 129 L (137-145) mmol/L Potassium 4.9 4.5 (3.5-5.1) mmol/L Chloride 94 L 98 (98-107) mmol/L Carbon Dioxide 21 L 18 L (22-30) mmol/L BUN 129 H* 112 H* (7-17) mg/dL Creatinine 2.90 H 2.57 H (0.52-1.04) mg/dL Glucose 98 129 H (74-99) mg/dL Calcium 8.8 8.8 (8.4-10.2) mg/dL TSH 1.300 (0.465-4.680) mIU/L Adrenal panel 05/10/25 05/11/25 Range/Units 17:40 05:50 Sodium 126 L 129 L (137-145) mmol/L Potassium 4.9 4.5 (3.5-5.1) mmol/L Chloride 94 L 98 (98-107) mmol/L Carbon Dioxide 21 L 18 L (22-30) mmol/L BUN 129 H* 112 H* (7-17) mg/dL Creatinine 2.90 H 2.57 H (0.52-1.04) mg/dL Glucose 98 129 H (74-99) mg/dL Calcium 8.8 8.8 (8.4-10.2) mg/dL Total Bilirubin 0.7 (0.2-1.3) mg/dL AST 30 (14-36) U/L ALT 29 (4-34) U/L Alkaline Phosphatase 136 H (38-126) U/L Total Protein 5.7 L (6.3-8.2) g/dL Albumin 2.9 L (3.5-5.0) g/dL - Imaging CT scan - abdomen: report reviewed, image reviewed Assessment and Plan (1) Unspecified hydronephrosis Current Visit: Yes Status: Acute Code(s): N13.30 - UNSPECIFIED HYDRONEPHROSIS SNOMED Code(s): 05927706 Plan: I have reviewed the CT scan. The bladder is decompressed with a Paige catheter, and the cystic mass appears to be above the bladder rather than within it. Given the impaired renal function, I have suggested to the patient that she undergo cystoscopy, right retrograde pyelogram, right ureteral stent insertion on May 13, 2025. Potential associated risks include anesthesia, bleeding, infection, inability to place a stent, and ureteral injury. This was all reviewed with the patient in detail. Time with Patient: Greater than 30
[2025-05-12] MEDS: PANTOPRAZOLE 40 MG TABLET PO SCH (06:16)
[2025-05-12 06:26] LABS: Basophils # (A) 0.02 10*3/uL (0.00-0.10); Basophils % (A) 0.2 %; Eosinophils # (A) 0.02 10*3/uL (0.04-0.35); Eosinophils % (A) 0.2 %; HCT 32.9 % (37.2-46.3); HGB 10.9 g/dL (12.0-15.0); Lymphocytes # (A) 0.77 10*3/uL (0.90-5.00); Lymphocytes % (A) 7.7 %; MCH 28.2 pg (27.0-32.0); MCHC 33.1 g/dL (32.0-37.0); Mean Platelet Volume 9.1 fL (9.5-12.2); Monocytes # (A) 0.74 10*3/uL (0.20-1.00); Monocytes % (A) 7.4 %; Neutrophils % (A) 83.4 %; Platelet Count 246 10*3/uL (140-440); RBC 3.87 10*6/uL (4.10-5.20); RDW 15.6 % (11.5-14.5); WBC 10.06 10*3/uL (4.50-10.00)
[2025-05-12 06:37] LABS: African American GFR (CKD) 25 (>60 ml/min/1.73 sqM); Anion Gap 10 mmol/L; Blood Urea Nitrogen 80 mg/dL (7-17); Carbon Dioxide 21 mmol/L (22-30); Chloride 106 mmol/L (98-107); Glucose 145 mg/dL (74-99); Magnesium 2.2 mg/dL (1.6-2.3); Non-African American GFR(CKD) 22 (>60 ml/min/1.73 sqM); Potassium 3.6 mmol/L (3.5-5.1); Sodium 137 mmol/L (137-145)
--- NOTE | 2025-05-12 08:19 | XR ---
EXAMINATION TYPE: XR chest 1V DATE OF EXAM: 05/12/2025 5:40 AM COMPARISON: Chest radiographs from 1625 CLINICAL INDICATION: Female, 79 years old with history of Pulmonary Edema; [facility] TECHNIQUE: XR chest 1V Frontal view of the chest. FINDINGS: Lungs/Pleura: No evidence of focal consolidation or pneumothorax. Blunting of the costophrenic angles is present. Pulmonary vascularity: Pulmonary vascular congestion. Heart/mediastinum: Cardiomediastinal silhouette is prominent in size. Musculoskeletal: No acute osseous pathology. IMPRESSION: Cardiomegaly, pulmonary vascular congestion and bilateral pleural effusions. Correlate with BNP for c ongestive heart failure. [facility], , 05/12/2025 8:17 AM
--- NOTE | 2025-05-12 09:23 | P.PN ---
Subjective Patient is seen in follow-up for acute kidney injury on chronic kidney disease. Renal function improving. On Levophed and IV fluids. Nonoliguric. On room air. Vital signs are stable. General: No acute distress. HEENT: Head exam is unremarkable. LUNGS: No audible rhonchi or wheezes. HEART: Rate and Rhythm are regular. ABDOMEN: Nontender. EXTREMITITES: 1+ edema. Objective - Vital Signs Vital signs: Vital Signs Temp 97.4 F L 05/12/25 08:30 Pulse 85 05/12/25 09:00 Resp 11 L 05/12/25 09:00 BP 127/80 05/12/25 09:00 Pulse Ox 96 05/12/25 09:00 FiO2 Intake & Output 05/11/25 05/12/25 05/12/25 18:59 06:59 18:59 Intake Total 377.788 4352.988 75 Output Total 1492 2370 150 Balance -504.090 -842.012 -75 Weight 93.3 kg 90.2 kg Intake: Intake, IV Titration 256.441 2986.988 75 Amount Fluconazole in NaCl,Iso- 100 Osm 200 mg In Saline 1 100ml.bag @ 100 mls/hr IVPB ONCE STA Rx#: [id number] Norepinephrine 32 mg In 237.910 127.988 Sodium Chloride 0.9% 218 ml @ 0.03 MCG/KG/MIN 1. 276 mls/hr IV .Q24H LENI Rx#:[id number] Piperacillin-Tazobactam 3 100 .375 gm In Sodium Chloride 0.9% 100 ml @ 25 mls/hr IVPB Q12H [facility]I Rx# :[id number] Sodium Chloride 0.9% 1, 450 900 75 000 ml @ 75 mls/hr IV . [id number] [facility]I Rx#:[id number] cefTRIAXone 1 gm In 100 Sodium Chloride 0.9% 50 ml @ 100 mls/hr IVPB Q24HR [facility]I Rx#:[id number] Oral 500 Output: Urine 1492 2370 150 Other: Voiding Method Indwelling Catheter Indwelling Catheter ABP, PAP, CO, CI - Last Documented Arterial Blood Pressure 109/65 - Labs CBC & Chem 7: 05/12/25 05:47 05/12/25 05:47 Labs: Abnormal Lab Results - Last 24 Hours (Table) 05/11/25 05/11/25 05/12/25 Range/Units 05:50 13:00 05:47 WBC (4.50-10.00) 10*3/uL RBC (4.10-5.20) 10*6/uL Hgb (12.0-15.0) g/dL Hct (37.2-46.3) % MPV (9.5-12.2) fL Immature Gran # (0.00-0.04) 10*3/uL Neutrophils # (1.80-7.70) 10*3/uL Lymphocytes # (0.90-5.00) 10*3/uL Eosinophils # (0.04-0.35) 10*3/uL Carbon Dioxide 21 L (22-30) mmol/L BUN 80 H (7-17) mg/dL Creatinine 2.13 H (0.52-1.04) mg/dL Glucose 145 H (74-99) mg/dL POC Glucose (mg/dL) 132 H (70-110) mg/dL C-Reactive Protein 14.8 H (<1.0) mg/dL 05/12/25 Range/Units 05:47 WBC 10.06 H (4.50-10.00) 10*3/uL RBC 3.87 L (4.10-5.20) 10*6/uL Hgb 10.9 L (12.0-15.0) g/dL Hct 32.9 L (37.2-46.3) % MPV 9.1 L (9.5-12.2) fL Immature Gran # 0.11 H (0.00-0.04) 10*3/uL Neutrophils # 8.40 H (1.80-7.70) 10*3/uL Lymphocytes # 0.77 L (0.90-5.00) 10*3/uL Eosinophils # 0.02 L (0.04-0.35) 10*3/uL Carbon Dioxide (22-30) mmol/L BUN (7-17) mg/dL Creatinine (0.52-1.04) mg/dL Glucose (74-99) mg/dL POC Glucose (mg/dL) (70-110) mg/dL C-Reactive Protein (<1.0) mg/dL Microbiology - Last 24 Hours (Table) 05/10/25 17:40 Blood Culture - Preliminary Blood 05/10/25 17:06 Urine Culture - Final Urine,Catheterized Assessment and Plan Plan: Assessment: 1. Acute kidney injury secondary to ATN secondary to hypotension/shock. Also concern for obstructive uropathy. Creatinine 3.04 on admission and is 2.13 today. UA fairly benign. 2. Chronic kidney disease stage IIIa with baseline creatinine near 1.1. 3. Right-sided hydronephrosis with bladder mass. Urology following. Scheduled for stent placement tomorrow. 4. Hypovolemic hyponatremia improving with IV fluids. 5. Metabolic acidosis secondary to acute kidney injury and IV fluids. Improved. On oral bicarb. 6. Shock maintained on Levophed. 7. Chronic diastolic CHF with moderate mitral regurgitation, moderate to severe tricuspid regurgitation. Plan: Hep-Lock IV fluids. Wean Levophed. Maintain Puente catheter. Continue to monitor renal function and urine output. Follow-up cultures.
--- NOTE | 2025-05-12 09:25 | P.CONS ---
History of Present Illness - Reason for Consult Consult date: 05/12/25 wound care - History of Present Illness This is a 79-year-old patient with history of venous insufficiency with a venous stasis ulceration to the left medial ankle measuring approximately 1 x 0.6 x 0.2 cm ulceration has significant amount of slough and nonviable tissue present. Serous copious amounts of drainage noted. Wound edges are attached to the wound base there is no tunneling or undermining noted. Patient has stage II pressure ulcers to the left and right buttocks and midline coccyx. The left buttocks ulceration measures approximately 1 x 1 x 0.1 cm with slough and nonviable tissue present the right buttocks ulceration measures approximately 1 x 1 x 0.1 cm with slough and nonviable tissue present. The coccyx ulceration measures approximately 1.5 x 0.3 x 0.1 cm with slough and nonviable tissue. Patient's past medical history significant for atrial fibrillation and hypertension Review Of Systems: Constitutional: No fever, no chills, no night sweats. No weight change. No weakness, fatigue or lethargy. No daytime sleepiness. Integumentary:reports wounds, no lesions. No rash or pruritus. No unusual bruising. No change in hair or nails. Physical exam: General Appearance: Alert, cooperative, no distress, appears stated age. Skin: See HPI all other Skin color, texture, tugor normal, no rashes or lesions. Neurologic: Alert oriented x3 Assessment: 1. Nonhealing ulceration left ankle with fat layer exposure 2. Stage II pressure ulcer right buttocks 3. Stage II pressure ulcer left buttocks 4. Stage II pressure ulcer coccyx 5. Chronic venous hypertension with inflammation and ulceration of left lower extremity Plan: 1. Left medial ankle: Apply honey gel, Dry gauze and ABD, Rolled gauze secured with paper tape. Wrap with Sadi wrap for compression in a figure eight configuration. Left/Right Buttocks, Coccyx: Apply honey gel and bordered foam to the site. Thank you for the consultation any questions please contact the wound care center DNP note has been reviewed and discussed with Dr. Ray and the impression and plan of care has been directed as dictated. Past Medical History Past Medical History: Atrial Fibrillation, Hypertension Additional Past Medical History / Comment(s): Hypothyroidism, Resting Tremors (related to stress), Diverticulitis with prior bowel resection, Urinary Retentio n (Had chronic paige for 10 days and worsening Kidney Function. History of Any Multi-Drug Resistant Organisms: None Reported Past Surgical History: Bowel Resection, Cholecystectomy, Hernia Repair, Hysterectomy, Orthopedic Surgery Past Anesthesia/Blood Transfusion Reactions: Postoperative Nausea & Vomiting (PONV) Smoking Status: Never smoker, Second hand smoke exposure - Past Family History Father Family Medical History: Cancer Mother Family Medical History: Cancer Additional Family Medical History / Comment(s): Bone Marrow Cancer Sister(s) Family Medical History: Cancer Additional Family Medical History / Comment(s): Breast Cancer Medications and Allergies Home Medications Medication Instructions Recorded Confirmed Type Nystatin 100,000 Unit/gm Powd 1 applic TOPICAL BID #15 gram 03/07/25 05/10/25 Rx [Mycostatin Powder] Albuterol Sulfate [Ventolin HFA] 2 puff INHALATION RT-QID PRN 05/10/25 05/10/25 History Apixaban [Eliquis] 2.5 mg PO BID 05/10/25 05/10/25 History Budesonide/Formoterol Fumarate 2 puff INHALATION RT-BID 05/10/25 05/10/25 History [Budesonide-Formoterol 80-4.5] Bumetanide [BUMEX] 2 mg PO BID@0900,1400 05/10/25 05/10/25 History Candesartan [Atacand] 16 mg PO DAILY 05/10/25 05/10/25 History Cholecalciferol [Vitamin D3 (125 125 mcg PO DAILY 05/10/25 05/10/25 History Mcg = 5000 Iu)] Cranberry 4200mg 4,200 mg PO DAILY 05/10/25 05/10/25 History Iron 28mg 28 mg PO DAILY 05/10/25 05/10/25 History Levothyroxine Sodium [Synthroid] 175 mcg PO DAILY@0400 05/10/25 05/10/25 History Methenamine Hippurate 1 gm PO BID 05/10/25 05/10/25 History Propranolol HCl [Propranolol HCl 80 mg PO DAILY 05/10/25 05/10/25 History ER] Tamsulosin [Flomax] 0.4 mg PO DAILY 05/10/25 05/10/25 History Vitamin C(Unknown Dose) 1 tab PO DAILY 05/10/25 05/10/25 History dilTIAZem HCL [dilTIAZem HCL 24Hr 120 mg PO DAILY 05/10/25 05/10/25 History ER (LA)] Allergies Allergy/AdvReac Type Severity Reaction Status Date / Time SADI Inhibitors AdvReac Dyspnea Verified 05/10/25 14:10 aclidinium AdvReac Dyspnea Verified 05/10/25 14:10 [From Tudorza Pressair] amlodipine [From Norvasc] AdvReac Dyspnea Verified 05/10/25 14:10 rosuvastatin [From Crestor] AdvReac Dyspnea Verified 05/10/25 14:10 Physical Exam Vitals: Vital Signs Temp Pulse Resp BP Pulse Ox 05/12/25 08:46 96 05/12/25 07:15 94 19 97 05/12/25 07:00 120 H 13 97 05/12/25 06:45 103 H 10 L 96 05/12/25 06:30 88 16 96 05/12/25 06:15 97 11 L 96 05/12/25 06:00 78 16 95 05/12/25 05:45 87 11 L 95 05/12/25 05:30 85 10 L 95 05/12/25 05:15 94 17 95 05/12/25 05:00 95 14 95 05/12/25 04:45 91 10 L 95 05/12/25 04:30 103 H 17 95 05/12/25 04:15 102 H 19 96 05/12/25 04:00 98.8 F 101 H 17 95 05/12/25 03:45 97 17 94 L 05/12/25 03:30 10 L 95 05/12/25 03:15 116 H 12 96 05/12/25 03:00 103 H 19 96 05/12/25 02:45 101 H 10 L 96 05/12/25 02:30 103 H 10 L 96 05/12/25 02:15 107 H 12 97 05/12/25 02:00 105 H 11 L 96 05/12/25 01:45 98 10 L 96 05/12/25 01:30 106 H 16 97 05/12/25 01:15 99 11 L 96 05/12/25 01:00 10 L 96 05/12/25 00:45 114 H 24 95 05/12/25 00:30 14 96 05/12/25 00:15 102 H 11 L 94 L 05/12/25 00:00 98.6 F 19 97 05/11/25 23:45 93 11 L 97 05/11/25 23:30 11 L 96 05/11/25 23:15 99 13 96 05/11/25 23:00 97 15 97 05/11/25 22:45 105 H 10 L 97 05/11/25 22:30 15 97 05/11/25 22:15 89 13 94 L 05/11/25 22:00 96 13 95 05/11/25 21:45 89 21 96 05/11/25 21:30 15 94 L 05/11/25 21:15 108 H 15 97 05/11/25 21:00 91 8 L 97 05/11/25 20:45 94 22 95 05/11/25 20:30 96 10 L 96 05/11/25 20:15 101 H 24 96 05/11/25 20:00 98.5 F 21 95 05/11/25 19:45 111 H 12 96 05/11/25 19:30 105 H 9 L 97 05/11/25 19:15 98 14 95 05/11/25 19:05 110 H 13 97 05/11/25 19:00 14 97 05/11/25 18:45 14 95 05/11/25 18:30 16 95 05/11/25 18:15 109 H 14 96 05/11/25 18:00 96 16 97 05/11/25 17:45 104 H 14 96 05/11/25 17:30 12 95 05/11/25 17:15 108 H 18 96 05/11/25 17:00 109 H 19 127/80 95 05/11/25 16:50 99 16 95 05/11/25 16:40 18 95 05/11/25 16:30 16 93 L 05/11/25 16:20 113 H 16 94 L 05/11/25 16:10 106 H 14 95 05/11/25 16:00 97.4 F L 96 16 96 05/11/25 15:50 99 14 96 05/11/25 15:40 103 H 16 95 05/11/25 15:30 14 95 05/11/25 15:20 98 18 94 L 05/11/25 15:10 98 16 94 L 05/11/25 15:00 102 H 19 95 05/11/25 14:50 108 H 18 95 05/11/25 14:40 100 16 95 05/11/25 14:30 16 95 05/11/25 14:20 103 H 20 95 05/11/25 14:10 88 16 95 05/11/25 14:00 105 H 16 96 05/11/25 13:53 10 L 96 05/11/25 13:31 97/72 05/11/25 13:20 97/72 05/11/25 12:30 97 F L 65 16 92/60 96 05/11/25 11:00 97 F L 85 16 90/46 96 05/11/25 10:00 97.3 F L 85 18 97/51 93 L 05/11/25 09:36 97.3 F L 80 16 94/53 97 Intake and Output 05/11/25 05/12/25 05/12/25 22:59 06:59 14:59 Intake Total 253.835 7377.630 75 Output Total 1240 1650 150 Balance -281.757 -427.370 -75 Intake: Intake, IV Titration 958.243 722.630 75 Amount Fluconazole in NaCl,Iso- 100 Osm 200 mg In Saline 1 100ml.bag @ 100 mls/hr IVPB ONCE STA Rx#: [id number] Norepinephrine 32 mg In 58.243 122.630 Sodium Chloride 0.9% 218 ml @ 0.03 MCG/KG/MIN 1. 276 mls/hr IV .Q24H [facility] Rx#:[id number] Piperacillin-Tazobactam 3 100 .375 gm In Sodium Chloride 0.9% 100 ml @ 25 mls/hr IVPB Q12H [facility] Rx# :[id number] Sodium Chloride 0.9% 1, 600 600 75 000 ml @ 75 mls/hr IV . [id number] [facility] Rx#:[id number] cefTRIAXone 1 gm In 100 Sodium Chloride 0.9% 50 ml @ 100 mls/hr IVPB Q24HR [facility] Rx#:[id number] Oral 500 Output: Urine 1240 1650 150 Other: Voiding Method Indwelling Catheter Indwelling Catheter Weight 90.2 kg ABP, PAP, CO, CI - Last 8 Hours Arterial Blood Pressure 117/64 Arterial Blood Pressure 104/70 Arterial Blood Pressure 110/59 Arterial Blood Pressure 101/60 Arterial Blood Pressure 118/61 Arterial Blood Pressure 69/43 Arterial Blood Pressure 106/58 Arterial Blood Pressure 106/61 Arterial Blood Pressure 95/52 Arterial Blood Pressure 107/59 Arterial Blood Pressure 90/52 Arterial Blood Pressure 114/61 Arterial Blood Pressure 99/55 Arterial Blood Pressure 107/58 Arterial Blood Pressure 109/60 Arterial Blood Pressure 112/63 Arterial Blood Pressure 107/61 Arterial Blood Pressure 116/59 Arterial Blood Pressure 109/58 Arterial Blood Pressure 113/63 Arterial Blood Pressure 114/65 Arterial Blood Pressure 114/67 Arterial Blood Pressure 110/61 Arterial Blood Pressure 110/62 Results CBC & Chem 7: 05/12/25 05:47 05/12/25 05:47 Labs: Abnormal Lab Results - Last 24 Hours (Table) 05/11/25 05/11/25 05/12/25 Range/Units 05:50 13:00 05:47 WBC (4.50-10.00) 10*3/uL RBC (4.10-5.20) 10*6/uL Hgb (12.0-15.0) g/dL Hct (37.2-46.3) % MPV (9.5-12.2) fL Immature Gran # (0.00-0.04) 10*3/uL Neutrophils # (1.80-7.70) 10*3/uL Lymphocytes # (0.90-5.00) 10*3/uL Eosinophils # (0.04-0.35) 10*3/uL Carbon Dioxide 21 L (22-30) mmol/L BUN 80 H (7-17) mg/dL Creatinine 2.13 H (0.52-1.04) mg/dL Glucose 145 H (74-99) mg/dL POC Glucose (mg/dL) 132 H (70-110) mg/dL C-Reactive Protein 14.8 H (<1.0) mg/dL 05/12/25 Range/Units 05:47 WBC 10.06 H (4.50-10.00) 10*3/uL RBC 3.87 L (4.10-5.20) 10*6/uL Hgb 10.9 L (12.0-15.0) g/dL Hct 32.9 L (37.2-46.3) % MPV 9.1 L (9.5-12.2) fL Immature Gran # 0.11 H (0.00-0.04) 10*3/uL Neutrophils # 8.40 H (1.80-7.70) 10*3/uL Lymphocytes # 0.77 L (0.90-5.00) 10*3/uL Eosinophils # 0.02 L (0.04-0.35) 10*3/uL Carbon Dioxide (22-30) mmol/L BUN (7-17) mg/dL Creatinine (0.52-1.04) mg/dL Glucose (74-99) mg/dL POC Glucose (mg/dL) (70-110) mg/dL C-Reactive Protein (<1.0) mg/dL Microbiology - Last 24 Hours (Table) 05/10/25 17:40 Blood Culture - Preliminary Blood 05/10/25 17:06 Urine Culture - Final Urine,Catheterized Assessment and Plan (1) Non-pressure chronic ulcer of left ankle with fat layer exposed Current Visit: Yes Status: Acute Code(s): L97.322 - NON-PRESSURE CHRONIC ULCER OF LEFT ANKLE W FAT LAYER EXPOSED SNOMED Code(s): 03509833018259347 (2) Stage II pressure ulcer of left buttock Current Visit: Yes Status: Acute Code(s): L89.322 - PRESSURE ULCER OF LEFT BUTTOCK, STAGE 2 SNOMED Code(s): 24758065100439 (3) Stage II pressure ulcer of right buttock Current Visit: Yes Status: Acute Code(s): L89.312 - PRESSURE ULCER OF RIGHT BUTTOCK, STAGE 2 SNOMED Code(s): 97174746303797 (4) Pressure ulcer of coccygeal region, stage 2 Current Visit: Yes Status: Acute Code(s): L89.152 - PRESSURE ULCER OF SACRAL REGION, STAGE 2 SNOMED Code(s): 53423777460165378 (5) Chronic venous hypertension (idiopathic) with ulcer of left lower extremity Current Visit: Yes Status: Acute Code(s): I87.312 - CHRONIC VENOUS HYPERTENSION W ULCER OF L LOW EXTREM; L97.929 - NON-PRS CHRONIC ULC UNSP PRT OF L LOW LEG W UNSP SEVERITY SNOMED Code(s): [id number]
[2025-05-12] MEDS: FLUCONAZOLE IN NACL,ISO-OSM 100 MG in SALINE 1 50ML.BAG IVPB SCH (09:26)
[2025-05-12] MEDS: POTASSIUM CHLORIDE ER 20 MEQ TAB.ER PO STA (09:32)
--- NOTE | 2025-05-12 10:55 | P.PN ---
Subjective Progress Note Date: 05/12/25 History of present illness; Patient is a 79-year-old female with past medical history significant for hype rtension, atrial fibrillation, hypothyroidism, resting tremors, diverticulitis with previous bowel resection. Also, had an abdominal/pelvis CT February, remarkable for large multiseptated cystic mass in the pelvis measuring 11.3 x 13.4 x 11 cm likely either dependent hemorrhagic or enhancing solid component. Findings were suspicious for malignancy. Possibly ovarian in origin. There was no evidence of active bleeding. No definitive distant metastatic disease noted. Moderate right-sided hydronephrosis, suspected secondary to mass effect. She has had ongoing issues with urinary retention and worsening renal function. She was at Dr. Bunch's office yesterday, and was found to be hypotensive. Reportedly, her blood pressure was recorded with a systolic of 80s mmHg. She had associated weakness and lightheadedness. Also, noted to have severe lower extremity weeping edema and her Lasix was recently transitioned to Bumex. While being worked up in the emergency department she was found to be profoundly hypotensive. She was fluid resuscitated with a total of 2 L of normal saline bolus. A right femoral central line was placed in the ED. She was started on norepinephrine for blood pressure support. Also, hypothermic with a rectal temperature of 91.6 F.. For this reason a pulmonary critical care consultation was placed. Renal function worse than baseline and was hyperkalemic with a potassium of 6.3. Did receive 10 units regular insulin, 1 amp D50 W, 10 g of Lokelma, 1 g calcium gluconate. Repeat potassium down to 4.9 mmol/L. Did have a distended bladder and an indwelling urinary catheter was placed. Ultrasound of bilateral kidneys and urinary bladder showing a decompressed bladder with intraluminal Paige catheter. No evidence of hydronephrosis or acute obstructive uropathy. Simple appearing left renal cyst. Increased bilateral renal parenchymal echogenicity suggestive of underlying chronic medical renal disease. Urinalysis had trace leukocytes and rare bacteria. Empirically placed on Rocephin in the ED.Remaining lab work including a CBC with a WBC count of 13.5, hemoglobin 10.4, platelets 251. Patient does take Eliquis on outpatient basis for her A-fib. Has not noticed any overt signs of blood loss. Denies any abdominal pain, diarrhea, hematochezia, melena, nausea or vomiting or hematemesis. Most recent BMP with a sodium of 126, potassium to 4.9, chloride 94, serum bicarb 21, BUN 129, creatinine is slightly improved down to 2.9, glucose 98. NT proBNP was elevated at 5580. Troponin less than 0.012. Patient currently being observed in the emergency department. She is awaiting a bed in the intensive care unit. Blood pressure is profoundly hypotensive requiring norepinephrine, which is infusing at 0.28 mcg/kg/min. Normal saline also i nfusing at 75 mL/h. Current rhythm is atrial fibrillation with controlled ventricular response at bedside monitor. She is awake and alert. Does not appear to be in any distress. Remains hypothermic and her most recent temperature is 93.2 F. Denies any dysuria, burning, urinary frequency, hematu shan, flank pain. She is on room air. Denies any difficulty breathing, coughing, sputum production, chest pain. She does have severe lower extremity pitting edema with weeping venous stasis ulcers. Patient did receive a one-time dose of IV Lasix 40 mg. She does have an indwelling urinary catheter with copious amounts of clear yellow urine. Urometer is full. Abdomen is soft and nondistended. 05/12/25 - She is seen today in room 255. She was admitted to the hospital on 05/10/25 and brought to the ICU at that time. She continues to have Norepinephrine at 0.22 mcg/kg/min and Zosyn. Chest XRay this morning showed cardiomegaly, pulmonary vascular congestion. She was seen and evaluated by card iology who recommended continuation of her home medications as well as vaso support without a need for a repeat echo. She was seen and evaluated by nephrology who recommended holding IV fluids and maintaining paige catheter. Urology evaluated and determined she should have cystoscopy, right retrograde pyelogram and right ureteral stent insertion on 05/13/25. Lab work shows WBCs 10.06, Hgb 10.9, Hct 32.9, PLT 246, Na 137, K 3.6, bicarb 21, BUN 80, Cr 2.13, Ca 9.0, Mg 2.2, TSH 1.300, Cortisol 5.8. REVIEW OF SYSTEMS: Pertinent positives and negatives noted in HPI. Physical Exam: General: nontoxic, no distress, appears at stated age; right femoral central line in place and right radial arterial line. Derm: warm, dry, intact Head: atraumatic, normocephalic, symmetric Eyes: EOMI, anicteric sclera Mouth: no lip lesion, mucus membranes moist Cardiovascular: S1 S2 reg, no murmur, rubs, or gallops Lungs: CTA bilateral, no rales, no accessory muscle use Abdominal: soft, non-tender to palpataion, no appreciable organomegaly Extremities: Significant muscle atrophy; chronic venous ulcer LLE Neuro: Alert, Oriented, CNII-XII grossly intact, gait normal Psych: well appearing, appropriate affect Assessment and plan #Hypotension and shock, refractory to fluid resuscitation, considered sepsis #Acute on chronic kidney disease #Hyperkalemia, potassium 6.3, secondary to above, treated with a combination of 10 units regular insulin, 1 amp D50 W, 10 g of Lokelma, 1 g calcium gluconate. Repeat potassium down to 4.9 #Hypothermia, use external warming blanket #Acute leukocytosis #Pelvic mass; abdominal/pelvis CT February, remarkable for large multiseptated cystic mass in the pelvis measuring 11.3 x 13.4 x 11 cm likely either dependent hemorrhagic or enhancing solid component. Findings were suspicious for malignancy. Possibly ovarian in origin. There is no evidence of active bleeding. No definitive distant metastatic disease noted. Moderate right-sided hydronephrosis, suspected secondary to mass effect. Patient has not had any follow-up evaluation. #History of urinary retention and hydronephrosis #UA positive for trace leukocytes, rare bacteria, trace protein #Chronic atrial fibrillation, currently with controlled ventricular response, anticoagulated on Eliquis #Bilateral lower extremity edema #Hyponatremia, with significant lower extremity edema and third spacing #History of hypothyroidism #Resting tremor #History of diverticulitis with previous bowel resection #History of subtotal hysterectomy #Probable relative adrenal insufficiency Plan dated May 12, 2025. The patient is seen today in room 256. She is currently having IV fluids held, as per nephrology's recommendation. Norepinephrine running at 0.22 mcg/kg/min with Zosyn and Fluconazole. Urine cultures are negative on final culture, Blood culture is preliminarily negative at this time. Continue with indwelling paige catheter. No need for repeat echocardiogram at this time. Plan is for her to undergo cystoscopy, right retrograde pyelogram and right ureteral stent inse rtion on 05/13/25. Serum TSH was 1.300 and cortisol 5.8, indicating a possible relative adrenal insufficiency. She will be started on Solu-Cortef 100 mg Q8H and Florinef 0.1 mg daily. We will continue to follow make recommendations along the way. Labs, x-rays, and all medications are reviewed. Prognosis is certainly guarded. Dictation was produced using [employer] dictation software. Please excuse any grammatical, word or spelling errors. GI prophylaxis: Protonix 40 mg daily DVT prophylaxis: Eliquis 2.5 mg BID Dictation was produced using [employer] dictation software. please excuse any grammatical, word or spelling errors. Orestes Cardenas MD PGY-1 IM Objective - Vital Signs Vital signs: Vital Signs Temp 98.8 F 05/12/25 04:00 Pulse 94 05/12/25 07:15 Resp 19 05/12/25 07:15 BP 127/80 05/11/25 17:00 Pulse Ox 97 05/12/25 07:15 FiO2 Intake & Output 05/11/25 05/12/25 05/12/25 18:59 06:59 18:59 Intake Total 279.618 4456.988 75 Output Total 1492 2370 150 Balance -504.090 -842.012 -75 Weight 93.3 kg 90.2 kg Intake: Intake, IV Titration 100.446 3259.988 75 Amount Fluconazole in NaCl,Iso- 100 Osm 200 mg In Saline 1 100ml.bag @ 100 mls/hr IVPB ONCE [facility] Rx#: [id number] Norepinephrine 32 mg In 237.910 127.988 Sodium Chloride 0.9% 218 ml @ 0.03 MCG/KG/MIN 1. 276 mls/hr IV .Q24H [facility] Rx#:[id number] Piperacillin-Tazobactam 3 100 .375 gm In Sodium Chloride 0.9% 100 ml @ 25 mls/hr IVPB Q12H [facility] Rx# :[id number] Sodium Chloride 0.9% 1, 450 900 75 000 ml @ 75 mls/hr IV . [id number] [facility] Rx#:[id number] cefTRIAXone 1 gm In 100 Sodium Chloride 0.9% 50 ml @ 100 mls/hr IVPB Q24HR [facility] Rx#:[id number] Oral 500 Output: Urine 1492 2370 150 Other: Voiding Method Indwelling Catheter Indwelling Catheter ABP, PAP, CO, CI - Last Documented Arterial Blood Pressure 117/64 - Labs CBC & Chem 7: 05/12/25 05:47 05/12/25 05:47 Labs: Abnormal Lab Results - Last 24 Hours (Table) 05/11/25 05/11/25 05/12/25 Range/Units 05:50 13:00 05:47 WBC (4.50-10.00) 10*3/uL RBC (4.10-5.20) 10*6/uL Hgb (12.0-15.0) g/dL Hct (37.2-46.3) % MPV (9.5-12.2) fL Immature Gran # (0.00-0.04) 10*3/uL Neutrophils # (1.80-7.70) 10*3/uL Lymphocytes # (0.90-5.00) 10*3/uL Eosinophils # (0.04-0.35) 10*3/uL Carbon Dioxide 21 L (22-30) mmol/L BUN 80 H (7-17) mg/dL Creatinine 2.13 H (0.52-1.04) mg/dL Glucose 145 H (74-99) mg/dL POC Glucose (mg/dL) 132 H (70-110) mg/dL C-Reactive Protein 14.8 H (<1.0) mg/dL 05/12/25 Range/Units 05:47 WBC 10.06 H (4.50-10.00) 10*3/uL RBC 3.87 L (4.10-5.20) 10*6/uL Hgb 10.9 L (12.0-15.0) g/dL Hct 32.9 L (37.2-46.3) % MPV 9.1 L (9.5-12.2) fL Immature Gran # 0.11 H (0.00-0.04) 10*3/uL Neutrophils # 8.40 H (1.80-7.70) 10*3/uL Lymphocytes # 0.77 L (0.90-5.00) 10*3/uL Eosinophils # 0.02 L (0.04-0.35) 10*3/uL Carbon Dioxide (22-30) mmol/L BUN (7-17) mg/dL Creatinine (0.52-1.04) mg/dL Glucose (74-99) mg/dL POC Glucose (mg/dL) (70-110) mg/dL C-Reactive Protein (<1.0) mg/dL Microbiology - Last 24 Hours (Table) 05/10/25 17:40 Blood Culture - Preliminary Blood 05/10/25 17:06 Urine Culture - Final Urine,Catheterized
[2025-05-12] MEDS: FLUDROCORTISONE 0.1 MG TAB PO SCH (11:30)
[2025-05-12] MEDS: HYDROCORTISONE SUCCINATE 100 MG/2 ML VIAL IV SCH (11:30)
--- NOTE | 2025-05-12 17:18 | P.PN ---
Subjective Progress Note Date: 05/12/25 Principal diagnosis: Right hydronephrosis The patient has no complaints at this time. Urine output is good, and her renal function is improving. Objective - Vital Signs Vital signs: Vital Signs Temp 97.5 F L 05/12/25 12:50 Pulse 111 H 05/12/25 15:30 Resp 11 L 05/12/25 15:30 BP 127/80 05/12/25 09:30 Pulse Ox 97 05/12/25 15:30 FiO2 Intake & Output 05/11/25 05/12/25 05/12/25 18:59 06:59 18:59 Intake Total 883.771 2280.988 931.325 Output Total 1492 2370 1675 Balance -504.090 -842.012 -743.675 Weight 93.3 kg 90.2 kg 90.2 kg Intake: Intake, IV Titration 098.842 5289.988 323.325 Amount Fluconazole in NaCl,Iso- 50 Osm 100 mg In Saline 1 50ml.bag @ 50 mls/hr IVPB DAILY [facility] Rx#:[id number] Fluconazole in NaCl,Iso- 100 Osm 200 mg In Saline 1 100ml.bag @ 100 mls/hr IVPB ONCE [facility] Rx#: [id number] Norepinephrine 32 mg In 237.910 127.988 83.325 Sodium Chloride 0.9% 218 ml @ 0.03 MCG/KG/MIN 1. 276 mls/hr IV .Q24H [facility] Rx#:[id number] Piperacillin-Tazobactam 3 100 .375 gm In Sodium Chloride 0.9% 100 ml @ 25 mls/hr IVPB Q12H [facility] Rx# :[id number] Sodium Chloride 0.9% 1, 450 900 190 000 ml @ 75 mls/hr IV . [id number] [facility] Rx#:[id number] cefTRIAXone 1 gm In 100 Sodium Chloride 0.9% 50 ml @ 100 mls/hr IVPB Q24HR [facility] Rx#:[id number] Oral 500 608 Output: Urine 1492 2370 1675 Other: Voiding Method Indwelling Catheter Indwelling Catheter # Bowel Movements 1 ABP, PAP, CO, CI - Last Documented Arterial Blood Pressure 116/62 - Constitutional General appearance: Present: average body habitus, cooperative, no acute distress - Genitourinary Genitourinary Comment(s): Puente catheter intact, draining clear yellow urine. - Psychiatric Psychiatric: Present: A&O x's 3 - Labs CBC & Chem 7: 05/12/25 05:47 05/12/25 05:47 Labs: Abnormal Lab Results - Last 24 Hours (Table) 05/12/25 05/12/25 Range/Units 05:47 05:47 WBC 10.06 H (4.50-10.00) 10*3/uL RBC 3.87 L (4.10-5.20) 10*6/uL Hgb 10.9 L (12.0-15.0) g/dL Hct 32.9 L (37.2-46.3) % MPV 9.1 L (9.5-12.2) fL Immature Gran # 0.11 H (0.00-0.04) 10*3/uL Neutrophils # 8.40 H (1.80-7.70) 10*3/uL Lymphocytes # 0.77 L (0.90-5.00) 10*3/uL Eosinophils # 0.02 L (0.04-0.35) 10*3/uL Carbon Dioxide 21 L (22-30) mmol/L BUN 80 H (7-17) mg/dL Creatinine 2.13 H (0.52-1.04) mg/dL Glucose 145 H (74-99) mg/dL Microbiology - Last 24 Hours (Table) 05/10/25 17:40 Blood Culture - Preliminary Blood 05/10/25 17:06 Urine Culture - Final Urine,Catheterized Assessment and Plan (1) Unspecified hydronephrosis Current Visit: Yes Status: Acute Code(s): N13.30 - UNSPECIFIED HYDRONEPHROSIS SNOMED Code(s): 67974117 Plan: The patient will undergo cystoscopy, right retrograde pyelogram, right ureteral stent insertion tomorrow. The procedure was reviewed once again with the patient, and it was made clear to her that the ureteral stent will need to be either removed or replaced within 3 months.
[2025-05-12 19:34] LABS: Influenza A Not Detected (Not Detectd); Influenza B Not Detected (Not Detectd); RSV Not Detected (Not Detectd)
--- NOTE | 2025-05-12 21:54 | CONS ---
CONSULTATION HISTORY OF PRESENT ILLNESS: This is a 79-year-old lady who is admitted to hospital yesterday with acute onset renal failure secondary to obstructive uropathy related to her ovarian mass. We were consulted because of persistent atrial fibrillation. This morning, the patient is feeling better. Heart rate is well controlled. Blood pressure is normal. MEDICATIONS: Current medications include Eliquis 2.5 b.i.d., Levophed, antibiotics. The patient is to undergo stent placement in her ureter. PHYSICAL EXAMINATION: VITAL SIGNS: Heart rate is 80 beats per minute. Blood pressure is 110/50, respiratory rate 18. CHEST: Reveals good air entry bilaterally. HEART: Reveals first and second heart sounds. No gallop. Has a systolic murmur at the apex. ABDOMEN: Soft. EXTREMITIES: Reveals bilateral 1+ pitting edema. Peripheral pulses are felt. ASSESSMENT: 1. Acute renal failure secondary to urinary obstruction related to possible ovarian cancer. 2. Persistent atrial fibrillation. PLAN: The patient will undergo stent placement. MMODL / IJN: [id number] /
--- NOTE | 2025-05-12 22:40 | P.PN ---
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 On today's evaluation that is 05/11/2025, Patient did have improvement in her temperature and is afebrile this morning patient denies having any chest pain shortness of breath or cough, the patient is currently on room air, patient denies any abdominal pain no diarrhea no nausea no vomiting. Patient white count is 13.88, creatinine is 2.57 Objective - Vital Signs Vital signs: Vital Signs Temp 97 F L 05/11/25 12:30 Pulse 65 05/11/25 12:30 Resp 16 05/11/25 12:30 BP 92/60 05/11/25 12:30 Pulse Ox 96 05/11/25 12:30 FiO2 Intake & Output 05/10/25 05/11/25 05/11/25 18:59 06:59 18:59 Intake Total 34.941 185.025 Output Total 50 3800 800 Balance -50 -3765.059 -614.975 Weight 90.718 kg 93.3 kg Intake: Intake, IV Titration 34.941 185.025 Amount Norepinephrine 32 mg In 34.941 185.025 Sodium Chloride 0.9% 218 ml @ 0.03 MCG/KG/MIN 1. 276 mls/hr IV .Q24H [facility] Rx#:[id number] Output: Urine 50 3800 800 Uretheral (Puente) 50 450 - Exam GENERAL DESCRIPTION: An elderly female lying in bed in no distress RESPIRATORY SYSTEM: Unlabored breathing , decreased breath sounds at bases HEART: S1 S2 regular rate and rhythm , ABDOMEN: Soft , no tenderness EXTREMITIES: Leg wound is currently dressed - Labs CBC & Chem 7: 05/12/25 05:47 05/12/25 05:47 Labs: Abnormal Lab Results - Last 24 Hours (Table) 05/10/25 05/10/25 05/11/25 Range/Units 13:05 17:40 05:50 WBC 13.88 H (4.50-10.00) 10*3/uL RBC 3.97 L (4.10-5.20) 10*6/uL Hgb 11.2 L (12.0-15.0) g/dL Hct 32.9 L (37.2-46.3) % MPV 9.0 L (9.5-12.2) fL Immature Gran # 0.14 H (0.00-0.04) 10*3/uL Neutrophils # 12.44 H (1.80-7.70) 10*3/uL Lymphocytes # 0.63 L (0.90-5.00) 10*3/uL Eosinophils # 0.01 L (0.04-0.35) 10*3/uL Sodium 126 L (137-145) mmol/L Chloride 94 L (98-107) mmol/L Carbon Dioxide 21 L (22-30) mmol/L BUN 129 H* (7-17) mg/dL Creatinine 2.90 H (0.52-1.04) mg/dL Glucose (74-99) mg/dL POC Glucose (mg/dL) (70-110) mg/dL Alkaline Phosphatase (38-126) U/L C-Reactive Protein (<1.0) mg/dL Total Protein (6.3-8.2) g/dL Albumin (3.5-5.0) g/dL Urine Protein Trace H (Negative) Ur Leukocyte Esterase Trace H (Negative) Urine Bacteria Rare H (None) /hpf Urine Mucus Rare H (None) /hpf 05/11/25 05/11/25 Range/Units 05:50 13:00 WBC (4.50-10.00) 10*3/uL RBC (4.10-5.20) 10*6/uL Hgb (12.0-15.0) g/dL Hct (37.2-46.3) % MPV (9.5-12.2) fL Immature Gran # (0.00-0.04) 10*3/uL Neutrophils # (1.80-7.70) 10*3/uL Lymphocytes # (0.90-5.00) 10*3/uL Eosinophils # (0.04-0.35) 10*3/uL Sodium 129 L (137-145) mmol/L Chloride (98-107) mmol/L Carbon Dioxide 18 L (22-30) mmol/L BUN 112 H* (7-17) mg/dL Creatinine 2.57 H (0.52-1.04) mg/dL Glucose 129 H (74-99) mg/dL POC Glucose (mg/dL) 132 H (70-110) mg/dL Alkaline Phosphatase 136 H (38-126) U/L C-Reactive Protein 14.8 H (<1.0) mg/dL Total Protein 5.7 L (6.3-8.2) g/dL Albumin 2.9 L (3.5-5.0) g/dL Urine Protein (Negative) Ur Leukocyte Esterase (Negative) Urine Bacteria (None) /hpf Urine Mucus (None) /hpf Assessment and Plan (1) Sepsis Current Visit: Yes Status: Acute Code(s): A41.9 - SEPSIS, UNSPECIFIED ORGANISM SNOMED Code(s): 18824204 (2) Complicated UTI (urinary tract infection) Current Visit: Yes Status: Acute Code(s): N39.0 - URINARY TRACT INFECTION, SITE NOT SPECIFIED SNOMED Code(s): 06704302 Plan: 1patient presented to the hospital with weakness and low blood pressure in this patient who did have features of SIRS however no clear focus of infection patient is not running any fever does not look toxic urine is negative chest x- ray was mostly CHF, patient did have a wound to the left lower extremity however wound base looks clean with no slough tissue surrounding redness patient did have CT abdominal pelvis with evidence of cystic mass around the bladder with right-sided hydro ureteric nephrosis could be the likely source 2-await urology evaluation and possible need for cystoscopy and ureteral stent placement 3--local wound care to the left lower extremity wound with a dry Aquacel dressing and Sadi wrap from just above the toe to below the knee to keep the swelling down 4patient to continue with Zosyn while waiting for the culture to finalize Dictation was produced using [employer] software. please excuse any grammatical, word or spelling errors. Time with Patient: Less than 30
--- NOTE | 2025-05-12 22:42 | P.PN ---
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 On today's evaluation that is 05/12/2025,the patient denies any fever or any chills, patient is breathing comfortably on room air, the patient denies chest pain shortness of breath and no significant cough, patient denies abdominal pain, no nausea vomiting or diarrhea. Patient creatinine still 2.13 white count is 10.06 blood culture currently pending Objective - Vital Signs Vital signs: Vital Signs Temp 97.5 F L 05/12/25 12:50 Pulse 111 H 05/12/25 15:30 Resp 11 L 05/12/25 15:30 BP 127/80 05/12/25 09:30 Pulse Ox 97 05/12/25 15:30 FiO2 Intake & Output 05/11/25 05/12/25 05/12/25 18:59 06:59 18:59 Intake Total 876.571 6600.988 931.325 Output Total 1492 2370 1675 Balance -504.090 -842.012 -743.675 Weight 93.3 kg 90.2 kg 90.2 kg Intake: Intake, IV Titration 974.190 6863.988 323.325 Amount Fluconazole in NaCl,Iso- 50 Osm 100 mg In Saline 1 50ml.bag @ 50 mls/hr IVPB DAILY [facility] Rx#:[id number] Fluconazole in NaCl,Iso- 100 Osm 200 mg In Saline 1 100ml.bag @ 100 mls/hr IVPB ONCE [facility]A Rx#: [id number] Norepinephrine 32 mg In 237.910 127.988 83.325 Sodium Chloride 0.9% 218 ml @ 0.03 MCG/KG/MIN 1. 276 mls/hr IV .Q24H [facility] Rx#:[id number] Piperacillin-Tazobactam 3 100 .375 gm In Sodium Chloride 0.9% 100 ml @ 25 mls/hr IVPB Q12H [facility] Rx# :[id number] Sodium Chloride 0.9% 1, 450 900 190 000 ml @ 75 mls/hr IV . [id number] [facility] Rx#:[id number] cefTRIAXone 1 gm In 100 Sodium Chloride 0.9% 50 ml @ 100 mls/hr IVPB Q24HR [facility] Rx#:[id number] Oral 500 608 Output: Urine 1492 2370 1675 Other: Voiding Method Indwelling Catheter Indwelling Catheter # Bowel Movements 1 ABP, PAP, CO, CI - Last Documented Arterial Blood Pressure 116/62 - Exam GENERAL DESCRIPTION: An elderly female lying in bed in no distress RESPIRATORY SYSTEM: Unlabored breathing , decreased breath sounds at bases HEART: S1 S2 regular rate and rhythm , ABDOMEN: Soft , no tenderness EXTREMITIES: Leg wound is currently dressed - Labs CBC & Chem 7: 05/12/25 05:47 05/12/25 05:47 Labs: Abnormal Lab Results - Last 24 Hours (Table) 05/12/25 05/12/25 Range/Units 05:47 05:47 WBC 10.06 H (4.50-10.00) 10*3/uL RBC 3.87 L (4.10-5.20) 10*6/uL Hgb 10.9 L (12.0-15.0) g/dL Hct 32.9 L (37.2-46.3) % MPV 9.1 L (9.5-12.2) fL Immature Gran # 0.11 H (0.00-0.04) 10*3/uL Neutrophils # 8.40 H (1.80-7.70) 10*3/uL Lymphocytes # 0.77 L (0.90-5.00) 10*3/uL Eosinophils # 0.02 L (0.04-0.35) 10*3/uL Carbon Dioxide 21 L (22-30) mmol/L BUN 80 H (7-17) mg/dL Creatinine 2.13 H (0.52-1.04) mg/dL Glucose 145 H (74-99) mg/dL Microbiology - Last 24 Hours (Table) 05/10/25 17:40 Blood Culture - Preliminary Blood 05/10/25 17:06 Urine Culture - Final Urine,Catheterized Assessment and Plan (1) Complicated UTI (urinary tract infection) Current Visit: Yes Status: Acute Code(s): N39.0 - URINARY TRACT INFECTION, SITE NOT SPECIFIED SNOMED Code(s): 63669114 (2) Sepsis Current Visit: Yes Status: Acute Code(s): A41.9 - SEPSIS, UNSPECIFIED ORGAN ISM SNOMED Code(s): 92869623 Plan: 1patient presented to the hospital with weakness and low blood pressure in this patient who did have features of SIRS however no clear focus of infection patient is not running any fever does not look toxic urine is negative chest x- ray was mostly CHF, patient did have a wound to the left lower extremity however wound base looks clean with no slough tissue surrounding redness patient did have CT abdominal pelvis with evidence of cystic mass around the bladder with right-sided hydro ureteric nephrosis could be the likely source 2-patient has been evaluated by urology and planning for for cystoscopy and ureteral stent placement 3--local wound care to the left lower extremity wound with a dry Aquacel dressing and Sadi wrap from just above the toe to below the knee to keep the swelling down 4patient did have improvement in her temperature as well as white count to continue with Zosyn we will repeat a UA after cystoscopy and stent placement Dictation was produced using [employer] dictation software. please excuse any grammatical, word or spelling errors. Time with Patient: Less than 30
--- NOTE | 2025-05-13 04:45 | PN ---
PROGRESS NOTE ADDENDUM: This is the patient who is seen today in room 255. She remains comfortable in the ICU. She is critically ill. She remains on norepinephrine at 0.22 mcg/kg/minute which works out to 20 mcg/minute. She continues on Zosyn and Diflucan. The patient is getting saline at 10 mL an hour. She is on room air. Cortisol level is 5.8. Hence, the patient likely has relative adrenal insufficiency. She will get hydrocortisone, replacement therapy. She had an uneventful night. She was admitted with a diagnosis of renal failure, hyperkalemia, and hypotension. She remains hypotensive. She remains critically ill. All labs, x-rays, and medications are reviewed. We will continue to follow. Overall prognosis remains guarded. MMODL / AAYUSHN: [id number] /
[2025-05-13 06:21] LABS: Basophils # (A) 0.02 10*3/uL (0.00-0.10); Basophils % (A) 0.2 %; HCT 30.7 % (37.2-46.3); HGB 10.3 g/dL (12.0-15.0); Lymphocytes # (A) 0.49 10*3/uL (0.90-5.00); Lymphocytes % (A) 4.7 %; MCH 28.5 pg (27.0-32.0); MCHC 33.6 g/dL (32.0-37.0); Mean Platelet Volume 8.9 fL (9.5-12.2); Monocytes # (A) 0.29 10*3/uL (0.20-1.00); Monocytes % (A) 2.8 %; Neutrophils # (A) 9.44 10*3/uL (1.80-7.70); Neutrophils % (A) 91.1 %; Platelet Count 216 10*3/uL (140-440); RBC 3.61 10*6/uL (4.10-5.20); RDW 15.4 % (11.5-14.5); WBC 10.36 10*3/uL (4.50-10.00)
--- NOTE | 2025-05-13 06:39 | PN ---
PROGRESS NOTE DATE OF SERVICE: 05/12/2025 SUBJECTIVE: This 79-year-old woman was admitted with renal failure and sepsis, hypotension, hypothermia, is being closely monitored at this time. The patient is in the ICU. Blood pressure is improving. The patient has pelvic mass with no acute component per Urology. Bladder was decompressed and further cystoscopy and right retrograde pyelogram and ureteral stent, was recommended for hydronephrosis by Urology. Creatinine slightly improved to 2.13. The cultures are negative so far. PAST MEDICAL HISTORY: Reviewed. REVIEW OF SYSTEMS: 14-point review of systems negative except as mentioned earlier. CURRENT MEDICATIONS: Reviewed. PHYSICAL EXAMINATION: VITAL SIGNS: Pulse is 100, blood pressure 106/65, respirations 26. HEENT: Conjunctivae normal. NECK: No JVD. CARDIOVASCULAR: S1, S2. RESPIRATIONS: Breath sounds diminished at the bases. A few scattered rhonchi. ABDOMEN: Soft, nontender. No mass. EXTREMITIES: Legs, no edema. NERVOUS SYSTEM: Nonfocal. LABORATORY DATA: Reviewed. ASSESSMENT: 1. Acute renal failure from acute tubular necrosis, severe hypotension as well as possibly postobstructive renal failure. 2. Possible sepsis with hypotension and hypothermia, possibly urinary in origin. 3. Possible bladder mass versus cyst. 4. Hydronephrosis on the right. 5. Severe hyperkalemia, present on admission. 6. Hyponatremia. 7. Elevated WBC. 8. Atrial fibrillation. 9. History of hypertension. 10.History of cholecystectomy. 11.History of multiple complex medical issues. RECOMMENDATIONS AND DISCUSSION: I recommend to continue current management and treatment, otherwise continue empiric antibiotics. Continue with cautious fluids, closely follow with multiple consultants, urology procedure. The UA looked very abnormal initially. I would repeat the UA and continue to monitor. Sodium is also improving significantly. I would also recommend specific testing also to complete the workup as well. MMODL / IJN: [id number] /
[2025-05-13 06:54] LABS: ALT 23 U/L (4-34); AST 22 U/L (14-36); African American GFR (CKD) 29 (>60 ml/min/1.73 sqM); Albumin 2.6 g/dL (3.5-5.0); Alkaline Phosphatase 122 U/L (38-126); Anion Gap 5 mmol/L; Blood Urea Nitrogen 66 mg/dL (7-17); Calcium 9.2 mg/dL (8.4-10.2); Carbon Dioxide 25 mmol/L (22-30); Chloride 105 mmol/L (98-107); Glucose 160 mg/dL (74-99); Non-African American GFR(CKD) 25 (>60 ml/min/1.73 sqM); Potassium 3.8 mmol/L (3.5-5.1); Sodium 135 mmol/L (137-145); Total Bilirubin 0.6 mg/dL (0.2-1.3); Total Protein 5.3 g/dL (6.3-8.2)
[2025-05-13] MEDS: LEVOTHYROXINE 88 MCG TAB PO SCH (06:58)
--- NOTE | 2025-05-13 08:41 | XR ---
EXAMINATION TYPE: XR chest 1V DATE OF EXAM: 05/13/2025 5:19 AM COMPARISON: Chest radiographs from 05/12/2025. CLINICAL INDICATION: Female, 79 years old with history of Pulmonary Edema; [facility] TECHNIQUE: XR chest 1V Frontal view of the chest. FINDINGS: Lungs/Pleura: No evidence of focal consolidation or pneumothorax. Blunting of the costophrenic angles is present. Pulmonary vascularity: Pulmonary vascular congestion. Heart/mediastinum: Cardiomediastinal silhouette is prominent in size. Musculoskeletal: Degenerative changes of the shoulder joints. IMPRESSION: Similar Cardiomegaly, pulmonary vascular congestion and bilateral pleural effusions. Correlate with B [employer] DES[employer] for congestive heart failure. [facility], , 05/13/2025 8:39 AM
--- NOTE | 2025-05-13 09:39 | P.PN ---
Subjective Progress Note Date: 05/13/25 History of present illness; Patient is a 79-year-old female with past medical history significant for hype rtension, atrial fibrillation, hypothyroidism, resting tremors, diverticulitis with previous bowel resection. Also, had an abdominal/pelvis CT February, remarkable for large multiseptated cystic mass in the pelvis measuring 11.3 x 13.4 x 11 cm likely either dependent hemorrhagic or enhancing solid component. Findings were suspicious for malignancy. Possibly ovarian in origin. There was no evidence of active bleeding. No definitive distant metastatic disease noted. Moderate right-sided hydronephrosis, suspected secondary to mass effect. She has had ongoing issues with urinary retention and worsening renal function. She was at Dr. Bunch's office yesterday, and was found to be hypotensive. Reportedly, her blood pressure was recorded with a systolic of 80s mmHg. She had associated weakness and lightheadedness. Also, noted to have severe lower extremity weeping edema and her Lasix was recently transitioned to Bumex. While being worked up in the emergency department she was found to be profoundly hypotensive. She was fluid resuscitated with a total of 2 L of normal saline bolus. A right femoral central line was placed in the ED. She was started on norepinephrine for blood pressure support. Also, hypothermic with a rectal temperature of 91.6 F.. For this reason a pulmonary critical care consultation was placed. Renal function worse than baseline and was hyperkalemic with a potassium of 6.3. Did receive 10 units regular insulin, 1 amp D50 W, 10 g of Lokelma, 1 g calcium gluconate. Repeat potassium down to 4.9 mmol/L. Did have a distended bladder and an indwelling urinary catheter was placed. Ultrasound of bilateral kidneys and urinary bladder showing a decompressed bladder with intraluminal Paige catheter. No evidence of hydronephrosis or acute obstructive uropathy. Simple appearing left renal cyst. Increased bilateral renal parenchymal echogenicity suggestive of underlying chronic medical renal disease. Urinalysis had trace leukocytes and rare bacteria. Empirically placed on Rocephin in the ED.Remaining lab work including a CBC with a WBC count of 13.5, hemoglobin 10.4, platelets 251. Patient does take Eliquis on outpatient basis for her A-fib. Has not noticed any overt signs of blood loss. Denies any abdominal pain, diarrhea, hematochezia, melena, nausea or vomiting or hematemesis. Most recent BMP with a sodium of 126, potassium to 4.9, chloride 94, serum bicarb 21, BUN 129, creatinine is slightly improved down to 2.9, glucose 98. NT proBNP was elevated at 5580. Troponin less than 0.012. Patient currently being observed in the emergency department. She is awaiting a bed in the intensive care unit. Blood pressure is profoundly hypotensive requiring norepinephrine, which is infusing at 0.28 mcg/kg/min. Normal saline also i nfusing at 75 mL/h. Current rhythm is atrial fibrillation with controlled ventricular response at bedside monitor. She is awake and alert. Does not appear to be in any distress. Remains hypothermic and her most recent temperature is 93.2 F. Denies any dysuria, burning, urinary frequency, hematu shan, flank pain. She is on room air. Denies any difficulty breathing, coughing, sputum production, chest pain. She does have severe lower extremity pitting edema with weeping venous stasis ulcers. Patient did receive a one-time dose of IV Lasix 40 mg. She does have an indwelling urinary catheter with copious amounts of clear yellow urine. Urometer is full. Abdomen is soft and nondistended. 05/12/25 - She is seen today in room 255. She was admitted to the hospital on 05/10/25 and brought to the ICU at that time. She continues to have Norepinephrine at 0.22 mcg/kg/min and Zosyn. Chest XRay this morning showed cardiomegaly, pulmonary vascular congestion. She was seen and evaluated by card iology who recommended continuation of her home medications as well as vaso support without a need for a repeat echo. She was seen and evaluated by nephrology who recommended holding IV fluids and maintaining paige catheter. Urology evaluated and determined she should have cystoscopy, right retrograde pyelogram and right ureteral stent insertion on 05/13/25. Lab work shows WBCs 10.06, Hgb 10.9, Hct 32.9, PLT 246, Na 137, K 3.6, bicarb 21, BUN 80, Cr 2.13, Ca 9.0, Mg 2.2, TSH 1.300, Cortisol 5.8. 05/13/25 - She is seen today in room 255. She was admitted to the hospital on 05/10/25 and brought to the ICU at that time. She continues to have Norepinephrine at 0.09 mcg/kg/min, Zosyn and Fluconazole. She was initiated on Solu-cortef 100 mg Q8H and Florinef 0.1 mg daily yesterday. Infectious disease and urology continue to follow. She is undergoing cystoscopy, right retrograde pyelogram and right ureteral stent insertion today. Lab work shows WBCs 10.36, Hgb 10.3, Hct 30.7, PLT 216, Na 135, K 3.8, bicarb 25, BUN 66, Cr 1.88, Ca 9.2. Respiratory viral panel for flu, covid and RSV is negative. Blood cultures continue to be preliminarily negative. REVIEW OF SYSTEMS: Pertinent positives and negatives noted in HPI. Physical Exam: General: nontoxic, no distress, appears at stated age; right femoral central line in place and right radial arterial line. Derm: warm, dry, intact Head: atraumatic, normocephalic, symmetric Eyes: EOMI, anicteric sclera Mouth: no lip lesion, mucus membranes moist Cardiovascular: S1 S2 reg, no murmur, rubs, or gallops Lungs: CTA bilateral, no rales, no accessory muscle use Abdominal: soft, non-tender to palpataion, no appreciable organomegaly Extremities: Significant muscle atrophy; chronic venous ulcer LLE Neuro: Alert, Oriented, CNII-XII grossly intact, gait normal Psych: well appearing, appropriate affect Assessment and plan #Hypotension and shock, refractory to fluid resuscitation, considered sepsis #Acute on chronic kidney disease #Hyperkalemia, resolved #Hypothermia, use external warming blanket #Acute leukocytosis #Pelvic mass; abdominal/pelvis CT February, remarkable for large multiseptated cystic mass in the pelvis measuring 11.3 x 13.4 x 11 cm likely either dependent hemorrhagic or enhancing solid component. Findings were suspicious for malignancy. Possibly ovarian in origin. There is no evidence of active bleeding. No definitive distant metastatic disease noted. Moderate right-sided hydronephrosis, suspected secondary to mass effect. Patient has not had any follow-up evaluation. #History of urinary retention and hydronephrosis #UA positive for trace leukocytes, rare bacteria, trace protein #Chronic atrial fibrillation, currently with controlled ventricular response, anticoagulated on Eliquis #Bilateral lower extremity edema #Hyponatremia, with significant lower extremity edema and third spacing #History of hypothyroidism #Resting tremor #History of diverticulitis with previous bowel resection #History of subtotal hysterectomy #Probable relative adrenal insufficiency Plan dated May 13, 2025. The patient is seen today in room 256. She is currently having IV fluids held, a s per nephrology's recommendation. Norepinephrine running at 0.09 mcg/kg/min with Zosyn and Fluconazole. Urine cultures are negative on final culture, Blood culture is preliminarily negative at this time. Continue with indwelling paige catheter. No need for repeat echocardiogram at this time. She is to undergo cystoscopy, right retrograde pyelogram and right ureteral stent insertion today. Will continue to attempt to wean off of Norepinephrine when she returns from surgery. We will continue to follow make recommendations along the way. Labs, x-rays, and all medications are reviewed. Prognosis is certainly guarded. Dictation was produced using [employer] software. Please excuse any grammatical, word or spelling errors. GI prophylaxis: Protonix 40 mg daily DVT prophylaxis: Eliquis 2.5 mg BID Dictation was produced using [employer] dictation software. please excuse any grammatical, word or spelling errors. Orestes Cardenas MD PGY-1 IM Objective - Vital Signs Vital signs: Vital Signs Temp 97.7 F 05/13/25 04:00 Pulse 111 H 05/13/25 07:00 Resp 10 L 05/13/25 07:00 BP 127/80 05/12/25 09:30 Pulse Ox 97 05/13/25 06:00 FiO2 Intake & Output 05/12/25 05/13/25 05/13/25 18:59 06:59 18:59 Intake Total 1057.585 346.343 3.472 Output Total 1975 1225 150 Balance -917.415 -878.657 -146.528 Weight 90.2 kg 94.3 kg Intake: Intake, IV Titration 449.585 78.343 3.472 Amount Fluconazole in NaCl,Iso- 50 Osm 100 mg In Saline 1 50ml.bag @ 50 mls/hr IVPB DAILY LENI Rx#:[id number] Norepinephrine 32 mg In 109.585 78.343 3.472 Sodium Chloride 0.9% 218 ml @ 0.03 MCG/KG/MIN 1. 276 mls/hr IV .Q24H LENI Rx#:[id number] Piperacillin-Tazobactam 3 100 .375 gm In Sodium Chloride 0.9% 100 ml @ 25 mls/hr IVPB Q12H [facility]I Rx# :[id number] Sodium Chloride 0.9% 1, 190 000 ml @ 75 mls/hr IV . [id number] LENI Rx#:[id number] Oral [id number] Output: Urine 1975 1225 150 Other: Voiding Method Indwelling Catheter Indwelling Catheter # Bowel Movements 1 1 1 ABP, PAP, CO, CI - Last Documented Arterial Blood Pressure 105/59 - Labs CBC & Chem 7: 05/13/25 06:13 05/13/25 06:13 Labs: Abnormal Lab Results - Last 24 Hours (Table) 05/13/25 05/13/25 Range/Units 06:13 06:13 WBC 10.36 H (4.50-10.00) 10*3/uL RBC 3.61 L (4.10-5.20) 10*6/uL Hgb 10.3 L (12.0-15.0) g/dL Hct 30.7 L (37.2-46.3) % MPV 8.9 L (9.5-12.2) fL Immature Gran # 0.12 H (0.00-0.04) 10*3/uL Neutrophils # 9.44 H (1.80-7.70) 10*3/uL Lymphocytes # 0.49 L (0.90-5.00) 10*3/uL Eosinophils # 0.00 L (0.04-0.35) 10*3/uL Sodium 135 L (137-145) mmol/L BUN 66 H (7-17) mg/dL Creatinine 1.88 H (0.52-1.04) mg/dL Glucose 160 H (74-99) mg/dL Total Protein 5.3 L (6.3-8.2) g/dL Albumin 2.6 L (3.5-5.0) g/dL Microbiology - Last 24 Hours (Table) 05/10/25 17:40 Blood Culture - Preliminary Blood 05/11/25 13:49 Blood Culture - Preliminary Blood
--- NOTE | 2025-05-13 10:13 | P.PN ---
Subjective Patient is seen in follow-up for acute kidney injury on chronic kidney disease. Renal function improving. On Levophed. Off IV fluids. Nonoliguric. On room air. Oral intake fair. Vital signs are stable. General: No acute distress. HEENT: Head exam is unremarkable. LUNGS: No audible rhonchi or wheezes. HEART: Rate and Rhythm are regular. ABDOMEN: Nontender. EXTREMITITES: Trace edema. Objective - Vital Signs Vital signs: Vital Signs Temp 97.4 F L 05/13/25 08:00 Pulse 93 05/13/25 10:00 Resp 14 05/13/25 10:00 BP 127/80 05/13/25 10:00 Pulse Ox 98 05/13/25 10:00 FiO2 Intake & Output 05/12/25 05/13/25 05/13/25 18:59 06:59 18:59 Intake Total 1057.585 346.343 53.472 Output Total 1975 1225 435 Balance -917.415 -878.657 -381.528 Weight 90.2 kg 94.3 kg Intake: Intake, IV Titration 449.585 78.343 53.472 Amount Fluconazole in NaCl,Iso- 50 50 Osm 100 mg In Saline 1 50ml.bag @ 50 mls/hr IVPB DAILY [facility]I Rx#:[id number] Norepinephrine 32 mg In 109.585 78.343 3.472 Sodium Chloride 0.9% 218 ml @ 0.03 MCG/KG/MIN 1. 276 mls/hr IV .Q24H [facility] Rx#:[id number] Piperacillin-Tazobactam 3 100 .375 gm In Sodium Chloride 0.9% 100 ml @ 25 mls/hr IVPB Q12H [facility] Rx# :[id number] Sodium Chloride 0.9% 1, 190 000 ml @ 75 mls/hr IV . [id number] [facility] Rx#:[id number] Oral 608 268 Output: Urine 1974 1225 435 Other: Voiding Method Indwelling Catheter Indwelling Catheter Indwelling Catheter # Bowel Movements 1 1 1 ABP, PAP, CO, CI - Last Documented Arterial Blood Pressure 120/73 - Labs CBC & Chem 7: 05/13/25 06:13 05/13/25 06:13 Labs: Abnormal Lab Results - Last 24 Hours (Table) 05/13/25 05/13/25 Range/Units 06:13 06:13 WBC 10.36 H (4.50-10.00) 10*3/uL RBC 3.61 L (4.10-5.20) 10*6/uL Hgb 10.3 L (12.0-15.0) g/dL Hct 30.7 L (37.2-46.3) % MPV 8.9 L (9.5-12.2) fL Immature Gran # 0.12 H (0.00-0.04) 10*3/uL Neutrophils # 9.44 H (1.80-7.70) 10*3/uL Lymphocytes # 0.49 L (0.90-5.00) 10*3/uL Eosinophils # 0.00 L (0.04-0.35) 10*3/uL Sodium 135 L (137-145) mmol/L BUN 66 H (7-17) mg/dL Creatinine 1.88 H (0.52-1.04) mg/dL Glucose 160 H (74-99) mg/dL Total Protein 5.3 L (6.3-8.2) g/dL Albumin 2.6 L (3.5-5.0) g/dL Microbiology - Last 24 Hours (Table) 05/10/25 17:40 Blood Culture - Preliminary Blood 05/11/25 13:49 Blood Culture - Preliminary Blood Assessment and Plan Plan: Assessment: 1. Acute kidney injury secondary to ATN secondary to hypotension/shock. Also concern for obstructive uropathy. Creatinine 3.04 on admission and is 1.88 t darron. UA fairly benign. 2. Chronic kidney disease stage IIIa with baseline creatinine near 1.1. 3. Right-sided hydronephrosis with bladder mass. Urology following. Scheduled for stent placement today. 4. Hypovolemic hyponatremia improved with IV fluids. 5. Metabolic acidosis secondary to acute kidney injury and IV fluids. Improved. On oral bicarb. 6. Shock maintained on Levophed. 7. Chronic diastolic CHF with moderate mitral regurgitation, moderate to severe tricuspid regurgitation. Plan: Remains off IV fluids. Wean Levophed. Maintain Puente catheter. Continue to monitor renal function and urine output. Follow-up cultures.
--- NOTE | 2025-05-13 10:41 | P.PN ---
Progress Note - Text Patient is feeling better. Urine output had improved. She is to undergo urinary stent to deal with the obstruction. Remains in atrial fibrillation with controlled ventricular rate. She needs to undergo surgery for the pelvic mass. On exam comfortable at rest vital signs are stable chest exam reveals good air entry bilaterally heart exam reveals 1st and 2nd heart sounds are regular rhythm and a systolic murmur at the apex abdomen is soft examination extremities did not reveal any edema peripheral pulses are felt Labs have been reviewed Assessment and plan: Pelvic mass with urinary obstruction Acute renal failure secondary to urinary obstruction Persistent atrial fibrillation with controlled ventricular rate Patient can be transferred out of ICU once the urinary stent is placed
--- NOTE | 2025-05-13 12:21 | PN ---
PROGRESS NOTE DATE OF SERVICE: 05/13/2025 SUBJECTIVE: This is a 79-year-old woman, was admitted with acute renal failure, acute tubular necrosis, hypotension as well as possibly postobstructive renal failure, had hypotension and hypothermia. The patient is on empiric antibiotics. Cultures are negative so far. Multiple consultants are following the patient. The patient is still monitored in ICU with chest x-ray did show some mild pulmonary vascular condition. Urology is considering procedure and cystoscopy. No chest pain. No palpitation. PAST MEDICAL HISTORY: Reviewed. REVIEW OF SYSTEMS: A 14-point review of systems negative except as mentioned earlier. CURRENT MEDICATIONS: Reviewed. PHYSICAL EXAMINATION: VITAL SIGNS: Pulse is 104, blood pressure 127/80, and respirations 15. HEENT: Conjunctivae normal. NECK: No JVD. CARDIOVASCULAR: S1 and S2. RESPIRATIONS: A few scattered rhonchi and crackles. ABDOMEN: Soft, nontender. NERVOUS SYSTEM: Nonfocal. LABORATORY DATA: Reviewed. ASSESSMENT: 1. Acute renal failure from acute tubular necrosis with severe hypotension as well as possibly postobstructive renal failure. 2. Possibly sepsis with hypotension and hypothermia, possible urinary in origin. 3. Possible bladder mass versus cyst. 4. Hydronephrosis on the right. 5. Severe hyperkalemia, present on admission, improving. 6. Hyponatremia. 7. Elevated WBC. 8. Atrial fibrillation. 9. History of hypertension. 10.History of cholecystectomy. 11.History of multiple complex medical issues. RECOMMENDATIONS AND DISCUSSION: I recommend to continue current management and continue symptomatic treatment. Continue with empiric antibiotics. Follow the cultures. Closely follow with multiple consultants including Urology for possible procedure. Otherwise, the prognosis guarded. The patient will need outpatient followup regarding the mass, which is possibly pelvic or SALES PRODUCER origin. Prognosis extremely guarded, because of multiple complex medical issues. Further recommendations to follow. MMODL / IJN: [id number] /
[2025-05-13] MEDS ORDERED: GLYCOPYRROLATE 0.2 MG/ML 2 ML VIAL ONE (13:14)
[2025-05-13] MEDS ORDERED: LIDOCAINE 1% INJ 10MG/ML (20 ML MDV) ONE (13:14)
[2025-05-13] MEDS ORDERED: ROCURONIUM 10 MG/ML (5 ML VIAL) IV ONE (13:14)
[2025-05-13] MEDS ORDERED: NEOSTIGMINE 1 MG/ML 10 ML VIAL ONE (13:14)
[2025-05-13] MEDS ORDERED: SUCCINYLCHOLINE CHLORIDE 200 MG/10 ML VIAL IV ONE (13:14)
[2025-05-13] MEDS ORDERED: fentaNYL (PF) 50 MCG/ML 2 ML AMP ONE (13:14)
[2025-05-13] MEDS ORDERED: PROPOFOL 10 MG/ML 20 ML VIAL IV ONE (13:14)
[2025-05-13] MEDS: SODIUM CHLORIDE 0.9% 1,000 ML IV ONE (13:22)
[2025-05-13] MEDS: LACTATED RINGERS 1,000 ML IV ONE (13:22)
[2025-05-13] MEDS: IOPAMIDOL-370 100ML BTL MISCELLANE ONE ×3 (14:01)
--- NOTE | 2025-05-13 14:55 | P.OP ---
Date of Procedure: 05/13/25 Preoperative Diagnosis: Right hydronephrosis Postoperative Diagnosis: Same Procedure(s) Performed: Cystoscopy, right retrograde pyelogram, right ureteral stent insertion Anesthesia: ZAIRAA Surgeon: Oj Akins Estimated Blood Loss (ml): 0 IV fluids (ml): 300 Pathology: none sent Condition: stable Disposition: PACU Indications for Procedure: The patient is a 79-year-old white female with a history of recurrent UTIs. She denies any prior history of urolithiasis. She is now admitted with dizziness and hypotension. Laboratory studies showed evidence of renal failure along with hyperkalemia, for which she is being treated. CT scan shows moderate right hydroureteronephrosis due to an 11 x 16 cm cystic pelvic mass. She was aware of the mass, presumed to be of gynecologic origin, and she has been referred to Dr. Askew with the intent of undergoing surgery at [facility]. She now comes for right ureteral stent insertion. Operative Findings: Large pelvic mass causing extrinsic compression of the right distal ureter with proximal hydroureteronephrosis. Description of Procedure: The patient was taken to the operating room and placed in the dorsolithotomy position, with legs supported in Bi stirrups. The external genitalia was prepped and draped sterilely. The 30 lens was used to introduce the 22-Telugu Stortz cystoscopic sheath through the urethra and into the bladder under direct vision. The bladder was examined in its entirety. Both ureteral orifices were of normal anatomic location and configuration. Extrinsic compression on the posterior bladder wall was noted, but there were no tumors seen within the bladder. Using a 10 Telugu cone-tip catheter, a right retrograde pyelogram was performed. Extrinsic compression of the right distal ureter was noted from the known pelvic mass. The mid ureter and proximal ureter were dilated and somewhat tortuous, and there was evidence of moderate right hydronephrosis. A 0.035 inch Glidewire was passed through the cystoscope. The right ureteral orifice was cannulated, and the Glidewire was slowly advanced up to the renal pelvis. A 22 cm, 6-Telugu double-J ureteral stent was placed over the wire. Proper stent positioning was verified fluoroscopically and endoscopically. The bladder was emptied and the cystoscope removed. The patient tolerated the procedure well and was taken to the recovery room in stable condition.
--- NOTE | 2025-05-13 15:13 | FL ---
EXAMINATION TYPE: FL urography retrograde DATE OF EXAM: 05/13/2025 2:27 PM COMPARISON: Pre Operative Images if available both CT/MRI or plain film CLINICAL INDICATION: Female, 79 years old with history of RETROGRADE; TECHNIQUE: FL urography retrograde, multiple fluoroscopic images provided for procedure. DAP: 6.2412 mGym2 Gycm2 uGym2 cGycm2 or equivalent. FINDINGS: Fluoroscopic images during retrograde pyelogram demonstrate contrast in the renal collecting system. There is dilation of the collecting system. No evidence of extravasation of contrast. No immediate co mplication identified. IMPRESSION: 1. No evidence for intraoperative complication. 2. Please see the operative/procedural note for further details. [facility], , 05/13/2025 3:10 PM
[2025-05-13 17:17] LABS: Appearance,Urine Cloudy (Clear); Bilirubin,Urine Negative (Negative); Blood,Urine Large (Negative); Color,Urine Light Red; Glucose,Urine (UA) Negative (Negative); Ketones,Urine Negative (Negative); Leukocyte Esterase,Urine Trace (Negative); Nitrite,Urine Negative (Negative); PH, Urine 5.5 (5.0-8.0); Protein,Urine Trace (Negative); RBC,Urine >182 /hpf (0-5); Specific Gravity,Urine 1.014 (1.001-1.035); Urobilinogen,Urine <2.0 mg/dL (<2.0); WBC,Urine 16 /hpf (0-5)
[2025-05-14 06:12] LABS: Glucose,Whole Blood 143 mg/dL (70-110)
[2025-05-14 06:29] LABS: Basophils # (A) 0.01 10*3/uL (0.00-0.10); Basophils % (A) 0.1 %; HCT 28.9 % (37.2-46.3); HGB 9.3 g/dL (12.0-15.0); Lymphocytes # (A) 0.45 10*3/uL (0.90-5.00); Lymphocytes % (A) 5.1 %; MCH 27.8 pg (27.0-32.0); MCHC 32.2 g/dL (32.0-37.0); MCV 86.5 fL (80.0-97.0); Mean Platelet Volume 8.6 fL (9.5-12.2); Monocytes # (A) 0.35 10*3/uL (0.20-1.00); Neutrophils # (A) 7.82 10*3/uL (1.80-7.70); Neutrophils % (A) 89.4 %; Platelet Count 172 10*3/uL (140-440); RBC 3.34 10*6/uL (4.10-5.20); RDW 15.8 % (11.5-14.5); WBC 8.75 10*3/uL (4.50-10.00)
[2025-05-14 06:52] LABS: African American GFR (CKD) 30 (>60 ml/min/1.73 sqM); Anion Gap 6 mmol/L; Blood Urea Nitrogen 56 mg/dL (7-17); Calcium 9.3 mg/dL (8.4-10.2); Carbon Dioxide 24 mmol/L (22-30); Chloride 107 mmol/L (98-107); Glucose 126 mg/dL (74-99); Non-African American GFR(CKD) 26 (>60 ml/min/1.73 sqM); Potassium 3.6 mmol/L (3.5-5.1); Sodium 137 mmol/L (137-145)
--- NOTE | 2025-05-14 08:47 | P.PN ---
Subjective Progress Note Date: 05/14/25 Principal diagnosis: Right hydronephrosis Mrs. Roger underwent right ureteral stent insertion in May 13, 2025. It was determined at that time that her right hydronephrosis was indeed due to extrinsic compression of the right distal ureter by the large pelvic mass. There was no evidence of an intravesical mass. The patient has no complaints at this time. Urine output is good, and her renal function is gradually improving. Objective - Vital Signs Vital signs: Vital Signs Temp 97.4 F L 05/13/25 20:00 Pulse 99 05/14/25 06:15 Resp 11 L 05/14/25 06:15 BP 102/81 05/13/25 18:00 Pulse Ox 96 05/14/25 06:15 FiO2 Intake & Output 05/13/25 05/13/25 05/14/25 06:59 18:59 06:59 Intake Total 346.343 594.004 19.227 Output Total 1225 950 350 Balance -878.657 -355.996 -330.773 Weight 94.3 kg 95.2 kg Intake: IV 300 Intake, IV Titration 78.343 294.004 19.227 Amount Fluconazole in NaCl,Iso- 50 Osm 100 mg In Saline 1 50ml.bag @ 50 mls/hr IVPB DAILY [facility] Rx#:[id number] Norepinephrine 32 mg In 78.343 44.004 19.227 Sodium Chloride 0.9% 218 ml @ 0.03 MCG/KG/MIN 1. 276 mls/hr IV .Q24H [facility] Rx#:[id number] Piperacillin-Tazobactam 3 200 .375 gm In Sodium Chloride 0.9% 100 ml @ 25 mls/hr IVPB Q12H [facility] Rx# :[id number] Oral 268 Output: Urine 1225 950 350 Other: Voiding Method Indwelling Catheter Indwelling Catheter Indwelling Catheter # Bowel Movements 1 1 ABP, PAP, CO, CI - Last Documented Arterial Blood Pressure 90/52 - Constitutional General appearance: Present: average body habitus, cooperative, no acute distress - Genitourinary Genitourinary Comment(s): Puente catheter intact, draining blood-tinged urine. - Psychiatric Psychiatric: Present: A&O x's 3 - Labs CBC & Chem 7: 05/14/25 06:11 05/14/25 06:11 Labs: Abnormal Lab Results - Last 24 Hours (Table) 05/13/25 05/13/25 05/14/25 Range/Units 06:13 16:55 06:10 RBC (4.10-5.20) 10*6/uL Hgb (12.0-15.0) g/dL Hct (37.2-46.3) % MPV (9.5-12.2) fL Immature Gran # (0.00-0.04) 10*3/uL Neutrophils # (1.80-7.70) 10*3/uL Lymphocytes # (0.90-5.00) 10*3/uL Eosinophils # (0.04-0.35) 10*3/uL Sodium 135 L (137-145) mmol/L BUN 66 H (7-17) mg/dL Creatinine 1.88 H (0.52-1.04) mg/dL Glucose 160 H (74-99) mg/dL POC Glucose (mg/dL) 143 H (70-110) mg/dL Total Protein 5.3 L (6.3-8.2) g/dL Albumin 2.6 L (3.5-5.0) g/dL Urine Appearance Cloudy H (Clear) Urine Protein Trace H (Negative) Urine Blood Large H (Negative) Ur Leukocyte Esterase Trace H (Negative) Urine RBC >182 H (0-5) /hpf Urine WBC 16 H (0-5) /hpf 05/14/25 Range/Units 06:11 RBC 3.34 L (4.10-5.20) 10*6/uL Hgb 9.3 L (12.0-15.0) g/dL Hct 28.9 L (37.2-46.3) % MPV 8.6 L (9.5-12.2) fL Immature Gran # 0.12 H (0.00-0.04) 10*3/uL Neutrophils # 7.82 H (1.80-7.70) 10*3/uL Lymphocytes # 0.45 L (0.90-5.00) 10*3/uL Eosinophils # 0.00 L (0.04-0.35) 10*3/uL Sodium (137-145) mmol/L BUN (7-17) mg/dL Creatinine (0.52-1.04) mg/dL Glucose (74-99) mg/dL POC Glucose (mg/dL) (70-110) mg/dL Total Protein (6.3-8.2) g/dL Albumin (3.5-5.0) g/dL Urine Appearance (Clear) Urine Protein (Negative) Urine Blood (Negative) Ur Leukocyte Esterase (Negative) Urine RBC (0-5) /hpf Urine WBC (0-5) /hpf Microbiology - Last 24 Hours (Table) 05/10/25 17:40 Blood Culture - Preliminary Blood 05/11/25 13:49 Blood Culture - Preliminary Blood Assessment and Plan (1) Unspecified hydronephrosis Current Visit: Yes Status: Acute Code(s): N13.30 - UNSPECIFIED HYDRONEPHROSIS SNOMED Code(s): 47285786 Plan: I explained to the patient that the ureteral stent can optimize the function of her right kidney, and that it will need to be either removed or replaced within 3 months.
--- NOTE | 2025-05-14 09:52 | P.PN ---
Subjective Patient is seen in follow-up for acute kidney injury on chronic kidney disease. Renal function improving. Off Levophed. Off IV fluids. Nonoliguric. On room air. Oral intake fair. Vital signs are stable. General: No acute distress. HEENT: Head exam is unremarkable. LUNGS: No audible rhonchi or wheezes. HEART: Rate and Rhythm are regular. ABDOMEN: Nontender. EXTREMITITES: 1+ edema. Objective - Vital Signs Vital signs: Vital Signs Temp 97.4 F L 05/14/25 04:00 Pulse 107 H 05/14/25 07:00 Resp 13 05/14/25 07:00 BP 102/81 05/13/25 18:00 Pulse Ox 96 05/14/25 07:00 FiO2 Intake & Output 05/13/25 05/14/25 05/14/25 18:59 06:59 18:59 Intake Total 594.004 19.227 Output Total 950 390 30 Balance -355.996 -370.773 -30 Weight 95.2 kg Intake: IV 300 Intake, IV Titration 294.004 19.227 Amount Fluconazole in NaCl,Iso- 50 Osm 100 mg In Saline 1 50ml.bag @ 50 mls/hr IVPB DAILY [facility] Rx#:[id number] Norepinephrine 32 mg In 44.004 19.227 Sodium Chloride 0.9% 218 ml @ 0.03 MCG/KG/MIN 1. 276 mls/hr IV .Q24H [facility] Rx#:[id number] Piperacillin-Tazobactam 3 200 .375 gm In Sodium Chloride 0.9% 100 ml @ 25 mls/hr IVPB Q12H [facility] Rx# :[id number] Output: Urine 950 390 30 Other: Voiding Method Indwelling Catheter Indwelling Catheter # Bowel Movements 1 ABP, PAP, CO, CI - Last Documented Arterial Blood Pressure 86/51 - Labs CBC & Chem 7: 05/14/25 06:11 05/14/25 06:11 Labs: Abnormal Lab Results - Last 24 Hours (Table) 05/13/25 05/14/25 05/14/25 Range/Units 16:55 06:10 06:11 RBC 3.34 L (4.10-5.20) 10*6/uL Hgb 9.3 L (12.0-15.0) g/dL Hct 28.9 L (37.2-46.3) % MPV 8.6 L (9.5-12.2) fL Immature Gran # 0.12 H (0.00-0.04) 10*3/uL Neutrophils # 7.82 H (1.80-7.70) 10*3/uL Lymphocytes # 0.45 L (0.90-5.00) 10*3/uL Eosinophils # 0.00 L (0.04-0.35) 10*3/uL BUN (7-17) mg/dL Creatinine (0.52-1.04) mg/dL Glucose (74-99) mg/dL POC Glucose (mg/dL) 143 H (70-110) mg/dL Urine Appearance Cloudy H (Clear) Urine Protein Trace H (Negative) Urine Blood Large H (Negative) Ur Leukocyte Esterase Trace H (Negative) Urine RBC >182 H (0-5) /hpf Urine WBC 16 H (0-5) /hpf 05/14/25 Range/Units 06:11 RBC (4.10-5.20) 10*6/uL Hgb (12.0-15.0) g/dL Hct (37.2-46.3) % MPV (9.5-12.2) fL Immature Gran # (0.00-0.04) 10*3/uL Neutrophils # (1.80-7.70) 10*3/uL Lymphocytes # (0.90-5.00) 10*3/uL Eosinophils # (0.04-0.35) 10*3/uL BUN 56 H (7-17) mg/dL Creatinine 1.84 H (0.52-1.04) mg/dL Glucose 126 H (74-99) mg/dL POC Glucose (mg/dL) (70-110) mg/dL Urine Appearance (Clear) Urine Protein (Negative) Urine Blood (Negative) Ur Leukocyte Esterase (Negative) Urine RBC (0-5) /hpf Urine WBC (0-5) /hpf Microbiology - Last 24 Hours (Table) 05/10/25 17:40 Blood Culture - Preliminary Blood 05/11/25 13:49 Blood Culture - Preliminary Blood Assessment and Plan Plan: Assessment: 1. Acute kidney injury secondary to ATN secondary to hypotension/shock. Also concern for obstructive uropathy. Creatinine 3.04 on admission and is 1.84 today. UA fairly benign. 2. Chronic kidney disease stage IIIa with baseline creatinine near 1.1. 3. Right-sided hydronephrosis with bladder mass. Urology following. Status post right ureteral stent placed May 13, 2025. 4. Hypovolemic hyponatremia improved with IV fluids. Currently off fluids. Now hypervolemic. 5. Metabolic acidosis secondary to acute kidney injury and IV fluids. Improved. On oral bicarb. 6. Shock status post Levophed. 7. Chronic diastolic CHF with moderate mitral regurgitation, moderate to severe tricuspid regurgitation. 8. Volume overload. Plan: Cortisol level on the lower end. Started on hydrocortisone. Potassium being replaced. Lasix 20 mg IV once today. Continue to monitor renal function and urine output.
--- NOTE | 2025-05-14 10:21 | P.PN ---
Subjective Progress Note Date: 05/14/25 History of present illness; Patient is a 79-year-old female with past medical history significant for hype rtension, atrial fibrillation, hypothyroidism, resting tremors, diverticulitis with previous bowel resection. Also, had an abdominal/pelvis CT February, remarkable for large multiseptated cystic mass in the pelvis measuring 11.3 x 13.4 x 11 cm likely either dependent hemorrhagic or enhancing solid component. Findings were suspicious for malignancy. Possibly ovarian in origin. There was no evidence of active bleeding. No definitive distant metastatic disease noted. Moderate right-sided hydronephrosis, suspected secondary to mass effect. She has had ongoing issues with urinary retention and worsening renal function. She was at Dr. Bunch's office yesterday, and was found to be hypotensive. Reportedly, her blood pressure was recorded with a systolic of 80s mmHg. She had associated weakness and lightheadedness. Also, noted to have severe lower extremity weeping edema and her Lasix was recently transitioned to Bumex. While being worked up in the emergency department she was found to be profoundly hypotensive. She was fluid resuscitated with a total of 2 L of normal saline bolus. A right femoral central line was placed in the ED. She was started on norepinephrine for blood pressure support. Also, hypothermic with a rectal temperature of 91.6 F.. For this reason a pulmonary critical care consultation was placed. Renal function worse than baseline and was hyperkalemic with a potassium of 6.3. Did receive 10 units regular insulin, 1 amp D50 W, 10 g of Lokelma, 1 g calcium gluconate. Repeat potassium down to 4.9 mmol/L. Did have a distended bladder and an indwelling urinary catheter was placed. Ultrasound of bilateral kidneys and urinary bladder showing a decompressed bladder with intraluminal Paige catheter. No evidence of hydronephrosis or acute obstructive uropathy. Simple appearing left renal cyst. Increased bilateral renal parenchymal echogenicity suggestive of underlying chronic medical renal disease. Urinalysis had trace leukocytes and rare bacteria. Empirically placed on Rocephin in the ED.Remaining lab work including a CBC with a WBC count of 13.5, hemoglobin 10.4, platelets 251. Patient does take Eliquis on outpatient basis for her A-fib. Has not noticed any overt signs of blood loss. Denies any abdominal pain, diarrhea, hematochezia, melena, nausea or vomiting or hematemesis. Most recent BMP with a sodium of 126, potassium to 4.9, chloride 94, serum bicarb 21, BUN 129, creatinine is slightly improved down to 2.9, glucose 98. NT proBNP was elevated at 5580. Troponin less than 0.012. Patient currently being observed in the emergency department. She is awaiting a bed in the intensive care unit. Blood pressure is profoundly hypotensive requiring norepinephrine, which is infusing at 0.28 mcg/kg/min. Normal saline also i nfusing at 75 mL/h. Current rhythm is atrial fibrillation with controlled ventricular response at bedside monitor. She is awake and alert. Does not appear to be in any distress. Remains hypothermic and her most recent temperature is 93.2 F. Denies any dysuria, burning, urinary frequency, hematu shan, flank pain. She is on room air. Denies any difficulty breathing, coughing, sputum production, chest pain. She does have severe lower extremity pitting edema with weeping venous stasis ulcers. Patient did receive a one-time dose of IV Lasix 40 mg. She does have an indwelling urinary catheter with copious amounts of clear yellow urine. Urometer is full. Abdomen is soft and nondistended. 05/12/25 - She is seen today in room 255. She was admitted to the hospital on 05/10/25 and brought to the ICU at that time. She continues to have Norepinephrine at 0.22 mcg/kg/min and Zosyn. Chest XRay this morning showed cardiomegaly, pulmonary vascular congestion. She was seen and evaluated by card iology who recommended continuation of her home medications as well as vaso support without a need for a repeat echo. She was seen and evaluated by nephrology who recommended holding IV fluids and maintaining pagie catheter. Urology evaluated and determined she should have cystoscopy, right retrograde pyelogram and right ureteral stent insertion on 05/13/25. Lab work shows WBCs 10.06, Hgb 10.9, Hct 32.9, PLT 246, Na 137, K 3.6, bicarb 21, BUN 80, Cr 2.13, Ca 9.0, Mg 2.2, TSH 1.300, Cortisol 5.8. 05/13/25 - She is seen today in room 255. She was admitted to the hospital on 05/10/25 and brought to the ICU at that time. She continues to have Norepinephrine at 0.09 mcg/kg/min, Zosyn and Fluconazole. She was initiated on Solu-cortef 100 mg Q8H and Florinef 0.1 mg daily yesterday. Infectious disease and urology continue to follow. She is undergoing cystoscopy, right retrograde pyelogram and right ureteral stent insertion today. Lab work shows WBCs 10.36, Hgb 10.3, Hct 30.7, PLT 216, Na 135, K 3.8, bicarb 25, BUN 66, Cr 1.88, Ca 9.2. Respiratory viral panel for flu, covid and RSV is negative. Blood cultures continue to be preliminarily negative. 05/14/25 - She is seen today in room 255. She was admitted to the hospital on 05/10/25 and brought to the ICU at that time. She continues to have Norepinephrine at 0.09 mcg/kg/min, Zosyn and Fluconazole. She is underwent cystoscopy, right retrograde pyelogram and right ureteral stent insertion yesterday, and was found to have large pelvic mass causing extrinsic compression of the right distal ureter with proximal hydroureteronephrosis. Lab work today shows WBCs 8.75, hemoglobin 9.3, hematocrit 28.9, PLT 172; sodium 137, potassium 3.6, bicarb 24, BUN 56, creatinine 1.84, calcium 9.3. Postprocedure urinalysis showed trace protein, large amounts of blood, trace leukocyte esterase. REVIEW OF SYSTEMS: Pertinent positives and negatives noted in HPI. Physical Exam: General: nontoxic, no distress, appears at stated age; right femoral central line in place and right radial arterial line. Derm: warm, dry, intact Head: atraumatic, normocephalic, symmetric Eyes: EOMI, anicteric sclera Mouth: no lip lesion, mucus membranes moist Cardiovascular: S1 S2 reg, no murmur, rubs, or gallops Lungs: CTA bilateral, no rales, no accessory muscle use Abdominal: soft, non-tender to palpataion, no appreciable organomegaly Extremities: Significant muscle atrophy; chronic venous ulcer LLE Neuro: Alert, Oriented, CNII-XII grossly intact, gait normal Psych: well appearing, appropriate affect Assessment and plan #Hypotension and shock, refractory to fluid resuscitation, considered sepsis s/p levophed #Acute on chronic kidney disease with Stage IIIa Chronic Kidney Disease with baseline creatinine 1.1 #Hyperkalemia, resolved #Hypothermia, use external warming blanket #Acute leukocytosis #Pelvic mass; abdominal/pelvis CT February, remarkable for large multiseptated cystic mass in the pelvis measuring 11.3 x 13.4 x 11 cm likely either dependent hemorrhagic or enhancing solid component. Findings were suspicious for m alignancy. Possibly ovarian in origin. There is no evidence of active bleeding. No definitive distant metastatic disease noted. Moderate right-sided hydronephrosis, suspected secondary to mass effect. Patient has not had any follow-up evaluation. #History of urinary retention and hydronephrosis #UA positive for trace leukocytes, rare bacteria, trace protein #Chronic atrial fibrillation, currently with controlled ventricular response, anticoagulated on Eliquis #Bilateral lower extremity edema #Hyponatremia, with significant lower extremity edema and third spacing #History of hypothyroidism #Resting tremor #History of diverticulitis with previous bowel resection #History of subtotal hysterectomy #Probable relative adrenal insufficiency Plan dated May 14, 2025. The patient is seen today in room 256. She is currently having IV fluids held, as per nephrology's recommendation. Norepinephrine running has been discontinued since 6 am, will continue to monitor, with Zosyn and Fluconazole. If norepinephrine remains discontinued for a total of 6 hours, she can be downgraded out of the ICU. Urine cultures are negative on final culture, Blood culture is preliminarily negative at this time. Continue with indwelling paige catheter. She underwent cystoscopy, right retrograde pyelogram and right ureteral stent insertion yesterday, and tolerated the procedure well. Norepine phrine was weaned off overnight, will continue to monitor blood pressure. We will continue to follow make recommendations along the way. Labs, x-rays, and all medications are reviewed. Prognosis is certainly guarded. Dictation was produced using [employer] software. Please excuse any grammatical, word or spelling errors. GI prophylaxis: Protonix 40 mg daily DVT prophylaxis: Eliquis 2.5 mg BID Dictation was produced using [employer] software. please excuse any grammatical, word or spelling errors. Orestes Cardenas MD PGY-1 IM Objective - Vital Signs Vital signs: Vital Signs Temp 97.4 F L 05/14/25 04:00 Pulse 107 H 05/14/25 07:00 Resp 13 05/14/25 07:00 BP 102/81 05/13/25 18:00 Pulse Ox 96 05/14/25 07:00 FiO2 Intake & Output 05/13/25 05/14/25 05/14/25 18:59 06:59 18:59 Intake Total 594.004 19.227 Output Total 950 390 30 Balance -355.996 -370.773 -30 Weight 95.2 kg Intake: IV 300 Intake, IV Titration 294.004 19.227 Amount Fluconazole in NaCl,Iso- 50 Osm 100 mg In Saline 1 50ml.bag @ 50 mls/hr IVPB DAILY [facility] Rx#:[id number] Norepinephrine 32 mg In 44.004 19.227 Sodium Chloride 0.9% 218 ml @ 0.03 MCG/KG/MIN 1. 276 mls/hr IV .Q24H [facility] Rx#:[id number] Piperacillin-Tazobactam 3 200 .375 gm In Sodium Chloride 0.9% 100 ml @ 25 mls/hr IVPB Q12H [facility] Rx# :[id number] Output: Urine 950 390 30 Other: Voiding Method Indwelling Catheter Indwelling Catheter # Bowel Movements 1 ABP, PAP, CO, CI - Last Documented Arterial Blood Pressure 86/51 - Labs CBC & Chem 7: 05/14/25 06:11 05/14/25 06:11 Labs: Abnormal Lab Results - Last 24 Hours (Table) 05/13/25 05/14/25 05/14/25 Range/Units 16:55 06:10 06:11 RBC 3.34 L (4.10-5.20) 10*6/uL Hgb 9.3 L (12.0-15.0) g/dL Hct 28.9 L (37.2-46.3) % MPV 8.6 L (9.5-12.2) fL Immature Gran # 0.12 H (0.00-0.04) 10*3/uL Neutrophils # 7.82 H (1.80-7.70) 10*3/uL Lymphocytes # 0.45 L (0.90-5.00) 10*3/uL Eosinophils # 0.00 L (0.04-0.35) 10*3/uL BUN (7-17) mg/dL Creatinine (0.52-1.04) mg/dL Glucose (74-99) mg/dL POC Glucose (mg/dL) 143 H (70-110) mg/dL Urine Appearance Cloudy H (Clear) Urine Protein Trace H (Negative) Urine Blood Large H (Negative) Ur Leukocyte Esterase Trace H (Negative) Urine RBC >182 H (0-5) /hpf Urine WBC 16 H (0-5) /hpf 05/14/25 Range/Units 06:11 RBC (4.10-5.20) 10*6/uL Hgb (12.0-15.0) g/dL Hct (37.2-46.3) % MPV (9.5-12.2) fL Immature Gran # (0.00-0.04) 10*3/uL Neutrophils # (1.80-7.70) 10*3/uL Lymphocytes # (0.90-5.00) 10*3/uL Eosinophils # (0.04-0.35) 10*3/uL BUN 56 H (7-17) mg/dL Creatinine 1.84 H (0.52-1.04) mg/dL Glucose 126 H (74-99) mg/dL POC Glucose (mg/dL) (70-110) mg/dL Urine Appearance (Clear) Urine Protein (Negative) Urine Blood (Negative) Ur Leukocyte Esterase (Negative) Urine RBC (0-5) /hpf Urine WBC (0-5) /hpf Microbiology - Last 24 Hours (Table) 05/10/25 17:40 Blood Culture - Preliminary Blood 05/11/25 13:49 Blood Culture - Preliminary Blood
[2025-05-14] MEDS ORDERED: ZINC OXIDE PASTE (Z-GUARD) 1 APPLIC TOPICAL PRN (10:44)
[2025-05-14] MEDS: FUROSEMIDE 10 MG/ML 2 ML VIAL IV ONE (10:49)
[2025-05-14] MEDS: POTASSIUM CHLORIDE ER 20 MEQ TAB.ER PO STA (10:49)
[2025-05-14] MEDS: POTASSIUM CHLORIDE ER 20 MEQ TAB.ER PO SCH (11:09)
--- NOTE | 2025-05-14 11:51 | PN ---
PROGRESS NOTE FOLLOWUP NOTE SUBJECTIVE: Marlys is feeling better, underwent ureteric stent and is currently awaiting surgery for the pelvic mass. She was hypotensive and was on Levophed that had been stopped. Her blood pressures are still a little on the lower side. I am going to start her on we do taurine. She is on Eliquis for anticoagulation. PHYSICAL EXAMINATION: VITAL SIGNS: On exam, heart rate is 100 beats per minute, blood pressure is 85/69, and respiratory rate is 18. NECK: There is no jugular venous distention. Carotid upstroke is normal. There is no bruit. CHEST: Reveals good air entry bilaterally. HEART: Exam reveals first and second heart sounds. No gallop. No murmur. ABDOMEN: Soft. EXTREMITIES: Examination of the extremities did not reveal any edema. Peripheral pulses are felt. LABORATORY DATA: Lab show a hemoglobin of 9.3, BUN is 56, creatinine is 1.8. ASSESSMENT: 1. Acute renal failure secondary to urinary obstruction, status post ureteric stent. 2. Atrial fibrillation. 3. Hypotension. PLAN: We will start the patient on midodrine. MMODL / IJN: [id number] /
[2025-05-14] MEDS: MIDODRINE 5 MG TAB PO SCH (11:54)
--- NOTE | 2025-05-14 15:02 | P.PN ---
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 On today's evaluation that is 05/13/2025,the patient remains to be afebrile, patient is on 2 L nasal cannula supplemental oxygen and denies any shortness of breath no chest pain or cough.Patient denies having any nausea or vomiting, no abdominal pain and no diarrhea complaining of some pain to the left lower extremity but no worsening. Patient white count is 10.36, creatinine is 1.88 blood culture has been negative urine is negative so far Objective - Vital Signs Vital signs: Vital Signs Temp 97.4 F L 05/13/25 08:00 Pulse 103 H 05/13/25 11:45 Resp 10 L 05/13/25 12:00 BP 127/80 05/13/25 12:00 Pulse Ox 98 05/13/25 12:00 FiO2 Intake & Output 05/12/25 05/13/25 05/13/25 18:59 06:59 18:59 Intake Total 1057.585 346.343 66.165 Output Total 1975 1225 595 Balance -917.415 -878.657 -528.835 Weight 90.2 kg 94.3 kg Intake: Intake, IV Titration 449.585 78.343 66.165 Amount Fluconazole in NaCl,Iso- 50 50 Osm 100 mg In Saline 1 50ml.bag @ 50 mls/hr IVPB DAILY [facility] Rx#:[id number] Norepinephrine 32 mg In 109.585 78.343 16.165 Sodium Chloride 0.9% 218 ml @ 0.03 MCG/KG/MIN 1. 276 mls/hr IV .Q24H [facility] Rx#:[id number] Piperacillin-Tazobactam 3 100 .375 gm In Sodium Chloride 0.9% 100 ml @ 25 mls/hr IVPB Q12H [facility] Rx# :[id number] Sodium Chloride 0.9% 1, 190 000 ml @ 75 mls/hr IV . [id number] [facility] Rx#:[id number] Oral 608 268 Output: Urine 1975 1225 595 Other: Voiding Method Indwelling Catheter Indwelling Catheter Indwelling Catheter # Bowel Movements 1 1 1 ABP, PAP, CO, CI - Last Documented Arterial Blood Pressure 103/68 - Exam GENERAL DESCRIPTION: An elderly female lying in bed in no distress RESPIRATORY SYSTEM: Unlabored breathing , decreased breath sounds at bases HEART: S1 S2 regular rate and rhythm , ABDOMEN: Soft , no tenderness EXTREMITIES: Leg wound is currently dressed - Labs CBC & Chem 7: 05/14/25 06:11 05/14/25 06:11 Labs: Abnormal Lab Results - Last 24 Hours (Table) 05/13/25 05/13/25 Range/Units 06:13 06:13 WBC 10.36 H (4.50-10.00) 10*3/uL RBC 3.61 L (4.10-5.20) 10*6/uL Hgb 10.3 L (12.0-15.0) g/dL Hct 30.7 L (37.2-46.3) % MPV 8.9 L (9.5-12.2) fL Immature Gran # 0.12 H (0.00-0.04) 10*3/uL Neutrophils # 9.44 H (1.80-7.70) 10*3/uL Lymphocytes # 0.49 L (0.90-5.00) 10*3/uL Eosinophils # 0.00 L (0.04-0.35) 10*3/uL Sodium 135 L (137-145) mmol/L BUN 66 H (7-17) mg/dL Creatinine 1.88 H (0.52-1.04) mg/dL Glucose 160 H (74-99) mg/dL Total Protein 5.3 L (6.3-8.2) g/dL Albumin 2.6 L (3.5-5.0) g/dL Microbiology - Last 24 Hours (Table) 05/10/25 17:40 Blood Culture - Preliminary Blood 05/11/25 13:49 Blood Culture - Preliminary Blood Assessment and Plan (1) Complicated UTI (urinary tract infection) Current Visit: Yes Status: Acute Code(s): N39.0 - URINARY TRACT INFECTION, SITE NOT SPECIFIED SNOMED Code(s): 28767758 (2) Sepsis Current Visit: Yes Status: Acute Code(s): A41.9 - SEPSIS, UNSPECIFIED ORGANISM SNOMED Code(s): 78568671 Plan: 1patient presented to the hospital with weakness and low blood pressure in this patient who did have features of SIRS however no clear focus of infection patient is not running any fever does not look toxic urine is negative chest x- ray was mostly CHF, patient did have a wound to the left lower extremity however wound base looks clean with no slough tissue surrounding redness patient did have CT abdominal pelvis with evidence of cystic mass around the bladder with right-sided hydro ureteric nephrosis could be the likely source 2-patient has been evaluated by urology and planning for for cystoscopy and ureteral stent placement scheduled for this afternoon 3--local wound care to the left lower extremity wound with a dry Aquacel dressing and Sadi wrap from just above the toe to below the knee to keep the swel ling down 4patient did have improvement in her temperature as well as white count currently being treated with Zosyn and monitor clinical course closely Dictation was produced using [employer] dictation software. please excuse any grammatical, word or spelling errors. Time with Patient: Less than 30
--- NOTE | 2025-05-14 15:02 | P.PN ---
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 On today's evaluation that is 05/14/2025, the patient continues to be afebrile, the patient is on room air and breathing comfortably, the Pt denies having any chest pain or cough, the patient denies having any abdominal pain no vomiting or any diarrhea has been reported by the nursing staff. Patient white count normalized to 8.75, UA post insertion of the catheter positive cultures are pending Objective - Vital Signs Vital signs: Vital Signs Temp 97.4 F L 05/14/25 08:00 Pulse 97 05/14/25 14:00 Resp 14 05/14/25 14:00 BP 89/68 05/14/25 14:00 Pulse Ox 96 05/14/25 14:00 FiO2 Intake & Output 05/13/25 05/14/25 05/14/25 18:59 06:59 18:59 Intake Total 594.004 19.227 610 Output Total 950 390 475 Balance -355.996 -370.773 135 Weight 95.2 kg Intake: IV 300 70 0.9 NACL 70 Intake, IV Titration 294.004 19.227 Amount Fluconazole in NaCl,Iso- 50 Osm 100 mg In Saline 1 50ml.bag @ 50 mls/hr IVPB DAILY [facility] Rx#:[id number] Norepinephrine 32 mg In 44.004 19.227 Sodium Chloride 0.9% 218 ml @ 0.03 MCG/KG/MIN 1. 276 mls/hr IV .Q24H [facility] Rx#:[id number] Piperacillin-Tazobactam 3 200 .375 gm In Sodium Chloride 0.9% 100 ml @ 25 mls/hr IVPB Q12H [facility] Rx# :[id number] Oral 540 Output: Urine 950 390 475 Other: Voiding Method Indwelling Catheter Indwelling Catheter Indwelling Catheter # Bowel Movements 1 1 ABP, PAP, CO, CI - Last Documented Arterial Blood Pressure 101/61 - Exam GENERAL DESCRIPTION: An elderly female lying in bed in no distress RESPIRATORY SYSTEM: Unlabored breathing , decreased breath sounds at bases HEART: S1 S2 regular rate and rhythm , ABDOMEN: Soft , no tenderness EXTREMITIES: Leg wound is currently dressed - Labs CBC & Chem 7: 05/14/25 06:11 05/14/25 06:11 Labs: Abnormal Lab Results - Last 24 Hours (Table) 05/13/25 05/14/25 05/14/25 Range/Units 16:55 06:10 06:11 RBC 3.34 L (4.10-5.20) 10*6/uL Hgb 9.3 L (12.0-15.0) g/dL Hct 28.9 L (37.2-46.3) % MPV 8.6 L (9.5-12.2) fL Immature Gran # 0.12 H (0.00-0.04) 10*3/uL Neutrophils # 7.82 H (1.80-7.70) 10*3/uL Lymphocytes # 0.45 L (0.90-5.00) 10*3/uL Eosinophils # 0.00 L (0.04-0.35) 10*3/uL BUN (7-17) mg/dL Creatinine (0.52-1.04) mg/dL Glucose (74-99) mg/dL POC Glucose (mg/dL) 143 H (70-110) mg/dL Urine Appearance Cloudy H (Clear) Urine Protein Trace H (Negative) Urine Blood Large H (Negative) Ur Leukocyte Esterase Trace H (Negative) Urine RBC >182 H (0-5) /hpf Urine WBC 16 H (0-5) /hpf 05/14/25 Range/Units 06:11 RBC (4.10-5.20) 10*6/uL Hgb (12.0-15.0) g/dL Hct (37.2-46.3) % MPV (9.5-12.2) fL Immature Gran # (0.00-0.04) 10*3/uL Neutrophils # (1.80-7.70) 10*3/uL Lymphocytes # (0.90-5.00) 10*3/uL Eosinophils # (0.04-0.35) 10*3/uL BUN 56 H (7-17) mg/dL Creatinine 1.84 H (0.52-1.04) mg/dL Glucose 126 H (74-99) mg/dL POC Glucose (mg/dL) (70-110) mg/dL Urine Appearance (Clear) Urine Protein (Negative) Urine Blood (Negative) Ur Leukocyte Esterase (Negative) Urine RBC (0-5) /hpf Urine WBC (0-5) /hpf Microbiology - Last 24 Hours (Table) 05/10/25 17:40 Blood Culture - Preliminary Blood 05/11/25 13:49 Blood Culture - Preliminary Blood Assessment and Plan (1) Complicated UTI (urinary tract infection) Current Visit: Yes Status: Acute Code(s): N39.0 - URINARY TRACT INFECTION, SITE NOT SPECIFIED SNOMED Code(s): 97631228 (2) Sepsis Current Visit: Yes Status: Acute Code(s): A41.9 - SEPSIS, UNSPECIFIED ORGANISM SNOMED Code(s): 16897604 Plan: 1patient presented to the hospital with weakness and low blood pressure in this patient who did have features of SIRS however no clear focus of infection patient is not running any fever does not look toxic urine is negative chest x- ray was mostly CHF, patient did have a wound to the left lower extremity however wound base looks clean with no slough tissue surrounding redness patient did have CT abdominal pelvis with evidence of cystic mass around the bladder with right-sided hydro ureteric nephrosis could be the likely source 2-patient has been evaluated by urology and is status post cystoscopy and ureteral stent placement completed on 05/13/2025 3--local wound care to the left lower extremity wound with a dry Aquacel dres sing and Sadi wrap from just above the toe to below the knee to keep the swelling down 4patient did have improvement in her temperature as well as white count UA post insertion of the stent is positive results will follow continue Belinda Dictation was produced using [employer] dictation software. please excuse any grammatical, word or spelling errors. Time with Patient: Less than 30
--- NOTE | 2025-05-14 16:20 | CDI ---
Documentation Clarification Form Date: 05/14/2025 03:36:33 PM From: Hafsa Fox RN CCDS Phone: [phone] Admit Date: 05/10/2025 02:54:00 PM Patient Name: Marlys Roger Visit Number: [id number] Discharge Date: ATTENTION: The Clinical Documentation Specialists (CDI) and [facility] Coding Staff appreciate your assistance in clarifying documentation. Please respond to the clarification below the line at the bottom and electronically sign. The CDI & [facility] Coding staff will review the response and follow-up if needed. Please note: Queries are made part of the Legal Health Record. If you have any questions, please contact the author of this message via ITS. Doctor: MD Ministerio Shock is documented 05/14, Progress note. Additional clarification regarding the type of shock is requested. Patient history/risk factors: 79 year old female presents to the ED after being found hypotensive at Dr Ramachandran office reportedly her blood pressure was recorded with a systolic of 80s mmHg. Associated with weakness, lightheadedness and worsening renal function. . Medical History: Atrial fibrillation, HTN and CKD. 05/10, Clinical Indicators: 05/10: BP 80/53, HR 56, Temp 97.6F Oral, RR 20, SpO2 96% ra 05/10: Labs: Wbc 13.53, Neutrophils 12.05, Na 125, K 6.3, Chl 89, BUN 142, CR 3.04, GFR 14, Magnesium 3.0, CRP 14.8, BNP 5580, Total protein 6.0, Albumin 3.2 Treatment: 05/10 0.9ns 2L ns, 05/10 Right femoral central line was placed 05/10 Lokelma po x 1, Calcium Gluconate /Sodium Chloride IVPB X 1; 05/10 Dextrose 50% Syringe IVP x 1; Humulin R IV x 1; 05/10 Lasix IV x 1; 05/10 05/11 0.9NS IV 75cc/hr; 05/10 05/11 Ceftriaxone IVPB Q24H, 05/10 05/14 Norepinephrine Bitartrate 1.276mls/HR IV Q24H, 05/10 Zosyn IVPB Q12H Please clarify the type of shock, if known: [ ] Septic Shock [ ] Hypovolemic Shock [ ] Other, please specify [x ] Unable to determine (Template Last Revised: January 2021) MTDD
--- NOTE | 2025-05-14 17:01 | P.PN ---
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 05/14/2025 - the patient is seen and evaluated in room at bedside; remains afebrile, the patient is on room air and breathing comfortably, the Pt denies having any chest pain or cough, the patient denies having any abdominal pain no vomiting or any diarrhea has been reported by the nursing staff. Blood work reveals WBC of 8.75, hemoglobin of 9.3 and platelet count of 172, sodium 137, potassium 3.6, BUN/creatinine of 56/1.84 and blood glucose of 126, UA post insertion of the catheter positive cultures are pending Objective - Vital Signs Vital signs: Vital Signs Temp 97.4 F L 05/14/25 08:00 Pulse 112 H 05/14/25 09:45 Resp 18 05/14/25 10:15 BP 85/69 05/14/25 10:15 Pulse Ox 97 05/14/25 10:15 FiO2 Intake & Output 05/13/25 05/14/25 05/14/25 18:59 06:59 18:59 Intake Total 594.004 19.227 30 Output Total 950 390 170 Balance -355.996 -370.773 -140 Weight 95.2 kg Intake: IV 300 30 0.9 NACL 30 Intake, IV Titration 294.004 19.227 Amount Fluconazole in NaCl,Iso- 50 Osm 100 mg In Saline 1 50ml.bag @ 50 mls/hr IVPB DAILY [facility] Rx#:[id number] Norepinephrine 32 mg In 44.004 19.227 Sodium Chloride 0.9% 218 ml @ 0.03 MCG/KG/MIN 1. 276 mls/hr IV .Q24H [facility] Rx#:[id number] Piperacillin-Tazobactam 3 200 .375 gm In Sodium Chloride 0.9% 100 ml @ 25 mls/hr IVPB Q12H [facility] Rx# :[id number] Output: Urine 950 390 170 Other: Voiding Method Indwelling Catheter Indwelling Catheter Indwelling Catheter # Bowel Movements 1 1 ABP, PAP, CO, CI - Last Documented Arterial Blood Pressure 85/52 - Exam General: nontoxic, no distress, appears at stated age; right femoral central line in place and right radial arterial line. Derm: warm, dry, intact Head: atraumatic, normocephalic, symmetric Eyes: EOMI, anicteric sclera Cardiovascular: S1 S2 reg, no murmur, rubs, or gallops Lungs: CTA bilateral, no rales, no accessory muscle use Abdominal: soft, non-tender to palpataion, no appreciable organomegaly Extremities: Significant muscle atrophy; chronic venous ulcer LLE Neuro: Alert, Oriented, CNII-XII grossly intact, gait normal Psych: well appearing, appropriate affect - Labs CBC & Chem 7: 05/14/25 06:11 05/14/25 06:11 Labs: Abnormal Lab Results - Last 24 Hours (Table) 05/13/25 05/14/25 05/14/25 Range/Units 16:55 06:10 06:11 RBC 3.34 L (4.10-5.20) 10*6/uL Hgb 9.3 L (12.0-15.0) g/dL Hct 28.9 L (37.2-46.3) % MPV 8.6 L (9.5-12.2) fL Immature Gran # 0.12 H (0.00-0.04) 10*3/uL Neutrophils # 7.82 H (1.80-7.70) 10*3/uL Lymphocytes # 0.45 L (0.90-5.00) 10*3/uL Eosinophils # 0.00 L (0.04-0.35) 10*3/uL BUN (7-17) mg/dL Creatinine (0.52-1.04) mg/dL Glucose (74-99) mg/dL POC Glucose (mg/dL) 143 H (70-110) mg/dL Urine Appearance Cloudy H (Clear) Urine Protein Trace H (Negative) Urine Blood Large H (Negative) Ur Leukocyte Esterase Trace H (Negative) Urine RBC >182 H (0-5) /hpf Urine WBC 16 H (0-5) /hpf 05/14/25 Range/Units 06:11 RBC (4.10-5.20) 10*6/uL Hgb (12.0-15.0) g/dL Hct (37.2-46.3) % MPV (9.5-12.2) fL Immature Gran # (0.00-0.04) 10*3/uL Neutrophils # (1.80-7.70) 10*3/uL Lymphocytes # (0.90-5.00) 10*3/uL Eosinophils # (0.04-0.35) 10*3/uL BUN 56 H (7-17) mg/dL Creatinine 1.84 H (0.52-1.04) mg/dL Glucose 126 H (74-99) mg/dL POC Glucose (mg/dL) (70-110) mg/dL Urine Appearance (Clear) Urine Protein (Negative) Urine Blood (Negative) Ur Leukocyte Esterase (Negative) Urine RBC (0-5) /hpf Urine WBC (0-5) /hpf Microbiology - Last 24 Hours (Table) 05/10/25 17:40 Blood Culture - Preliminary Blood 05/11/25 13:49 Blood Culture - Preliminary Blood Assessment and Plan Assessment: 1. Hypotension and shock, refractory to fluid resuscitation, considered sepsis s/p levophed 2. Acute on chronic kidney disease with Stage IIIa Chronic Kidney Disease with baseline creatinine 1.1 3. Hyperkalemia; resolved 4. Hypothermia; likely relative adrenal insufficiency; use external warming blanket 5. Acute leukocytosis/sepsis 6. Pelvic mass; abdominal/pelvis CT February, remarkable for large multiseptated cystic mass in the pelvis measuring 11.3 x 13.4 x 11 cm likely either dependent hemorrhagic or enhancing solid component. Findings were suspicious for malignancy. Possibly ovarian in origin. There is no evidence of active bleeding. No definitive distant metastatic disease noted. Moderate right-sided hydronephrosis, suspected secondary to mass effect. Patient has not had any follow-up evaluation. -Patient is recommended outpatient follow-up 7. History of urinary retention and hydronephrosis; clean mass effect from cystic mass 8. UTI; UA positive for trace leukocytes, rare bacteria, trace protein 9 chronic atrial fibrillation, currently with controlled ventricular response, anticoagulated on Eliquis 10. Hyponatremia, with significant lower extremity edema and third spacing 11. History of hypothyroidism DVT prophylaxis; SCD/Eliquis CODE STATUS; full code
--- NOTE | 2025-05-15 08:55 | P.PN ---
Subjective Progress Note Date: 05/15/25 Principal diagnosis: Right hydronephrosis Mrs. Roger underwent right ureteral stent insertion in May 13, 2025. It was determined at that time that her right hydronephrosis was indeed due to extrinsic compression of the right distal ureter by the large pelvic mass. There was no evidence of an intravesical mass. The patient has no complaints at this time. Urine output is good, but unfortunately the improvement in renal function has been minimal. Objective - Vital Signs Vital signs: Vital Signs Temp 98.6 F 05/15/25 08:00 Pulse 151 H 05/15/25 08:00 Resp 16 05/15/25 08:00 BP 102/57 05/15/25 08:00 Pulse Ox 96 05/15/25 08:00 FiO2 Intake & Output 05/14/25 05/15/25 05/15/25 18:59 06:59 18:59 Intake Total 750 20 90 Output Total 675 1560 75 Balance 75 -1540 15 Weight 96.8 kg Intake: IV 210 20 90 0.9 NACL 110 20 90 Piperacillin-Tazobactam 3 100 .375 gm In Sodium Chloride 0.9% 100 ml @ 25 mls/hr IVPB Q12H [facility] Rx# :[id number] Oral 540 Output: Urine 675 1560 75 Other: Voiding Method Indwelling Catheter Indwelling Catheter Indwelling Catheter # Bowel Movements 1 2 1 ABP, PAP, CO, CI - Last Documented Arterial Blood Pressure 101/61 - Constitutional General appearance: Present: average body habitus, cooperative, no acute distress - Genitourinary Genitourinary Comment(s): Puente catheter is draining urine which is faintly pink-tinged. - Psychiatric Psychiatric: Present: A&O x's 3 - Labs CBC & Chem 7: 05/14/25 06:11 05/14/25 06:11 Labs: Microbiology - Last 24 Hours (Table) 05/11/25 13:49 Blood Culture - Preliminary Blood 05/10/25 17:40 Blood Culture - Preliminary Blood Assessment and Plan (1) Unspecified hydronephrosis Current Visit: Yes Status: Acute Code(s): N13.30 - UNSPECIFIED HYDRONEPHROSIS SNOMED Code(s): 16598609 Plan: Patient requires no further urologic intervention at this time. The Puente cecily ter may be removed when no longer medically needed. It was once again stressed to the patient that her ureteral stent will need to either be removed or exchanged within 3 months. Please notify me if I can be of any further assistance.
[2025-05-15 09:24] LABS: African American GFR (CKD) 31 (>60 ml/min/1.73 sqM); Anion Gap 8 mmol/L; Blood Urea Nitrogen 60 mg/dL (7-17); Calcium 8.9 mg/dL (8.4-10.2); Carbon Dioxide 23 mmol/L (22-30); Chloride 105 mmol/L (98-107); Glucose 272 mg/dL (74-99); Magnesium 1.7 mg/dL (1.6-2.3); Non-African American GFR(CKD) 27 (>60 ml/min/1.73 sqM); Potassium 3.6 mmol/L (3.5-5.1); Sodium 136 mmol/L (137-145)
--- NOTE | 2025-05-15 09:41 | P.PN ---
Subjective Patient is seen in follow-up for acute kidney injury on chronic kidney disease. Renal function stable. Status post IV Lasix yesterday. Denies chest pain or shortness of breath. Oral intake fair. Vital signs are stable. General: No acute distress. HEENT: Head exam is unremarkable. LUNGS: No audible rhonchi or wheezes. HEART: Rate and Rhythm are regular. ABDOMEN: Nontender. EXTREMITITES: 1+ edema. Objective - Vital Signs Vital signs: Vital Signs Temp 98.6 F 05/15/25 08:00 Pulse 151 H 05/15/25 08:00 Resp 16 05/15/25 08:00 BP 102/57 05/15/25 08:00 Pulse Ox 96 05/15/25 08:00 FiO2 Intake & Output 05/14/25 05/15/25 05/15/25 18:59 06:59 18:59 Intake Total 750 20 90 Output Total 675 1560 75 Balance 75 -1540 15 Weight 96.8 kg Intake: IV 210 20 90 0.9 NACL 110 20 90 Piperacillin-Tazobactam 3 100 .375 gm In Sodium Chloride 0.9% 100 ml @ 25 mls/hr IVPB Q12H [facility] Rx# :[id number] Oral 540 Output: Urine 675 1560 75 Other: Voiding Method Indwelling Catheter Indwelling Catheter Indwelling Catheter # Bowel Movements 1 2 1 ABP, PAP, CO, CI - Last Documented Arterial Blood Pressure 101/61 - Labs CBC & Chem 7: 05/14/25 06:11 05/15/25 08:49 Labs: Abnormal Lab Results - Last 24 Hours (Table) 05/15/25 Range/Units 08:49 Sodium 136 L (137-145) mmol/L BUN 60 H (7-17) mg/dL Creatinine 1.80 H (0.52-1.04) mg/dL Glucose 272 H (74-99) mg/dL Microbiology - Last 24 Hours (Table) 05/11/25 13:49 Blood Culture - Preliminary Blood Assessment and Plan Plan: Assessment: 1. Acute kidney injury secondary to ATN secondary to hypotension/shock. Also concern for obstructive uropathy. Creatinine 3.04 on admission and is stable at 1.8 today. UA fairly benign. 2. Chronic kidney disease stage IIIa with baseline creatinine near 1.1. 3. Right-sided hydronephrosis with bladder mass. Urology following. Status post right ureteral stent placed May 13, 2025. 4. Hypovolemic hyponatremia improved with IV fluids. Currently off fluids. Now hypervolemic. 5. Metabolic acidosis secondary to acute kidney injury and IV fluids. Improved. On oral bicarb. 6. Shock status post Levophed. 7. Chronic diastolic CHF with moderate mitral regurgitation, moderate to severe tricuspid regurgitation. 8. Volume overload. 9. Hypokalemia from diuresis and Florinef. Plan: Cortisol level on the lower end. Started on hydrocortisone. Replace potassium. Repeat Lasix 20 mg IV once today. Continue to monitor renal function and urine output.
[2025-05-15] MEDS: METOPROLOL TARTRATE 25 MG TAB PO SCH (10:04)
[2025-05-15] MEDS: POTASSIUM CHLORIDE ER 20 MEQ TAB.ER PO STA (10:05)
[2025-05-15] MEDS: FLUCONAZOLE 100 MG TAB PO SCH (10:05)
[2025-05-15] MEDS: FUROSEMIDE 10 MG/ML 2 ML VIAL IV ONE (10:07)
--- NOTE | 2025-05-15 10:18 | P.PN ---
Subjective Progress Note Date: 05/15/25 Principal diagnosis: Acute kidney injury. History of present illness; Patient is a 79-year-old female with past medical history significant for hypertension, atrial fibrillation, hypothyroidism, resting tremors, diverticulitis with previous bowel resection. Also, had an abdominal/pelvis CT February, remarkable for large multiseptated cystic mass in the pelvis measuring 11.3 x 13.4 x 11 cm likely either dependent hemorrhagic or enhancing solid component. Findings were suspicious for malignancy. Possibly ovarian in origin. There was no evidence of active bleeding. No definitive distant metastatic disease noted. Moderate right-sided hydronephrosis, suspected second [place] to mass effect. She has had ongoing issues with urinary retention and worsening renal function. She was at Dr. Bunch's office yesterday, and was found to be hypotensive. Reportedly, her blood pressure was recorded with a systolic of 80s mmHg. She had associated weakness and lightheadedness. Also, noted to have severe lower extremity weeping edema and her Lasix was recently transitioned to Bumex. While being worked up in the emergency department she was found to be profoundly hypotensive. She was fluid resuscitated with a total of 2 L of normal saline bolus. A right femoral central line was placed in the ED. She was started on norepinephrine for blood pressure support. Also, hypoth ermic with a rectal temperature of 91.6 F.. For this reason a pulmonary critical care consultation was placed. Renal function worse than baseline and was hyperkalemic with a potassium of 6.3. Did receive 10 units regular insulin, 1 amp D50 W, 10 g of Lokelma, 1 g calcium gluconate. Repeat potassium down to 4.9 mmol/L. Did have a distended bladder and an indwelling urinary catheter was placed. Ultrasound of bilateral kidneys and urinary bladder showing a decompressed bladder with intraluminal Paige catheter. No evidence of hydronephrosis or acute obstructive uropathy. Simple appearing left renal cyst. Increased bilateral renal parenchymal echogenicity suggestive of underlying chronic medical renal disease. Urinalysis had trace leukocytes and rare bacteria. Empirically placed on Rocephin in the ED.Remaining lab work including a CBC with a WBC count of 13.5, hemoglobin 10.4, platelets 251. Patient does take Eliquis on outpatient basis for her A-fib. Has not noticed any overt signs of blood loss. Denies any abdominal pain, diarrhea, hematochezia, melena, nausea or vomiting or hematemesis. Most recent BMP with a sodium of 126, potassium to 4.9, chloride 94, serum bicarb 21, BUN 129, creatinine is slightly improved down to 2.9, glucose 98. NT proBNP was elevated at 5580. Troponin less than 0.012. Patient currently being observed in the emergency department. She is awaiting a bed in the intensive care unit. Blood pressure is profoundly hypotensive requiring norepinephrine, which is infusing at 0.28 mcg/kg/min. Normal saline also infusing at 75 mL/h. Current rhythm is atrial fibrillation with controlled ventricular response at bedside monitor. She is awake and alert. Does not appear to be in any distress. Remains hypothermic and her most recent temperature is 93.2 F. Denies any dysuria, burning, urinary frequency, hematuria, flank pain. She is on room air. Denies any difficulty breathing, coughing, sputum production, chest pain. She does have severe lower extremity pitting edema with weeping venous stasis ulcers. Patient did receive a one-time dose of IV Lasix 40 mg. She does have an indwelling urinary catheter with copious amounts of clear yellow urine. Urometer is full. Abdomen is soft and nondistended. 05/12/25 - She is seen today in room 255. She was admitted to the hospital on 05/10/25 and brought to the ICU at that time. She continues to have Norepinephrine at 0.22 mcg/kg/min and Zosyn. Chest XRay this morning showed cardiomegaly, pulmonary vascular congestion. She was seen and evaluated by cardiology who recommended continuation of her home medications as well as vaso support without a need for a repeat echo. She was seen and evaluated by nephrology who recommended holding IV fluids and maintaining paige catheter. Urology evaluated and determined she should have cystoscopy, right retrograde pyelogram and right ureteral stent insertion on 05/13/25. Lab work shows WBCs 10.06, Hgb 10.9, Hct 32.9, PLT 246, Na 137, K 3.6, bicarb 21, BUN 80, Cr 2.13, Ca 9.0, Mg 2.2, TSH 1.300, Cortisol 5.8. 05/13/25 - She is seen today in room 255. She was admitted to the hospital on 05/10/25 and brought to the ICU at that time. She continues to have Norepinephrine at 0.09 mcg/kg/min, Zosyn and Fluconazole. She was initiated on Solu-cortef 100 mg Q8H and Florinef 0.1 mg daily yesterday. Infectious disease and urology continue to follow. She is undergoing cystoscopy, right retrograde pyelogram and right ureteral stent insertion today. Lab work shows WBCs 10.36, Hgb 10.3, Hct 30.7, PLT 216, Na 135, K 3.8, bicarb 25, BUN 66, Cr 1.88, Ca 9.2. Respiratory viral panel for flu, covid and RSV is negative. Blood cultures continue to be preliminarily negative. 05/14/25 - She is seen today in room 255. She was admitted to the hospital on 05/10/25 and brought to the ICU at that time. She continues to have Norepinephrine at 0.09 mcg/kg/min, Zosyn and Fluconazole. She is underwent cystoscopy, right retrograde pyelogram and right ureteral stent insertion yesterday, and was found to have large pelvic mass causing extrinsic compression of the right distal ureter with proximal hydroureteronephrosis. Lab work today shows WBCs 8.75, hemoglobin 9.3, hematocrit 28.9, PLT 172; sodium 137, potassium 3.6, bicarb 24, BUN 56, creatinine 1.84, calcium 9.3. Postprocedure urinalysis showed trace protein, large amounts of blood, trace leukocyte esterase. Progress note dated May 15, 2025. 79-year-old female seen today in room 255. She is sitting in a chair next to the hospital bed. She currently on room air. She is getting saline at 10 cc an hour. Patient is in atrial fibrillation with a rate of 155 bpm. The patient continues on Solu-Cortef, at 100 mg every 8 hours. He will be dropped down to 50 mg every 8 hours. Clinically, the patient is doing reasonably well. Labs today include a sodium 136, potassium 3.6, chlorides 105, CO2 23, BUN 60, creatinine 1.8. Glucose is 272. Calcium 8.9, magnesium 1.7. Cultures are thus far negative. No chest x-ray today. Objective - Vital Signs Vital signs: Vital Signs Temp 98.6 F 05/15/25 08:00 Pulse 129 H 06/21/25 09:00 Resp 16 05/15/25 09:00 BP 102/57 05/15/25 09:00 Pulse Ox 97 05/15/25 09:00 FiO2 Intake & Output 05/14/25 05/15/25 05/15/25 18:59 06:59 18:59 Intake Total 750 20 90 Output Total 675 1560 75 Balance 75 -1540 15 Weight 96.8 kg Intake: IV 210 20 90 0.9 NACL 110 20 90 Piperacillin-Tazobactam 3 100 .375 gm In Sodium Chloride 0.9% 100 ml @ 25 mls/hr IVPB Q12H [facility] Rx# :[id number] Oral 540 Output: Urine 675 1560 75 Other: Voiding Method Indwelling Catheter Indwelling Catheter Indwelling Catheter # Bowel Movements 1 2 1 ABP, PAP, CO, CI - Last Documented Arterial Blood Pressure 101/61 - Exam No acute distress, oriented 3. The patient has a fine tremor. HEENT examination is grossly unremarkable. Mucous membranes are moist. No oral lesions. Neck supple. Full range of motion. No adenopathy thyromegaly or neck vein distention. Cardiovascular examination reveals regular rhythm rate. S1-S2 normal. No S3 or S4. No discernible murmur noted. Lungs reveal clear breath sounds. Breath sounds are equal bilaterally. No adventitious lung sounds including wheezes rhonchi or crackles. Abdomen soft bowel sounds are heard. No masses or tenderness. Extremities are intact. No cyanosis clubbing or edema. Skin is without rash or lesion. Neurologic examination is brief but nonfocal. - Labs CBC & Chem 7: 05/14/25 06:11 05/15/25 08:49 Labs: Abnormal Lab Results - Last 24 Hours (Table) 05/15/25 Range/Units 08:49 Sodium 136 L (137-145) mmol/L BUN 60 H (7-17) mg/dL Creatinine 1.80 H (0.52-1.04) mg/dL Glucose 272 H (74-99) mg/dL Microbiology - Last 24 Hours (Table) 05/11/25 13:49 Blood Culture - Preliminary Blood Assessment and Plan Assessment: Hypotension, and shock, secondary to suspected sepsis. Acute on chronic kidney disease, with a history of stage IIIa chronic kidney disease. Hyperkalemia, resolved. Hypothermia, resolved. Pelvic mass, measuring 11.3 x 13.4 x 11 cm, suspicious for malignancy. History of urinary retention and hydronephrosis. Chronic atrial fibrillation. Bilateral lower extremity edema. Hyponatremia. History of hypothyroidism. History of benign essential tremor. History of diverticulitis. History of subtotal hysterectomy. Probable relative adrenal insufficiency. Plan: Plan dated May 15, 2025. 79-year-old female seen today in room 255. She remains on room air. She is getting saline at 10 cc an hour. The patient Solu-Cortef, which was at 100 mg every 8 hours, will be decreased to 50 mg every 8 hours. The patient is currently have atrial fibrillation, with a rapid ventricular response. Cardiology will be asked to see the patient. They already are seeing this patient. Labs, x-rays, medications are reviewed. We will continue to follow the patient, make recommendations. Prognosis is guarded. Dictation was produced using [email or web address] dictation software. Please excuse any grammatical, word or spelling errors. Time with Patient: Less than 30
[2025-05-15] MEDS: HYDROCORTISONE SUCCINATE 100 MG/2 ML VIAL IV SCH (15:12)
[2025-05-15] MEDS: MAGNESIUM SULFATE-D5W PMX 1 GM in DEXTROSE/WATER 1 100ML.BAG IVPB ONE (15:13)
--- NOTE | 2025-05-15 17:45 | P.PN ---
Subjective Progress Note Date: 05/15/25 This is a 79-year-old female patient of Dr. Quoc Rosas with past medical history of moderate to severe aortic regurgitation, COPD, hypertension, persistent atrial fibrillation, known abdominal mass. Patient was last seen in the office on 05/05/2025 at which time she presented for surgical clearance for removal of a large cystic mass in the pelvis measuring 11.3 x 13.4 x 11.0 cm likely either dependent hemorrhagic or enhancing solid component and suspicious for malignancy. Cardiac surgical clearance was given at that time. Patient states that she has been told that she does not have a plan in place until her kidneys are improved. Patient was seen at Dr. Bunch's office yesterday found to be hypotensive with systolic of 80 along with weakness and lightheadedness. Patient presented to the emergency center was also hypotensive underwent IV fluid boluses and has been subsequently started on norepinephrine. Patient was also hypothermic and nursing to apply Magi blanket. Puente catheter has been placed as well as arterial line. Patient has been started on IV antibiotics and her home cardiac medications are on hold. She has been continued on Eliquis. Blood pressures 95/45, heart rate in the 60s and 70s, pulse ox 97% on room air. Most recent temperature was 94.8 rectal. Patient is seen today in the emergency center waiting for a bed in the ICU. Pulmonary medicine is ordered a CT of the abdomen pelvis without contrast. Progress note 05/15/2025 Telemetry shows A-fib heart rate in the 19 bpm BP 107/74, heart rate 100 bpm. Transfer out of ICU today. BUN 60, creatinine 1.8. Creatinine stable. PHYSICAL EXAMINATION Vital signs reviewed. Head: Normocephalic. Eyes: Sclerae nonicteric. Neck: Brisk carotid upstroke, no jugular venous distention. Lungs: Diminished breath sounds with poor inspiratory effort Heart: Irregular pulse, diastolic murmur audible Abdomen: Soft nontender, bowel sounds present, Extremities: Swelling in the legs Neuro: Alert, oriented, no focal neurological deficits. Detailed neuro exam was not performed. ASSESSMENT Persistent atrial fibrillation Pelvic mass with suspicion of malignancy Urinary retention with hydronephrosis from pelvic mass obstructing ureter causing CHIUQITA status post urethral stent 05/13/2025 CKD Bilateral lower extremity edema Hyponatremia, hypothyroidism, PLAN Metoprolol 25 mg twice daily. Start IV amiodarone drip. As needed midodrine As needed Lasix as per nephrology team Eliquis 2.5 mL twice daily Uptitrate beta-sukhdev as needed Supportive care Aubrey Mcdonald MD, [facility], [facility] Thank you for allowing [facility] to participate in this patient's care. Please contact us in case of any followup questions. Objective - Vital Signs Vital signs: Vital Signs Temp 97.5 F L 05/15/25 15:00 Pulse 128 H 05/15/25 15:00 Resp 18 05/15/25 15:00 BP 107/74 05/15/25 15:00 Pulse Ox 98 05/15/25 15:00 FiO2 Intake & Output 05/14/25 05/15/25 05/15/25 18:59 06:59 18:59 Intake Total 750 20 90 Output Total 675 1560 150 Balance 75 -1540 -60 Weight 96.8 kg Intake: IV 210 20 90 0.9 NACL 110 20 90 Piperacillin-Tazobactam 3 100 .375 gm In Sodium Chloride 0.9% 100 ml @ 25 mls/hr IVPB Q12H [facility] Rx# :[id number] Oral 540 Output: Urine 675 1560 150 Other: Voiding Method Indwelling Catheter Indwelling Catheter Indwelling Catheter # Bowel Movements 1 2 1 ABP, PAP, CO, CI - Last Documented Arterial Blood Pressure 101/61 - Labs CBC & Chem 7: 05/14/25 06:11 05/15/25 08:49 Labs: Abnormal Lab Results - Last 24 Hours (Table) 05/15/25 Range/Units 08:49 Sodium 136 L (137-145) mmol/L BUN 60 H (7-17) mg/dL Creatinine 1.80 H (0.52-1.04) mg/dL Glucose 272 H (74-99) mg/dL Microbiology - Last 24 Hours (Table) 05/11/25 13:49 Blood Culture - Preliminary Blood
[2025-05-15] MEDS: AMIODARONE 360 MG in DEXTROSE 5% IN WATER 200 ML IV ONE (18:07)
[2025-05-15] MEDS: AMIODARONE 450 MG in DEXTROSE 5% IN WATER 250 ML IV SCH (23:48)
--- NOTE | 2025-05-16 11:13 | P.PN ---
Subjective Patient is seen in follow-up for acute kidney injury on chronic kidney disease. Renal function stable as of yesterday. Status post IV Lasix last 2 days. Currently on amiodarone drip for A-fib with RVR. Denies chest pain or shortness of breath. Oral intake fair. Vital signs are stable. General: No acute distress. HEENT: Head exam is unremarkable. LUNGS: No audible rhonchi or wheezes. HEART: Rate and Rhythm are regular. ABDOMEN: Nontender. EXTREMITITES: Trace edema. Objective - Vital Signs Vital signs: Vital Signs Temp 97.6 F 05/16/25 09:30 Pulse 88 05/16/25 09:30 Resp 18 05/16/25 09:30 BP 94/65 05/16/25 09:30 Pulse Ox 98 05/16/25 09:30 FiO2 Intake & Output 05/15/25 05/16/25 05/16/25 18:59 06:59 18:59 Intake Total 330 260 Output Total 150 300 Balance 180 -300 260 Weight 74 kg Intake: IV 90 20 0.9 NACL 90 Invasive Line 5 10 Invasive Line 6 10 Oral 240 240 Output: Urine 150 300 Other: Voiding Method Indwelling Catheter Bedside Commode Bedside Commode # Voids 1 1 # Bowel Movements 1 1 ABP, PAP, CO, CI - Last Documented Arterial Blood Pressure 101/61 - Labs CBC & Chem 7: 05/14/25 06:11 05/15/25 08:49 Labs: Microbiology - Last 24 Hours (Table) 05/10/25 17:40 Blood Culture - Final Blood Assessment and Plan Plan: Assessment: 1. Acute kidney injury secondary to ATN secondary to hypotension/shock. Also concern for obstructive uropathy. Creatinine 3.04 on admission and stable at 1.8 yesterday. UA fairly benign. 2. Chronic kidney disease stage IIIa with baseline creatinine near 1.1. 3. Right-sided hydronephrosis with bladder mass. Urology following. Status post right ureteral stent placed May 13, 2025. 4. Hypovolemic hyponatremia improved with IV fluids. Currently off fluids. Subsequently became hypervolemic and received IV Lasix. 5. Metabolic acidosis secondary to acute kidney injury and IV fluids. Improved. On oral bicarb. 6. Shock status post Levophed. 7. Chronic diastolic CHF with moderate mitral regurgitation, moderate to severe tricuspid regurgitation. 8. Volume overload. Improved with diuresis. Now on room air. 9. Hypokalemia from diuresis and Florinef. 10. A-fib with RVR maintained on amiodarone drip. Plan: Cortisol level on the lower end. Started on hydrocortisone. Replace potassium. Hold off on diuretics at this time. Continue to monitor renal function and urine output.
[2025-05-16] MEDS: POTASSIUM CHLORIDE ER 20 MEQ TAB.ER PO STA (12:14)
--- NOTE | 2025-05-16 15:33 | P.PN ---
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 On today's evaluation that is 05/16/2025, Patient is afebrile patient is currently on room air and denies having any shortness of breath, the patient denies any chest pain or cough, the patient denies any nausea vomiting did not have any abdominal pain and did have some diarrhea, pain to the left lower extremity is current control has been complaining of mostly swelling. Stool for C. difficile negative, repeat UA culture requested unfortunately got canceled Objective - Vital Signs Vital signs: Vital Signs Temp 98.2 F 05/16/25 12:10 Pulse 106 H 05/16/25 12:10 Resp 18 05/16/25 12:10 BP 108/75 05/16/25 12:10 Pulse Ox 97 05/16/25 12:10 FiO2 Intake & Output 05/15/25 05/16/25 05/16/25 18:59 06:59 18:59 Intake Total 330 968 Output Total 150 300 350 Balance 180 -300 618 Weight 74 kg Intake: IV 90 20 0.9 NACL 90 Invasive Line 5 10 Invasive Line 6 10 Intake, IV Titration 350 Amount Amiodarone 450 mg In 250 Dextrose 5% in Water 250 ml @ 0.5 MG/MIN 16.667 mls/hr IV .Q15H [facility] Rx#: [id number] Piperacillin-Tazobactam 3 100 .375 gm In Sodium Chloride 0.9% 100 ml @ 25 mls/hr IVPB Q12H [facility] Rx# :[id number] Oral 240 598 Output: Urine 150 300 350 Other: Voiding Method Indwelling Catheter Bedside Commode Bedside Commode # Voids 1 1 # Bowel Movements 1 1 1 ABP, PAP, CO, CI - Last Documented Arterial Blood Pressure 101/61 - Exam GENERAL DESCRIPTION: An elderly female lying in bed in no distress RESPIRATORY SYSTEM: Unlabored breathing , decreased breath sounds at bases HEART: S1 S2 regular rate and rhythm , ABDOMEN: Soft , no tenderness EXTREMITIES: Leg wound is currently dressed - Labs CBC & Chem 7: 05/14/25 06:11 05/15/25 08:49 Labs: Microbiology - Last 24 Hours (Table) 05/10/25 17:40 Blood Culture - Final Blood Assessment and Plan (1) Complicated UTI (urinary tract infection) Current Visit: Yes Status: Acute Code(s): N39.0 - URINARY TRACT INFECTION, SITE NOT SPECIFIED SNOMED Code(s): 25189625 (2) Sepsis Current Visit: Yes Status: Acute Code(s): A41.9 - SEPSIS, UNSPECIFIED O RGANISM SNOMED Code(s): 26462277 Plan: 1patient presented to the hospital with weakness and low blood pressure in this patient who did have features of SIRS however no clear focus of infection patient is not running any fever does not look toxic urine is negative chest x- ray was mostly CHF, patient did have a wound to the left lower extremity however wound base looks clean with no slough tissue surrounding redness patient did have CT abdominal pelvis with evidence of cystic mass around the bladder with right-sided hydro ureteric nephrosis could be the likely source 2-patient has been evaluated by urology and is status post cystoscopy and ureteral stent placement completed on 05/13/2025 3--local wound care to the left lower extremity wound with a dry Aquacel dressing and Sadi wrap from just above the toe to below the knee to keep the swelling down 4patient did have improvement in her temperature as well as white count, stool for C. difficile is negative repeat UA after insertion of the ureteral stent was requested unfortunately concern will order it again and continue patient on Zosyn Dictation was produced using [employer] dictation software. please excuse any grammatical, word or spelling errors. Time with Patient: Less than 30
--- NOTE | 2025-05-16 15:35 | P.PN ---
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 On today's evaluation that is 05/15/2025 the patient continues to be followed by the patient is breathing comfortably and is currently on room air P denies any chest pain or worsening cough no abdominal pain did have some swelling and diarrhea. No CBC was done today creatinine is 1.80 blood culture repeat so far negative Objective - Vital Signs Vital signs: Vital Signs Temp 98.2 F 05/15/25 12:10 Pulse 106 H 05/15/25 12:10 Resp 18 05/15/25 12:10 BP 108/75 05/15/25 12:10 Pulse Ox 97 05/15/25 12:10 FiO2 - Exam GENERAL DESCRIPTION: An elderly female lying in bed in no distress RESPIRATORY SYSTEM: Unlabored breathing , decreased breath sounds at bases HEART: S1 S2 regular rate and rhythm , ABDOMEN: Soft , no tenderness EXTREMITIES: Leg wound is currently dressed - Labs CBC & Chem 7: 05/14/25 06:11 05/15/25 08:49 Labs: Microbiology - Last 24 Hours (Table) 05/10/25 17:40 Blood Culture - Final Blood Assessment and Plan (1) Complicated UTI (urinary tract infection) Current Visit: Yes Status: Acute Code(s): N39.0 - URINARY TRACT INFECTION, SITE NOT SPECIFIED SNOMED Code(s): 50452341 (2) Sepsis Current Visit: Yes Status: Acute Code(s): A41.9 - SEPSIS, UNSPECIFIED ORGANISM SNOMED Code(s): 64789998 Plan: 1patient presented to the hospital with weakness and low blood pressure in this patient who did have features of SIRS however no clear focus of infection patient is not running any fever does not look toxic urine is negative chest x- ray was mostly CHF, patient did have a wound to the left lower extremity however wound base looks clean with no slough tissue surrounding redness patient did have CT abdominal pelvis with evidence of cystic mass around the bladder with right-sided hydro ureteric nephrosis could be the likely source 2-patient has been evaluated by urology and is status post cystoscopy and ureteral stent placement completed on 05/13/2025 3--local wound care to the left lower extremity wound with a dry Aquacel dressing and Sadi wrap from just above the toe to below the knee to keep the swelling down 4patient afebrile white count has normalized repeat UA requested not completed stat blood culture was done for now continue with Mariansyn Dictation was produced using [employer] dictation software. please excuse any grammatical, word or spelling errors. Time with Patient: Less than 30
[2025-05-16 16:26] LABS: Appearance,Urine Cloudy (Clear); Bacteria,Urine Rare /hpf; Bilirubin,Urine Negative (Negative); Blood,Urine Large (Negative); Color,Urine Yellow; Glucose,Urine (UA) 4+ (Negative); Ketones,Urine Negative (Negative); Leukocyte Esterase,Urine Small (Negative); Mucus,Urine Rare /hpf; Nitrite,Urine Negative (Negative); PH, Urine 5.5 (5.0-8.0); Protein,Urine 1+ (Negative); RBC,Urine >182 /hpf (0-5); Specific Gravity,Urine 1.016 (1.001-1.035); Squamous Epithelial Cell,Urine 1 /hpf (0-4); Urobilinogen,Urine <2.0 mg/dL (<2.0); WBC,Urine 38 /hpf (0-5)
--- NOTE | 2025-05-16 17:16 | P.PN ---
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 05/14/2025 - the patient is seen and evaluated in room at bedside; remains afebrile, the patient is on room air and breathing comfortably, the Pt denies having any chest pain or cough, the patient denies having any abdominal pain no vomiting or any diarrhea has been reported by the nursing staff. Blood work reveals WBC of 8.75, hemoglobin of 9.3 and platelet count of 172, sodium 137, potassium 3.6, BUN/creatinine of 56/1.84 and blood glucose of 126, UA post insertion of the catheter positive cultures are pending 05/15/2025 Patient seen and evaluated in ICU; reports fair control of pain; concerned about appointment for surgery for pelvic mass; plans to ask her daughter to reschedule Patient is currently -- sitting in a chair next to the hospital bed. She currently on room air. She is getting saline at 10 cc an hour. Patient is in atrial fibrillation with a rate of 155 bpm. - The patient continues on Solu-Cortef, at 100 mg every 8 hours. Pulmonary service planning to cut down to 50 mg every 8 hours. Clinically, the patient is doing reasonably well. Labs today include a sodium 136, potassium 3.6, chlorides 105, CO2 23, BUN 60, creatinine 1.8. Glucose is 272. Calcium 8.9, magnesium 1.7. Cultures are thus far negative. No chest x-ray today. - Patient remains in atrial fibrillation with RVR; cardiology to evaluate; appreciate recommendation Objective - Vital Signs Vital signs: Vital Signs Temp 98.6 F 05/15/25 08:00 Pulse 129 H 05/15/25 09:00 Resp 16 05/15/25 09:00 BP 102/57 05/15/25 09:00 Pulse Ox 97 05/15/25 09:00 FiO2 Intake & Output 06/20/25 06/21/25 06/21/25 18:59 06:59 18:59 Intake Total 750 20 90 Output Total 675 1560 75 Balance 75 -1540 15 Weight 96.8 kg Intake: IV 210 20 90 0.9 NACL 110 20 90 Piperacillin-Tazobactam 3 100 .375 gm In Sodium Chloride 0.9% 100 ml @ 25 mls/hr IVPB Q[facility]H [facility] Rx# :[id number] Oral 540 Output: Urine 675 1560 75 Other: Voiding Method Indwelling Catheter Indwelling Catheter Indwelling Catheter # Bowel Movements 1 2 1 ABP, PAP, CO, CI - Last Documented Arterial Blood Pressure 101/61 - Exam General: nontoxic, no distress, appears at stated age; right femoral central line in place and right radial arterial line. Derm: warm, dry, intact Head: atraumatic, normocephalic, symmetric Eyes: EOMI, anicteric sclera Cardiovascular: S1 S2 reg, no murmur, rubs, or gallops Lungs: CTA bilateral, no rales, no accessory muscle use Abdominal: soft, non-tender to palpataion, no appreciable organomegaly Extremities: Significant muscle atrophy; chronic venous ulcer LLE Neuro: Alert, Oriented, CNII-XII grossly intact, gait normal Psych: well appearing, appropriate affect - Labs CBC & Chem 7: 05/14/25 06:11 05/15/25 08:49 Labs: Abnormal Lab Results - Last 24 Hours (Table) 05/15/25 Range/Units 08:49 Sodium 136 L (137-145) mmol/L BUN 60 H (7-17) mg/dL Creatinine 1.80 H (0.52-1.04) mg/dL Glucose 272 H (74-99) mg/dL Microbiology - Last 24 Hours (Table) 05/11/25 13:49 Blood Culture - Preliminary Blood Assessment and Plan Assessment: 1. Hypotension and shock, refractory to fluid resuscitation, considered sepsis s/p levophed 2. Acute on chronic kidney disease with Stage IIIa Chronic Kidney Disease with baseline creatinine 1.1 3. Hyperkalemia; resolved 4. Hypothermia; likely relative adrenal insufficiency; use external warming blanket 5. Acute leukocytosis/sepsis 6. Pelvic mass; abdominal/pelvis CT February, remarkable for large multiseptated cystic mass in the pelvis measuring 11.3 x 13.4 x 11 cm likely either dependent hemorrhagic or enhancing solid component. Findings were suspicious for malignancy. Possibly ovarian in origin. There is no evidence of active bleeding. No definitive distant metastatic disease noted. Moderate right-sided hydronephrosis, suspected secondary to mass effect. Patient has not had any follow-up evaluation. -Patient is recommended outpatient follow-up 7. History of urinary retention and hydronephrosis; clean mass effect from c ystic mass 8. UTI; UA positive for trace leukocytes, rare bacteria, trace protein 9 chronic atrial fibrillation, currently with controlled ventricular response, anticoagulated on Eliquis 10. Hyponatremia, with significant lower extremity edema and third spacing 11. History of hypothyroidism DVT prophylaxis; SCD/Eliquis CODE STATUS; full code
--- NOTE | 2025-05-16 17:18 | P.PN ---
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 05/14/2025 - the patient is seen and evaluated in room at bedside; remains afebrile, the patient is on room air and breathing comfortably, the Pt denies having any chest pain or cough, the patient denies having any abdominal pain no vomiting or any diarrhea has been reported by the nursing staff. Blood work reveals WBC of 8.75, hemoglobin of 9.3 and platelet count of 172, sodium 137, potassium 3.6, BUN/creatinine of 56/1.84 and blood glucose of 126, UA post insertion of the catheter positive cultures are pending 05/15/2025 Patient seen and evaluated in ICU; reports fair control of pain; concerned about appointment for surgery for pelvic mass; plans to ask her daughter to reschedule Patient is currently -- sitting in a chair next to the hospital bed. She currently on room air. She is getting saline at 10 cc an hour. Patient is in atrial fibrillation with a rate of 155 bpm. - The patient continues on Solu-Cortef, at 100 mg every 8 hours. Pulmonary service planning to cut down to 50 mg every 8 hours. Clinically, the patient is doing reasonably well. Labs today include a sodium 136, potassium 3.6, chlorides 105, CO2 23, BUN 60, creatinine 1.8. Glucose is 272. Calcium 8.9, magnesium 1.7. Cultures are thus far negative. No chest x-ray today. - Patient remains in atrial fibrillation with RVR; cardiology to evaluate; appreciate recommendation 05/16/2025 Patient is seen and evaluated on selective care unit; daughter is present at bedside; denies any specific complaints Vital signs are reviewed and are stable - Patient has been evaluated by cardiology and has been placed on IV amiodarone infusion for persistent atrial fibrillation with RVR; metoprolol 25 mg twice daily; patient to continue with Eliquis 2.5 mg -patient has been evaluated by urology and is status post cystoscopy and ureteral stent placement completed on 05/13/2025 patient did have improvement in her temperature as well as white count, stool for C. difficile is negative repeat UA after insertion of the ureteral stent was requested; continue patient on Zosyn Objective - Vital Signs Vital signs: Vital Signs Temp 97.6 F 05/16/25 09:30 Pulse 88 05/16/25 09:30 Resp 18 05/16/25 09:30 BP 94/65 05/16/25 09:30 Pulse Ox 98 05/16/25 09:30 FiO2 Intake & Output 05/15/25 05/16/25 05/16/25 18:59 06:59 18:59 Intake Total 330 260 Output Total 150 300 Balance 180 -300 260 Weight 74 kg Intake: IV 90 20 0.9 NACL 90 Invasive Line 5 10 Invasive Line 6 10 Oral 240 240 Output: Urine 150 300 Other: Voiding Method Indwelling Catheter Bedside Commode Bedside Commode # Voids 1 1 # Bowel Movements 1 1 ABP, PAP, CO, CI - Last Documented Arterial Blood Pressure 101/61 - Exam General: nontoxic, no distress, appears at stated age; right femoral central line in place and right radial arterial line. Derm: warm, dry, intact Head: atraumatic, normocephalic, symmetric Eyes: EOMI, anicteric sclera Cardiovascular: S1 S2 reg, no murmur, rubs, or gallops Lungs: CTA bilateral, no rales, no accessory muscle use Abdominal: soft, non-tender to palpataion, no appreciable organomegaly Extremities: Significant muscle atrophy; chronic venous ulcer LLE Neuro: Alert, Oriented, CNII-XII grossly intact, gait normal Psych: well appearing, appropriate affect - Labs CBC & Chem 7: 05/14/25 06:11 05/15/25 08:49 Labs: Microbiology - Last 24 Hours (Table) 05/10/25 17:40 Blood Culture - Final Blood Assessment and Plan Assessment: 1. Hypotension and shock, refractory to fluid resuscitation, considered sepsis s/p levophed 2. Acute on chronic kidney disease with Stage IIIa Chronic Kidney Disease with baseline creatinine 1.1 3. Hyperkalemia; resolved 4. Hypothermia; likely relative adrenal insufficiency; use external warming blanket 5. Acute leukocytosis/sepsis 6. Pelvic mass; abdominal/pelvis CT February, remarkable for large multis eptated cystic mass in the pelvis measuring 11.3 x 13.4 x 11 cm likely either dependent hemorrhagic or enhancing solid component. Findings were suspicious for malignancy. Possibly ovarian in origin. There is no evidence of active bleeding. No definitive distant metastatic disease noted. Moderate right-sided hydronephrosis, suspected secondary to mass effect. Patient has not had any follow-up evaluation. -Patient is recommended outpatient follow-up 7. History of urinary retention and hydronephrosis; clean mass effect from cystic mass 8. UTI; UA positive for trace leukocytes, rare bacteria, trace protein 9 chronic atrial fibrillation, currently with controlled ventricular response, anticoagulated on Eliquis 10. Hyponatremia, with significant lower extremity edema and third spacing 11. History of hypothyroidism DVT prophylaxis; SCD/Eliquis CODE STATUS; full code
--- NOTE | 2025-05-16 18:52 | P.PN ---
Subjective Progress Note Date: 05/16/25 This is a 79-year-old female patient of Dr. Quoc Rosas with past medical history of moderate to severe aortic regurgitation, COPD, hypertension, persistent atrial fibrillation, known abdominal mass. Patient was last seen in the office on 05/05/2025 at which time she presented for surgical clearance for removal of a large cystic mass in the pelvis measuring 11.3 x 13.4 x 11.0 cm likely either dependent hemorrhagic or enhancing solid component and suspicious for malignancy. Cardiac surgical clearance was given at that time. Patient states that she has been told that she does not have a plan in place until her kidneys are improved. Patient was seen at Dr. Bunch's office yesterday found to be hypotensive with systolic of 80 along with weakness and lightheadedness. Patient presented to the emergency center was also hypotensive underwent IV fluid boluses and has been subsequently started on norepinephrine. Patient was also hypothermic and nursing to apply Magi blanket. Puente catheter has been placed as well as arterial line. Patient has been started on IV antibiotics and her home cardiac medications are on hold. She has been continued on Eliquis. Blood pressures 95/45, heart rate in the 60s and 70s, pulse ox 97% on room air. Most recent temperature was 94.8 rectal. Patient is seen today in the emergency center waiting for a bed in the ICU. Pulmonary medicine is ordered a CT of the abdomen pelvis without contrast. Progress note 05/15/2025 Telemetry shows A-fib heart rate in the 19 bpm BP 107/74, heart rate 100 bpm. Transfer out of ICU today. BUN 60, creatinine 1.8. Creatinine stable. 05/16/2025 BP 108/75, heart rate 88 bpm. Continues to be in atrial fibrillation on tele metry No labs were done today. Heart rates are much better since patient was started on amiodarone drip. PHYSICAL EXAMINATION Neck: Brisk carotid upstroke, no jugular venous distention. Lungs: Diminished breath sounds with poor inspiratory effort Heart: Irregular pulse, diastolic murmur audible Abdomen: Soft nontender, bowel sounds present, Extremities: Swelling in the legs Neuro: Alert, oriented, no focal neurological deficits. Detailed neuro exam was not performed. ASSESSMENT Persistent atrial fibrillation Pelvic mass with suspicion of malignancy Urinary retention with hydronephrosis from pelvic mass obstructing ureter causing CHIQUITA status post urethral stent 05/13/2025 CKD Bilateral lower extremity edema Hyponatremia, hypothyroidism, PLAN Discontinue amiodarone drip. Start amiodarone 200 mg twice daily for 7 days thereafter reduce dose. Metoprolol 25 mg twice daily. As needed midodrine As needed Lasix as per nephrology team Eliquis 2.5 mL twice daily Uptitrate beta-sukhdev as needed Supportive care Objective - Vital Signs Vital signs: Vital Signs Temp 98.2 F 05/16/25 12:10 Pulse 106 H 05/16/25 12:10 Resp 18 05/16/25 12:10 BP 108/75 05/16/25 12:10 Pulse Ox 97 05/16/25 12:10 FiO2 Intake & Output 05/15/25 05/16/25 05/16/25 18:59 06:59 18:59 Intake Total 330 1190 Output Total 150 300 600 Balance 180 -300 590 Weight 74 kg Intake: IV 90 20 0.9 NACL 90 Invasive Line 5 10 Invasive Line 6 10 Intake, IV Titration 350 Amount Amiodarone 450 mg In 250 Dextrose 5% in Water 250 ml @ 0.5 MG/MIN 16.667 mls/hr IV .Q15H [facility] Rx#: [id number] Piperacillin-Tazobactam 3 100 .375 gm In Sodium Chloride 0.9% 100 ml @ 25 mls/hr IVPB Q12H [facility] Rx# :[id number] Oral 240 820 Output: Urine 150 300 600 Other: Voiding Method Indwelling Catheter Bedside Commode Bedside Commode # Voids 1 1 # Bowel Movements 1 1 1 ABP, PAP, CO, CI - Last Documented Arterial Blood Pressure 101/61 - Labs CBC & Chem 7: 05/14/25 06:11 05/15/25 08:49 Labs: Abnormal Lab Results - Last 24 Hours (Table) 05/16/25 Range/Units 15:40 Urine Appearance Cloudy H (Clear) Urine Protein 1+ H (Negative) Urine Glucose (UA) 4+ H (Negative) Urine Blood Large H (Negative) Ur Leukocyte Esterase Small H (Negative) Urine RBC >182 H (0-5) /hpf Urine WBC 38 H (0-5) /hpf Urine Bacteria Rare H (None) /hpf Urine Mucus Rare H (None) /hpf Microbiology - Last 24 Hours (Table) 05/10/25 17:40 Blood Culture - Final Blood
[2025-05-16] MEDS: AMIODARONE 200 MG TAB PO SCH (20:56)
[2025-05-17 07:57] LABS: African American GFR (CKD) 38 (>60 ml/min/1.73 sqM); Anion Gap 7 mmol/L; Blood Urea Nitrogen 52 mg/dL (7-17); Calcium 8.7 mg/dL (8.4-10.2); Carbon Dioxide 25 mmol/L (22-30); Chloride 106 mmol/L (98-107); Glucose 136 mg/dL (74-99); Magnesium 1.8 mg/dL (1.6-2.3); Non-African American GFR(CKD) 33 (>60 ml/min/1.73 sqM); Potassium 3.6 mmol/L (3.5-5.1); Sodium 138 mmol/L (137-145)
[2025-05-17] MEDS ORDERED: LOPERAMIDE 2 MG CAP PO PRN (11:11)
--- NOTE | 2025-05-17 11:12 | P.PN ---
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 05/14/2025 - the patient is seen and evaluated in room at bedside; remains afebrile, the patient is on room air and breathing comfortably, the Pt denies having any chest pain or cough, the patient denies having any abdominal pain no vomiting or any diarrhea has been reported by the nursing staff. Blood work reveals WBC of 8.75, hemoglobin of 9.3 and platelet count of 172, sodium 137, potassium 3.6, BUN/creatinine of 56/1.84 and blood glucose of 126, UA post insertion of the catheter positive cultures are pending 05/15/2025 Patient seen and evaluated in ICU; reports fair control of pain; concerned about appointment for surgery for pelvic mass; plans to ask her daughter to reschedule Patient is currently -- sitting in a chair next to the hospital bed. She currently on room air. She is getting saline at 10 cc an hour. Patient is in atrial fibrillation with a rate of 155 bpm. - The patient continues on Solu-Cortef, at 100 mg every 8 hours. Pulmonary service planning to cut down to 50 mg every 8 hours. Clinically, the patient is doing reasonably well. Labs today include a sodium 136, potassium 3.6, chlorides 105, CO2 23, BUN 60, creatinine 1.8. Glucose is 272. Calcium 8.9, magnesium 1.7. Cultures are thus far negative. No chest x-ray today. - Patient remains in atrial fibrillation with RVR; cardiology to evaluate; raquel reciate recommendation 05/16/2025 Patient is seen and evaluated on selective care unit; daughter is present at bedside; denies any specific complaints Vital signs are reviewed and are stable - Patient has been evaluated by cardiology and has been placed on IV amiodarone infusion for persistent atrial fibrillation with RVR; metoprolol 25 mg twice daily; patient to continue with Eliquis 2.5 mg -patient has been evaluated by urology and is status post cystoscopy and ureteral stent placement completed on 05/13/2025 patient did have improvement in her temperature as well as white count, stool for C. difficile is negative repeat UA after insertion of the ureteral stent was requested; continue patient on Zosyn 05/17 Patient mentation is okay. She feels little short of breath from deconditioning patient wants rescue inhaler which was ordered No much wheezing or crepitation anteriorly while she is lying down She has diarrhea 2-3 times yesterday but C. difficile negative. We will give Imodium Patient is aware about her urinary bladder mass. She follow-up with Dr. 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 unit worker Objective - Vital Signs Vital signs: Vital Signs Temp 97.6 F 05/17/25 08:51 Pulse 118 H 05/17/25 08:51 Resp 16 05/17/25 08:51 BP 94/60 05/17/25 08:51 Pulse Ox 97 05/17/25 08:51 FiO2 Intake & Output 05/16/25 05/17/25 05/17/25 18:59 06:59 18:59 Intake Total 1210 30 10 Output Total 600 550 Balance 610 -520 10 Weight 72.5 kg Intake: IV 40 30 10 Invasive Line 5 20 20 10 Invasive Line 6 20 10 Intake, IV Titration 350 Amount Amiodarone 450 mg In 250 Dextrose 5% in Water 250 ml @ 0.5 MG/MIN 16.667 mls/hr IV .Q15H [facility] Rx#: [id number] Piperacillin-Tazobactam 3 100 .375 gm In Sodium Chloride 0.9% 100 ml @ 25 mls/hr IVPB Q12H [facility] Rx# :[id number] Oral 820 0 Output: Urine 600 550 Other: Voiding Method Bedside Commode Bedside Commode Indwelling Catheter # Bowel Movements 1 1 ABP, PAP, CO, CI - Last Documented Arterial Blood Pressure 101/61 - Exam -GENERAL: The patient is alert and oriented x3, not in any acute distress. Well developed, well nourished. Generally weak. Obese HEENT: Pupils are round and equally reacting to light. EOMI. No scleral icterus. No conjunctival pallor. Normocephalic, atraumatic. No pharyngeal erythema. No thyromegaly. CARDIOVASCULAR: S1 and S2 present. No murmurs, rubs, or gallops. PULMONARY: Chest is clear to auscultation, no wheezing , no crackles. ABDOMEN: Soft, nontender, nondistended, normoactive bowel sounds. No palpable organomegaly. MUSCULOSKELETAL: No joint swelling or deformity. EXTREMITIES: No cyanosis, clubbing, or pedal edema. NEUROLOGICAL: Gross neurological examination did not reveal any focal deficits. SKIN: No rashes. no petechiae. - Labs CBC & Chem 7: 05/14/25 06:11 05/17/25 06:07 Labs: Abnormal Lab Results - Last 24 Hours (Table) 05/16/25 05/17/25 Range/Units 15:40 06:07 BUN 52 H (7-17) mg/dL Creatinine 1.52 H (0.52-1.04) mg/dL Glucose 136 H (74-99) mg/dL Urine Appearance Cloudy H (Clear) Urine Protein 1+ H (Negative) Urine Glucose (UA) 4+ H (Negative) Urine Blood Large H (Negative) Ur Leukocyte Esterase Small H (Negative) Urine RBC >182 H (0-5) /hpf Urine WBC 38 H (0-5) /hpf Urine Bacteria Rare H (None) /hpf Urine Mucus Rare H (None) /hpf Microbiology - Last 24 Hours (Table) 05/11/25 13:49 Blood Culture - Final Blood Assessment and Plan Assessment: 1. Hypotension and shock, refractory to fluid resuscitation, considered sepsis s/p levophed 2. Acute on chronic kidney disease with Stage IIIa Chronic Kidney Disease with baseline creatinine 1.1 3. Hyperkalemia; resolved 4. Hypothermia; likely relative adrenal insufficiency; use external warming blanket 5. Acute leukocytosis/sepsis 6. Pelvic mass; abdominal/pelvis CT February, remarkable for large multiseptated cystic mass in the pelvis measuring 11.3 x 13.4 x 11 cm likely either dependent hemorrhagic or enhancing solid component. Findings were suspicious for malignancy. Possibly ovarian in origin. There is no evidence of active bleeding. No definitive distant metastatic disease noted. Moderate right-sided hydronephrosis, suspected secondary to mass effect. Patient has not had any follow-up evaluation. -Patient is recommended outpatient follow-up 7. History of urinary retention and hydronephrosis; clean mass effect from cystic mass 8. UTI; UA positive for trace leukocytes, rare bacteria, trace protein 9 chronic atrial fibrillation, currently with controlled ventricular response, anticoagulated on Eliquis 10. Hyponatremia, with significant lower extremity edema and third spacing 11. History of hypothyroidism DVT prophylaxis; SCD/Eliquis
[2025-05-17] MEDS: PIPERACILLIN-TAZOBACTAM 3.375 GM in SODIUM CHLORIDE 0.9% 100 ML IVPB SCH (11:38)
[2025-05-17] MEDS: LOPERAMIDE 2 MG CAP PO STA (11:38)
--- NOTE | 2025-05-17 11:48 | P.PN ---
Subjective HISTORY OF PRESENT ILLNESS: This is a 79-year-old female patient of Dr. Quoc Rosas with past medical history of moderate to severe aortic regurgitation, COPD, hypertension, persistent atrial fibrillation, known abdominal mass. Patient was last seen in the office on 05/05/2025 at which time she presented for surgical clearance for removal of a large cystic mass in the pelvis measuring 11.3 x 13.4 x 11.0 cm likely either dependent hemorrhagic or enhancing solid component and suspicious for malignancy. Cardiac surgical clearance was given at that time. Patient states that she has been told that she does not have a plan in place until her kidneys are improved. Patient was seen at Dr. Bunch's office yesterday found to be hypotensive with systolic of 80 along with weakness and lightheadedness. Patient presented to the emergency center was also hypotensive underwent IV fluid boluses and has been subsequently started on norepinephrine. Patient was also hypothermic and nursing to apply Magi blanket. Puente catheter has been placed as well as arterial line. Patient has been started on IV antibiotics and her home cardiac medications are on hold. She has been continued on Eliquis. Blood pressures 95/45, heart rate in the 60s and 70s, pulse ox 97% on room air. Most recent temperature was 94.8 rectal. Patient is seen today in the emergency center waiting for a bed in the ICU. Pulmonary medicine is ordered a CT of the abdomen pelvis without contrast. Progress note 05/15/2025 Telemetry shows A-fib heart rate in the 19 bpm BP 107/74, heart rate 100 bpm. Transfer out of ICU today. BUN 60, creatinine 1.8. Creatinine stable. 05/16/2025 BP 108/75, heart rate 88 bpm. Continues to be in atrial fibrillation on telemetry No labs were done today. Heart rates are much better since patient was started on amiodarone drip. 05/17/2025 Patient examined this morning at bedside. Patient currently denies chest pain or pressure. She denies shortness of breath. Telemetry reveals atrial fibrillation with a heart rate between [id number]. She is currently on metoprolol 25 mg twice a day. Blood pressures in the 90s. PHYSICAL EXAM: VITAL SIGNS: Reviewed. GENERAL: Well-developed in no acute distress. NECK: Supple. No JVD or thyromegaly LUNGS: Respirations even and unlabored. Lungs essentially clear to auscultation bilaterally. HEART: Regular rate and rhythm. S1 and S2 heard. EXTREMITIES: Normal range of motion. No clubbing or cyanosis. Peripheral pulses intact. No lower extremity edema ASSESSMENT: Persistent atrial fibrillation Pelvic mass with suspicion of malignancy Urinary retention with hydronephrosis from pelvic mass obstructing ureter causing CHIQUITA status post urethral stent 05/13/2025 CKD Bilateral lower extremity edema Hyponatremia Hypothyroidism PLAN: Continue current cardiac medications including amiodarone, Eliquis, metoprolol, and midodrine Increase metoprolol to 25 mg 3 times a day Consider outpatient cardioversion Continue telemetry monitoring Further recommendations pending patient course Nurse practitioner note has been reviewed by physician. Signing provider agrees with the documented findings, assessment, and plan of care documented by TANDEM [employer] as a scribe. Objective - Vital Signs Vital signs: Vital Signs Temp 97.6 F 05/17/25 08:51 Pulse 111 H 05/17/25 11:27 Resp 16 05/17/25 11:27 BP 93/63 05/17/25 11:27 Pulse Ox 98 05/17/25 11:27 FiO2 Intake & Output 05/16/25 05/17/25 05/17/25 18:59 06:59 18:59 Intake Total 1210 30 10 Output Total 600 550 275 Balance 610 -520 -265 Weight 72.5 kg Intake: IV 40 30 10 Invasive Line 5 20 20 10 Invasive Line 6 20 10 Intake, IV Titration 350 Amount Amiodarone 450 mg In 250 Dextrose 5% in Water 250 ml @ 0.5 MG/MIN 16.667 mls/hr IV .Q15H LENI Rx#: [id number] Piperacillin-Tazobactam 3 100 .375 gm In Sodium Chloride 0.9% 100 ml @ 25 mls/hr IVPB Q12H LENI Rx# :[id number] Oral 820 0 Output: Urine 600 550 275 Other: Voiding Method Bedside Commode Bedside Commode Indwelling Catheter # Bowel Movements 1 1 ABP, PAP, CO, CI - Last Documented Arterial Blood Pressure 101/61 - Labs CBC & Chem 7: 05/14/25 06:11 05/17/25 06:07 Labs: Abnormal Lab Results - Last 24 Hours (Table) 05/16/25 05/17/25 Range/Units 15:40 06:07 BUN 52 H (7-17) mg/dL Creatinine 1.52 H (0.52-1.04) mg/dL Glucose 136 H (74-99) mg/dL Urine Appearance Cloudy H (Clear) Urine Protein 1+ H (Negative) Urine Glucose (UA) 4+ H (Negative) Urine Blood Large H (Negative) Ur Leukocyte Esterase Small H (Negative) Urine RBC >182 H (0-5) /hpf Urine WBC 38 H (0-5) /hpf Urine Bacteria Rare H (None) /hpf Urine Mucus Rare H (None) /hpf Microbiology - Last 24 Hours (Table) 05/11/25 13:49 Blood Culture - Final Blood
[2025-05-17] MEDS: ALBUTEROL HFA INHALER INHALATION STA (12:29)
[2025-05-17] MEDS: ALBUTEROL HFA INHALER INHALATION PRN (15:55)
[2025-05-17] MEDS: METOPROLOL TARTRATE 25 MG TAB PO SCH (16:36)
--- NOTE | 2025-05-17 18:03 | P.PN ---
Subjective Patient is seen for follow-up for acute kidney injury. Renal function has improved with serum creatinine down to 1.5 mg/dL from 1.8 yesterday. No significant complaints today. Objective - Vital Signs Vital signs: Vital Signs Temp 97.8 F 05/17/25 15:10 Pulse 131 H 05/17/25 15:10 Resp 16 05/17/25 15:10 BP 122/83 05/17/25 15:10 Pulse Ox 96 05/17/25 15:10 FiO2 Intake & Output 05/16/25 05/17/25 05/17/25 18:59 06:59 18:59 Intake Total 1210 30 20 Output Total 600 550 275 Balance 610 520 -255 Weight 72.5 kg Intake: IV 40 30 20 Invasive Line 5 20 20 20 Invasive Line 6 20 10 Intake, IV Titration 350 Amount Amiodarone 450 mg In 250 Dextrose 5% in Water 250 ml @ 0.5 MG/MIN 16.667 mls/hr IV .Q15H LENI Rx#: [id number] Piperacillin-Tazobactam 3 100 .375 gm In Sodium Chloride 0.9% 100 ml @ 25 mls/hr IVPB Q12H [facility]ENI Rx# :[id number] Oral 820 0 Output: Urine 600 550 275 Other: Voiding Method Bedside Commode Bedside Commode Indwelling Catheter # Bowel Movements 1 1 ABP, PAP, CO, CI - Last Documented Arterial Blood Pressure 101/61 - Exam Patient is awake, comfortable, no acute distress Examination of the heart S1 and S2 Examination of the lungs bilateral breath sounds are heard Abdomen is soft nontender Examination lower extremity shows no edema. - Labs CBC & Chem 7: 05/14/25 06:11 05/17/25 06:07 Labs: Abnormal Lab Results - Last 24 Hours (Table) 05/17/25 Range/Units 06:07 BUN 52 H (7-17) mg/dL Creatinine 1.52 H (0.52-1.04) mg/dL Glucose 136 H (74-99) mg/dL Microbiology - Last 24 Hours (Table) 05/11/25 13:49 Blood Culture - Final Blood Assessment and Plan Assessment: 1. Acute kidney injury secondary to ATN secondary to hypotension/shock. Also concern for obstructive uropathy. Creatinine 3.04 on admission and improved to 1.5. UA fairly benign. 2. Chronic kidney disease stage IIIa with baseline creatinine near 1.1. 3. Right-sided hydronephrosis with bladder mass. Urology following. Status post right ureteral stent placed May 13, 2025. 4. Hypovolemic hyponatremia improved with IV fluids. Currently off fluids. Subsequently became hypervolemic and received IV Lasix. 5. Metabolic acidosis secondary to acute kidney injury and IV fluids. Improved. On oral bicarb. 6. Shock status post Levophed. 7. Chronic diastolic CHF with moderate mitral regurgitation, moderate to severe tricuspid regurgitation. 8. Volume overload. Improved with diuresis. Now on room air. 9. Hypokalemia from diuresis and Florinef. 10. A-fib with RVR maintained on amiodarone drip. Plan: Continue off of IV fluids and diuretics Repeat labs in a.m.
[2025-05-18 11:55] LABS: African American GFR (CKD) 42 (>60 ml/min/1.73 sqM); Anion Gap 12 mmol/L; Blood Urea Nitrogen 55 mg/dL (7-17); Carbon Dioxide 18 mmol/L (22-30); Chloride 107 mmol/L (98-107); Glucose 256 mg/dL (74-99); Potassium 3.1 mmol/L (3.5-5.1); Sodium 137 mmol/L (137-145)
[2025-05-18 11:56] LABS: Calcium 9.1 mg/dL (8.4-10.2); Non-African American GFR(CKD) 36 (>60 ml/min/1.73 sqM)
[2025-05-18 12:01] VITALS: BMI 35.2
--- NOTE | 2025-05-18 13:11 | P.PN ---
Subjective HISTORY OF PRESENT ILLNESS: This is a 79-year-old female patient of Dr. Quoc Rosas with past medical history of moderate to severe aortic regurgitation, COPD, hypertension, persistent atrial fibrillation, known abdominal mass. Patient was last seen in the office on 05/05/2025 at which time she presented for surgical clearance for removal of a large cystic mass in the pelvis measuring 11.3 x 13.4 x 11.0 cm likely either dependent hemorrhagic or enhancing solid component and suspicious for malignancy. Cardiac surgical clearance was given at that time. Patient states that she has been told that she does not have a plan in place until her kidneys are improved. Patient was seen at Dr. Bunch's office yesterday found to be hypotensive with systolic of 80 along with weakness and lightheadedness. Patient presented to the emergency center was also hypotensive underwent IV fluid boluses and has been subsequently started on norepinephrine. Patient was also hypothermic and nursing to apply Magi blanket. Puente catheter has been placed as well as arterial line. Patient has been started on IV antibiotics and her home cardiac medications are on hold. She has been continued on Eliquis. Blood pressures 95/45, heart rate in the 60s and 70s, pulse ox 97% on room air. Most recent temperature was 94.8 rectal. Patient is seen today in the emergency center waiting for a bed in the ICU. Pulmonary medicine is ordered a CT of the abdomen pelvis without contrast. Progress note 05/15/2025 Telemetry shows A-fib heart rate in the 19 bpm BP 107/74, heart rate 100 bpm. Transfer out of ICU today. BUN 60, creatinine 1.8. Creatinine stable. 05/16/2025 BP 108/75, heart rate 88 bpm. Continues to be in atrial fibrillation on telemetry No labs were done today. Heart rates are much better since patient was started on amiodarone drip. 05/17/2025 Patient examined this morning at bedside. Patient currently denies chest pain or pressure. She denies shortness of breath. Telemetry reveals atrial fibrillation with a heart rate between [id number]. She is currently on metoprolol 25 mg twice a day. Blood pressures in the 90s. 05/18/2025 Patient examined this morning at the bedside. Patient currently denies chest pain or pressure. She denies shortness of breath. Vital signs are stable. PHYSICAL EXAM: VITAL SIGNS: Reviewed. GENERAL: Well-developed in no acute distress. NECK: Supple. No JVD or thyromegaly LUNGS: Respirations even and unlabored. Lungs essentially clear to auscultation bilaterally. HEART: Regular rate and rhythm. S1 and S2 heard. EXTREMITIES: Normal range of motion. No clubbing or cyanosis. Peripheral pulses intact. No lower extremity edema ASSESSMENT: Persistent atrial fibrillation Pelvic mass with suspicion of malignancy Urinary retention with hydronephrosis from pelvic mass obstructing ureter causing CHIQUITA status post urethral stent 05/13/2025 CKD Bilateral lower extremity edema Hyponatremia Hypothyroidism PLAN: Continue current cardiac medications including amiodarone, Eliquis, metoprolol, and midodrine Consider outpatient cardioversion Continue telemetry monitoring Stable from a cardiac standpoint We will sign off. Please reconsult if needed. Nurse practitioner note has been reviewed by physician. Signing provider agrees with the documented findings, assessment, and plan of care documented by [employer] as a scribe. Objective - Vital Signs Vital signs: Vital Signs Temp 98.7 F 05/18/25 11:44 Pulse 109 H 05/18/25 11:44 Resp 16 05/18/25 11:44 BP 116/77 05/18/25 11:44 Pulse Ox 99 05/18/25 11:44 FiO2 Intake & Output 05/17/25 05/18/25 05/18/25 18:59 06:59 18:59 Intake Total 20 540 0 Output Total 275 800 Balance -255 -260 0 Weight 84.5 kg 84.5 kg Intake: IV 20 Invasive Line 5 20 Oral 0 540 0 Output: Urine 275 800 Other: Voiding Method Indwelling Catheter Indwelling Catheter Indwelling Catheter # Bowel Movements 1 1 ABP, PAP, CO, CI - Last Documented Arterial Blood Pressure 101/61 - Labs CBC & Chem 7: 05/14/25 06:11 05/18/25 11:11 Labs: Abnormal Lab Results - Last 24 Hours (Table) 05/18/25 Range/Units 11:11 Potassium 3.1 L (3.5-5.1) mmol/L Carbon Dioxide 18 L (22-30) mmol/L BUN 55 H (7-17) mg/dL Creatinine 1.39 H (0.52-1.04) mg/dL Glucose 256 H (74-99) mg/dL Microbiology - Last 24 Hours (Table) 05/16/25 15:40 Urine Culture - Final Urine,Clean Catch
--- NOTE | 2025-05-18 16:30 | P.PN ---
Subjective Patient is seen for follow-up for acute kidney injury. Renal function has improved with serum creatinine down to 1.39 No significant complaints today. Objective - Vital Signs Vital signs: Vital Signs Temp 98.9 F 05/18/25 16:00 Pulse 109 H 05/18/25 16:00 Resp 16 05/18/25 16:00 BP 122/76 05/18/25 16:00 Pulse Ox 98 05/18/25 16:00 FiO2 Intake & Output 05/17/25 05/18/25 05/18/25 18:59 06:59 18:59 Intake Total 20 540 0 Output Total 275 800 Balance -255 -260 0 Weight 84.5 kg 84.5 kg Intake: IV 20 Invasive Line 5 20 Oral 0 540 0 Output: Urine 275 800 Other: Voiding Method Indwelling Catheter Indwelling Catheter Indwelling Catheter # Bowel Movements 1 1 ABP, PAP, CO, CI - Last Documented Arterial Blood Pressure 101/61 - Exam Patient is awake, comfortable, no acute distress Examination of the heart S1 and S2 Examination of the lungs bilateral breath sounds are heard Abdomen is soft nontender Examination lower extremity shows no edema. - Labs CBC & Chem 7: 05/14/25 06:11 05/18/25 11:11 Labs: Abnormal Lab Results - Last 24 Hours (Table) 05/18/25 Range/Units 11:11 Potassium 3.1 L (3.5-5.1) mmol/L Carbon Dioxide 18 L (22-30) mmol/L BUN 55 H (7-17) mg/dL Creatinine 1.39 H (0.52-1.04) mg/dL Glucose 256 H (74-99) mg/dL Microbiology - Last 24 Hours (Table) 05/16/25 15:40 Urine Culture - Final Urine,Clean Catch Assessment and Plan Assessment: 1. Acute kidney injury secondary to ATN secondary to hypotension/shock. Also concern for obstructive uropathy. Creatinine 3.04 on admission and improved to 1.39. UA fairly benign. 2. Chronic kidney disease stage IIIa with baseline creatinine near 1.1. 3. Right-sided hydronephrosis with bladder mass. Urology following. Status po st right ureteral stent placed May 13, 2025. 4. Hypovolemic hyponatremia improved with IV fluids. Currently off fluids. Subsequently became hypervolemic and received IV Lasix. 5. Metabolic acidosis secondary to acute kidney injury and IV fluids. Improved. On oral bicarb. 6. Shock status post Levophed. 7. Chronic diastolic CHF with moderate mitral regurgitation, moderate to severe tricuspid regurgitation. 8. Volume overload. Improved with diuresis. Now on room air. 9. Hypokalemia from diuresis and Florinef. 10. A-fib with RVR S/P amiodarone drip. Plan: Continue off of IV fluids and diuretics Replace potassium Repeat labs in a.m.
--- NOTE | 2025-05-18 16:48 | P.PN ---
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 On today's evaluation that is , Patient is afebrile this morning patient denies having any chest pain shortness of breath or cough, the patient is currently on room air, patient denies any abdominal pain no diarrhea no nausea no vomiting. Patient did have a creatinine 1.39 no CBC was done repeat urine culture negative Objective - Vital Signs Vital signs: Vital Signs Temp 98.9 F 05/18/25 16:00 Pulse 109 H 05/18/25 16:00 Resp 16 05/18/25 16:00 BP 122/76 05/18/25 16:00 Pulse Ox 98 05/18/25 16:00 FiO2 Intake & Output 05/17/25 05/18/25 05/18/25 18:59 06:59 18:59 Intake Total 20 540 0 Output Total 275 800 550 Balance -255 -260 -550 Weight 84.5 kg 84.5 kg Intake: IV 20 Invasive Line 5 20 Oral 0 540 0 Output: Urine 275 800 550 Other: Voiding Method Indwelling Catheter Indwelling Catheter Indwelling Catheter # Bowel Movements 1 1 ABP, PAP, CO, CI - Last Documented Arterial Blood Pressure 101/61 - Exam GENERAL DESCRIPTION: An elderly female lying in bed in no distress RESPIRATORY SYSTEM: Unlabored breathing , decreased breath sounds at bases HEART: S1 S2 regular rate and rhythm , ABDOMEN: Soft , no tenderness EXTREMITIES: Leg wound is currently dressed - Labs CBC & Chem 7: 05/14/25 06:11 05/18/25 11:11 Labs: Abnormal Lab Results - Last 24 Hours (Table) 05/18/25 Range/Units 11:11 Potassium 3.1 L (3.5-5.1) mmol/L Carbon Dioxide 18 L (22-30) mmol/L BUN 55 H (7-17) mg/dL Creatinine 1.39 H (0.52-1.04) mg/dL Glucose 256 H (74-99) mg/dL Microbiology - Last 24 Hours (Table) 05/16/25 15:40 Urine Culture - Final Urine,Clean Catch Assessment and Plan (1) Complicated UTI (urinary tract infection) Current Visit: Yes Status: Acute Code(s): N39.0 - URINARY TRACT INFECTION, SITE NOT SPECIFIED SNOMED Code(s): 82932666 (2) Sepsis Current Visit: Yes Status: Acute Code(s): A41.9 - SEPSIS, UNSPECIFIED ORGANISM SNOMED Code(s): 03430838 Plan: 1patient presented to the hospital with weakness and low blood pressure in this patient who did have features of SIRS however no clear focus of infection patient is not running any fever does not look toxic urine is negative chest x- ray was mostly CHF, patient did have a wound to the left lower extremity however wound base looks clean with no slough tissue surrounding redness patient did have CT abdominal pelvis with evidence of cystic mass around the bladder with right-sided hydro ureteric nephrosis could be the likely source 2-patient has been evaluated by urology and is status post cystoscopy and ureteral stent placement completed on 05/13/2025 3--local wound care to the left lower extremity wound with a dry Aquacel dressing and Sadi wrap from just above the toe to below the knee to keep the swelling down 4patient afebrile white count has normalized repeat UA still positive the culture is so far negative currently being treated with Zosyn can be transition to oral antibiotic on discharge Dictation was produced using [employer] dictation software. please excuse any grammatical, word or spelling errors. Time with Patient: Less than 30
--- NOTE | 2025-05-18 16:48 | P.PN ---
Subjective Progress Note Date: 05/17/25 Principal diagnosis: Reason for follow-up sepsis possible urinary source Patient is a 79-year-old female with a past medical history significant for hypertension atrial fibrillation patient has been sent to [facility] ER from her ob/gyn office with the patient was noted to be hypotensive with a systolic in 80s for the patient was sent to the ER patient workup include abdominal pelvis CT which shows large cystlike area around the bladder causing moderate right hydronephrosis and right ureteral with concern for possible sepsis secondary to urinary source admitted to the ICU.Patient is status post cystoscopy and right ureteral stent placement on 05/13/2025. On today's evaluation that is 05/17/2025, patient has been afebrile, patient is breathing comfortably and is currently on room air, patient denies having any chest pain and cough has decreased in intensity, patient denies nausea vomiting or diarrhea and no abdominal pain. Patient did have a creatinine 1.52 positive UA obtained yesterday cultures pending Objective - Vital Signs Vital signs: Vital Signs Temp 97.6 F 05/17/25 08:51 Pulse 111 H 05/17/25 11:27 Resp 16 05/17/25 11:27 BP 93/63 05/17/25 11:27 Pulse Ox 98 05/17/25 11:27 FiO2 Intake & Output 05/16/25 05/17/25 05/17/25 18:59 06:59 18:59 Intake Total 1210 30 10 Output Total 600 550 275 Balance 610 -520 -265 Weight 72.5 kg Intake: IV 40 30 10 Invasive Line 5 20 20 10 Invasive Line 6 20 10 Intake, IV Titration 350 Amount Amiodarone 450 mg In 250 Dextrose 5% in Water 250 ml @ 0.5 MG/MIN 16.667 mls/hr IV .Q15H LENI Rx#: [id number] Piperacillin-Tazobactam 3 100 .375 gm In Sodium Chloride 0.9% 100 ml @ 25 mls/hr IVPB Q12H LENI Rx# :[id number] Oral 820 0 Output: Urine 600 550 275 Other: Voiding Method Bedside Commode Bedside Commode Indwelling Catheter # Bowel Movements 1 1 ABP, PAP, CO, CI - Last Documented Arterial Blood Pressure 101/61 - Exam GENERAL DESCRIPTION: An elderly female lying in bed in no distress RESPIRATORY SYSTEM: Unlabored breathing , decreased breath sounds at bases HEART: S1 S2 regular rate and rhythm , ABDOMEN: Soft , no tenderness EXTREMITIES: Leg wound is currently dressed - Labs CBC & Chem 7: 05/14/25 06:11 05/18/25 11:11 Labs: Abnormal Lab Results - Last 24 Hours (Table) 05/16/25 05/17/25 Range/Units 15:40 06:07 BUN 52 H (7-17) mg/dL Creatinine 1.52 H (0.52-1.04) mg/dL Glucose 136 H (74-99) mg/dL Urine Appearance Cloudy H (Clear) Urine Protein 1+ H (Negative) Urine Glucose (UA) 4+ H (Negative) Urine Blood Large H (Negative) Ur Leukocyte Esterase Small H (Negative) Urine RBC >182 H (0-5) /hpf Urine WBC 38 H (0-5) /hpf Urine Bacteria Rare H (None) /hpf Urine Mucus Rare H (None) /hpf Microbiology - Last 24 Hours (Table) 05/11/25 13:49 Blood Culture - Final Blood Assessment and Plan (1) Complicated UTI (urinary tract infection) Current Visit: Yes Status: Acute Code(s): N39.0 - URINARY TRACT INFECTION, SITE NOT SPECIFIED SNOMED Code(s): 33150801 (2) Sepsis Current Visit: Yes Status: Acute Code(s): A41.9 - SEPSIS, UNSPECIFIED ORGANISM SNOMED Code(s): 34679004 Plan: 1patient presented to the hospital with weakness and low blood pressure in this patient who did have features of SIRS however no clear focus of infection pa tient is not running any fever does not look toxic urine is negative chest x-ray was mostly CHF, patient did have a wound to the left lower extremity however wound base looks clean with no slough tissue surrounding redness patient did have CT abdominal pelvis with evidence of cystic mass around the bladder with right-sided hydro ureteric nephrosis could be the likely source 2-patient has been evaluated by urology and is status post cystoscopy and ureteral stent placement completed on 05/13/2025 3--local wound care to the left lower extremity wound with a dry Aquacel dressing and Sadi wrap from just above the toe to below the knee to keep the swelling down 4patient afebrile white count has normalized repeat UA still positive the culture is pending continue with the Zosyn while waiting for the culture to finalize Dictation was produced using [employer] dictation software. please excuse any gram matical, word or spelling errors. Time with Patient: Less than 30
--- NOTE | 2025-05-19 05:39 | P.PN ---
Subjective 79-year-old female with a past medical history significant for hypertension atrial fibrillation patient has been sent to [facility] ER from her associate professor of surgery office with the patient was noted to be hypotensive with a systolic in 80s for the patient was sent to the ER patient workup include abdominal pelvis CT which shows large cystlike area around the bladder causing moderate right hydronephrosis and right ureteral with concern for possible sepsis secondary to urinary source admitted to the ICU.Patient is status post cystoscopy and right ureteral stent placement on 05/13/2025. 05/14/2025 - the patient is seen and evaluated in room at bedside; remains afebrile, the patient is on room air and breathing comfortably, the Pt denies having any chest pain or cough, the patient denies having any abdominal pain no vomiting or any diarrhea has been reported by the nursing staff. Blood work reveals WBC of 8.75, hemoglobin of 9.3 and platelet count of 172, sodium 137, potassium 3.6, BUN/creatinine of 56/1.84 and blood glucose of 126, UA post insertion of the catheter positive cultures are pending 05/15/2025 Patient seen and evaluated in ICU; reports fair control of pain; concerned about appointment for surgery for pelvic mass; plans to ask her daughter to reschedule Patient is currently -- sitting in a chair next to the hospital bed. She currently on room air. She is getting saline at 10 cc an hour. Patient is in atrial fibrillation with a rate of 155 bpm. - The patient continues on Solu-Cortef, at 100 mg every 8 hours. Pulmonary service planning to cut down to 50 mg every 8 hours. Clinically, the patient is doing reasonably well. Labs today include a sodium 136, potassium 3.6, chlorides 105, CO2 23, BUN 60, creatinine 1.8. Glucose is 272. Calcium 8.9, magnesium 1.7. Cultures are thus far negative. No chest x-ray today. - Patient remains in atrial fibrillation with RVR; cardiology to evaluate; raquel reciate recommendation 05/16/2025 Patient is seen and evaluated on selective care unit; daughter is present at bedside; denies any specific complaints Vital signs are reviewed and are stable - Patient has been evaluated by cardiology and has been placed on IV amiodarone infusion for persistent atrial fibrillation with RVR; metoprolol 25 mg twice daily; patient to continue with Eliquis 2.5 mg -patient has been evaluated by urology and is status post cystoscopy and ureteral stent placement completed on 05/13/2025 patient did have improvement in her temperature as well as white count, stool for C. difficile is negative repeat UA after insertion of the ureteral stent was requested; continue patient on Zosyn 05/17 Patient mentation is okay. She feels little short of breath from deconditioning patient wants rescue inhaler which was ordered No much wheezing or crepitation anteriorly while she is lying down She has diarrhea 2-3 times yesterday but C. difficile negative. We will give Imodium Patient is aware about her urinary bladder mass. She follow-up with Dr. 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 and other medical problems She remains on Eliquis 2.5 mg fluconazole and IV Zosyn Hold diuretic per associate professor of surgery 05/18 Patient feels better and getting stronger No back pain Sitting in the chair yesterday and that helped her a lot No significant urinary symptoms Her bowel movement looks better is after started Imodium and becoming less diarrhea Still has Puente catheter Follow-up with urologist as an outpatient Objective - Vital Signs Vital signs: Vital Signs Temp 98.7 F 05/18/25 11:44 Pulse 109 H 05/18/25 11:44 Resp 16 05/18/25 11:44 BP 116/77 05/18/25 11:44 Pulse Ox 99 05/18/25 11:44 FiO2 Intake & Output 05/17/25 05/18/25 05/18/25 18:59 06:59 18:59 Intake Total 20 540 0 Output Total 275 800 Balance -255 -260 0 Weight 84.5 kg 84.5 kg Intake: IV 20 Invasive Line 5 20 Oral 0 540 0 Output: Urine 275 800 Other: Voiding Method Indwelling Catheter Indwelling Catheter Indwelling Catheter # Bowel Movements 1 1 ABP, PAP, CO, CI - Last Documented Arterial Blood Pressure 101/61 - Exam -GENERAL: The patient is alert and oriented x3, not in any acute distress. Well developed, well nourished. Generally weak. Obese HEENT: Pupils are round and equally reacting to light. EOMI. No scleral icterus. No conjunctival pallor. Normocephalic, atraumatic. No pharyngeal erythema. No thyromegaly. CARDIOVASCULAR: S1 and S2 present. No murmurs, rubs, or gallops. PULMONARY: Chest is clear to auscultation, no wheezing , no crackles. ABDOMEN: Soft, nontender, nondistended, normoactive bowel sounds. No palpable organomegaly. MUSCULOSKELETAL: No joint swelling or deformity. EXTREMITIES: No cyanosis, clubbing, or pedal edema. NEUROLOGICAL: Gross neurological examination did not reveal any focal deficits. SKIN: No rashes. no petechiae. - Labs CBC & Chem 7: 05/14/25 06:11 05/18/25 11:11 Labs: Abnormal Lab Results - Last 24 Hours (Table) 05/18/25 Range/Units 11:11 Potassium 3.1 L (3.5-5.1) mmol/L Carbon Dioxide 18 L (22-30) mmol/L BUN 55 H (7-17) mg/dL Creatinine 1.39 H (0.52-1.04) mg/dL Glucose 256 H (74-99) mg/dL Microbiology - Last 24 Hours (Table) 05/16/25 15:40 Urine Culture - Final Urine,Clean Catch Assessment and Plan Assessment: 1. Hypotension and shock, refractory to fluid resuscitation, considered sepsis s/p levophed 2. Acute on chronic kidney disease with Stage IIIa Chronic Kidney Disease with baseline creatinine 1.1 3. Hyperkalemia; resolved 4. Hypothermia; likely relative adrenal insufficiency; use external warming blanket 5. Acute leukocytosis/sepsis 6. Pelvic mass; abdominal/pelvis CT February, remarkable for large multiseptated cystic mass in the pelvis measuring 11.3 x 13.4 x 11 cm likely either dependent hemorrhagic or enhancing solid component. Findings were suspicious for malignancy. Possibly ovarian in origin. There is no evidence of active bleeding. No definitive distant metastatic disease noted. Moderate right-sided hydronephrosis, suspected secondary to mass effect. Patient has not had any follow-up evaluation. -Patient is recommended outpatient follow-up 7. History of urinary retention and hydronephrosis; clean mass effect from cystic mass 8. UTI; UA positive for trace leukocytes, rare bacteria, trace protein 9 chronic atrial fibrillation, currently with controlled ventricular response, anticoagulated on Eliquis 10. Hyponatremia, with significant lower extremity edema and third spacing 11. History of hypothyroidism DVT prophylaxis; SCD/Eliquis
[2025-05-19 09:14] LABS: Basophils # (A) 0.02 10*3/uL (0.00-0.10); Basophils % (A) 0.2 %; Eosinophils # (A) 0.01 10*3/uL (0.04-0.35); Eosinophils % (A) 0.1 %; HCT 26.9 % (37.2-46.3); HGB 8.5 g/dL (12.0-15.0); Lymphocytes # (A) 0.78 10*3/uL (0.90-5.00); Lymphocytes % (A) 6.3 %; MCH 28.1 pg (27.0-32.0); MCHC 31.6 g/dL (32.0-37.0); MCV 89.1 fL (80.0-97.0); Mean Platelet Volume 10.1 fL (9.5-12.2); Monocytes # (A) 0.71 10*3/uL (0.20-1.00); Monocytes % (A) 5.8 %; Neutrophils # (A) 10.41 10*3/uL (1.80-7.70); Neutrophils % (A) 84.6 %; Platelet Count 235 10*3/uL (140-440); RBC 3.02 10*6/uL (4.10-5.20); RDW 16.4 % (11.5-14.5)
[2025-05-19 09:22] LABS: African American GFR (CKD) 42 (>60 ml/min/1.73 sqM); Anion Gap 12 mmol/L; Blood Urea Nitrogen 55 mg/dL (7-17); Calcium 9.4 mg/dL (8.4-10.2); Carbon Dioxide 23 mmol/L (22-30); Chloride 102 mmol/L (98-107); Glucose 201 mg/dL (74-99); Non-African American GFR(CKD) 37 (>60 ml/min/1.73 sqM); Potassium 3.3 mmol/L (3.5-5.1); Sodium 137 mmol/L (137-145)
--- NOTE | 2025-05-19 09:24 | P.PN ---
Subjective 79-year-old female with a past medical history significant for hypertension atrial fibrillation patient has been sent to [facility] ER from her executive vice president business development office with the patient was noted to be hypotensive with a systolic in 80s for the patient was sent to the ER patient workup include abdominal pelvis CT which shows large cystlike area around the bladder causing moderate right hydronephrosis and right ureteral with concern for possible sepsis secondary to urinary source admitted to the ICU.Patient is status post cystoscopy and right ureteral stent placement on 05/13/2025. 05/14/2025 - the patient is seen and evaluated in room at bedside; remains afebrile, the patient is on room air and breathing comfortably, the Pt denies having any chest pain or cough, the patient denies having any abdominal pain no vomiting or any diarrhea has been reported by the nursing staff. Blood work reveals WBC of 8.75, hemoglobin of 9.3 and platelet count of 172, sodium 137, potassium 3.6, BUN/creatinine of 56/1.84 and blood glucose of 126, UA post insertion of the catheter positive cultures are pending 05/15/2025 Patient seen and evaluated in ICU; reports fair control of pain; concerned about appointment for surgery for pelvic mass; plans to ask her daughter to reschedule Patient is currently -- sitting in a chair next to the hospital bed. She currently on room air. She is getting saline at 10 cc an hour. Patient is in atrial fibrillation with a rate of 155 bpm. - The patient continues on Solu-Cortef, at 100 mg every 8 hours. Pulmonary service planning to cut down to 50 mg every 8 hours. Clinically, the patient is doing reasonably well. Labs today include a sodium 136, potassium 3.6, chlorides 105, CO2 23, BUN 60, creatinine 1.8. Glucose is 272. Calcium 8.9, magnesium 1.7. Cultures are thus far negative. No chest x-ray today. - Patient remains in atrial fibrillation with RVR; cardiology to evaluate; raquel reciate recommendation 05/16/2025 Patient is seen and evaluated on selective care unit; daughter is present at bedside; denies any specific complaints Vital signs are reviewed and are stable - Patient has been evaluated by cardiology and has been placed on IV amiodarone infusion for persistent atrial fibrillation with RVR; metoprolol 25 mg twice daily; patient to continue with Eliquis 2.5 mg -patient has been evaluated by urology and is status post cystoscopy and ureteral stent placement completed on 05/13/2025 patient did have improvement in her temperature as well as white count, stool for C. difficile is negative repeat UA after insertion of the ureteral stent was requested; continue patient on Zosyn 05/17 Patient mentation is okay. She feels little short of breath from deconditioning patient wants rescue inhaler which was ordered No much wheezing or crepitation anteriorly while she is lying down She has diarrhea 2-3 times yesterday but C. difficile negative. We will give Imodium Patient is aware about her urinary bladder mass. She follow-up with Dr. 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 She states that her bowel movement is improving. She is sitting on commode right now. No other urinary complaint chest pain or dyspnea. Patient herself feels she can go home. She was planning for her daughter to pick her up before she goes to rehab. However her hemoglobin dropped today 8.5, baseline is 10-11 it was 9.3 yesterday and keep dropping. Patient does not have symptoms but she is on Eliquis 2.5 mg for her A-fib. Also patient on Protonix. Will do anemia workup. Will ask for GI consult. Keep monitoring Review of systems CONSTITUTIONAL: No fever, no malaise, no fatigue. HEENT: No recent visual problems or hearing problems. Denied any sore throat. CARDIOVASCULAR: No orthopnea, PND, no palpitations, no syncope. PULMONARY: No shortness of breath, no cough, no hemoptysis. GASTROINTESTINAL: No diarrhea, no nausea, no vomiting, no abdominal pain. Normoactive bowel sounds. NEUROLOGICAL: No headaches, no weakness, no numbness. HEMATOLOGICAL: Denies any bleeding or petechiae. Active Medications Generic Name Dose Route Start Last Admin Trade Name Freq PRN Reason Stop Dose Admin Acetaminophen 650 mg 05/10/25 16:01 Acetaminophen Tab 325 Mg Tab PO Q6HR PRN Mild Pain or Fever > 100.5 Albuterol Sulfate 2 puff 05/17/25 11:10 05/18/25 11:08 Albuterol Hfa Inhaler INHALATION 2 puff RT-QID PRN Administration Shortness Of Breath Or Wheezing Amiodarone HCl 200 mg 05/16/25 21:00 05/18/25 21:43 Amiodarone 200 Mg Tab PO 200 mg BID LENI Administration Apixaban 2.5 mg 05/10/25 21:00 05/18/25 21:43 Apixaban 2.5 Mg Tablet PO 2.5 mg BID LENI Administration Protocol Ascorbic Acid 500 mg 05/11/25 09:00 05/18/25 08:30 Ascorbic Acid 500 Mg Tab PO 500 mg DAILY LENI Administration Budesonide/Formoterol Fumarate 2 puff 05/10/25 20:00 05/18/25 17:50 Symbicort 80-4.5 Mcg Inhaler INHALATION 2 puff RT-BID LENI Administration Cholecalciferol 125 mcg 05/11/25 09:00 05/18/25 08:24 Cholecalciferol 125 Mcg (5000 Iu) Tablet PO 125 mcg DAILY LENI Administration Fluconazole 100 mg 05/15/25 09:00 05/18/25 08:24 Fluconazole 100 Mg Tab PO 100 mg DAILY LENI Administration Fludrocortisone Acetate 0.1 mg 05/12/25 10:30 05/18/25 08:24 Fludrocortisone 0.1 Mg Tab PO 0.1 mg DAILY LENI Administration Hydrocortisone Sodium Succinate 50 mg 05/15/25 16:00 05/18/25 23:20 Hydrocortisone Succinate 100 Mg/2 Ml Vial IV 50 mg Q8HR LENI Administration Piperacillin Sod/Tazobactam 100 mls @ 25 mls/hr 05/17/25 12:00 05/19/25 04:10 Sod 3.375 gm/ Sodium Chloride IVPB 25 mls/hr Q8H LENI Administration Protocol Levothyroxine Sodium 176 mcg 05/13/25 07:00 05/19/25 06:06 Levothyroxine 88 Mcg Tab PO 176 mcg DAILY@0630 LENI Administration Lidocaine 2 patch 05/11/25 14:45 05/18/25 10:29 Lidocaine 4% Patch TOPICAL Not Given DAILY LENI Protocol Loperamide HCl 2 mg 05/17/25 11:11 Loperamide 2 Mg Cap PO QID PRN Diarrhea Metoprolol Tartrate 25 mg 05/17/25 16:00 05/18/25 21:43 Metoprolol Tartrate 25 Mg Tab PO 25 mg TID LENI Administration Midodrine 5 mg 05/14/25 12:30 05/19/25 06:06 Midodrine 5 Mg Tab PO 5 mg AC-TID LENI Administration Miscellaneous Information 1 each 05/11/25 12:31 Potassium Replacement Protocol 1 Each Misc MISCELLANE DAILY PRN Per Protocol Miscellaneous Information 1 each 05/11/25 12:31 Magnesium Replacement Protocol 1 Each Misc MISCELLANE DAILY PRN Per Protocol Protocol Naloxone HCl 0.2 mg 05/10/25 16:01 Naloxone 0.4 Mg/Ml 1 Ml Vial IV Q2M PRN Opioid Reversal Nystatin 1 applic 05/11/25 14:45 05/18/25 08:24 Nystatin 100,000 Unit/Gm Powd 15 Gm TOPICAL 1 applic DAILY LENI Administration Protocol Pantoprazole Sodium 40 mg 05/12/25 07:30 05/19/25 06:06 Pantoprazole 40 Mg Tablet PO 40 mg [id number] LENI Administration Petrolatum 1 applic 05/14/25 10:44 Zinc Oxide Paste (Z-Guard) 1 Applic TOPICAL BID PRN Wound Healing Protocol Sodium Bicarbonate 650 mg 05/11/25 11:15 05/18/25 21:43 Sodium Bicarbonate Tab 650 Mg Tab PO 650 mg BID LENI Administration Objective - Vital Signs Vital signs: Vital Signs Temp 98.7 F 05/19/25 04:27 Pulse 111 H 05/19/25 04:27 Resp 16 05/19/25 04:27 BP 110/77 05/19/25 06:05 Pulse Ox 97 05/19/25 04:27 FiO2 Intake & Output 05/18/25 05/19/25 05/19/25 18:59 06:59 18:59 Intake Total 240 Output Total 550 350 Balance -310 -350 Weight 84.5 kg 80.5 kg Intake: Oral 240 Output: Urine 550 350 Other: Voiding Method Indwelling Catheter Indwelling Catheter # Voids 1 # Bowel Movements 1 ABP, PAP, CO, CI - Last Documented Arterial Blood Pressure 101/61 - Exam -GENERAL: The patient is alert and oriented x3, not in any acute distress. Well developed, well nourished. Generally weak. Obese HEENT: Pupils are round and equally reacting to light. EOMI. No scleral icterus. No conjunctival pallor. Normocephalic, atraumatic. No pharyngeal erythema. No thyromegaly. CARDIOVASCULAR: S1 and S2 present. No murmurs, rubs, or gallops. PULMONARY: Chest is clear to auscultation, no wheezing , no crackles. ABDOMEN: Soft, nontender, nondistended, normoactive bowel sounds. No palpable organomegaly. MUSCULOSKELETAL: No joint swelling or deformity. EXTREMITIES: No cyanosis, clubbing, or pedal edema. NEUROLOGICAL: Gross neurological examination did not reveal any focal deficits. SKIN: No rashes. no petechiae. - Labs CBC & Chem 7: 05/19/25 08:42 05/18/25 11:11 Labs: Abnormal Lab Results - Last 24 Hours (Table) 05/18/25 05/19/25 Range/Units 11:11 08:42 WBC 12.30 H (4.50-10.00) 10*3/uL RBC 3.02 L (4.10-5.20) 10*6/uL Hgb 8.5 L (12.0-15.0) g/dL Hct 26.9 L (37.2-46.3) % MCHC 31.6 L (32.0-37.0) g/dL Immature Gran # 0.37 H (0.00-0.04) 10*3/uL Neutrophils # 10.41 H (1.80-7.70) 10*3/uL Lymphocytes # 0.78 L (0.90-5.00) 10*3/uL Eosinophils # 0.01 L (0.04-0.35) 10*3/uL Potassium 3.1 L (3.5-5.1) mmol/L Carbon Dioxide 18 L (22-30) mmol/L BUN 55 H (7-17) mg/dL Creatinine 1.39 H (0.52-1.04) mg/dL Glucose 256 H (74-99) mg/dL Assessment and Plan Assessment: 1. Hypotension and shock, refractory to fluid resuscitation, considered sepsis s/p levophed 2. Acute on chronic kidney disease with Stage IIIa Chronic Kidney Disease with baseline creatinine 1.1 3. Hyperkalemia; resolved 4. Hypothermia; likely relative adrenal insufficiency; use external warming blanket 5. Acute leukocytosis/sepsis 6. Pelvic mass; abdominal/pelvis CT February, remarkable for large multiseptated cystic mass in the pelvis measuring 11.3 x 13.4 x 11 cm likely either dependent hemorrhagic or enhancing solid component. Findings were suspicious for malignancy. Possibly ovarian in origin. There is no evidence of active bleeding. No definitive distant metastatic disease noted. Moderate right-sided hydronephrosis, suspected secondary to mass effect. Patient has not had any follow-up evaluation. -Patient is recommended outpatient follow-up 7. History of urinary retention and hydronephrosis; clean mass effect from cystic mass 8. UTI; UA positive for trace leukocytes, rare bacteria, trace protein 9 chronic atrial fibrillation, currently with controlled ventricular response, anticoagulated on Eliquis 10. Hyponatremia, with significant lower extremity edema and third spacing 11. History of hypothyroidism 12. Anemia, acute on chronic. Drop in hemoglobin. Anemia workup. GI consult DVT prophylaxis; SCD/Eliquis
--- NOTE | 2025-05-19 13:01 | P.PN ---
Subjective Patient is seen for follow-up for acute kidney injury. Renal function has improved with serum creatinine down to 1.39 complaining of increased swelling. Objective - Vital Signs Vital signs: Vital Signs Temp 97.7 F 05/19/25 11:50 Pulse 105 H 05/19/25 11:50 Resp 16 05/19/25 11:50 BP 122/81 05/19/25 11:50 Pulse Ox 98 05/19/25 11:50 FiO2 Intake & Output 05/18/25 05/19/25 05/19/25 18:59 06:59 18:59 Intake Total 240 240 Output Total 550 350 Balance -310 -350 240 Weight 84.5 kg 80.5 kg Intake: Oral 240 240 Output: Urine 550 350 Other: Voiding Method Indwelling Catheter Indwelling Catheter # Voids 1 # Bowel Movements 1 ABP, PAP, CO, CI - Last Documented Arterial Blood Pressure 101/61 - Exam Patient is awake, comfortable, no acute distress Examination of the heart S1 and S2 Examination of the lungs bilateral breath sounds are heard Abdomen is soft nontender Examination lower extremity shows edema 2+ bilaterally, both legs are wrapped - Labs CBC & Chem 7: 05/19/25 08:42 05/19/25 08:42 Labs: Abnormal Lab Results - Last 24 Hours (Table) 05/19/25 05/19/25 Range/Units 08:42 08:42 WBC 12.30 H (4.50-10.00) 10*3/uL RBC 3.02 L (4.10-5.20) 10*6/uL Hgb 8.5 L (12.0-15.0) g/dL Hct 26.9 L (37.2-46.3) % MCHC 31.6 L (32.0-37.0) g/dL Immature Gran # 0.37 H (0.00-0.04) 10*3/uL Neutrophils # 10.41 H (1.80-7.70) 10*3/uL Lymphocytes # 0.78 L (0.90-5.00) 10*3/uL Eosinophils # 0.01 L (0.04-0.35) 10*3/uL Potassium 3.3 L (3.5-5.1) mmol/L BUN 55 H (7-17) mg/dL Creatinine 1.38 H (0.52-1.04) mg/dL Glucose 201 H (74-99) mg/dL Assessment and Plan Assessment: 1. Acute kidney injury secondary to ATN secondary to hypotension/shock. Also concern for obstructive uropathy. Creatinine 3.04 on admission and improved to 1.39. UA fairly benign. 2. Chronic kidney disease stage IIIa with baseline creatinine near 1.1. 3. Right-sided hydronephrosis with bladder mass. Urology following. Status post right ureteral stent placed May 13, 2025. 4. Hypovolemic hyponatremia improved with IV fluids. Currently off fluids. Subsequently became hypervolemic and received IV Lasix. 5. Metabolic acidosis secondary to acute kidney injury and IV fluids. Improved. On oral bicarb. 6. Shock status post Levophed. 7. Chronic diastolic CHF with moderate mitral regurgitation, moderate to severe tricuspid regurgitation. 8. Volume overload. Improved with diuresis. Now on room air. 9. Hypokalemia from diuresis and Florinef. 10. A-fib with RVR S/P amiodarone drip. Plan: add diuretics Replace potassium Repeat labs in a.m.
--- NOTE | 2025-05-19 14:05 | P.CONS ---
History of Present Illness - Reason for Consult Consult date: 05/19/25 Anemia, dropping hemoglobin Requesting physician: Doug E Sheet - Chief Complaint Hypotension, weakness - History of Present Illness This is a 79-year-old female with multiple comorbidities who was sent into the emergency department by nephrology after being seen at Dr. Bunch's office back on 05/10/2025 for abnormal kidney function, hypotension with associated weakness and dizziness. Patient was admitted to the hospital into the ICU for hypotension and hypothermia, sepsis requiring pressor support. Past medical history includes hypertension, atrial fibrillation on Eliquis, hypothyroidism, resting tremors, diverticulitis with previous bowel resection, pelvic mass reportedly suspicious for malignancy, kidney disease, and chronic lower extremity venous ulcers. Patient has multiple consultants on board and patient states apparently was getting ready for discharge today. During this hospitalization she underwent cystoscopy with right retrograde pyelogram and r ight ureteral stent insertion. On admission patient had a hemoglobin of 10.4 with a drop today to 8.5. Patient denies any blood in her stool or black tarry stool. She denies any previous history of GI bleed. She denies any abdominal pain nausea or vomiting. Patient was started on oral iron yesterday. Nursing reports dark stool secondary to iron but not black and tarry. Patient has a normocytic normochromic anemia. Patient states she did have diarrhea when she first came in but that has subsided, she did had it but a stool test for C. difficile which was negative. Has been on IV antibiotics for urinary tract infection. Patient states she has had no previous upper endoscopy in the past. Believes her last colonoscopy was about 10 years ago. Looks like colonoscopy was done in [place] [address] Flores with findings of diverticulosis. Review of Systems REVIEW OF SYSTEMS: CARDIOPULMONARY: No chest pain or shortness of breath. Gastrointestinal: Abdominal pain. No nausea or vomiting. No hematemesis, coffee-ground emesis. No rectal bleeding, or melena. GENITOURINARY: No dysuria or hematuria. MUSCULOSKELETAL: Reports normal range of motion., Joint pain. SKIN: No rashes. No jaundice. No lower extremity chronic venous ulcers. Bruising on upper extremities. Left forearm with dressing clean dry and intact. ENDOCRINE: No chills, fevers. No excessive weight gain or loss. No polydipsia or polyuria. PSYCHIATRIC: Unremarkable. NEUROLOGY: No change in mental status. Denies dizziness, headache. ENT: Vision unremarkable. CONSTITUTIONAL: No recent weight loss. No fever, chills, night sweats. Past Medical History Past Medical History: Atrial Fibrillation, Hypertension Additional Past Medical History / Comment(s): Hypothyroidism, Resting Tremors (related to stress), Diverticulitis with prior bowel resection, Urinary Retention (Had chronic paige for 10 days and worsening Kidney Function. History of Any Multi-Drug Resistant Organisms: None Reported Past Surgical History: Bowel Resection, Cholecystectomy, Hernia Repair, Hysterectomy, Orthopedic Surgery Past Anesthesia/Blood Transfusion Reactions: Postoperative Nausea & Vomiting (PONV) Smoking Status: Never smoker, Second hand smoke exposure - Past Family History Father Family Medical History: Cancer Mother Family Medical History: Cancer Additional Family Medical History / Comment(s): Bone Marrow Cancer Sister(s) Family Medical History: Cancer Additional Family Medical History / Comment(s): Breast Cancer Medications and Allergies Home Medications Medication Instructions Recorded Confirmed Type Nystatin 100,000 Unit/gm Powd 1 applic TOPICAL BID #15 gram 03/07/25 05/10/25 Rx [Mycostatin Powder] Albuterol Sulfate [Ventolin HFA] 2 puff INHALATION RT-QID PRN 05/10/25 05/10/25 History Apixaban [Eliquis] 2.5 mg PO BID 05/10/25 05/10/25 History Budesonide/Formoterol Fumarate 2 puff INHALATION RT-BID 05/10/25 05/10/25 History [Budesonide-Formoterol 80-4.5] Bumetanide [BUMEX] 2 mg PO BID@0900,1400 05/10/25 05/10/25 History Candesartan [Atacand] 16 mg PO DAILY 05/10/25 05/10/25 History Cholecalciferol [Vitamin D3 (125 125 mcg PO DAILY 05/10/25 05/10/25 History Mcg = 5000 Iu)] Cranberry 4200mg 4,200 mg PO DAILY 05/10/25 05/10/25 History Iron 28mg 28 mg PO DAILY 05/10/25 05/10/25 History Levothyroxine Sodium [Synthroid] 175 mcg PO DAILY@0400 05/10/25 05/10/25 History Methenamine Hippurate 1 gm PO BID 05/10/25 05/10/25 History Propranolol HCl [Propranolol HCl 80 mg PO DAILY 05/10/25 05/10/25 History ER] Tamsulosin [Flomax] 0.4 mg PO DAILY 05/10/25 05/10/25 History Vitamin C(Unknown Dose) 1 tab PO DAILY 05/10/25 05/10/25 History dilTIAZem HCL [dilTIAZem HCL 24Hr 120 mg PO DAILY 05/10/25 05/10/25 History ER ([place])] Allergies Allergy/AdvReac Type Severity Reaction Status Date / Time IGNACIO Inhibitors AdvReac Dyspnea Verified 05/10/25 14:10 aclidinium AdvReac Dyspnea Verified 05/10/25 14:10 [From Tudorza Pressair] amlodipine [From Norvasc] AdvReac Dyspnea Verified 05/10/25 14:10 rosuvastatin [From Crestor] AdvReac Dyspnea Verified 05/10/25 14:10 Physical Exam Vitals: Vital Signs Temp Pulse Pulse Resp BP Pulse Ox 05/19/25 06:05 110/77 05/19/25 04:27 98.7 F 111 H 16 142/87 97 05/19/25 01:39 16 05/18/25 23:24 97.8 F 113 H 16 106/72 98 05/18/25 20:20 98.0 F 112 H 16 129/84 98 05/18/25 20:00 16 05/18/25 16:00 98.9 F 109 H 16 122/76 98 05/18/25 14:00 108 H 109 H 16 05/18/25 11:44 98.7 F 109 H 16 116/77 99 Intake and Output 05/18/25 05/19/25 05/19/25 22:59 06:59 14:59 Intake Total 240 Output Total 550 350 Balance -310 -350 Intake: Oral 240 Output: Urine 550 350 Other: Voiding Method Indwelling Catheter Indwelling Catheter # Voids 1 # Bowel Movements 1 Weight 80.5 kg General appearance: The patient is alert, oriented, appears in no acute distress. HET: Head is normocephalic and atraumatic. Conjunctiva pink. Sclera anicteric. Neck: Supple without lymphadenopathy. Trachea midline. Heart: Regular. Lungs: Equal expansion, normal respiratory effort. Abdomen: Soft, nontender, nondistended. Skin: Bilateral upper extremities with bruising. Left forearm with dressing clean dry and intact. Lower extremities with dressing. Extremities: Normal skin color and turgor. No pedal edema. Neurological: Alert and oriented x3. Tremors. Results CBC & Chem 7: 05/19/25 08:42 05/19/25 08:42 Labs: Abnormal Lab Results - Last 24 Hours (Table) 05/18/25 05/19/25 05/19/25 Range/Units 11:11 08:42 08:42 WBC 12.30 H (4.50-10.00) 10*3/uL RBC 3.02 L (4.10-5.20) 10*6/uL Hgb 8.5 L (12.0-15.0) g/dL Hct 26.9 L (37.2-46.3) % MCHC 31.6 L (32.0-37.0) g/dL Immature Gran # 0.37 H (0.00-0.04) 10*3/uL Neutrophils # 10.41 H (1.80-7.70) 10*3/uL Lymphocytes # 0.78 L (0.90-5.00) 10*3/uL Eosinophils # 0.01 L (0.04-0.35) 10*3/uL Potassium 3.1 L 3.3 L (3.5-5.1) mmol/L Carbon Dioxide 18 L (22-30) mmol/L BUN 55 H 55 H (7-17) mg/dL Creatinine 1.39 H 1.38 H (0.52-1.04) mg/dL Glucose 256 H 201 H (74-99) mg/dL Assessment and Plan (1) Normocytic normochromic anemia Narrative/Plan: 79-year-old female with multiple comorbidities admitted with sepsis, urinary tract infection acute on chronic kidney failure secondary to hydronephrosis secondary to pelvic mass with history of anemia with drop in her hemoglobin without any evidence of GI bleed. Iron studies obtained. History of diverticulosis status post resection last colonoscopy about 10 years ago. She is on anticoagulation secondary to atrial fibrillation however again has no overt signs of GI bleed. Anemia likely secondary to chronic disease patient also has large pelvic mass which she is supposed to undergo surgical intervention/biopsy in the future. No plans at this time for endoscopic evaluation. Patient can follow-up as an outpatient with gastroenterology if patient continues to be anemic or has signs of GI bleed. Current Visit: Yes Status: Acute Code(s): D64.9 - ANEMIA, UNSPECIFIED SNOMED Code(s): 45335796 (2) Atrial fibrillation Current Visit: Yes Status: Acute Code(s): I48.91 - UNSPECIFIED ATRIAL FIBRILLATION SNOMED Code(s): 71019604 (3) Pressure ulcer Current Visit: Yes Status: Acute Code(s): L89.90 - PRESSURE ULCER OF UNSPECIFIED SITE, UNSPECIFIED STAGE SNOMED Code(s): 5816009678 (4) Wound of lower extremity Current Visit: Yes Status: Acute Code(s): S81.809A - UNSPECIFIED OPEN WOUND, UNSPECIFIED LOWER LEG, INIT ENCNTR SNOMED Code(s): 888939575 (5) Acute on chronic kidney failure Current Visit: Yes Status: Acute Code(s): N17.9 - ACUTE KIDNEY FAILURE, UNSPECIFIED; N18.9 - CHRONIC KIDNEY DISEASE, UNSPECIFIED SNOMED Code(s): 351118793 (6) Complicated UTI (urinary tract infection) Current Visit: Yes Status: Acute Code(s): N39.0 - URINARY TRACT INFECTION, SITE NOT SPECIFIED SNOMED Code(s): 49727590 (7) Sepsis Current Visit: Yes Status: Acute Code(s): A41.9 - SEPSIS, UNSPECIFIED ORGANISM SNOMED Code(s): 73313977 (8) Unspecified hydronephrosis Current Visit: Yes Status: Acute Code(s): N13.30 - UNSPECIFIED HYDRONEPHROSIS SNOMED Code(s): 60274266 (9) Pelvic mass Current Visit: Yes Status: Acute Code(s): R19.00 - INTRA-ABD AND PELVIC SWELLING, MASS AND LUMP, UNSP SITE SNOMED Code(s): 19780570 Plan: 1. Continue symptomatic and supportive care 2. Iron studies, ferritin, vitamin B-12 and folate ordered 3. Diet as tolerated 4. Patient may continue Eliquis 5. Agree with oral iron supplementation 6. Continue with multiple vocational rehabilitation consultant recommendations 7. No plans on endoscopic evaluation at this time. Recommend outpatient follow-up in 4 weeks to follow-up for anemia and outpatient colonoscopy. Thank you for this consultation, patient is cleared from gastroenterology for discharge. Dr. Dominique Rosas I agree with the dictator's note, documented as a scribe by Zoie Dickerson.
[2025-05-19] MEDS: FUROSEMIDE 10 MG/ML 4 ML VIAL IV SCH (14:29)
[2025-05-19 22:43] LABS: % Iron Saturation 25.81 (12.00-45.00)
[2025-05-20 08:42] LABS: Basophils # (A) 0.01 10*3/uL (0.00-0.10); Basophils % (A) 0.1 %; Eosinophils # (A) 0.02 10*3/uL (0.04-0.35); Eosinophils % (A) 0.2 %; HGB 8.4 g/dL (12.0-15.0); Lymphocytes # (A) 0.74 10*3/uL (0.90-5.00); Lymphocytes % (A) 7.4 %; MCH 27.8 pg (27.0-32.0); MCHC 31.1 g/dL (32.0-37.0); MCV 89.4 fL (80.0-97.0); Monocytes # (A) 0.69 10*3/uL (0.20-1.00); Monocytes % (A) 6.9 %; Neutrophils # (A) 8.22 10*3/uL (1.80-7.70); Neutrophils % (A) 82.5 %; Platelet Count 237 10*3/uL (140-440); RBC 3.02 10*6/uL (4.10-5.20); RDW 16.5 % (11.5-14.5); WBC 9.97 10*3/uL (4.50-10.00)
[2025-05-20 09:08] LABS: African American GFR (CKD) 39 (>60 ml/min/1.73 sqM); Anion Gap 10 mmol/L; Blood Urea Nitrogen 56 mg/dL (7-17); Calcium 9.2 mg/dL (8.4-10.2); Carbon Dioxide 27 mmol/L (22-30); Chloride 100 mmol/L (98-107); Glucose 180 mg/dL (74-99); Non-African American GFR(CKD) 34 (>60 ml/min/1.73 sqM); Sodium 137 mmol/L (137-145)
[2025-05-20 09:11] LABS: Potassium 2.7 mmol/L (3.5-5.1)
[2025-05-20] MEDS ORDERED: Potassium Replacement Protocol 1 EACH MISC MISCELLANE PRN ×2 (09:22→09:27)
[2025-05-20] MEDS: POTASSIUM CHLORIDE ER 20 MEQ TAB.ER PO SCH (09:35)
--- NOTE | 2025-05-20 11:13 | P.PN ---
Subjective Progress Note Date: 05/20/25 Principal diagnosis: Anemia This is a 79-year-old female with multiple comorbidities who was sent into the emergency department by nephrology after being seen at Dr. Bunch's office back on 05/10/2025 for abnormal kidney function, hypotension with associated weakness and dizziness. Patient was admitted to the hospital into the ICU for hypotension and hypothermia, sepsis requiring pressor support. Past medical history includes hypertension, atrial fibrillation on Eliquis, hypothyroidism, resting tremors, diverticulitis with previous bowel resection, pelvic mass reportedly suspicious for malignancy, kidney disease, and chronic lower extremity venous ulcers. Patient has multiple consultants on board and patient states apparently was getting ready for discharge today. During this hospitalization she underwent cystoscopy with right retrograde pyelogram and right ureteral stent insertion. On admission patient had a hemoglobin of 10.4 with a drop today to 8.5. Patient denies any blood in her stool or black tarry stool. She denies any previous history of GI bleed. She denies any abdominal pain nausea or vomiting. Patient was started on oral iron yesterday. Nursing reports dark stool secondary to iron but not black and tarry. Patient has a normocytic normochromic anemia. Patient states she did have diarrhea when she first came in but that has subsided, she did had it but a stool test for C. difficile which was negative. Has been on IV antibiotics for urinary tract infection. Patient states she has had no previous upper endoscopy in the past. Believes her last colonoscopy was about 10 years ago. Looks like colonoscopy was done in [place] [address] Flores with findings of diverticulosis. 05/20/2025 Patient seen and examined as a follow-up. No acute changes through the night. Patient was kept overnight secondary to hypokalemia and repeating labs. Patient potassium low again this morning at 2.7 currently being replaced. No signs of GI bleed. Hemoglobin stable at 8.4 platelet count 237,000 iron 64 TIBC 248 saturation 25 ferritin 799 vitamin B12 458 folate 12.1. She denies any abdominal pain, nausea or vomiting. Objective - Vital Signs Vital signs: Vital Signs Temp 98.1 F 05/20/25 08:25 Pulse 109 H 05/20/25 08:25 Resp 14 05/20/25 08:25 BP 111/68 05/20/25 08:25 Pulse Ox 100 05/20/25 08:25 FiO2 Intake & Output 05/19/25 05/20/25 05/20/25 18:59 06:59 18:59 Intake Total 480 Output Total 1600 300 400 Balance -1120 -300 -400 Weight 92.5 kg Intake: Oral 480 Output: Urine 1600 300 400 Other: Voiding Method Indwelling Catheter Indwelling Catheter # Voids 1 ABP, PAP, CO, CI - Last Documented Arterial Blood Pressure 101/61 - Exam General appearance: The patient is alert, oriented, appears in no acute distress. HET: Head is normocephalic and atraumatic. Conjunctiva pink. Sclera anicteric. Neck: Supple without lymphadenopathy. Abdomen: Soft, nontender, nondistended. Extremities: Normal skin color and turgor. No pedal edema Skin: No rashes, no jaundice Neurological: No focal deficits. Alert and oriented. - Labs CBC & Chem 7: 05/20/25 08:15 05/20/25 08:15 Labs: Abnormal Lab Results - Last 24 Hours (Table) 05/19/25 05/20/25 05/20/25 Range/Units 08:42 08:15 08:15 RBC 3.02 L (4.10-5.20) 10*6/uL Hgb 8.4 L (12.0-15.0) g/dL Hct 27.0 L (37.2-46.3) % MCHC 31.1 L (32.0-37.0) g/dL Immature Gran # 0.29 H (0.00-0.04) 10*3/uL Neutrophils # 8.22 H (1.80-7.70) 10*3/uL Lymphocytes # 0.74 L (0.90-5.00) 10*3/uL Eosinophils # 0.02 L (0.04-0.35) 10*3/uL Potassium 2.7 L* (3.5-5.1) mmol/L BUN 56 H (7-17) mg/dL Creatinine 1.49 H (0.52-1.04) mg/dL Glucose 180 H (74-99) mg/dL Transferrin 177.0 L (204.0-354.0) mg/dL Ferritin 799.0 H (10.0-291.0) ng/mL Assessment and Plan (1) Normocytic normochromic anemia Narrative/Plan: 79-year-old female with multiple comorbidities admitted with sepsis, urinary tract infection acute on chronic kidney failure secondary to hydronephrosis secondary to pelvic mass with history of anemia with drop in her hemoglobin without any evidence of GI bleed. Iron studies obtained. History of diverticulosis status post resection last colonoscopy about 10 years ago. She is on anticoagulation secondary to atrial fibrillation however again has no overt signs of GI bleed. Anemia likely secondary to chronic disease patient also has large pelvic mass which she is supposed to undergo surgical interventio n/biopsy in the future. No plans at this time for endoscopic evaluation. Patient can follow-up as an outpatient with gastroenterology if patient continues to be anemic or has signs of GI bleed. Urine studies ordered and reviewed and are not consistent with iron deficiency anemia. Again likely anemia of chronic disease. No plans on endoscopic evaluation. Current Visit: Yes Status: Acute Code(s): D64.9 - ANEMIA, UNSPECIFIED SNOMED Code(s): 76067476 (2) Atrial fibrillation Current Visit: Yes Status: Acute Code(s): I48.91 - UNSPECIFIED ATRIAL FIBRILLATION SNOMED Code(s): 58923993 (3) Pressure ulcer Current Visit: Yes Status: Acute Code(s): L89.90 - PRESSURE ULCER OF UNSPECIFIED SITE, UNSPECIFIED STAGE SNOMED Code(s): 1271242701 (4) Wound of lower extremity Current Visit: Yes Status: Acute Code(s): S81.809A - UNSPECIFIED OPEN WOUND, UNSPECIFIED LOWER LEG, INIT ENCNTR SNOMED Code(s): 026023173 (5) Acute on chronic kidney failure Current Visit: Yes Status: Acute Code(s): N17.9 - ACUTE KIDNEY FAILURE, UNSPECIFIED; N18.9 - CHRONIC KIDNEY DISEASE, UNSPECIFIED SNOMED Code(s): 589359560 (6) Complicated UTI (urinary tract infection) Current Visit: Yes Status: Acute Code(s): N39.0 - URINARY TRACT INFECTION, SITE NOT SPECIFIED SNOMED Code(s): 08537214 (7) Sepsis Current Visit: Yes Status: Acute Code(s): A41.9 - SEPSIS, UNSPECIFIED ORGANISM SNOMED Code(s): 60411381 (8) Unspecified hydronephrosis Current Visit: Yes Status: Acute Code(s): N13.30 - UNSPECIFIED HYDRONEPHROSIS SNOMED Code(s): 40868449 (9) Pelvic mass Current Visit: Yes Status: Acute Code(s): R19.00 - INTRA-ABD AND PELVIC SWELLING, MASS AND LUMP, UNSP SITE SNOMED Code(s): 18807454 (10) Hypokalemia Narrative/Plan: Place per protocol Current Visit: Yes Status: Acute Code(s): E87.6 - HYPOKALEMIA SNOMED Code(s): 61253190 Plan: 1. Continue symptomatic and supportive care 2. Iron studies, ferritin, vitamin B-12 and folate ordered and reviewed 3. Diet as tolerated 4. Patient may continue Eliquis 5. Replace potassium per protocol 6. No plans on endoscopic evaluation at this time. Recommend outpatient follow-up in 4 weeks to follow-up for anemia and outpatient colonoscopy. Thank you for this consultation, patient is cleared from gastroenterology for discharge. We will sign off at this time. Dr. Dominique Rosas I agree with the dictator's note, documented as a scribe by Zoie Dickerson.
--- NOTE | 2025-05-20 12:52 | P.PN ---
Subjective Patient is seen for follow-up for acute kidney injury. Renal function has improved with serum creatinine down to 1.39 -1.4. Started on IV Lasix yesterday. Potassium is low at 2.7 No complaints of shortness of breath. Continues to have significant swelling in the lower extremities Objective - Vital Signs Vital signs: Vital Signs Temp 97.7 F 05/20/25 11:57 Pulse 105 H 05/20/25 11:57 Resp 16 05/20/25 11:57 BP 108/72 05/20/25 11:57 Pulse Ox 99 05/20/25 11:57 FiO2 Intake & Output 05/19/25 05/20/25 05/20/25 18:59 06:59 18:59 Intake Total 480 240 Output Total 5508 984 5713 Balance -1120 -300 -960 Weight 92.5 kg Intake: Oral 480 240 Output: Urine 5948 146 5456 Other: Voiding Method Indwelling Catheter Indwelling Catheter Indwelling Catheter # Voids 1 ABP, PAP, CO, CI - Last Documented Arterial Blood Pressure 101/61 - Exam Patient is awake, comfortable, no acute distress Examination of the heart S1 and S2 Examination of the lungs bilateral breath sounds are heard Abdomen is soft nontender Examination lower extremity shows edema 2+ bilaterally, both legs are wrapped - Labs CBC & Chem 7: 05/20/25 08:15 05/20/25 08:15 Labs: Abnormal Lab Results - Last 24 Hours (Table) 05/19/25 05/20/25 05/20/25 Range/Units 08:42 08:15 08:15 RBC 3.02 L (4.10-5.20) 10*6/uL Hgb 8.4 L (12.0-15.0) g/dL Hct 27.0 L (37.2-46.3) % MCHC 31.1 L (32.0-37.0) g/dL Immature Gran # 0.29 H (0.00-0.04) 10*3/uL Neutrophils # 8.22 H (1.80-7.70) 10*3/uL Lymphocytes # 0.74 L (0.90-5.00) 10*3/uL Eosinophils # 0.02 L (0.04-0.35) 10*3/uL Potassium 2.7 L* (3.5-5.1) mmol/L BUN 56 H (7-17) mg/dL Creatinine 1.49 H (0.52-1.04) mg/dL Glucose 180 H (74-99) mg/dL Transferrin 177.0 L (204.0-354.0) mg/dL Ferritin 799.0 H (10.0-291.0) ng/mL Assessment and Plan Assessment: 1. Acute kidney injury secondary to ATN secondary to hypotension/shock. Also concern for obstructive uropathy. Creatinine 3.04 on admission and improved to 1.4. UA fairly benign. 2. Chronic kidney disease stage IIIa with baseline creatinine near 1.1. 3. Right-sided hydronephrosis with bladder mass. Urology following. Status post right ureteral stent placed May 13, 2025. 4. Hypovolemic hyponatremia improved with IV fluids. Currently off fluids. Subsequently became hypervolemic and received IV Lasix. 5. Metabolic acidosis secondary to acute kidney injury and IV fluids. Improved. On oral bicarb. 6. Shock status post Levophed. 7. Chronic diastolic CHF with moderate mitral regurgitation, moderate to severe tricuspid regurgitation. 8. Volume overload. Improved with diuresis. Now on room air. 9. Hypokalemia from diuresis and Florinef. 10. A-fib with RVR S/P amiodarone drip. Plan: Continue with Lasix DC Florinef due to significant edema Continue with midodrine Consider switching to oral Cortef Replace potassium Repeat labs in a.m.
[2025-05-20 15:13] LABS: Magnesium 1.6 mg/dL (1.6-2.3); Potassium 3.2 mmol/L (3.5-5.1)
--- NOTE | 2025-05-20 16:39 | P.PN ---
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 On today's evaluation that is 05/19/2025,the patient denies any fever or any chills, patient is complaining of some shortness of breath she did have a cough with occasional sputum production no nausea vomiting abdominal pain or diarrhea. Patient white count is 12.30, creatinine is 1.38 Objective - Vital Signs Vital signs: Vital Signs Temp 97.7 F 05/19/25 11:50 Pulse 105 H 05/19/25 11:50 Resp 16 05/19/25 11:50 BP 122/81 05/19/25 11:50 Pulse Ox 98 05/19/25 11:50 FiO2 Intake & Output 05/18/25 05/19/25 05/19/25 18:59 06:59 18:59 Intake Total 240 240 Output Total 550 350 Balance -310 -350 240 Weight 84.5 kg 80.5 kg Intake: Oral 240 240 Output: Urine 550 350 Other: Voiding Method Indwelling Catheter Indwelling Catheter # Voids 1 # Bowel Movements 1 ABP, PAP, CO, CI - Last Documented Arterial Blood Pressure 101/61 - Exam GENERAL DESCRIPTION: An elderly female lying in bed in no distress RESPIRATORY SYSTEM: Unlabored breathing , decreased breath sounds at bases HEART: S1 S2 regular rate and rhythm , ABDOMEN: Soft , no tenderness EXTREMITIES: Leg wound is currently dressed - Labs CBC & Chem 7: 05/20/25 08:15 05/20/25 14:33 Labs: Abnormal Lab Results - Last 24 Hours (Table) 05/19/25 05/19/25 Range/Units 08:42 08:42 WBC 12.30 H (4.50-10.00) 10*3/uL RBC 3.02 L (4.10-5.20) 10*6/uL Hgb 8.5 L (12.0-15.0) g/dL Hct 26.9 L (37.2-46.3) % MCHC 31.6 L (32.0-37.0) g/dL Immature Gran # 0.37 H (0.00-0.04) 10*3/uL Neutrophils # 10.41 H (1.80-7.70) 10*3/uL Lymphocytes # 0.78 L (0.90-5.00) 10*3/uL Eosinophils # 0.01 L (0.04-0.35) 10*3/uL Potassium 3.3 L (3.5-5.1) mmol/L BUN 55 H (7-17) mg/dL Creatinine 1.38 H (0.52-1.04) mg/dL Glucose 201 H (74-99) mg/dL Assessment and Plan (1) Complicated UTI (urinary tract infection) Current Visit: Yes Status: Acute Code(s): N39.0 - URINARY TRACT INFECTION, SITE NOT SPECIFIED SNOMED Code(s): 19590089 (2) Sepsis Current Visit: Yes Status: Acute Code(s): A41.9 - SEPSIS, UNSPECIFIED ORGANISM SNOMED Code(s): 33429017 Plan: 1patient presented to the hospital with weakness and low blood pressure in this patient who did have features of SIRS however no clear focus of infection patient is not running any fever does not look toxic urine is negative chest x- ray was mostly CHF, patient did have a wound to the left lower extremity however wound base looks clean with no slough tissue surrounding redness patient did have CT abdominal pelvis with evidence of cystic mass around the bladder with right-sided hydro ureteric nephrosis could be the likely source 2-patient has been evaluated by urology and is status post cystoscopy and ureteral stent placement completed on 05/13/2025 3--local wound care to the left lower extremity wound with a dry Aquacel dressing and Sadi wrap from just above the toe to below the knee to keep the swelling down 4patient afebrile white count slightly up today but normalized yesterday she did have predominantly respiratory symptom possible component of pneumonia to continue with Zosyn while inpatient and try to obtain a sputum Dictation was produced using [employer] dictation software. please excuse any grammatical, word or spelling errors. Time with Patient: Less than 30
--- NOTE | 2025-05-20 16:40 | P.PN ---
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 On today's evaluation that is 05/20/2025,the patient remains to be afebrile, patient is on room air not requiring supplemental oxygen however complaining of shortness of breath but no chest pain or any worsening cough.Patient denies having any nausea or vomiting, no abdominal pain and no diarrhea has been reported. The patient white normalized to 9.97, creatinine is 1.49 Objective - Vital Signs Vital signs: Vital Signs Temp 97.7 F 05/20/25 11:57 Pulse 105 H 05/20/25 11:57 Resp 16 05/20/25 11:57 BP 108/72 05/20/25 11:57 Pulse Ox 99 05/20/25 11:57 FiO2 Intake & Output 05/19/25 05/20/25 05/20/25 18:59 06:59 18:59 Intake Total 480 240 Output Total 7520 321 3238 Balance -1120 -300 -960 Weight 92.5 kg Intake: Oral 480 240 Output: Urine 4473 818 2690 Other: Voiding Method Indwelling Catheter Indwelling Catheter Indwelling Catheter # Voids 1 ABP, PAP, CO, CI - Last Documented Arterial Blood Pressure 101/61 - Exam GENERAL DESCRIPTION: An elderly female lying in bed in no distress RESPIRATORY SYSTEM: Unlabored breathing , decreased breath sounds at bases HEART: S1 S2 regular rate and rhythm , ABDOMEN: Soft , no tenderness EXTREMITIES: Leg wound is currently dressed - Labs CBC & Chem 7: 05/20/25 08:15 05/20/25 14:33 Labs: Abnormal Lab Results - Last 24 Hours (Table) 05/19/25 05/20/25 05/20/25 Range/Units 08:42 08:15 08:15 RBC 3.02 L (4.10-5.20) 10*6/uL Hgb 8.4 L (12.0-15.0) g/dL Hct 27.0 L (37.2-46.3) % MCHC 31.1 L (32.0-37.0) g/dL Immature Gran # 0.29 H (0.00-0.04) 10*3/uL Neutrophils # 8.22 H (1.80-7.70) 10*3/uL Lymphocytes # 0.74 L (0.90-5.00) 10*3/uL Eosinophils # 0.02 L (0.04-0.35) 10*3/uL Potassium 2.7 L* (3.5-5.1) mmol/L BUN 56 H (7-17) mg/dL Creatinine 1.49 H (0.52-1.04) mg/dL Glucose 180 H (74-99) mg/dL Transferrin 177.0 L (204.0-354.0) mg/dL Ferritin 799.0 H (10.0-291.0) ng/mL Assessment and Plan (1) Complicated UTI (urinary tract infection) Current Visit: Yes Status: Acute Code(s): N39.0 - URINARY TRACT INFECTION, SITE NOT SPECIFIED SNOMED Code(s): 58441386 (2) Sepsis Current Visit: Yes Status: Acute Code(s): A41.9 - SEPSIS, UNSPECIFIED ORGANISM SNOMED Code(s): 89774389 Plan: 1patient presented to the hospital with weakness and low blood pressure in this patient who did have features of SIRS however no clear focus of infection patient is not running any fever does not look toxic urine is negative chest x-ray was mostly CHF, patient did have a wound to the left lower extremity however wound base looks clean with no slough tissue surrounding redness patient did have CT abdominal pelvis with evidence of cystic mass around the bladder with right-sided hydro ureteric nephrosis could be the likely source 2-patient has been evaluated by urology and is status post cystoscopy and ureteral stent placement completed on 05/13/2025 3--local wound care to the left lower extremity wound with a dry Aquacel dressin g and Sadi wrap from just above the toe to below the knee to keep the swelling down 4patient afebrile white count normalized again. Complains of respiratory symptoms with cough and sputum production sputum culture have been requested continue Zosyn Dictation was produced using [employer] dictation software. please excuse any grammatical, word or spelling errors. Time with Patient: Less than 30
--- NOTE | 2025-05-20 20:58 | P.PN ---
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 05/14/2025 - the patient is seen and evaluated in room at bedside; remains afebrile, the patient is on room air and breathing comfortably, the Pt denies having any chest pain or cough, the patient denies having any abdominal pain no vomiting or any diarrhea has been reported by the nursing staff. Blood work reveals WBC of 8.75, hemoglobin of 9.3 and platelet count of 172, sodium 137, potassium 3.6, BUN/creatinine of 56/1.84 and blood glucose of 126, UA post insertion of the catheter positive cultures are pending 05/15/2025 Patient seen and evaluated in ICU; reports fair control of pain; concerned about appointment for surgery for pelvic mass; plans to ask her daughter to reschedule Patient is currently -- sitting in a chair next to the hospital bed. She currently on room air. She is getting saline at 10 cc an hour. Patient is in atrial fibrillation with a rate of 155 bpm. - The patient continues on Solu-Cortef, at 100 mg every 8 hours. Pulmonary service planning to cut down to 50 mg every 8 hours. Clinically, the patient is doing reasonably well. Labs today include a sodium 136, potassium 3.6, chlorides 105, CO2 23, BUN 60, creatinine 1.8. Glucose is 272. Calcium 8.9, magnesium 1.7. Cultures are thus far negative. No chest x-ray today. - Patient remains in atrial fibrillation with RVR; cardiology to evaluate; raquel reciate recommendation 05/16/2025 Patient is seen and evaluated on selective care unit; daughter is present at bedside; denies any specific complaints Vital signs are reviewed and are stable - Patient has been evaluated by cardiology and has been placed on IV amiodarone infusion for persistent atrial fibrillation with RVR; metoprolol 25 mg twice daily; patient to continue with Eliquis 2.5 mg -patient has been evaluated by urology and is status post cystoscopy and ureteral stent placement completed on 05/13/2025 patient did have improvement in her temperature as well as white count, stool for C. difficile is negative repeat UA after insertion of the ureteral stent was requested; continue patient on Zosyn 05/17 Patient mentation is okay. She feels little short of breath from deconditioning patient wants rescue inhaler which was ordered No much wheezing or crepitation anteriorly while she is lying down She has diarrhea 2-3 times yesterday but C. difficile negative. We will give Imodium Patient is aware about her urinary bladder mass. She follow-up with Dr. 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 She states that her bowel movement is improving. She is sitting on commode right now. No other urinary complaint chest pain or dyspnea. Patient herself feels she can go home. She was planning for her daughter to pick her up before she goes to rehab. However her hemoglobin dropped today 8.5, baseline is 10-11 it was 9.3 yesterday and keep dropping. Patient does not have symptoms but she is on Eliquis 2.5 mg for her A-fib. Also patient on Protonix. Will do anemia workup. Will ask for GI consult. Keep monitoring 05/20 This is a pleasant 79 years old female who was originally seen by Dr. Bunch for worsening kidney function, she was treated appropriately and her creatinine came down 3.0 down to 1.4, however she developed bilateral leg swelling and now was started on Lasix 40 mg once daily for significant leg swelling, she is making good amount of urine more than 3 L in the last 24 hours, her creatinine remained stable around 1.4. Also she has been treated for sepsis and UTI on Zosyn and fluconazole, her leukocytosis came back to normal today Hemoglobin is stable GI service cleared her for discharge. Cardiology already signed off the case Patient has severe hypokalemia 2.7 and hypomagnesemia being replaced per protocol with close monitoring secondary to overdiuresis. Review of systems CONSTITUTIONAL: No fever, no malaise, no fatigue. HEENT: No recent visual problems or hearing problems. Denied any sore throat. CARDIOVASCULAR: No orthopnea, PND, no palpitations, no syncope. PULMONARY: No shortness of breath, no cough, no hemoptysis. GASTROINTESTINAL: No diarrhea, no nausea, no vomiting, no abdominal pain. Normoactive bowel sounds. NEUROLOGICAL: No headaches, no weakness, no numbness. HEMATOLOGICAL: Denies any bleeding or petechiae. Active Medications Generic Name Dose Route Start Last Admin Trade Name Freq PRN Reason Stop Dose Admin Acetaminophen 650 mg 05/10/25 16:01 Acetaminophen Tab 325 Mg Tab PO Q6HR PRN Mild Pain or Fever > 100.5 Albuterol Sulfate 2 puff 05/17/25 11:10 05/18/25 11:08 Albuterol Hfa Inhaler INHALATION 2 puff RT-QID PRN Administration Shortness Of Breath Or Wheezing Amiodarone HCl 200 mg 05/16/25 21:00 05/18/25 21:43 Amiodarone 200 Mg Tab PO 200 mg BID LENI Administration Apixaban 2.5 mg 05/10/25 21:00 05/18/25 21:43 Apixaban 2.5 Mg Tablet PO 2.5 mg BID LENI Administration Protocol Ascorbic Acid 500 mg 05/11/25 09:00 05/18/25 08:30 Ascorbic Acid 500 Mg Tab PO 500 mg DAILY LENI Administration Budesonide/Formoterol Fumarate 2 puff 05/10/25 20:00 05/18/25 17:50 Symbicort 80-4.5 Mcg Inhaler INHALATION 2 puff RT-BID LENI Administration Cholecalciferol 125 mcg 05/11/25 09:00 05/18/25 08:24 Cholecalciferol 125 Mcg (5000 Iu) Tablet PO 125 mcg DAILY LENI Administration Fluconazole 100 mg 05/15/25 09:00 05/18/25 08:24 Fluconazole 100 Mg Tab PO 100 mg DAILY LENI Administration Fludrocortisone Acetate 0.1 mg 05/12/25 10:30 05/18/25 08:24 Fludrocortisone 0.1 Mg Tab PO 0.1 mg DAILY LENI Administration Hydrocortisone Sodium Succinate 50 mg 05/15/25 16:00 05/18/25 23:20 Hydrocortisone Succinate 100 Mg/2 Ml Vial IV 50 mg Q8HR LENI Administration Piperacillin Sod/Tazobactam 100 mls @ 25 mls/hr 05/17/25 12:00 05/19/25 04:10 Sod 3.375 gm/ Sodium Chloride IVPB 25 mls/hr Q8H LENI Administration Protocol Levothyroxine Sodium 176 mcg 05/13/25 07:00 05/19/25 06:06 Levothyroxine 88 Mcg Tab PO 176 mcg DAILY@0630 LENI Administration Lidocaine 2 patch 05/11/25 14:45 05/18/25 10:29 Lidocaine 4% Patch TOPICAL Not Given DAILY [facility] Protocol Loperamide HCl 2 mg 05/17/25 11:11 Loperamide 2 Mg Cap PO QID PRN Diarrhea Metoprolol Tartrate 25 mg 05/17/25 16:00 05/18/25 21:43 Metoprolol Tartrate 25 Mg Tab PO 25 mg TID LENI Administration Midodrine 5 mg 05/14/25 12:30 05/19/25 06:06 Midodrine 5 Mg Tab PO 5 mg AC-TID LENI Administration Miscellaneous Information 1 each 05/11/25 12:31 Potassium Replacement Protocol 1 Each Misc MISCELLANE DAILY PRN Per Protocol Miscellaneous Information 1 each 05/11/25 12:31 Magnesium Replacement Protocol 1 Each Misc MISCELLANE DAILY PRN Per Protocol Protocol Naloxone HCl 0.2 mg 05/10/25 16:01 Naloxone 0.4 Mg/Ml 1 Ml Vial IV Q2M PRN Opioid Reversal Nystatin 1 applic 05/11/25 14:45 05/18/25 08:24 Nystatin 100,000 Unit/Gm Powd 15 Gm TOPICAL 1 applic DAILY LENI Administration Protocol Pantoprazole Sodium 40 mg 05/12/25 07:30 05/19/25 06:06 Pantoprazole 40 Mg Tablet PO 40 mg AC-[id number] LENI Administration Petrolatum 1 applic 05/14/25 10:44 Zinc Oxide Paste (Z-Guard) 1 Applic TOPICAL BID PRN Wound Healing Protocol Sodium Bicarbonate 650 mg 05/11/25 11:15 05/18/25 21:43 Sodium Bicarbonate Tab 650 Mg Tab PO 650 mg BID LENI Administration Objective - Vital Signs Vital signs: Vital Signs Temp 98.3 F 05/20/25 16:30 Pulse 97 05/20/25 16:30 Resp 14 05/20/25 16:30 BP 117/82 05/20/25 16:30 Pulse Ox 97 05/20/25 16:30 FiO2 Intake & Output 05/20/25 05/20/25 05/21/25 06:59 18:59 06:59 Intake Total 480 Output Total 300 1950 Balance -300 -1470 Weight 92.5 kg Intake: Oral 480 Output: Urine 300 1950 Other: Voiding Method Indwelling Catheter Indwelling Catheter # Voids 1 ABP, PAP, CO, CI - Last Documented Arterial Blood Pressure 101/61 - Exam -GENERAL: The patient is alert and oriented x3, not in any acute distress. Well developed, well nourished. Generally weak. Obese HEENT: Pupils are round and equally reacting to light. EOMI. No scleral icterus. No conjunctival pallor. Normocephalic, atraumatic. No pharyngeal erythema. No thyromegaly. CARDIOVASCULAR: S1 and S2 present. No murmurs, rubs, or gallops. PULMONARY: Chest is clear to auscultation, no wheezing , no crackles. ABDOMEN: Soft, nontender, nondistended, normoactive bowel sounds. No palpable organomegaly. MUSCULOSKELETAL: No joint swelling or deformity. EXTREMITIES: No cyanosis, clubbing, or pedal edema. NEUROLOGICAL: Gross neurological examination did not reveal any focal deficits. SKIN: No rashes. no petechiae. - Labs CBC & Chem 7: 05/20/25 08:15 05/20/25 14:33 Labs: Abnormal Lab Results - Last 24 Hours (Table) 05/19/25 05/20/25 05/20/25 Range/Units 08:42 08:15 08:15 RBC 3.02 L (4.10-5.20) 10*6/uL Hgb 8.4 L (12.0-15.0) g/dL Hct 27.0 L (37.2-46.3) % MCHC 31.1 L (32.0-37.0) g/dL Immature Gran # 0.29 H (0.00-0.04) 10*3/uL Neutrophils # 8.22 H (1.80-7.70) 10*3/uL Lymphocytes # 0.74 L (0.90-5.00) 10*3/uL Eosinophils # 0.02 L (0.04-0.35) 10*3/uL Potassium 2.7 L* (3.5-5.1) mmol/L BUN 56 H (7-17) mg/dL Creatinine 1.49 H (0.52-1.04) mg/dL Glucose 180 H (74-99) mg/dL Transferrin 177.0 L (204.0-354.0) mg/dL Ferritin 799.0 H (10.0-291.0) ng/mL 05/20/25 Range/Units 14:33 RBC (4.10-5.20) 10*6/uL Hgb (12.0-15.0) g/dL Hct (37.2-46.3) % MCHC (32.0-37.0) g/dL Immature Gran # (0.00-0.04) 10*3/uL Neutrophils # (1.80-7.70) 10*3/uL Lymphocytes # (0.90-5.00) 10*3/uL Eosinophils # (0.04-0.35) 10*3/uL Potassium 3.2 L (3.5-5.1) mmol/L BUN (7-17) mg/dL Creatinine (0.52-1.04) mg/dL Glucose (74-99) mg/dL Transferrin (204.0-354.0) mg/dL Ferritin (10.0-291.0) ng/mL Assessment and Plan Assessment: 1. Hypotension and shock, refractory to fluid resuscitation, considered sepsis s/p levophed 2. Acute on chronic kidney disease with Stage IIIa Chronic Kidney Disease with baseline creatinine 1.1 3. Hyperkalemia; resolved 4. Hypothermia; likely relative adrenal insufficiency; use external warming blanket 5. Acute leukocytosis/sepsis 6. Pelvic mass; abdominal/pelvis CT February, remarkable for large mu ltiseptated cystic mass in the pelvis measuring 11.3 x 13.4 x 11 cm likely either dependent hemorrhagic or enhancing solid component. Findings were suspicious for malignancy. Possibly ovarian in origin. There is no evidence of active bleeding. No definitive distant metastatic disease noted. Moderate right-sided hydronephrosis, suspected secondary to mass effect. Patient has not had any follow-up evaluation. -Patient is recommended outpatient follow-up 7. History of urinary retention and hydronephrosis; clean mass effect from cystic mass 8. UTI; UA positive for trace leukocytes, rare bacteria, trace protein 9 chronic atrial fibrillation, currently with controlled ventricular response, anticoagulated on Eliquis 10. Hyponatremia, with significant lower extremity edema and third spacing 11. History of hypothyroidism 12. Anemia, acute on chronic. Drop in hemoglobin. Anemia workup. GI consult DVT prophylaxis; SCD/Eliquis
[2025-05-21] MEDS: METOPROLOL TARTRATE 50 MG TAB PO SCH (10:12)
[2025-05-21 11:30] LABS: African American GFR (CKD) 42 (>60 ml/min/1.73 sqM); Anion Gap 14 mmol/L; Blood Urea Nitrogen 62 mg/dL (7-17); Calcium 9.1 mg/dL (8.4-10.2); Carbon Dioxide 23 mmol/L (22-30); Chloride 98 mmol/L (98-107); Glucose 174 mg/dL (74-99); Non-African American GFR(CKD) 37 (>60 ml/min/1.73 sqM); Potassium 2.9 mmol/L (3.5-5.1); Sodium 135 mmol/L (137-145)
[2025-05-21] MEDS: POTASSIUM CHLORIDE ER 20 MEQ TAB.ER PO SCH (12:18)
[2025-05-21] MEDS: MAGNESIUM SULFATE-D5W PMX 1 GM in DEXTROSE/WATER 1 100ML.BAG IVPB SCH (13:15)
--- NOTE | 2025-05-21 14:35 | P.DS ---
Providers Date of admission: 05/10/25 14:54 Attending physician: Autumn Ortega Consults: 05/10/25 16:01 Consult Physician Stat Consulting Provider: Colt Duckworth Consult Reason/Comments: CHIQUITA, hyperkalemia, hyponatremia Do you want consulting provider notified?: Already Contacted 05/10/25 17:08 Consult Physician Routine Consulting Provider: Dashawn Renteria Consult Reason/Comments: hypotension Do you want consulting provider notified?: Yes 05/10/25 17:12 Consult Physician Routine Consulting Provider: Trinity Masterson Consult Reason/Comments: SEPSIS? Do you want consulting provider notified?: Yes 05/11/25 10:58 Consult Physician Routine Consulting Provider: Luis Fernando Abad Consult Reason/Comments: bladder mass, hydronephrosis Do you want consulting provider notified?: Yes Primary care physician: Carole Dueñas Hospital Course: Diagnoses: 1. Hypotension and shock, resolved 2. Acute on chronic kidney disease with Stage IIIa Chronic Kidney Disease with baseline creatinine 1.1, improving and stable 3. Hyperkalemia; resolved 4. Hypothermia; likely relative adrenal insufficiency; use external warming blanket. Resolved 5. Acute leukocytosis/sepsis. Improving 6. Pelvic mass; abdominal/pelvis CT February, remarkable for large multiseptated cystic mass in the pelvis measuring 11.3 x 13.4 x 11 cm likely either dependent hemorrhagic or enhancing solid component. Findings were suspicious for malignancy. Possibly ovarian in origin. There is no evidence of active bleeding. No definitive distant metastatic disease noted. Moderate right-sided hydronephrosis, suspected secondary to mass effect. Patient has not had any follow-up evaluation. -Patient is recommended outpatient follow-up. Patient confirmed to me on several occasions she will follow-up with her ethnoarchaeologist at [facility] and and that she has the contact information. 7. History of urinary retention and hydronephrosis; clean mass effect from cystic mass. Follow-up with urologist 8. UTI; resolved 9. chronic atrial fibrillation, currently with controlled ventricular response, anticoagulated on Eliquis. On amiodarone 10. Hyponatremia, with significant lower extremity edema and third spacing. Stable and improving 11. History of hypothyroidism 12. Anemia, acute on chronic. Drop in hemoglobin. Anemia workup. 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 Patient had extensive course of hospitalization for 11 days. She has been seen by [employer] infectious disease will call order clerk and litigation coordinator. Patient A-fib is stable remains on Eliquis amiodarone and metoprolol and cleared by litigation coordinator as an outpatient follow-up with recommendation for possible cardioversion. Patient with no chest pain dyspnea or any other cardiac symptoms upon discharge. GI team saw her for anemia which looks stable. Patient also cleared by will call order clerk She has been followed closely by infectious disease and laborer [employer] She has been treated with IV antibiotics with Zosyn and fluconazole for her acute urinary tract infection and sepsis. This is improved and patient will be discharged on oral antibiotic as per ID team Also patient with evidence of adrenal insufficiency contributing to hypotension on admission, treated with IV hydrocortisone, will be discharged on Cortef 10 mg daily and 5 mg at bedtime, keep following clinical status and adjust dose accordingly Also patient evidence with acute kidney injury and hyperkalemia on CKD stage III. Patient was on Bumex. She was received IV fluids. Ejection fraction 55 to 60% on echocardiogram but there is moderate mitral regurgitation and tricuspid regurgitation Patient will be discharged on oral Lasix 40 mg. Potassium upon discharge day was 2.9 which is replace per protocol. Magnesium 1.6 also replaced. We recommend rechecking potassium and magnesium tomorrow on 05/22 while she is on oral Lasix. We will give her 2 days of oral magnesium replacement therapy Added that patient is awake alert mentation at baseline she feels fine and she can go to rehab today denied any other new complaints All consultants and cleared her for discharge including [employer], infectious disease. Three Dimensional Map Modeler also cleared outside of the case as well as GI service as above Problems and management plan were discussed with the patient and he verbalized understanding and acceptance Patient was found stable and can be discharged intermediate in guarded prognosis however he needs follow-up as an outpatient. Patient was instructed to follow up with PCP within one week and patient agrees Patient was instructed to follow-up with Dr. Bunch in 1 week, with urologist Dr. Akins in 2 to 4 weeks, with litigation coordinator Dr. Helm in 2 to 3 weeks Patient was instructed to follow-up with her ethnoarchaeologist at [facility] as above and she agrees and confirms to me on several occasions Physical exam -Gen: patient is a AAOx3, no distress. Generally weak CVS: S1-S2, RRR, no murmur Lungs: B/L CTA, no wheezing Abdomen: soft, no distention, no tenderness, positive bowel sounds -Extremity: n bilateral pitting leg leg edema. No induration Time spent more than 35 minutes Patient Condition at Discharge: Serious Plan - Discharge Summary Discharge Rx Participant: No New Discharge Prescriptions: New cefuroxime axetiL [Ceftin] 500 mg PO BID #10 tab Loperamide [Imodium] 2 mg PO QID PRN cap PRN Reason: Diarrhea Furosemide [Lasix] 40 mg PO DAILY #30 tablet Metoprolol Tartrate [Lopressor] 50 mg PO BID tab Midodrine [ProAmatine] 5 mg PO AC-TID tab Pantoprazole [Protonix] 40 mg PO AC-BRKFST tab Amiodarone [Cordarone] 200 mg PO BID tab Hydrocortisone [Cortef] 10 mg PO DAILY #30 tablet Hydrocortisone [Cortef] 5 mg PO HS #30 tablet Magnesium Oxide [Mag-Ox] 400 mg PO BID 2 Days #4 tab Continue Cholecalciferol [Vitamin D3 (125 Mcg = 5000 Iu)] 125 mcg PO DAILY Albuterol Sulfate [Ventolin HFA] 2 puff INHALATION RT-QID PRN PRN Reason: Shortness Of Breath Apixaban [Eliquis] 2.5 mg PO BID Iron 28mg 28 mg PO DAILY Methenamine Hippurate 1 gm PO BID Levothyroxine Sodium [Synthroid] 175 mcg PO DAILY@0400 Budesonide/Formoterol Fumarate [Budesonide-Formoterol 80-4.5] 2 puff INHALATION RT-BID Changed Nystatin 100,000 Unit/gm Powd [Mycostatin Powder] 1 applic TOPICAL BID PRN #15 gram PRN Reason: Rash Discontinued Propranolol HCl [Propranolol HCl ER] 80 mg PO DAILY Candesartan [Atacand] 16 mg PO DAILY dilTIAZem HCL [dilTIAZem HCL 24Hr ER (LA)] 120 mg PO DAILY Bumetanide [BUMEX] 2 mg PO BID@0900,1400 No Action Vitamin C(Unknown Dose) 1 tab PO DAILY Tamsulosin [Flomax] 0.4 mg PO DAILY Cranberry 4200mg 4,200 mg PO DAILY Discharge Medication List Albuterol Sulfate [Ventolin HFA] 2 puff INHALATION RT-QID PRN 05/10/25 [History] Apixaban [Eliquis] 2.5 mg PO BID 05/10/25 [History] Budesonide/Formoterol Fumarate [Budesonide-Formoterol 80-4.5] 2 puff INHALATION RT-BID 05/10/25 [History] Cholecalciferol [Vitamin D3 (125 Mcg = 5000 Iu)] 125 mcg PO DAILY 05/10/25 [History] Cranberry 4200mg 4,200 mg PO DAILY 05/10/25 [History] Iron 28mg 28 mg PO DAILY 05/10/25 [History] Levothyroxine Sodium [Synthroid] 175 mcg PO DAILY@0400 05/10/25 [History] Methenamine Hippurate 1 gm PO BID 05/10/25 [History] Tamsulosin [Flomax] 0.4 mg PO DAILY 05/10/25 [History] Vitamin C(Unknown Dose) 1 tab PO DAILY 05/10/25 [History] Amiodarone [Cordarone] 200 mg PO BID tab 05/21/25 [Rx] Furosemide [Lasix] 40 mg PO DAILY #30 tablet 05/21/25 [Rx] Hydrocortisone [Cortef] 5 mg PO HS #30 tablet 05/21/25 [Rx] Hydrocortisone [Cortef] 10 mg PO DAILY #30 tablet 05/21/25 [Rx] Loperamide [Imodium] 2 mg PO QID PRN cap 05/21/25 [Rx] Magnesium Oxide [Mag-Ox] 400 mg PO BID 2 Days #4 tab 05/21/25 [Rx] Metoprolol Tartrate [Lopressor] 50 mg PO BID tab 05/21/25 [Rx] Midodrine [ProAmatine] 5 mg PO AC-TID tab 05/21/25 [Rx] Nystatin 100,000 Unit/gm Powd [Mycostatin Powder] 1 applic TOPICAL BID PRN #15 gram 05/21/25 [Rx] Pantoprazole [Protonix] 40 mg PO AC-BRKFST tab 05/21/25 [Rx] cefuroxime axetiL [Ceftin] 500 mg PO BID #10 tab 05/21/25 [Rx] Follow up Appointment(s)/Referral(s): Carol Bunch MD [STAFF PHYSICIAN] - 1 Week Oj Akins MD [STAFF PHYSICIAN] - 2 Weeks Carole Dueñas DO [Primary Care Provider] - 1-2 days Immanuel Rosas MD [STAFF PHYSICIAN] - 2 Weeks (onsider outpatient cardioversion adjust dose of amiodarone ) Activity/Diet/Wound Care/Special Instructions: At time of discharge, schedule follow-up appointment with Dr. Abad in 2 months. Repeat Labs: BMP and Magnesium on 05/22 Renal diet Activity as tolerated We recommend you follow-up with your AMORTIZATION CLERK at [facility] for your pelvic mass, you already told medical team you are planning to see him. We recommend timeframe within 2 to 3 weeks. From the medical team you have the contact information
[2025-05-21 15:15] VITALS: BP 136/74; PULSE 121; RESP 18; TEMP 97.7
--- NOTE | 2025-05-21 16:44 | P.PN ---
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 On today's evaluation that is 05/21/2025, the patient continues to be afebrile, the patient is on room air and breathing comfortably, the Pt denies having any chest pain or any worsening cough, the patient denies having any abdominal pain no vomiting or any diarrhea. Patient did have a creatinine 1.38 no CBC was done today her white count normal as of yesterday Objective - Vital Signs Vital signs: Vital Signs Temp 97.7 F 05/21/25 12:15 Pulse 121 H 05/21/25 12:15 Resp 18 05/21/25 12:15 BP 136/74 05/21/25 12:15 Pulse Ox 97 05/21/25 12:15 FiO2 Intake & Output 05/20/25 05/21/25 05/21/25 18:59 06:59 18:59 Intake Total 480 540 240 Output Total 1949 1949 Balance -1470 540 -1710 Intake: Oral 480 540 240 Output: Urine 1949 1949 Other: Voiding Method Indwelling Catheter Indwelling Catheter Indwelling Catheter # Bowel Movements 1 ABP, PAP, CO, CI - Last Documented Arterial Blood Pressure 101/61 - Exam GENERAL DESCRIPTION: An elderly female lying in bed in no distress RESPIRATORY SYSTEM: Unlabored breathing , decreased breath sounds at bases HEART: S1 S2 regular rate and rhythm , ABDOMEN: Soft , no tenderness EXTREMITIES: Leg wound is currently dressed - Labs CBC & Chem 7: 05/20/25 08:15 05/21/25 10:35 Labs: Abnormal Lab Results - Last 24 Hours (Table) 05/21/25 Range/Units 10:35 Sodium 135 L (137-145) mmol/L Potassium 2.9 L (3.5-5.1) mmol/L BUN 62 H (7-17) mg/dL Creatinine 1.38 H (0.52-1.04) mg/dL Glucose 174 H (74-99) mg/dL Assessment and Plan (1) Complicated UTI (urinary tract infection) Status: Acute Code(s): N39.0 - URINARY TRACT INFECTION, SITE NOT SPECIFIED SNOMED Code(s): 38485296 (2) Sepsis Status: Acute Code(s): A41.9 - SEPSIS, UNSPECIFIED ORGANISM SNOMED Code(s): 12935347 Plan: 1patient presented to the hospital with weakness and low blood pressure in this patient who did have features of SIRS however no clear focus of infection patient is not running any fever does not look toxic urine is negative chest x- ray was mostly CHF, patient did have a wound to the left lower extremity however wound base looks clean with no slough tissue surrounding redness patient did have CT abdominal pelvis with evidence of cystic mass around the bladder with right-sided hydro ureteric nephrosis could be the likely source 2-patient has been evaluated by urology and is status post cystoscopy and ureteral stent placement completed on 05/13/2025 3--local wound care to the left lower extremity wound with a dry Aquacel dressing and Sadi wrap from just above the toe to below the knee to keep the swelling down 4patient afebrile white count normalized again. We will consider short course of oral Ceftin on discharge Dictation was produced using [employer] dictation software. please excuse any grammatical, word or spelling errors. Time with Patient: Less than 30
--- NOTE | 2025-05-21 17:07 | P.PN ---
Subjective Patient is seen for follow-up for acute kidney injury. Renal function has improved with serum creatinine down to 1.39 -1.4. Started on IV Lasix due to significant lower extremity edema. No complaints of shortness of breath. Objective - Vital Signs Vital signs: Vital Signs Temp 97.7 F 05/21/25 12:15 Pulse 121 H 05/21/25 12:15 Resp 18 05/21/25 12:15 BP 136/74 05/21/25 12:15 Pulse Ox 97 05/21/25 12:15 FiO2 Intake & Output 05/20/25 05/21/25 05/21/25 18:59 06:59 18:59 Intake Total 480 540 240 Output Total 1949 1949 Balance -1470 540 -1710 Intake: Oral 480 540 240 Output: Urine 1949 1949 Other: Voiding Method Indwelling Catheter Indwelling Catheter Indwelling Catheter # Bowel Movements 1 ABP, PAP, CO, CI - Last Documented Arterial Blood Pressure 101/61 - Exam Patient is awake, comfortable, no acute distress Examination of the heart S1 and S2 Examination of the lungs bilateral breath sounds are heard Abdomen is soft nontender Examination lower extremity shows edema 2+ bilaterally, both legs are wrapped - Labs CBC & Chem 7: 05/20/25 08:15 05/21/25 10:35 Labs: Abnormal Lab Results - Last 24 Hours (Table) 05/21/25 Range/Units 10:35 Sodium 135 L (137-145) mmol/L Potassium 2.9 L (3.5-5.1) mmol/L BUN 62 H (7-17) mg/dL Creatinine 1.38 H (0.52-1.04) mg/dL Glucose 174 H (74-99) mg/dL Assessment and Plan Assessment: 1. Acute kidney injury secondary to ATN secondary to hypotension/shock. Also concern for obstructive uropathy. Creatinine 3.04 on admission and improved to 1.4-1.3. UA fairly benign. 2. Chronic kidney disease stage IIIa with baseline creatinine near 1.1. 3. Right-sided hydronephrosis with bladder mass. Urology following. Status post right ureteral stent placed May 13, 2025. 4. Hypovolemic hyponatremia improved with IV fluids. Currently off fluids. Subsequently became hypervolemic and received IV Lasix. 5. Metabolic acidosis secondary to acute kidney injury and IV fluids. Improved. On oral bicarb. 6. Shock status post Levophed. 7. Chronic diastolic CHF with moderate mitral regurgitation, moderate to severe tricuspid regurgitation. 8. Volume overload. Improved with diuresis. Now on room air. 9. Hypokalemia from diuresis and Florinef. 10. A-fib with RVR S/P amiodarone drip. Plan: Continue with Lasix Continue with midodrine Replace potassium Stable for discharge from nephrology standpoint. Repeat labs in 1 to 2 days post discharge.
[2025-05-21] MEDS ORDERED: MAGNESIUM OXIDE 400 MG TAB PO SCH (21:00)
[2025-05-22] MEDS ORDERED: POTASSIUM CHLORIDE ER 10 MEQ TAB.ER.PRT PO SCH (09:00)
== END 2025-05-21 15:21 | disposition home or self-care (01) | DRG 853 ==
LOC: EC 12:12 → 3SCARD 14:54 → 2SICU 18:46 → 3SCARD 05-15 15:01
PROVIDERS: ADMIT Hospitalist; ATTEND Hospitalist
PROC: 0T768DZ Dilation of Right Ureter with Intraluminal Device, Via Natural or Artificial Opening Endoscopic (ICD-10-PCS; principal; 2025-05-10)
PROC: BT1D1ZZ Fluoroscopy of Right Kidney, Ureter and Bladder using Low Osmolar Contrast (ICD-10-PCS; 2025-05-10)
PROC: 06HY33Z Insertion of Infusion Device into Lower Vein, Percutaneous Approach (ICD-10-PCS; 2025-05-10)
PROC: 3E033XZ Introduction of Vasopressor into Peripheral Vein, Percutaneous Approach (ICD-10-PCS; 2025-05-10)
PROC: 03HY32Z Insertion of Monitoring Device into Upper Artery, Percutaneous Approach (ICD-10-PCS; 2025-05-11)
PROC: 4A133B1 Monitoring of Arterial Pressure, Peripheral, Percutaneous Approach (ICD-10-PCS; 2025-05-11)
PROC: 4A133J1 Monitoring of Arterial Pulse, Peripheral, Percutaneous Approach (ICD-10-PCS; 2025-05-11)
PROC: 3E033RZ Introduction of Antiarrhythmic into Peripheral Vein, Percutaneous Approach (ICD-10-PCS; 2025-05-15)
DX: A41.9 Sepsis, unspecified organism (principal); N17.0 Acute kidney failure with tubular necrosis; R57.9 Shock, unspecified; E87.20 Acidosis, unspecified; L89.152 Pressure ulcer of sacral region, stage 2; L89.312 Pressure ulcer of right buttock, stage 2; I13.0 Hypertensive heart and chronic kidney disease with heart failure and stage 1 through stage 4 chronic kidney disease, or unspecified chronic kidney disease; D63.1 Anemia in chronic kidney disease; L89.322 Pressure ulcer of left buttock, stage 2; N18.31 Chronic kidney disease, stage 3a; J44.9 Chronic obstructive pulmonary disease, unspecified; I08.1 Rheumatic disorders of both mitral and tricuspid valves; E03.9 Hypothyroidism, unspecified; L97.322 Non-pressure chronic ulcer of left ankle with fat layer exposed; I50.32 Chronic diastolic (congestive) heart failure; I48.19 Other persistent atrial fibrillation; N13.6 Pyonephrosis; E27.40 Unspecified adrenocortical insufficiency; E87.1 Hypo-osmolality and hyponatremia; I83.023 Varicose veins of left lower extremity with ulcer of ankle; E87.5 Hyperkalemia; R68.0 Hypothermia, not associated with low environmental temperature; E86.1 Hypovolemia; N32.89 Other specified disorders of bladder; E87.6 Hypokalemia; T38.0X5A Adverse effect of glucocorticoids and synthetic analogues, initial encounter; T50.2X5A Adverse effect of carbonic-anhydrase inhibitors, benzothiadiazides and other diuretics, initial encounter; E83.42 Hypomagnesemia; G25.0 Essential tremor; N28.1 Cyst of kidney, acquired; N83.8 Other noninflammatory disorders of ovary, fallopian tube and broad ligament; R19.09 Other intra-abdominal and pelvic swelling, mass and lump; Z87.19 Personal history of other diseases of the digestive system; Z90.711 Acquired absence of uterus with remaining cervical stump; Z87.440 Personal history of urinary (tract) infections; Z79.01 Long term (current) use of anticoagulants; Z79.890 Hormone replacement therapy; Z79.899 Other long term (current) drug therapy; Z90.49 Acquired absence of other specified parts of digestive tract
CPT/HCPCS: 36415; 36556; 51702; 71045; 71046; 74176; 74420; 76770; 80048; 80053; 81001; 82533; 82607; 82728; 82746; 83540; 83550; 83605; 83735; 83880; 84132; 84145; 84443; 84484; 85025; 85610; 85730; 86140; 87040; 87086; 87324; 87636; 93005; 93306; 94640; 96361; 96365; 96366; 96375; 99291